=== PATIENT | female | born 1975 | race Caucasian/White ===

== ENCOUNTER → 2019-01-09 | Outpatient (CLI) | payer OTHER ==
--- NOTE | 2019-01-10 03:32 | CT ---
EXAMINATION TYPE: CT abdomen pelvis wo/w con DATE OF EXAM: 01/09/2019 COMPARISON: NONE HISTORY: 43-year-old female with abdominal pain, kidney stones TECHNIQUE: Contiguous axial scanning of the abdomen and pelvis before and after administration of 100 ml Isovue 300 IV contrast. Delayed images through the kidneys and coronal/sagittal reconstructions performed. CT DLP: 806.6 mGycm Automated exposure control for dose reduction was used. FINDINGS: Heart normal size without pericardial effusion. Lung bases clear without pleural effusion. No focal liver lesion or biliary ductal dilatation. Portal venous system is patent. Small diverticulu m of the third portion of the duodenum projecting superiorly into the pancreatic head region. Some layering gravel/tiny calculi in the nondistended gallbladder. Adrenal glands, spleen, and pancreas appear within normal limits. There is mild bilateral pelvocaliectasis. There are 5 nonobstructive calculi in the right kidney nelli uring up to 6 mm. No left-sided renal calculi are seen. There are approximately 3 calcifications within the left side of the pelvis, largest measuring 8 mm, a critical between phleboliths and distal ureteral calculi. There is overall symmetric uptake and exc retion of contrast from both kidneys. On the right, there are tiny subcentimeter hypodense lesions too small for accurate CT characterizati on, probable tiny cysts. No dilated small bowel, free fluid, or free air. No mesenteric or retroperitoneal lymphadenopathy. Moderate stool burden. Oral contrast has progressed to the lower descending colon. Normal appendix. N o pericolonic inflammatory change. Anteverted uterus and both ovaries are visualized. There is a crenulated, peripherally enhancing stru cture measuring 2.0 cm within the right ovary and mild to moderate cul-de-sac free fluid. No pelvic l ymphadenopathy. Bones: No osseous destructive process. IMPRESSION: 1. RIGHT-SIDED NEPHROLITHIASIS MEASURING UP TO 6 MM. THERE IS MILD BILATERAL PELVICALIECTASIS WHICH C OULD BE TRANSIENT OR COULD REFLECT SEQUELA OF RECENTLY PASSED STONES. 2. CALCIFICATIONS IN THE LEFT SIDE OF THE PELVIS MEASURING UP TO 8 MM ARE EQUIVOCAL BETWEEN LEFT-SIDE D PELVIC PHLEBOLITHS AND DISTAL URETERAL CALCULI. THE FORMER IS FAVORED GIVEN OVERALL SYMMETRIC UPTAK E AND EXCRETION OF CONTRAST FROM BOTH KIDNEYS ARGUING AGAINST ANY SIGNIFICANT OBSTRUCTIVE UROPATHY. 3. CHOLELITHIASIS AND EITHER A 2.0 CM RECENTLY RUPTURED FOLLICLE OR CORPUS LUTEUM IN THE RIGHT OVARY. MILD TO MODERATE CUL-DE-SAC FREE FLUID LIKELY PHYSIOLOGIC.
== END ==
LOC: RADCTMAIN 14:52
PROVIDERS: ATTEND Internal Medicine Endocrinology, Diabetes & Metabolism
DX: N20.2 Calculus of kidney with calculus of ureter (principal); I87.8 Other specified disorders of veins; K80.20 Calculus of gallbladder without cholecystitis without obstruction
CPT/HCPCS: 74178; Q9967

== ENCOUNTER → 2019-01-21 | Outpatient (CLI) | payer OTHER ==
[2019-01-21 21:13] LABS: Albumin 4.8 g/dL (3.80-4.90); Albumin/Globulin Ratio 2.09 (1.60-3.17); Anion Gap 7.9 mmol/L (4.00-12.00); Calcium 9.8 mg/dL (8.7-10.3); Carbon Dioxide 25.1 mmol/L (21.6-31.8); Globulin 2.3 g/dL (1.6-3.3); Potassium 4.7 mmol/L (3.5-5.5); Total Bilirubin 0.4 mg/dL (0.3-1.2); Total Protein 7.1 g/dL (6.2-8.2)
== END ==
LOC: LABWHC1 13:21
PROVIDERS: ATTEND Internal Medicine Endocrinology, Diabetes & Metabolism
DX: N20.0 Calculus of kidney (principal); E10.65 Type 1 diabetes mellitus with hyperglycemia
CPT/HCPCS: 36415; 80053; 83970; 84443

== ENCOUNTER → 2019-02-18 | Outpatient (CLI) | payer OTHER ==
[2019-02-18 23:21] LABS: Hemoglobin A1C 8.2 % (4.0-6.0)
[2019-02-18 23:49] LABS: Albumin 4.6 g/dL (3.80-4.90); Albumin/Globulin Ratio 2.42 (1.60-3.17); Anion Gap 10.8 mmol/L (4.00-12.00); Calcium 9.2 mg/dL (8.7-10.3); Carbon Dioxide 23.2 mmol/L (21.6-31.8); Globulin 1.9 g/dL (1.6-3.3); Total Bilirubin 0.5 mg/dL (0.2-1.2); Total Protein 6.5 g/dL (6.2-8.2)
[2019-02-19 00:17] LABS: Vitamin D 25 Hydroxy 17.6 ng/mL (30.0-100.0)
[2019-02-19 03:32] LABS: Calcium 24 Hour,Urine 111.6 mg/24Hr (100.0-250.0)
== END | disposition home or self-care (01) ==
LOC: LABWHC1 16:41
PROVIDERS: ATTEND Internal Medicine Endocrinology, Diabetes & Metabolism
DX: E10.65 Type 1 diabetes mellitus with hyperglycemia (principal); N20.0 Calculus of kidney; E55.9 Vitamin D deficiency, unspecified; K90.0 Celiac disease
CPT/HCPCS: 36415; 80053; 81050; 82306; 82340; 83036; 83970; 84443

== ENCOUNTER → 2019-02-23 | Outpatient (CLI) | payer OTHER ==
[2019-02-23 11:44] LABS: HCT 34.4 % (34.0-46.0); HGB 11.1 gm/dL (11.4-16.0); Hypochromasia Slight; MCH 27.4 pg (25.0-35.0); MCHC 32.4 g/dL (31.0-37.0); MCV 84.7 fL (80.0-100.0); Mean Platelet Volume 9.6; Platelet Count 164 k/uL (150-450); RBC 4.07 m/uL (3.80-5.40); RDW 14.2 % (11.5-15.5); WBC 8.3 k/uL (3.8-10.6)
[2019-02-23 18:37] LABS: Thyroid Peroxidase Antibodies <28.0 U/mL (0.0-60.0)
== END | disposition home or self-care (01) ==
LOC: LABWHC1 11:05
PROVIDERS: ATTEND Internal Medicine Endocrinology, Diabetes & Metabolism
DX: K90.0 Celiac disease (principal); E10.65 Type 1 diabetes mellitus with hyperglycemia
CPT/HCPCS: 36415; 82024; 82533; 82607; 84439; 84443; 85027; 86376

== ENCOUNTER → 2019-06-12 | Outpatient (CLI) | payer OTHER ==
--- NOTE | 2019-06-12 16:47 | US ---
EXAMINATION TYPE: US venous doppler duplex UE LT DATE OF EXAM: 06/12/2019 COMPARISON: NONE CLINICAL HISTORY: 43-year-old female Left upper limb swelling and pain M79.622,R22.32 PAIN AND SWELL ING LT UPPER LIMB. Left upper arm pain following recent iron infusion TECHNIQUE: Grayscale, color doppler, spectral doppler imaging performed of the deep veins of the left upper extremity. SIDE PERFORMED: Left Findings: There is normal flow, compressibility and vascular waveforms. Left Arm: Appears negative for DVT IMPRESSION: No sonographic evidence for DVT within the left upper extremity.
== END | disposition home or self-care (01) ==
LOC: RADUSWWP 15:31
PROVIDERS: ATTEND Internal Medicine Hematology & Oncology
DX: M79.622 Pain in left upper arm (principal); R22.32 Localized swelling, mass and lump, left upper limb

== ENCOUNTER → 2019-08-21 | Outpatient (CLI) | payer OTHER ==
[2019-08-21 17:47] LABS: T4, Free (Free Thyroxine) 1.2 ng/dL (0.80-1.80)
[2019-08-21 17:48] LABS: African American GFR (CKD) 80.5 (60.0-200.0); Albumin 5.1 g/dL (3.80-4.90); Albumin/Globulin Ratio 2.43 (1.60-3.17); Anion Gap 13.7 mmol/L (4.00-12.00); Calcium 9.6 mg/dL (8.7-10.3); Carbon Dioxide 22.3 mmol/L (21.6-31.8); Chol/HDL Ratio 4.5; Globulin 2.1 g/dL (1.6-3.3); LDL Cholesterol,Calculated 119.6 mg/dL (0.0-131.0); Total Bilirubin 1.1 mg/dL (0.2-1.2); Total Protein 7.2 g/dL (6.2-8.2); VLDL Calculation 41.4 mg/dL (5.00-40.00)
[2019-08-21 18:53] LABS: ACTH 12.8 pg/mL (0.00-45.99)
== END | disposition home or self-care (01) ==
LOC: LABWHC1 09:20
PROVIDERS: ATTEND Internal Medicine Endocrinology, Diabetes & Metabolism
DX: E10.65 Type 1 diabetes mellitus with hyperglycemia (principal)
CPT/HCPCS: 36415; 80053; 80061; 82024; 82533; 84439; 84443; 84480; 84681; 86337

== ENCOUNTER 2019-08-22 06:56 | Inpatient (IN) | payer OTHER ==
[2019-08-22] MEDS ORDERED: ONDANSETRON 4 MG/2 ML VIAL IVP STA (07:23)
[2019-08-22] MEDS ORDERED: SODIUM CHLORIDE 0.9% 1,000 ML IV STA ×2 (07:23)
[2019-08-22] MEDS ORDERED: MORPHINE SULFATE 4 MG/ML SYRINGE IVP STA (07:25)
--- NOTE | 2019-08-22 07:26 | ED ---
Abdominal Pain HPI - General Chief Complaint: Abdominal Pain Stated Complaint: Abd pain Time Seen by Provider: 08/22/19 07:09 Source: patient, family, RN notes reviewed, old records reviewed Mode of arrival: ambulatory Limitations: no limitations - History of Present Illness Initial Comments: 43-year-old female presents today for concern for diffuse abdominal pain. It's been worse over the past 24 hours. Patient at this time states that she has had high blood sugars for the past week. She complains of nausea and vomiting as well. Patient reports that she has had no specific fevers or chills. She states that she's had no bloody emesis. - Related Data Home Medications Medication Instructions Recorded Confirmed INSULIN ASPART (NovoLOG) [NovoLOG 14 unit SQ AC-TID 08/22/19 08/22/19 (formulary)] Insulin Glargine [Lantus] 42 unit SQ HS 08/22/19 08/22/19 Allergies Allergy/AdvReac Type Severity Reaction Status Date / Time Sulfa (Sulfonamide Allergy Anaphylaxis Verified 08/22/19 09:28 Antibiotics) Review of Systems ROS Statement: Those systems with pertinent positive or pertinent negative responses have been documented in the HPI. ROS Other: All systems not noted in ROS Statement are negative. Past Medical History Past Medical History: Diabetes Mellitus, Hypertension History of Any Multi-Drug Resistant Organisms: None Reported Past Surgical History: Tonsillectomy Past Anesthesia/Blood Transfusion Reactions: Postoperative Nausea & Vomiting (PONV) Past Psychological History: No Psychological Hx Reported Smoking Status: Never smoker Past Alcohol Use History: None Reported Past Drug Use History: None Reported - Past Family History Mother Family Medical History: Cancer General Exam - General Exam Comments Initial Comments: 43-year-old female. Alert and oriented 3. Patient appears in moderate discomfort. Limitations: no limitations General appearance: alert, in no apparent distress Head exam: Present: atraumatic, normocephalic, normal inspection Eye exam: Present: normal appearance, PERRL, EOMI. Absent: scleral icterus, conjunctival injection, periorbital swelling ENT exam: Present: normal exam, mucous membranes moist Neck exam: Present: normal inspection. Absent: tenderness, meningismus, lymphadenopathy Respiratory exam: Present: normal lung sounds bilaterally. Absent: respiratory distress, wheezes, rales, rhonchi, stridor Cardiovascular Exam: Present: regular rate, normal rhythm, normal heart sounds. Absent: systolic murmur, diastolic murmur, rubs, gallop, clicks GI/Abdominal exam: Present: soft, tenderness (left llq ), normal bowel sounds. Absent: distended, guarding, rebound, rigid Extremities exam: Present: normal inspection, full ROM Back exam: Present: normal inspection Neurological exam: Present: alert, oriented X3, CN II-XII intact Psychiatric exam: Present: normal affect, normal mood Skin exam: Present: warm, dry, intact, normal color. Absent: rash Course Vital Signs 08/22/19 08/22/19 06:57 08:32 Temperature 97.9 F Pulse Rate 99 Respiratory 20 20 Rate Blood Pressure 170/110 O2 Sat by Pulse 100 Oximetry Medical Decision Making - Medical Decision Making 43-year-old female presents today with 1 week of abdominal pain, elevated blood sugars. She was found to be in DKA. She started on insulin bolus and drip. Patient continued acid year abdominal pain. CT abdomen and pelvis was ordered. There is evidence of a 8 mm ureteral stone with a left UVJ causing moderate hydronephrosis. Patient was started on IV Rocephin as well due to some bacteria in the urine. Urine culture will be completed. Blood cultures obtained as well. Patient case discussed with Dr. Neves and Patient will be admitted at this time for likely infected left ureteral stone and DKA. - Lab Data Result diagrams: 08/22/19 07:36 08/22/19 07:36 Lab Results 08/22/19 08/22/19 08/22/19 Range/Units 07:36 07:36 07:36 WBC 8.0 (3.8-10.6) k/uL RBC 4.24 (3.80-5.40) m/uL Hgb 13.6 (11.4-16.0) gm/dL Hct 39.6 (34.0-46.0) % MCV 93.4 (80.0-100.0) fL MCH 32.0 (25.0-35.0) pg MCHC 34.3 (31.0-37.0) g/dL RDW 13.8 (11.5-15.5) % Plt Count 199 (150-450) k/uL Neutrophils % 76 % Lymphocytes % 17 % Monocytes % 4 % Eosinophils % 1 % Basophils % 1 % Neutrophils # 6.0 (1.3-7.7) k/uL Lymphocytes # 1.3 (1.0-4.8) k/uL Monocytes # 0.3 (0-1.0) k/uL Eosinophils # 0.1 (0-0.7) k/uL Basophils # 0.1 (0-0.2) k/uL PT (9.0-12.0) sec INR (<1.2) APTT (22.0-30.0) sec Sodium 136 L (137-145) mmol/L Potassium 4.8 (3.5-5.1) mmol/L Chloride 102 (98-107) mmol/L Carbon Dioxide 14 L (22-30) mmol/L Anion Gap 20 mmol/L BUN 15 (7-17) mg/dL Creatinine 0.81 (0.52-1.04) mg/dL Est GFR (CKD-EPI)AfAm >90 (>60 ml/min/1.73 sqM) Est GFR (CKD-EPI)NonAf >90 (>60 ml/min/1.73 sqM) Glucose 518 H* (74-99) mg/dL POC Glucose (mg/dL) (75-99) mg/dL POC Glu Application Specialist ID Plasma Lactic Acid Adan 2.0 (0.7-2.0) mmol/L Calcium 9.8 (8.4-10.2) mg/dL Total Bilirubin 1.0 (0.2-1.3) mg/dL AST 13 L (14-36) U/L ALT 18 (9-52) U/L Alkaline Phosphatase 78 (38-126) U/L Total Protein 7.7 (6.3-8.2) g/dL Albumin 4.8 (3.5-5.0) g/dL Amylase 33 (30-110) U/L Lipase 151 (23-300) U/L Urine Color Urine Appearance (Clear) Urine pH (5.0-8.0) Ur Specific [place] (1.001-1.035) Urine Protein (Negative) Urine Glucose (UA) (Negative) Urine Ketones (Negative) Urine Blood (Negative) Urine Nitrite (Negative) Urine Bilirubin (Negative) Urine Urobilinogen (<2.0) mg/dL Ur Leukocyte Esterase (Negative) Urine RBC (0-5) /hpf Urine WBC (0-5) /hpf Ur Squamous Epith Cells (0-4) /hpf Urine Bacteria (None) /hpf Urine Mucus (None) /hpf Urine Yeast (Budding) (None) /hpf Acetone, Qual Positive (Negative) 08/22/19 08/22/19 08/22/19 Range/Units 07:36 07:36 07:38 WBC (3.8-10.6) k/uL RBC (3.80-5.40) m/uL Hgb (11.4-16.0) gm/dL Hct (34.0-46.0) % MCV (80.0-100.0) fL MCH (25.0-35.0) pg MCHC (31.0-37.0) g/dL RDW (11.5-15.5) % Plt Count (150-450) k/uL Neutrophils % % Lymphocytes % % Monocytes % % Eosinophils % % Basophils % % Neutrophils # (1.3-7.7) k/uL Lymphocytes # (1.0-4.8) k/uL Monocytes # (0-1.0) k/uL Eosinophils # (0-0.7) k/uL Basophils # (0-0.2) k/uL PT 9.4 (9.0-12.0) sec INR 0.9 (<1.2) APTT 21.2 L (22.0-30.0) sec Sodium (137-145) mmol/L Potassium (3.5-5.1) mmol/L Chloride (98-107) mmol/L Carbon Dioxide (22-30) mmol/L Anion Gap mmol/L BUN (7-17) mg/dL Creatinine (0.52-1.04) mg/dL Est GFR (CKD-EPI)AfAm (>60 ml/min/1.73 sqM) Est GFR (CKD-EPI)NonAf (>60 ml/min/1.73 sqM) Glucose (74-99) mg/dL POC Glucose (mg/dL) 494 H (75-99) mg/dL POC Glu Application Specialist ID Anita Mathew Plasma Lactic Acid Adan (0.7-2.0) mmol/L Calcium (8.4-10.2) mg/dL Total Bilirubin (0.2-1.3) mg/dL AST (14-36) U/L ALT (9-52) U/L Alkaline Phosphatase (38-126) U/L Total Protein (6.3-8.2) g/dL Albumin (3.5-5.0) g/dL Amylase (30-110) U/L Lipase (23-300) U/L Urine Color Light Yellow Urine Appearance Cloudy H (Clear) Urine pH 5.0 (5.0-8.0) Ur Specific [place] 1.032 (1.001-1.035) Urine Protein Negative (Negative) Urine Glucose (UA) 4+ H (Negative) Urine Ketones 3+ H (Negative) Urine Blood Small H (Negative) Urine Nitrite Negative (Negative) Urine Bilirubin Negative (Negative) Urine Urobilinogen <2.0 (<2.0) mg/dL Ur Leukocyte Esterase Large H (Negative) Urine RBC 14 H (0-5) /hpf Urine WBC 13 H (0-5) /hpf Ur Squamous Epith Cells 4 (0-4) /hpf Urine Bacteria Rare H (None) /hpf Urine Mucus Rare H (None) /hpf Urine Yeast (Budding) Rare H (None) /hpf Acetone, Qual (Negative) 08/22/19 07:58 EKG performed at 7:32 AM shows normal sinus rhythm normal EKG. Ventricular rate of 82 bpm period. It was 196 most seconds. Laceration is 80 ms. QTC 372/434 ms. - Radiology Data Radiology results: report reviewed There is an 8 mm distal left ureter this at the left UVJ causing moderate to severe left-sided hydronephrosis with diminished cortical medullary uptake and at least delayed excretion. Disposition Clinical Impression: Left ureteral stone, DKA (diabetic ketoacidoses) Disposition: HOME SELF-CARE Condition: Good Is patient prescribed a controlled substance at d/c from ED?: No Referrals: Babar North MD [Primary Care Provider] - 1-2 days Time of Disposition: 11:14
[2019-08-22 07:52] LABS: Basophils # (A) 0.1 k/uL (0-0.2); Basophils % (A) 1 %; Eosinophils # (A) 0.1 k/uL (0-0.7); Eosinophils % (A) 1 %; HCT 39.6 % (34.0-46.0); HGB 13.6 gm/dL (11.4-16.0); Lymphocytes # (A) 1.3 k/uL (1.0-4.8); Lymphocytes % (A) 17 %; MCHC 34.3 g/dL (31.0-37.0); MCV 93.4 fL (80.0-100.0); Monocytes # (A) 0.3 k/uL (0-1.0); Monocytes % (A) 4 %; Neutrophils % (A) 76 %; Platelet Count 199 k/uL (150-450); RBC 4.24 m/uL (3.80-5.40); RDW 13.8 % (11.5-15.5)
[2019-08-22 07:58] LABS: Glucose,Whole Blood 494 mg/dL (75-99)
[2019-08-22 08:01] LABS: INR 0.9 (<1.2); Partial Thromboplastin Time 21.2 sec (22.0-30.0); Prothrombin Time 9.4 sec (9.0-12.0)
[2019-08-22 08:02] LABS: ALT 18 U/L (9-52); AST 13 U/L (14-36); African American GFR (CKD) >90 (>60 ml/min/1.73 sqM); Albumin 4.8 g/dL (3.5-5.0); Alkaline Phosphatase 78 U/L (38-126); Amylase 33 U/L (30-110); Anion Gap 20 mmol/L; Blood Urea Nitrogen 15 mg/dL (7-17); Calcium 9.8 mg/dL (8.4-10.2); Carbon Dioxide 14 mmol/L (22-30); Chloride 102 mmol/L (98-107); Potassium 4.8 mmol/L (3.5-5.1); Sodium 136 mmol/L (137-145); Total Protein 7.7 g/dL (6.3-8.2)
[2019-08-22 08:14] LABS: Glucose 518 mg/dL (74-99)
[2019-08-22] MEDS ORDERED: INSULIN REGULAR BOLUS (FROM DRIP BAG) IV ONE (08:20)
[2019-08-22] MEDS ORDERED: SODIUM CHLORIDE 0.9% 1,000 ML IV ONE (08:20)
[2019-08-22 08:22] LABS: Appearance,Urine Cloudy (Clear); Bacteria,Urine Rare /hpf; Bilirubin,Urine Negative (Negative); Blood,Urine Small (Negative); Budding Yeast,Urine Rare /hpf; Color,Urine Light Yellow; Glucose,Urine (UA) 4+ (Negative); Leukocyte Esterase,Urine Large (Negative); Mucus,Urine Rare /hpf; Nitrite,Urine Negative (Negative); Protein,Urine Negative (Negative); RBC,Urine 14 /hpf (0-5); Specific Gravity,Urine 1.032 (1.001-1.035); Squamous Epithelial Cell,Urine 4 /hpf (0-4); Urobilinogen,Urine <2.0 mg/dL (<2.0); WBC,Urine 13 /hpf (0-5)
[2019-08-22 08:25] LABS: Ketones,Urine 3+ (Negative)
[2019-08-22] MEDS ORDERED: HYDROmorphone 1 MG/ML 1 ML SYRINGE IVP STA ×2 (08:41→09:51)
[2019-08-22] MEDS: INSULIN REGULAR 100 UNIT in SODIUM CHLORIDE 0.9% 100 ML IV SCH ×2 (09:07→20:11)
[2019-08-22] MEDS: SODIUM CHLORIDE 0.9% 1,000 ML IV SCH ×4 (09:08→20:00)
--- NOTE | 2019-08-22 09:39 | XR ---
EXAMINATION TYPE: XR KUB DATE OF EXAM: 08/22/2019 9:21 AM CLINICAL HISTORY: Pain. TECHNIQUE: Two Upright KUB images of the abdomen are obtained. COMPARISON: Same day CAT scan performed same time. FINDINGS: Scattered gas is seen in non-distended stomach and small bowel loops. Gas and fecal materia l is seen in non-distended colon. There are 2 calculi scattered throughout the right kidney measuring up to 4 mm in size. There are additional smaller right-sided renal calculi are same-day CT less well seen on plain films. There are pelvic phleboliths. There is 8mm pelvic density corresponds to distal ureter calculus on CT causing moderate to severe left-sided hydronephrosis. Visualized osseous struc tures are intact. IMPRESSION: There is 8 mm distal left ureter calculus at UVJ causing moderate to severe left-sided hy dronephrosis when correlating with CT.
--- NOTE | 2019-08-22 09:46 | CT ---
EXAMINATION TYPE: CT abdomen pelvis w con DATE OF EXAM: 08/22/2019 HISTORY: Left lower quadrant pain and suprapubic pain, history of kidney stones. CT DLP: 655mGycm Automated Exposure Control for Dose Reduction was Utilized. CONTRAST: CT scan of the abdomen and pelvis is performed with IV Contrast, patient injected with 100 mL of Isov ue 300. COMPARISON: Same day x-ray. CT abdomen and pelvis January 09, 2019 FINDINGS: LUNG BASES: No significant abnormality is appreciated. LIVER/GB: Dependent gallstones in the gallbladder redemonstrated. PANCREAS: No significant abnormality is seen. SPLEEN: No significant abnormality is seen. ADRENALS: No significant abnormality is seen. KIDNEYS: There are 3 right-sided renal calculi measuring up to 5 mm in size coronal image 54. There i s diminished left-sided corticomedullary uptake and absent or delayed excretion due to obstructing 8 mm calculus at left UVJ axial image 71 causing moderate to severe left-sided hydronephrosis. And rafael e adjacent left pelvic phleboliths. No right-sided obstructing calculi or hydronephrosis. Extrarenal pelvis on the right is present. Fairly moderate left-sided perinephric fluid is nonspecific finding. In retrospect this corresponded to the pelvic density noted equivocal on prior CT which has slightly progressed distally to the UVJ now causing obstructive uropathy. BOWEL: Unusual focal fluid-filled prominence of the terminal ileum coronal image 32 for reference. No suspicious proximal small bowel dilatation. Occasional distal colonic diverticula. No CT evidence fo r acute diverticulitis UTERUS/ADNEXA: Anteverted uterus. Small amount of free fluid in pelvis. LYMPH NODES: No greater than 1cm abdominal or pelvic lymph nodes are appreciated. OSSEOUS STRUCTURES: Facet arthropathy lower lumbar levels. OTHER: No significant additional abnormality is seen. IMPRESSION: There is 8 mm distal left ureter calculus at left UVJ causing moderate to severe left-moni ed hydronephrosis along with diminished cortical medullary uptake and at least delayed excretion.
[2019-08-22] MEDS ORDERED: KETOROLAC 30 MG/ML 1 ML VIAL IVP STA (09:51)
[2019-08-22 10:26] LABS: Glucose,Whole Blood 353 mg/dL (75-99)
[2019-08-22] MEDS ORDERED: NALOXONE 0.4 MG/ML 1 ML VIAL IV PRN (11:17)
[2019-08-22] MEDS ORDERED: IBUPROFEN 400 MG TAB PO PRN (11:17)
[2019-08-22 11:24] LABS: Glucose,Whole Blood 328 mg/dL (75-99)
[2019-08-22 12:00] VITALS: BMI 24.8
[2019-08-22 12:15] LABS: Glucose,Whole Blood 194 mg/dL (75-99)
[2019-08-22 12:54] LABS: African American GFR (CKD) >90 (>60 ml/min/1.73 sqM); Anion Gap 15 mmol/L; Blood Urea Nitrogen 13 mg/dL (7-17); Carbon Dioxide 16 mmol/L (22-30); Chloride 111 mmol/L (98-107); Glucose 217 mg/dL (74-99); Phosphorus 2.6 mg/dL (2.5-4.5); Potassium 3.9 mmol/L (3.5-5.1); Sodium 142 mmol/L (137-145)
[2019-08-22 13:17] LABS: Glucose,Whole Blood 169 mg/dL (75-99)
[2019-08-22 14:25] LABS: Glucose,Whole Blood 162 mg/dL (75-99)
--- NOTE | 2019-08-22 14:42 | P.HPIM ---
History of Present Illness H&P Date: 08/22/19 Chief Complaint: Abdominal pain This is a 43-year-old female patient of Dr. Berger with past medical history of diabetes mellitus type 1 on the care of Dr. Uribe, history of kidney stones, UTI. Patient states that she has had kidney stones in the past but she was always able to pass some and follows with Dr. Veras. She complains of left-sided abdominal pain that started about 1 week ago or more but yesterday it started becoming much worse. Blood sugars have been running high at home and she is in the process of waiting for stabilization of her blood sugars so that she can obtain a pump. She states she was told that her cholesterol was high when she does follow Dr. Uribe yesterday. She denies any upper respiratory infection symptoms. Patient does complain of burning and pain with urination. Patient came into [facility] emergency center for evaluation and found to have a blood pressure of 170/110, afebrile, heart rate 99, pulse ox 100%. EKG is in normal sinus rhythm. CBC was unremarkable. Blood sugar was 518 and acetone was positive. BUN 15 and creatinine 0.81, CO2 14. CAT scan of the abdomen and pelvis with contrast revealed moderate to severe hydronephrosis on the left side with an 8 mm ureteral stone in the left UVJ. UA was cloudy, leukoesterase large, RBCs 14 and of ABCs 13. Urine culture and blood culture in progress. Patient was started on the DKA protocol and admitted to the cardiac stepdown unit. Consult with urology. Review of Systems Constitutional: Reports fatigue, Reports poor appetite, Denies chills, Denies fever Eyes: denies blurred vision, denies pain Ears, nose, mouth and throat: Denies dysphagia, Denies headache, Denies nasal congestion, Denies nasal discharge, Denies sore throat, Denies vertigo Cardiovascular: Denies chest pain, Denies shortness of breath Respiratory: Denies cough, Denies cough with sputum, Denies dyspnea, Denies excessive sputum, Denies hemoptysis, Denies home oxygen, Denies respiratory infections, Denies wheezing Gastrointestinal: Reports abdominal pain, Reports loss of appetite, Denies diarrhea, Denies nausea, Denies vomiting Genitourinary: Reports dysuria, Reports flank pain, Denies hematuria Musculoskeletal: Denies frequent falls, Denies gait dysfunction, Denies muscle weakness, Denies myalgias Integumentary: Denies pruritus, Denies rash, Denies wounds Neurological: Denies change in mentation, Denies change in speech, Denies numbness, Denies seizures, Denies weakness Psychiatric: Denies anxiety, Denies depression Endocrine: Denies fatigue, Denies weight change Past Medical History Past Medical History: Diabetes Mellitus, Hypertension, Renal Disease Additional Past Medical History / Comment(s): IDDM type II, kidney stones which pt passed on her own, UTI. History of Any Multi-Drug Resistant Organisms: None Reported Past Surgical History: Tonsillectomy, Uterine Ablation Additional Past Surgical History / Comment(s): Laparoscopic surgerie for ovarian cysts, colonoscopy with benign polyp Past Anesthesia/Blood Transfusion Reactions: Postoperative Nausea & Vomiting (PONV) Past Psychological History: No Psychological Hx Reported Additional Psychological History / Comment(s): Pt resides with her spouse and children. She is independent. Smoking Status: Never smoker Past Alcohol Use History: None Reported Additional Past Alcohol Use History / Comment(s): Patient is a lifelong nonsmoker, no marijuana or illicit drug use. Past Drug Use History: None Reported - Past Family History Mother Family Medical History: Cancer Additional Family Medical History / Comment(s): Mother is alive at age 71 with history of chronic back pain and Renal carcinoma Father Family Medical History: No Reported History Additional Family Medical History / Comment(s): Father is alive at age 77 with history of chronic kidney disease and hypertension. Sister(s) Additional Family Medical History / Comment(s): Patient has 1 sister with no major medical problems. Patient's 3 children with no major medical problems. Medications and Allergies Home Medications Medication Instructions Recorded Confirmed Type INSULIN ASPART (NovoLOG) [NovoLOG 14 unit SQ AC-TID 08/22/19 08/22/19 History (formulary)] Insulin Glargine [Lantus] 42 unit SQ HS 08/22/19 08/22/19 History Allergies Allergy/AdvReac Type Severity Reaction Status Date / Time Sulfa (Sulfonamide Allergy Anaphylaxis Verified 08/22/19 09:28 Antibiotics) Physical Exam Vitals: Vital Signs Temp Pulse Pulse Resp BP BP Pulse Ox 08/22/19 12:23 98.5 F 73 16 113/74 98 08/22/19 11:40 20 122/85 08/22/19 11:07 79 16 122/85 08/22/19 10:10 89 20 146/95 96 08/22/19 08:32 20 08/22/19 06:57 97.9 F 99 20 170/110 100 Intake and Output 08/21/19 08/22/19 08/22/19 22:59 06:59 14:59 Intake Total 90 Balance 90 Intake: Oral 90 Other: # Voids 0 Weight 61.689 kg 61.689 kg Gen: This is a 43-year-old female. She is resting in bed and appears somewhat uncomfortable secondary to pain. HEENT: Head is atraumatic, normocephalic. Pupils equal, round. Sclerae is anicteric. NECK: Supple. No JVD. No lymphadenopathy. No thyromegaly. LUNGS: Clear to auscultation. No wheezes or rhonchi. No intercostal retractions. HEART: Regular rate and rhythm. No murmur. ABDOMEN: Soft. Bowel sounds are present. No masses. Left-sided tenderness. Left flank tenderness EXTREMITIES: No pedal edema. No calf tenderness. Dorsalis pedis +2 bilaterally. NEUROLOGICAL: Patient is awake, alert and oriented x3. Cranial nerves 2 through 12 are grossly intact. Results CBC & Chem 7: 08/22/19 07:36 08/22/19 11:52 Labs: Abnormal Lab Results - Last 24 Hours (Table) 08/22/19 08/22/19 08/22/19 Range/Units 07:36 07:36 07:36 APTT 21.2 L (22.0-30.0) sec Sodium 136 L (137-145) mmol/L Chloride (98-107) mmol/L Carbon Dioxide 14 L (22-30) mmol/L Glucose 518 H* (74-99) mg/dL POC Glucose (mg/dL) (75-99) mg/dL AST 13 L (14-36) U/L Urine Appearance Cloudy H (Clear) Urine Glucose (UA) 4+ H (Negative) Urine Ketones 3+ H (Negative) Urine Blood Small H (Negative) Ur Leukocyte Esterase Large H (Negative) Urine RBC 14 H (0-5) /hpf Urine WBC 13 H (0-5) /hpf Urine Bacteria Rare H (None) /hpf Urine Mucus Rare H (None) /hpf Urine Yeast (Budding) Rare H (None) /hpf 08/22/19 08/22/19 08/22/19 Range/Units 07:38 10:07 11:06 APTT (22.0-30.0) sec Sodium (137-145) mmol/L Chloride (98-107) mmol/L Carbon Dioxide (22-30) mmol/L Glucose (74-99) mg/dL POC Glucose (mg/dL) 494 H 353 H 328 H (75-99) mg/dL AST (14-36) U/L Urine Appearance (Clear) Urine Glucose (UA) (Negative) Urine Ketones (Negative) Urine Blood (Negative) Ur Leukocyte Esterase (Negative) Urine RBC (0-5) /hpf Urine WBC (0-5) /hpf Urine Bacteria (None) /hpf Urine Mucus (None) /hpf Urine Yeast (Budding) (None) /hpf 08/22/19 08/22/19 08/22/19 Range/Units 11:52 12:13 13:10 APTT (22.0-30.0) sec Sodium (137-145) mmol/L Chloride 111 H (98-107) mmol/L Carbon Dioxide 16 L (22-30) mmol/L Glucose 217 H (74-99) mg/dL POC Glucose (mg/dL) 194 H 169 H (75-99) mg/dL AST (14-36) U/L Urine Appearance (Clear) Urine Glucose (UA) (Negative) Urine Ketones (Negative) Urine Blood (Negative) Ur Leukocyte Esterase (Negative) Urine RBC (0-5) /hpf Urine WBC (0-5) /hpf Urine Bacteria (None) /hpf Urine Mucus (None) /hpf Urine Yeast (Budding) (None) /hpf 08/22/19 Range/Units 14:21 APTT (22.0-30.0) sec Sodium (137-145) mmol/L Chloride (98-107) mmol/L Carbon Dioxide (22-30) mmol/L Glucose (74-99) mg/dL POC Glucose (mg/dL) 162 H (75-99) mg/dL AST (14-36) U/L Urine Appearance (Clear) Urine Glucose (UA) (Negative) Urine Ketones (Negative) Urine Blood (Negative) Ur Leukocyte Esterase (Negative) Urine RBC (0-5) /hpf Urine WBC (0-5) /hpf Urine Bacteria (None) /hpf Urine Mucus (None) /hpf Urine Yeast (Budding) (None) /hpf Thrombosis Risk Factor Assmnt - DVT/VTE Prophylaxis DVT/VTE Prophylaxis: Pharmacologic Prophylaxis ordered - Choose All That Apply Any of the Below Risk Factors Present?: Yes Each Factor Represents 1 point: Age 41-60 years Other Risk Factors: No Other congenital or acquired thrombophilia - If yes, enter type in comment: No Thrombosis Risk Factor Assessment Total Risk Factor Score: 1 Thrombosis Risk Factor Assessment Level: Low Risk Assessment and Plan Plan: 1. Diabetic ketoacidosis. The patient has been started on the DKA protocol. Continue insulin drip, IV fluids and Accu-Cheks per protocol. 2. Urinary tract infection secondary to possibly infected stone. Continue ceftriaxone 2 g daily, urine culture and blood culture in progress. 3. Left-sided hydronephrosis secondary to renal stone. Consult with urology. Patient has followed with in the past. 4. Diabetes mellitus type 1. Patient is normally on Lantus along with scheduled NovoLog and scale and follows with Dr. Uribe. Continue DKA protocol. 5. High blood pressure reading on presentation without history of hypertension. Continue to monitor 6. GI prophylaxis. Protonix. 7. DVT prophylaxis. Lovenox. Patient will be admitted to the hospital for a minimum of 2 night stay. Discharge plan: home Impression and plan of care have been directed as dictated by the signing physician. Aviva Cobb nurse practitioner acting as scribe for signing physician.
[2019-08-22 15:44] LABS: Glucose,Whole Blood 151 mg/dL (75-99)
[2019-08-22] MEDS ORDERED: TAMSULOSIN 0.4 MG CAP.ER.24H PO STA (16:01)
[2019-08-22 16:58] LABS: Glucose,Whole Blood 82 mg/dL (75-99)
[2019-08-22 17:05] LABS: African American GFR (CKD) >90 (>60 ml/min/1.73 sqM); Anion Gap 12 mmol/L; Blood Urea Nitrogen 11 mg/dL (7-17); Carbon Dioxide 13 mmol/L (22-30); Chloride 116 mmol/L (98-107); Glucose 116 mg/dL (74-99); Potassium 3.8 mmol/L (3.5-5.1); Sodium 141 mmol/L (137-145)
[2019-08-22 17:13] LABS: Glucose,Whole Blood 78 mg/dL (75-99)
[2019-08-22 17:38] LABS: Glucose,Whole Blood 82 mg/dL (75-99)
[2019-08-22 18:05] LABS: Glucose,Whole Blood 112 mg/dL (75-99)
[2019-08-22 19:07] LABS: Glucose,Whole Blood 129 mg/dL (75-99)
[2019-08-22] MEDS: ACETAMINOPHEN TAB 325 MG TAB PO PRN (19:36)
[2019-08-22 20:11] LABS: Glucose,Whole Blood 117 mg/dL (75-99)
[2019-08-22 20:57] LABS: African American GFR (CKD) >90 (>60 ml/min/1.73 sqM); Anion Gap 12 mmol/L; Blood Urea Nitrogen 8 mg/dL (7-17); Calcium 8.1 mg/dL (8.4-10.2); Carbon Dioxide 14 mmol/L (22-30); Chloride 112 mmol/L (98-107); Glucose 125 mg/dL (74-99); Potassium 3.8 mmol/L (3.5-5.1); Sodium 138 mmol/L (137-145)
[2019-08-22 21:00] LABS: Glucose,Whole Blood 142 mg/dL (75-99)
--- NOTE | 2019-08-22 21:45 | P.GSCN ---
History of Present Illness Consult date: 08/22/19 Reason for Consult: Left Ureteral Calculi Requesting physician: Babar North History of present illness: Ms. West is a 43-year-old with PMH significant for diabetes mellitus type 1 and hx of recurrent renal calculi. Patient is admitted to the hospital for DKA. On presentation she was complaining of left flank pain. Denies any dysuria, fever/chills or hematuria. in the ED she underwent CT which showed a left side hydronephrosis with an 8 mm ureteral stone in the left UVJ. She has hx of recurrent renal calculi. She indicated she always passes her stones spontaneously and she has not underwent any surgeries for her stone Review of Systems - Constitutional Denies chills, Denies fever - EENT Ears, nose, mouth and throat: Denies dysphagia, Denies headache - Respiratory Denies cough, Denies dyspnea - Gastrointestinal Reports abdominal pain, Denies nausea, Denies vomiting - Genitourinary Genitourinary: Reports flank pain, Reports kidney stones, Denies dysuria, Denies hematuria - Neurological Denies confusion, Denies weakness - Endocrine Reports polydipsia, Reports polyuria Past Medical History Past Medical History: Diabetes Mellitus, Hypertension, Renal Disease Additional Past Medical History / Comment(s): IDDM type II, kidney stones which pt passed on her own, UTI. History of Any Multi-Drug Resistant Organisms: None Reported Past Surgical History: Tonsillectomy, Uterine Ablation Additional Past Surgical History / Comment(s): Laparoscopic surgerie for ovarian cysts, colonoscopy with benign polyp Past Anesthesia/Blood Transfusion Reactions: Postoperative Nausea & Vomiting (PONV) Past Psychological History: No Psychological Hx Reported Additional Psychological History / Comment(s): Pt resides with her spouse and children. She is independent. Smoking Status: Never smoker Past Alcohol Use History: None Reported Additional Past Alcohol Use History / Comment(s): Patient is a lifelong nonsmoker, no marijuana or illicit drug use. Past Drug Use History: None Reported - Past Family History Mother Family Medical History: Cancer Additional Family Medical History / Comment(s): Mother is alive at age 71 with history of chronic back pain and Renal carcinoma Father Family Medical History: No Reported History Additional Family Medical History / Comment(s): Father is alive at age 77 with history of chronic kidney disease and hypertension. Sister(s) Additional Family Medical History / Comment(s): Patient has 1 sister with no major medical problems. Patient's 3 children with no major medical problems. Medications and Allergies Home Medications Medication Instructions Recorded Confirmed Type INSULIN ASPART (NovoLOG) [NovoLOG 14 unit SQ AC-TID 08/22/19 08/22/19 History (formulary)] Insulin Glargine [Lantus] 42 unit SQ HS 08/22/19 08/22/19 History Allergies Allergy/AdvReac Type Severity Reaction Status Date / Time Sulfa (Sulfonamide Allergy Anaphylaxis Verified 08/22/19 09:28 Antibiotics) Surgical - Exam Vital Signs Temp Pulse Resp BP Pulse Ox 97.9 F 99 20 170/110 100 08/22/19 06:57 08/22/19 06:57 08/22/19 06:57 08/22/19 06:57 08/22/19 06:57 - General well developed, well nourished, no distress, no pain - ENT normal nares, no hearing loss - Respiratory normal expansion, normal respiratory effort - Abdomen Abdomen: soft, non tender, no distended - Neurologic normal coordination, normal sensation - Musculoskeletal normal gait, normal posture - Psychiatric oriented to time, oriented to person, oriented to place, speech is normal Results - Labs 08/22/19 07:36 08/22/19 20:34 Abnormal Lab Results - Last 24 Hours (Table) 08/22/19 08/22/19 08/22/19 Range/Units 07:36 07:36 07:36 APTT 21.2 L (22.0-30.0) sec Sodium 136 L (137-145) mmol/L Chloride (98-107) mmol/L Carbon Dioxide 14 L (22-30) mmol/L Glucose 518 H* (74-99) mg/dL POC Glucose (mg/dL) (75-99) mg/dL Calcium (8.4-10.2) mg/dL AST 13 L (14-36) U/L Urine Appearance Cloudy H (Clear) Urine Glucose (UA) 4+ H (Negative) Urine Ketones 3+ H (Negative) Urine Blood Small H (Negative) Ur Leukocyte Esterase Large H (Negative) Urine RBC 14 H (0-5) /hpf Urine WBC 13 H (0-5) /hpf Urine Bacteria Rare H (None) /hpf Urine Mucus Rare H (None) /hpf Urine Yeast (Budding) Rare H (None) /hpf 08/22/19 08/22/19 08/22/19 Range/Units 07:38 10:07 11:06 APTT (22.0-30.0) sec Sodium (137-145) mmol/L Chloride (98-107) mmol/L Carbon Dioxide (22-30) mmol/L Glucose (74-99) mg/dL POC Glucose (mg/dL) 494 H 353 H 328 H (75-99) mg/dL Calcium (8.4-10.2) mg/dL AST (14-36) U/L Urine Appearance (Clear) Urine Glucose (UA) (Negative) Urine Ketones (Negative) Urine Blood (Negative) Ur Leukocyte Esterase (Negative) Urine RBC (0-5) /hpf Urine WBC (0-5) /hpf Urine Bacteria (None) /hpf Urine Mucus (None) /hpf Urine Yeast (Budding) (None) /hpf 08/22/19 08/22/19 08/22/19 Range/Units 11:52 12:13 13:10 APTT (22.0-30.0) sec Sodium (137-145) mmol/L Chloride 111 H (98-107) mmol/L Carbon Dioxide 16 L (22-30) mmol/L Glucose 217 H (74-99) mg/dL POC Glucose (mg/dL) 194 H 169 H (75-99) mg/dL Calcium (8.4-10.2) mg/dL AST (14-36) U/L Urine Appearance (Clear) Urine Glucose (UA) (Negative) Urine Ketones (Negative) Urine Blood (Negative) Ur Leukocyte Esterase (Negative) Urine RBC (0-5) /hpf Urine WBC (0-5) /hpf Urine Bacteria (None) /hpf Urine Mucus (None) /hpf Urine Yeast (Budding) (None) /hpf 08/22/19 08/22/19 08/22/19 Range/Units 14:21 15:27 16:11 APTT (22.0-30.0) sec Sodium (137-145) mmol/L Chloride 116 H (98-107) mmol/L Carbon Dioxide 13 L (22-30) mmol/L Glucose 116 H (74-99) mg/dL POC Glucose (mg/dL) 162 H 151 H (75-99) mg/dL Calcium (8.4-10.2) mg/dL AST (14-36) U/L Urine Appearance (Clear) Urine Glucose (UA) (Negative) Urine Ketones (Negative) Urine Blood (Negative) Ur Leukocyte Esterase (Negative) Urine RBC (0-5) /hpf Urine WBC (0-5) /hpf Urine Bacteria (None) /hpf Urine Mucus (None) /hpf Urine Yeast (Budding) (None) /hpf 08/22/19 08/22/19 08/22/19 Range/Units 18:01 19:06 20:08 APTT (22.0-30.0) sec Sodium (137-145) mmol/L Chloride (98-107) mmol/L Carbon Dioxide (22-30) mmol/L Glucose (74-99) mg/dL POC Glucose (mg/dL) 112 H 129 H 117 H (75-99) mg/dL Calcium (8.4-10.2) mg/dL AST (14-36) U/L Urine Appearance (Clear) Urine Glucose (UA) (Negative) Urine Ketones (Negative) Urine Blood (Negative) Ur Leukocyte Esterase (Negative) Urine RBC (0-5) /hpf Urine WBC (0-5) /hpf Urine Bacteria (None) /hpf Urine Mucus (None) /hpf Urine Yeast (Budding) (None) /hpf 08/22/19 08/22/19 Range/Units 20:34 20:59 APTT (22.0-30.0) sec Sodium (137-145) mmol/L Chloride 112 H (98-107) mmol/L Carbon Dioxide 14 L (22-30) mmol/L Glucose 125 H (74-99) mg/dL POC Glucose (mg/dL) 142 H (75-99) mg/dL Calcium 8.1 L (8.4-10.2) mg/dL AST (14-36) U/L Urine Appearance (Clear) Urine Glucose (UA) (Negative) Urine Ketones (Negative) Urine Blood (Negative) Ur Leukocyte Esterase (Negative) Urine RBC (0-5) /hpf Urine WBC (0-5) /hpf Urine Bacteria (None) /hpf Urine Mucus (None) /hpf Urine Yeast (Budding) (None) /hpf Microbiology - Last 24 Hours (Table) 08/22/19 07:36 Urine Culture - Preliminary Urine,Voided Diabetes panel 08/22/19 08/22/19 08/22/19 Range/Units 07:36 11:52 16:11 Sodium 136 L 142 141 (137-145) mmol/L Potassium 4.8 3.9 3.8 (3.5-5.1) mmol/L Chloride 102 111 H 116 H (98-107) mmol/L Carbon Dioxide 14 L 16 L 13 L (22-30) mmol/L BUN 15 13 11 (7-17) mg/dL Creatinine 0.81 0.79 0.60 (0.52-1.04) mg/dL Glucose 518 H* 217 H 116 H (74-99) mg/dL Calcium 9.8 (8.4-10.2) mg/dL AST 13 L (14-36) U/L ALT 18 (9-52) U/L Alkaline Phosphatase 78 (38-126) U/L Total Protein 7.7 (6.3-8.2) g/dL Albumin 4.8 (3.5-5.0) g/dL 08/22/19 Range/Units 20:34 Sodium 138 (137-145) mmol/L Potassium 3.8 (3.5-5.1) mmol/L Chloride 112 H (98-107) mmol/L Carbon Dioxide 14 L (22-30) mmol/L BUN 8 (7-17) mg/dL Creatinine 0.57 (0.52-1.04) mg/dL Glucose 125 H (74-99) mg/dL Calcium 8.1 L (8.4-10.2) mg/dL AST (14-36) U/L ALT (9-52) U/L Alkaline Phosphatase (38-126) U/L Total Protein (6.3-8.2) g/dL Albumin (3.5-5.0) g/dL Calcium panel 08/22/19 08/22/19 08/22/19 Range/Units 07:36 11:52 16:11 Calcium 9.8 (8.4-10.2) mg/dL Phosphorus 2.6 2.6 (2.5-4.5) mg/dL Albumin 4.8 (3.5-5.0) g/dL 08/22/19 Range/Units 20:34 Calcium 8.1 L (8.4-10.2) mg/dL Phosphorus (2.5-4.5) mg/dL Albumin (3.5-5.0) g/dL Pituitary panel 08/22/19 08/22/19 08/22/19 Range/Units 07:36 11:52 16:11 Sodium 136 L 142 141 (137-145) mmol/L Potassium 4.8 3.9 3.8 (3.5-5.1) mmol/L Chloride 102 111 H 116 H (98-107) mmol/L Carbon Dioxide 14 L 16 L 13 L (22-30) mmol/L BUN 15 13 11 (7-17) mg/dL Creatinine 0.81 0.79 0.60 (0.52-1.04) mg/dL Glucose 518 H* 217 H 116 H (74-99) mg/dL Calcium 9.8 (8.4-10.2) mg/dL 08/22/19 Range/Units 20:34 Sodium 138 (137-145) mmol/L Potassium 3.8 (3.5-5.1) mmol/L Chloride 112 H (98-107) mmol/L Carbon Dioxide 14 L (22-30) mmol/L BUN 8 (7-17) mg/dL Creatinine 0.57 (0.52-1.04) mg/dL Glucose 125 H (74-99) mg/dL Calcium 8.1 L (8.4-10.2) mg/dL Adrenal panel 08/22/19 08/22/19 08/22/19 Range/Units 07:36 11:52 16:11 Sodium 136 L 142 141 (137-145) mmol/L Potassium 4.8 3.9 3.8 (3.5-5.1) mmol/L Chloride 102 111 H 116 H (98-107) mmol/L Carbon Dioxide 14 L 16 L 13 L (22-30) mmol/L BUN 15 13 11 (7-17) mg/dL Creatinine 0.81 0.79 0.60 (0.52-1.04) mg/dL Glucose 518 H* 217 H 116 H (74-99) mg/dL Calcium 9.8 (8.4-10.2) mg/dL Total Bilirubin 1.0 (0.2-1.3) mg/dL AST 13 L (14-36) U/L ALT 18 (9-52) U/L Alkaline Phosphatase 78 (38-126) U/L Total Protein 7.7 (6.3-8.2) g/dL Albumin 4.8 (3.5-5.0) g/dL 08/22/19 Range/Units 20:34 Sodium 138 (137-145) mmol/L Potassium 3.8 (3.5-5.1) mmol/L Chloride 112 H (98-107) mmol/L Carbon Dioxide 14 L (22-30) mmol/L BUN 8 (7-17) mg/dL Creatinine 0.57 (0.52-1.04) mg/dL Glucose 125 H (74-99) mg/dL Calcium 8.1 L (8.4-10.2) mg/dL Total Bilirubin (0.2-1.3) mg/dL AST (14-36) U/L ALT (9-52) U/L Alkaline Phosphatase (38-126) U/L Total Protein (6.3-8.2) g/dL Albumin (3.5-5.0) g/dL - Imaging CT scan - abdomen: image reviewed (8 left sided ureteral stone at the UVJ with m oderate hydro) Assessment and Plan Assessment: 43 yo female with hx of DM and recurrent stones. she is admitted to the hospital with DKA. underwent CT abd/pelvis which showed 8 mm left sided UVJ stone with severe hydro. Plan: -Continue Ceftrixone -NPO past MN -OR tomorrow for cysto left Ureteroscopy, laser lithotirpy and stent placement
[2019-08-22 22:05] LABS: Glucose,Whole Blood 166 mg/dL (75-99)
[2019-08-22] MEDS: INSULIN ASPART (NovoLOG) 100 UNIT/ML VIAL SQ PRN (22:12)
[2019-08-22] MEDS: INSULIN DETEMIR (LEVEMIR) 100 UNIT/ML SYR SQ SCH (22:19)
[2019-08-23] LABS: Glucose,Whole Blood 151 mg/dL (75-99)
[2019-08-23] MEDS: INSULIN ASPART (NovoLOG) 100 UNIT/ML VIAL SQ PRN ×2 (00:04→04:00)
[2019-08-23 02:00] LABS: Glucose,Whole Blood 140 mg/dL (75-99)
[2019-08-23 03:55] LABS: Glucose,Whole Blood 182 mg/dL (75-99)
[2019-08-23 06:19] LABS: Glucose,Whole Blood 177 mg/dL (75-99)
[2019-08-23] MEDS: INSULIN ASPART (NovoLOG) 100 UNIT/ML VIAL SQ SCH ×7 (06:34→22:22)
[2019-08-23] MEDS: PANTOPRAZOLE 40 MG/10 ML VIAL IV SCH (07:57)
--- NOTE | 2019-08-23 11:50 | P.PN ---
Subjective Progress Note Date: 08/23/19 Principal diagnosis: Ureteral stone 43 yo female with hx of left UVJ stone, denies any symptoms today, she indicated she has not passed her stone yet. No fever/chills Objective - Vital Signs Vital signs: Vital Signs Temp 98.0 F 08/23/19 08:02 Pulse 85 08/23/19 08:02 Resp 16 08/23/19 08:02 BP 112/75 08/23/19 08:02 Pulse Ox 100 08/23/19 08:02 Intake & Output 08/22/19 08/23/19 08/23/19 18:59 06:59 18:59 Intake Total 259.744 93.312 Balance 259.744 93.312 Weight 61.689 kg 63.2 kg Intake: Intake, IV Titration 49.744 93.312 Amount Insulin Regular 100 unit 49.744 93.312 In Sodium Chloride 0.9% 100 ml @ 0.1 UNITS/KG/HR 6.231 mls/hr IV .[id number] [facility] Rx#:[id number] Oral 210 Other: Voiding Method Toilet Toilet # Voids 0 2 - Constitutional General appearance: Present: no acute distress - Gastrointestinal General gastrointestinal: Present: soft. Absent: distended - Psychiatric Psychiatric: Present: A&O x's 3 - Labs CBC & Chem 7: 08/22/19 07:36 08/22/19 20:34 Labs: Abnormal Lab Results - Last 24 Hours (Table) 08/22/19 08/22/19 08/22/19 Range/Units 11:52 12:13 13:10 Chloride 111 H (98-107) mmol/L Carbon Dioxide 16 L (22-30) mmol/L Glucose 217 H (74-99) mg/dL POC Glucose (mg/dL) 194 H 169 H (75-99) mg/dL Calcium (8.4-10.2) mg/dL 08/22/19 08/22/19 08/22/19 Range/Units 14:21 15:27 16:11 Chloride 116 H (98-107) mmol/L Carbon Dioxide 13 L (22-30) mmol/L Glucose 116 H (74-99) mg/dL POC Glucose (mg/dL) 162 H 151 H (75-99) mg/dL Calcium (8.4-10.2) mg/dL 08/22/19 08/22/19 08/22/19 Range/Units 18:01 19:06 20:08 Chloride (98-107) mmol/L Carbon Dioxide (22-30) mmol/L Glucose (74-99) mg/dL POC Glucose (mg/dL) 112 H 129 H 117 H (75-99) mg/dL Calcium (8.4-10.2) mg/dL 08/22/19 08/22/19 08/22/19 Range/Units 20:34 20:59 22:03 Chloride 112 H (98-107) mmol/L Carbon Dioxide 14 L (22-30) mmol/L Glucose 125 H (74-99) mg/dL POC Glucose (mg/dL) 142 H 166 H (75-99) mg/dL Calcium 8.1 L (8.4-10.2) mg/dL 08/22/19 08/23/19 08/23/19 Range/Units 23:56 01:59 03:54 Chloride (98-107) mmol/L Carbon Dioxide (22-30) mmol/L Glucose (74-99) mg/dL POC Glucose (mg/dL) 151 H 140 H 182 H (75-99) mg/dL Calcium (8.4-10.2) mg/dL 08/23/19 Range/Units 06:15 Chloride (98-107) mmol/L Carbon Dioxide (22-30) mmol/L Glucose (74-99) mg/dL POC Glucose (mg/dL) 177 H (75-99) mg/dL Calcium (8.4-10.2) mg/dL Microbiology - Last 24 Hours (Table) 08/22/19 07:36 Urine Culture - Preliminary Urine,Voided Assessment and Plan Assessment: 43 yo female with hx of DM and recurrent stones. she is admitted to the hospital with DKA. underwent CT abd/pelvis which showed 8 mm left sided UVJ stone with severe hydro. Has not passed stone yet Plan: -Continue Ceftrixone -Keep NPO -OR today for cysto left Ureteroscopy, laser lithotirpy and stent placement
[2019-08-23 12:04] LABS: Glucose,Whole Blood 170 mg/dL (75-99)
--- NOTE | 2019-08-23 14:27 | P.PN ---
Subjective Progress Note Date: 08/23/19 This is a 43-year-old female patient of Dr. Berger with past medical history of diabetes mellitus type 1 on the care of Dr. Uribe, history of kidney stones, UTI. Patient states that she has had kidney stones in the past but she was always able to pass some and follows with Dr. Veras. She complains of left-sided abdominal pain that started about 1 week ago or more but yesterday it started becoming much worse. Blood sugars have been running high at home and she is in the process of waiting for stabilization of her blood sugars so that she can obtain a pump. She states she was told that her cholesterol was high when she does follow Dr. Uribe yesterday. She denies any upper respiratory inf ection symptoms. Patient does complain of burning and pain with urination. Patient came into [facility] emergency center for evaluation and found to have a blood pressure of 170/110, afebrile, heart rate 99, pulse ox 100%. EKG is in normal sinus rhythm. CBC was unremarkable. Blood sugar was 518 and acetone was positive. BUN 15 and creatinine 0.81, CO2 14. CAT scan of the abdomen and pelvis with contrast revealed moderate to severe hydronephrosis on the left side with an 8 mm ureteral stone in the left UVJ. UA was cloudy, leukoesterase large, RBCs 14 and of ABCs 13. Urine culture and blood culture in progress. Patient was started on the DKA protocol and admitted to the cardiac stepdown unit. Consult with urology. 08/23: Patient has been seen by nephrology with plan for cystoscopy, left ureteroscopy, laser lithotripsy and stent placement for this afternoon. Patient has not passed a stone at this time. She continues to have pain but it is better controlled today. She states she feels uncomfortable. Blood sugars are improved and she is off insulin drip. She has been resumed on her home dose of Levemir and scheduled NovoLog along with NovoLog scale. HCG was not detected. Blood culture is showing no growth at 24 hours and urine culture finalized with Kirstie albicans. Review of Systems Constitutional: Reports fatigue, Reports poor appetite, Denies chills, Denies fever Ears, nose, mouth and throat: Denies dysphagia, Denies headache, Denies nasal congestion, Denies nasal discharge, Denies sore throat, Denies vertigo Cardiovascular: Denies chest pain, Denies shortness of breath Respiratory: Denies cough, Denies cough with sputum, Denies dyspnea, Denies excessive sputum, Denies hemoptysis, Denies home oxygen, Denies respiratory i nfections, Denies wheezing Gastrointestinal: Reports abdominal pain, Reports loss of appetite, Denies diarrhea, Denies nausea, Denies vomiting Genitourinary: Reports dysuria, Reports flank pain, Denies hematuria Musculoskeletal: Denies frequent falls, Denies gait dysfunction, Denies muscle weakness, Denies myalgias Integumentary: Denies pruritus, Denies rash, Denies wounds Neurological: Denies change in mentation, Denies change in speech, Denies numbness, Denies seizures, Denies weakness Psychiatric: Denies anxiety, Denies depression Endocrine: Denies fatigue, Denies weight change Objective - Vital Signs Vital signs: Vital Signs Temp 98.0 F 08/23/19 08:02 Pulse 85 08/23/19 08:02 Resp 16 08/23/19 08:02 BP 112/75 08/23/19 08:02 Pulse Ox 100 08/23/19 08:02 Intake & Output 08/22/19 08/23/19 08/23/19 18:59 06:59 18:59 Intake Total 259.744 93.312 Balance 259.744 93.312 Weight 61.689 kg 63.2 kg Intake: Intake, IV Titration 49.744 93.312 Amount Insulin Regular 100 unit 49.744 93.312 In Sodium Chloride 0.9% 100 ml @ 0.1 UNITS/KG/HR 6.231 mls/hr IV .[id number] [facility] Rx#:[id number] Oral 210 Other: Voiding Method Toilet Toilet # Voids 0 2 - Exam Gen: This is a 43-year-old female. She is resting in bed and appears to be comfortable. is at bedside. HEENT: Head is atraumatic, normocephalic. Pupils equal, round. Sclerae is anicteric. NECK: Supple. No JVD. No lymphadenopathy. No thyromegaly. LUNGS: Clear to auscultation. No wheezes or rhonchi. No intercostal retractions. HEART: Regular rate and rhythm. No murmur. ABDOMEN: Soft. Bowel sounds are present. No masses. Left-sided tenderness. Left flank tenderness EXTREMITIES: No pedal edema. No calf tenderness. Dorsalis pedis +2 bilaterally. NEUROLOGICAL: Patient is awake, alert and oriented x3. Cranial nerves 2 through 12 are grossly intact. - Labs CBC & Chem 7: 08/22/19 07:36 08/22/19 20:34 Labs: Abnormal Lab Results - Last 24 Hours (Table) 08/22/19 08/22/19 08/22/19 Range/Units 11:52 12:13 13:10 Chloride 111 H (98-107) mmol/L Carbon Dioxide 16 L (22-30) mmol/L Glucose 217 H (74-99) mg/dL POC Glucose (mg/dL) 194 H 169 H (75-99) mg/dL Calcium (8.4-10.2) mg/dL 08/22/19 08/22/19 08/22/19 Range/Units 14:21 15:27 16:11 Chloride 116 H (98-107) mmol/L Carbon Dioxide 13 L (22-30) mmol/L Glucose 116 H (74-99) mg/dL POC Glucose (mg/dL) 162 H 151 H (75-99) mg/dL Calcium (8.4-10.2) mg/dL 08/22/19 08/22/19 08/22/19 Range/Units 18:01 19:06 20:08 Chloride (98-107) mmol/L Carbon Dioxide (22-30) mmol/L Glucose (74-99) mg/dL POC Glucose (mg/dL) 112 H 129 H 117 H (75-99) mg/dL Calcium (8.4-10.2) mg/dL 08/22/19 08/22/19 08/22/19 Range/Units 20:34 20:59 22:03 Chloride 112 H (98-107) mmol/L Carbon Dioxide 14 L (22-30) mmol/L Glucose 125 H (74-99) mg/dL POC Glucose (mg/dL) 142 H 166 H (75-99) mg/dL Calcium 8.1 L (8.4-10.2) mg/dL 08/22/19 08/23/19 08/23/19 Range/Units 23:56 01:59 03:54 Chloride (98-107) mmol/L Carbon Dioxide (22-30) mmol/L Glucose (74-99) mg/dL POC Glucose (mg/dL) 151 H 140 H 182 H (75-99) mg/dL Calcium (8.4-10.2) mg/dL 08/23/19 Range/Units 06:15 Chloride (98-107) mmol/L Carbon Dioxide (22-30) mmol/L Glucose (74-99) mg/dL POC Glucose (mg/dL) 177 H (75-99) mg/dL Calcium (8.4-10.2) mg/dL Microbiology - Last 24 Hours (Table) 08/22/19 07:36 Urine Culture - Preliminary Urine,Voided Assessment and Plan Plan: 1. Diabetic ketoacidosis. The patient has been started on the DKA protocol. Discontinue insulin drip. Patient has been resumed on Levemir 42 units at bedtime, NovoLog 14 units scheduled with meals along with NovoLog scale 2. Urinary tract infection secondary to possibly infected stone. Continue ceftriaxone 2 g daily, urine culture finalized with Kirstie albicans. 3. Left-sided hydronephrosis secondary to renal stone. Consult with urology appreciated. Patient has followed with in the past. Patient is scheduled for cystoscopy, left ureteroscopy, laser lithotripsy and stent placement for this afternoon. 4. Diabetes mellitus type 1. Patient follows with Dr. Uribe. Continue as in #1. 5. High blood pressure reading on presentation without history of hypertension. Continue to monitor 6. GI prophylaxis. Protonix. 7. DVT prophylaxis. Lovenox. Discharge plan: home Impression and plan of care have been directed as dictated by the signing physician. Aviva Cobb nurse practitioner acting as scribe for signing physician.
[2019-08-23] MEDS: ONDANSETRON 4 MG/2 ML VIAL IVP PRN ×2 (15:23→22:21)
[2019-08-23] MEDS ORDERED: IV FLUID CONTINUATION 1,000 ML IV ONE ×2 (15:23)
[2019-08-23] MEDS ORDERED: SCOPOLAMINE 1.5MG/72HR PATCH TRANSDERM ONE (15:24)
[2019-08-23] MEDS ORDERED: DEXAMETHASONE SOD PHOSPHATE 10 MG/ML 1 ML VIAL IV ONE (15:24)
[2019-08-23 15:36] LABS: Glucose,Whole Blood 134 mg/dL (75-99)
[2019-08-23] MEDS ORDERED: MIDAZOLAM 2 MG/2 ML VIAL ONE (19:42)
[2019-08-23] MEDS ORDERED: fentaNYL (PF) 50 MCG/ML 2 ML AMP ONE (19:42)
[2019-08-23] MEDS ORDERED: PROPOFOL 10 MG/ML 20 ML VIAL IV ONE (19:42)
[2019-08-23] MEDS ORDERED: FLUCONAZOLE IN NACL,ISO-OSM 200 MG/100 ML BAG IVPB ONE (19:42)
[2019-08-23] MEDS ORDERED: LIDOCAINE 1% INJ 10MG/ML (20 ML MDV) ONE (19:42)
[2019-08-23] MEDS ORDERED: SODIUM CHLORIDE 0.9% 100 ML with ceFAZolin 2,000 MG IV ONE ×2 (19:56)
[2019-08-23 20:09] LABS: Glucose,Whole Blood 210 mg/dL (75-99)
[2019-08-23] MEDS ORDERED: IOPAMIDOL-370 50ML BTL IRRIGATION ONE (20:10)
[2019-08-23] MEDS ORDERED: LACTATED RINGERS 1,000 ML IV ONE ×2 (20:11)
[2019-08-23 20:53] LABS: Glucose,Whole Blood 226 mg/dL (75-99)
[2019-08-23] MEDS ORDERED: FLUCONAZOLE IN NACL,ISO-OSM 200 MG in SALINE 1 100ML.BAG IVPB SCH (21:00)
[2019-08-23] MEDS: HYDROmorphone 1 MG/ML 1 ML SYRINGE IVP ONE ×2 (21:25→21:33)
[2019-08-23] MEDS: KETOROLAC 30 MG/ML 1 ML VIAL IVP PRN (21:34)
--- NOTE | 2019-08-23 22:01 | FL ---
EXAMINATION TYPE: FL guidance operating room DATE OF EXAM: 08/23/2019 CLINICAL HISTORY: Left renal calculus with lithotripsy and stent insertion TECHNIQUE: Fluoroscopy. COMPARISON: None. FINDINGS: Fluoroscopic guidance was provided during pain relief procedure performed by Dr. Kamara. A total of 15 seconds of fluoroscopic time was utilized during the procedure and 1 spot images are ac quired. Image acquired shows a ureteral stent. IMPRESSION: As Above.
[2019-08-23 22:16] LABS: Glucose,Whole Blood 267 mg/dL (75-99)
[2019-08-23] MEDS: INSULIN DETEMIR (LEVEMIR) 100 UNIT/ML SYR SQ SCH (22:36)
[2019-08-24 00:33] VITALS: RESP 18
[2019-08-24] MEDS: ACETAMINOPHEN TAB 325 MG TAB PO PRN (01:45)
[2019-08-24] MEDS: KETOROLAC 30 MG/ML 1 ML VIAL IVP PRN (04:54)
[2019-08-24 06:51] LABS: Glucose,Whole Blood 104 mg/dL (75-99)
[2019-08-24] MEDS: INSULIN ASPART (NovoLOG) 100 UNIT/ML VIAL SQ SCH ×2 (06:55→06:56)
[2019-08-24 06:58] LABS: ALT 14 U/L (9-52); AST 11 U/L (14-36); African American GFR (CKD) >90 (>60 ml/min/1.73 sqM); Albumin 3.3 g/dL (3.5-5.0); Alkaline Phosphatase 46 U/L (38-126); Anion Gap 11 mmol/L; Blood Urea Nitrogen 6 mg/dL (7-17); Calcium 8.6 mg/dL (8.4-10.2); Carbon Dioxide 14 mmol/L (22-30); Chloride 112 mmol/L (98-107); Glucose 107 mg/dL (74-99); Potassium 4.2 mmol/L (3.5-5.1); Sodium 137 mmol/L (137-145); Total Bilirubin 0.7 mg/dL (0.2-1.3); Total Protein 5.7 g/dL (6.3-8.2)
[2019-08-24 07:02] LABS: Basophils % (A) 0 %; Eosinophils # (A) 0.1 k/uL (0-0.7); Eosinophils % (A) 1 %; HCT 33.3 % (34.0-46.0); HGB 11.7 gm/dL (11.4-16.0); Lymphocytes # (A) 1.5 k/uL (1.0-4.8); Lymphocytes % (A) 16 %; MCH 32.8 pg (25.0-35.0); MCV 93.6 fL (80.0-100.0); Mean Platelet Volume 8.3; Monocytes # (A) 0.4 k/uL (0-1.0); Monocytes % (A) 4 %; Neutrophils # (A) 7.5 k/uL (1.3-7.7); Neutrophils % (A) 79 %; Platelet Count 215 k/uL (150-450); RBC 3.56 m/uL (3.80-5.40); RDW 14.2 % (11.5-15.5); WBC 9.5 k/uL (3.8-10.6)
[2019-08-24 08:13] VITALS: BP 108/71; PULSE 85; TEMP 98.1
[2019-08-24] MEDS: PANTOPRAZOLE 40 MG/10 ML VIAL IV SCH (08:18)
--- NOTE | 2019-08-24 09:53 | P.PN ---
Subjective Progress Note Date: 08/24/19 This is a 43-year-old female patient of Dr. Berger with past medical history of diabetes mellitus type 1 on the care of Dr. Uribe, history of kidney stones, UTI. Patient states that she has had kidney stones in the past but she was always able to pass some and follows with Dr. Veras. She complains of left-sided abdominal pain that started about 1 week ago or more but yesterday it started becoming much worse. Blood sugars have been running high at home and she is in the process of waiting for stabilization of her blood sugars so that she can obtain a pump. She states she was told that her cholesterol was high when she does follow Dr. Uribe yesterday. She denies any upper respiratory inf ection symptoms. Patient does complain of burning and pain with urination. Patient came into [facility] emergency center for evaluation and found to have a blood pressure of 170/110, afebrile, heart rate 99, pulse ox 100%. EKG is in normal sinus rhythm. CBC was unremarkable. Blood sugar was 518 and acetone was positive. BUN 15 and creatinine 0.81, CO2 14. CAT scan of the abdomen and pelvis with contrast revealed moderate to severe hydronephrosis on the left side with an 8 mm ureteral stone in the left UVJ. UA was cloudy, leukoesterase large, RBCs 14 and of ABCs 13. Urine culture and blood culture in progress. Patient was started on the DKA protocol and admitted to the cardiac stepdown unit. Consult with urology. 08/23: Patient has been seen by Urology with plan for cystoscopy, left ureteroscopy, laser lithotripsy and stent placement for this afternoon. Patient has not passed a stone at this time. She continues to have pain but it is better controlled today. She states she feels uncomfortable. Blood sugars are improved and she is off insulin drip. She has been resumed on her home dose of Levemir and scheduled NovoLog along with NovoLog scale. HCG was not detected. Blood culture is showing no growth at 24 hours and urine culture finalized with Kirstie albicans. 08/24: Patient is feeling much better today she denies any chest pain or shortness breath, she is in a bit discomfort in the left side she did have a total injection earlier today, she is asking to go home today. Review of Systems Constitutional: Reports fatigue, Reports poor appetite, Denies chills, Denies fever Ears, nose, mouth and throat: Denies dysphagia, Denies headache, Denies nasal congestion, Denies nasal discharge, Denies sore throat, Denies vertigo Cardiovascular: Denies chest pain, Denies shortness of breath Respiratory: Denies cough, Denies cough with sputum, Denies dyspnea, Denies excessive sputum, Denies hemoptysis, Denies home oxygen, Denies respiratory infections, Denies wheezing Gastrointestinal: Reports abdominal pain, Reports loss of appetite, Denies diarrhea, Denies nausea, Denies vomiting Genitourinary: Reports dysuria, Reports flank pain, Denies hematuria Musculoskeletal: Denies frequent falls, Denies gait dysfunction, Denies muscle weakness, Denies myalgias Integumentary: Denies pruritus, Denies rash, Denies wounds Neurological: Denies change in mentation, Denies change in speech, Denies numbness, Denies seizures, Denies weakness Psychiatric: Denies anxiety, Denies depression Endocrine: Denies fatigue, Denies weight change Objective - Vital Signs Vital signs: Vital Signs Temp 97.9 F 08/24/19 00:00 Pulse 80 08/24/19 00:00 Resp 18 08/24/19 00:00 BP 125/76 08/24/19 00:00 Pulse Ox 99 08/24/19 00:00 Intake & Output 08/23/19 08/23/19 08/24/19 06:59 18:59 06:59 Intake Total 93.312 1600 Output Total 805 Balance 93.312 795 Weight 63.2 kg Intake: IV 1500 Intake, IV Titration 93.312 Amount Insulin Regular 100 unit 93.312 In Sodium Chloride 0.9% 100 ml @ 0.1 UNITS/KG/HR 6.231 mls/hr IV .[id number] [facility] Rx#:[id number] Oral 100 Output: Urine 800 Estimated Blood Loss 5 Other: Voiding Method Toilet Toilet Toilet # Voids 2 2 2 - Exam - Exam Gen: This is a 43-year-old female. She is resting in bed and appears to be comfortable. is at bedside. HEENT: Head is atraumatic, normocephalic. Pupils equal, round. Sclerae is anicteric. NECK: Supple. No JVD. No lymphadenopathy. No thyromegaly. LUNGS: Clear to auscultation. No wheezes or rhonchi. No intercostal retrac tions. HEART: Regular rate and rhythm. No murmur. ABDOMEN: Soft. Bowel sounds are present. No masses. Left-sided tenderness. Left flank tenderness EXTREMITIES: No pedal edema. No calf tenderness. Dorsalis pedis +2 bilaterally. NEUROLOGICAL: Patient is awake, alert and oriented x3. Cranial nerves 2 through 12 are grossly intact. - Labs CBC & Chem 7: 08/24/19 06:30 08/24/19 06:30 Labs: Abnormal Lab Results - Last 24 Hours (Table) 08/23/19 08/23/19 08/23/19 Range/Units 06:15 12:01 15:32 POC Glucose (mg/dL) 177 H 170 H 134 H (75-99) mg/dL 08/23/19 08/23/19 08/23/19 Range/Units 20:07 20:52 22:14 POC Glucose (mg/dL) 210 H 226 H 267 H (75-99) mg/dL Microbiology - Last 24 Hours (Table) 08/22/19 11:52 Blood Culture - Preliminary Blood No Growth after 24 hours 08/22/19 07:36 Urine Culture - Final Urine,Voided Kirstie albicans Assessment and Plan Assessment: Assessment and Plan Plan: 1. Diabetic ketoacidosis. The patient has been started on the DKA protocol. Discontinue insulin drip. Patient has been resumed on Levemir 42 units at bedtime, NovoLog 14 units scheduled with meals along with NovoLog scale 2. Urinary tract infection secondary to possibly infected stone. Continue ceftriaxone 2 g daily, urine culture finalized with Kirstie albicans. 3. Left-sided hydronephrosis secondary to renal stone. Consult with urology appreciated. Patient has followed with in the past. Patient had cystoscopy, left ureteroscopy, laser lithotripsy and stent placement yesterday. 4. Diabetes mellitus type 1. Patient follows with Dr. Uribe. Continue as in #1. 5. High blood pressure reading on presentation without history of hypertension. Continue to monitor 6. GI prophylaxis. Protonix. 7. DVT prophylaxis. Lovenox. 8. Home today if okay with urology.
--- NOTE | 2019-08-24 09:56 | P.DS ---
Providers Date of admission: 08/22/19 10:55 Expected date of discharge: 08/24/19 Attending physician: Babar North Consults: 08/22/19 11:17 Consult Physician Stat Consulting Provider: Ovi Kamara Consult Reason/Comments: Left ureteral stone, infected Do you want consulting provider notified?: Yes Primary care physician: [facility] Course: This is a 43-year-old female patient of Dr. Berger with past medical history of diabetes mellitus type 1 on the care of Dr. Uribe, history of kidney stones, UTI. Patient states that she has had kidney stones in the past but she was always able to pass some and follows with Dr. Veras. She complains of left-sided abdominal pain that started about 1 week ago or more but yesterday it started becoming much worse. Blood sugars have been running high at home and she is in the process of waiting for stabilization of her blood sugars so that she can obtain a pump. She states she was told that her cholesterol was high when she does follow Dr. Uribe yesterday. She denies any upper respiratory infection symptoms. Patient does complain of burning and pain with urination. Patient came into [facility] emergency center for evaluation and found to have a blood pressure of 170/110, afebrile, heart rate 99, pulse ox 100%. EKG is in normal sinus rhythm. CBC was unremarkable. Blood sugar was 518 and acetone was positive. BUN 15 and creatinine 0.81, CO2 14. CAT scan of the abdomen and pelvis with contrast revealed moderate to severe hydronephrosis on the left side with an 8 mm ureteral stone in the left UVJ. UA was cloudy, leukoesterase large, RBCs 14 and of ABCs 13. Urine culture and blood culture in progress. Patient was started on the DKA protocol and admitted to the cardiac stepdown unit. Consult with urology. 08/23: Patient has been seen by Urology with plan for cystoscopy, left ureteroscopy, laser lithotripsy and stent placement for this afternoon. Patient has not passed a stone at this time. She continues to have pain but it is better controlled today. She states she feels uncomfortable. Blood sugars are improved and she is off insulin drip. She has been resumed on her home dose of Levemir and scheduled NovoLog along with NovoLog scale. HCG was not detected. Blood culture is showing no growth at 24 hours and urine culture finalized with Kirstie albicans. 08/24: Patient is feeling much better today she denies any chest pain or shortness breath, she is in a bit discomfort in the left side she did have a total injection earlier today, she is asking to go home today. discharge diagnoses: 1. Diabetic ketoacidosis resolved. 2. Renal tubular acidosis. 3. Left UVJ stone with hydronephrosis, status post cystoscopy with stent placement. 4. Candiduria. 5. Diabetes mellitus type 1. 6. Elevated blood pressure without diagnosis of hypertension likely pain related we will monitor as an outpatient. Patient Condition at Discharge: Good Plan - Discharge Summary Discharge Rx Participant: No New Discharge Prescriptions: No Action Insulin Glargine [Lantus] 42 unit SQ HS INSULIN ASPART (NovoLOG) [NovoLOG (formulary)] 14 unit SQ AC-TID Discharge Medication List INSULIN ASPART (NovoLOG) [NovoLOG (formulary)] 14 unit SQ AC-TID 08/22/19 [History] Insulin Glargine [Lantus] 42 unit SQ HS 08/22/19 [History] Follow up Appointment(s)/Referral(s): Ovi Kamara MD [STAFF PHYSICIAN] - 10 Days Babar North MD [Primary Care Provider] - 1 Week Patient Instructions/Handouts: Diabetic Ketoacidosis (DC), Ureteral Stones (DC), Cystoscopy (DC) Discharge Disposition: HOME SELF-CARE
--- NOTE | 2019-08-24 10:18 | P.PN ---
Progress Note - Text Progress Note Date: 08/24/19 The patient is afebrile. She said that she had moderately severe left flank pain immediately following the surgery but this has improved and she says that she is comfortable enough that she thinks she can go home. Her urine culture on admission grew 10-20,000 colonies of Kirstie and she has been placed on Diflucan due to the presence of the left double-J catheter. The patient will set up an appointment to see Dr. Kamara in 1 week for removal of the double-J catheter. She will also discuss a metabolic evaluation with him as she has had multiple stones prior to this admission.
--- NOTE | 2019-08-24 23:08 | P.OP ---
Date of Procedure: 08/23/19 Preoperative Diagnosis: Left ureteral calculi Postoperative Diagnosis: Same Procedure(s) Performed: Cystoscopy, left ureteroscopy, holmium laser lithotripsy stone basketing, ureteral balloon dilation and stent placement Implants: 6-Divehi by 24 cm stent Anesthesia: YANICK Surgeon: Ovi Kamara Estimated Blood Loss (ml): 5 Pathology: other (stone for analysis) Condition: stable Disposition: floor Indications for Procedure: Ms. West is a 43-year-old female that git admitted to the hospital with diabetic ketoacidosis, she underwent a CT which showed a left UVJ stone. Given her DKA and her ureteral stone decision was made to take patient to the OR for a ureteral stent placement possible ureteroscopy. I discussed with her the risk of bleeding infection, and injury to the ureter. Also discussed risk of anesthesia. She understood all the risk and agreed to proceed with left-sided stent placement possible ureteroscopy Operative Findings: Stone along the left distal ureter Description of Procedure: The patient was brought to the operating room general anesthesia was induced. She was prepped and draped in sterile fashion and placed in dorsal lithotomy position. Cystoscope fitted with a 22 sheath was inserted per urethra, a cystoscopy was performed which showed no abnormality within the bladder. Attention was carried to the left ureteral orifice. The left ureteral orfice was intubated with a 0.035 sensor. The sensor wire was advanced to the renal pelvis. Next a semirigid ureteroscope was inserted per urethra, but could not be advanced through the ureteral orfice due to narrowing at the UVJ. the ureteroscope was removed and cystoscope was reinserted. A ureteral balloon dilator was advanced over the wire and the UVJ was dilated using the balloon dilator. The ureteroscope was inserted the a large stone was encountered in the distal ureter, Clear yellow urine was draining around the stone, and there was no evidence of cloudy urine draining from the bladder or ureter. The stone was fragmented using the holmium laser. The stone fragment were removed using a zero tip stone basket. Repeat Ureteroscopy was performed which showed no large residual fragments or injury to the ureter. The ureteroscope was removed with wire in place. a 6 Fr X 24 cm stent was passed over the wire. The Proximal curl was visualized under fluoroscopy and distal curl was visualized using the c ystoscope. The bladder was emptied in the end of case and patient was taken to PACU in stable condition.
[2019-08-25] MEDS ORDERED: FLUCONAZOLE 100 MG TAB PO SCH (09:00)
== END 2019-08-24 11:30 | disposition home or self-care (01) | DRG 659 ==
LOC: EC 06:56 → 3SCARD 10:55
PROVIDERS: ADMIT Internal Medicine Geriatric Medicine; ATTEND Internal Medicine Geriatric Medicine
PROC: 0TC78ZZ Extirpation of Matter from Left Ureter, Via Natural or Artificial Opening Endoscopic (ICD-10-PCS; principal; 2019-08-23 16:15)
PROC: 0T778DZ Dilation of Left Ureter with Intraluminal Device, Via Natural or Artificial Opening Endoscopic (ICD-10-PCS; principal; 2019-08-23 16:15)
DX: N13.2 Hydronephrosis with renal and ureteral calculous obstruction (principal); E10.10 Type 1 diabetes mellitus with ketoacidosis without coma; B37.49 Other urogenital candidiasis; N25.89 Other disorders resulting from impaired renal tubular function; Z79.4 Long term (current) use of insulin; Z80.51 Family history of malignant neoplasm of kidney; Z87.442 Personal history of urinary calculi; Z88.2 Allergy status to sulfonamides
CPT/HCPCS: 36415; 74018; 74177; 80048; 80051; 80053; 81001; 81025; 82009; 82150; 82365; 82565; 82947; 83605; 83690; 84100; 84520; 85025; 85610; 85730; 87040; 87086; 93005; 96361; 96365; 96375; 96376; 99285

== ENCOUNTER 2019-11-17 12:17 | Inpatient (IN) | payer OTHER ==
[2019-11-17 13:00] LABS: Glucose,Whole Blood 465 mg/dL (75-99)
[2019-11-17] MEDS ORDERED: ONDANSETRON 4 MG/2 ML VIAL IVP STA (13:02)
[2019-11-17] MEDS ORDERED: SODIUM CHLORIDE 0.9% 1,000 ML IV STA (13:02)
[2019-11-17 13:26] LABS: HCT 49.6 % (34.0-46.0); HGB 15.9 gm/dL (11.4-16.0); MCH 31.5 pg (25.0-35.0); MCV 98.3 fL (80.0-100.0); Mean Platelet Volume 10.2; Platelet Count 357 k/uL (150-450); RBC 5.04 m/uL (3.80-5.40); RDW 12.5 % (11.5-15.5); WBC 30.4 k/uL (3.8-10.6)
[2019-11-17 13:31] LABS: VBG PH 7.01 (7.31-7.41)
[2019-11-17] MEDS ORDERED: SODIUM BICARB 8.4% 50 ML SYR (1 MEQ/ML) IV STA (13:35)
[2019-11-17 13:38] LABS: ALT 13 U/L (4-34); AST 21 U/L (14-36); African American GFR (CKD) 77 (>60 ml/min/1.73 sqM); Albumin 5.6 g/dL (3.5-5.0); Alkaline Phosphatase 133 U/L (38-126); Anion Gap 28 mmol/L; Blood Urea Nitrogen 16 mg/dL (7-17); Chloride 105 mmol/L (98-107); Glucose 482 mg/dL (74-99); Magnesium 2.1 mg/dL (1.6-2.3); Non-African American GFR(CKD) 67 (>60 ml/min/1.73 sqM); Phosphorus 8.2 mg/dL (2.5-4.5); Potassium 5.6 mmol/L (3.5-5.1); Sodium 140 mmol/L (137-145); Total Bilirubin 0.7 mg/dL (0.2-1.3); Total Protein 9.1 g/dL (6.3-8.2)
[2019-11-17 13:41] LABS: Band Neutrophils % 8 %; Lymphocytes # (M) 2.74 k/uL (1.0-4.8); Metamyelocytes % 1 %; Monocytes # (M) 1.52 k/uL (0-1.0); Neutrophils % (M) 78 %; Nucleated Red Blood Cells 0 /100 WBC (0-0); Total Cells Counted 200
[2019-11-17 13:49] LABS: Carbon Dioxide 7 mmol/L (22-30)
[2019-11-17] MEDS ORDERED: SODIUM CHLORIDE 0.9% 1,000 ML IV ONE ×2 (14:03→14:25)
--- NOTE | 2019-11-17 14:07 | ED ---
General Adult HPI - General Chief complaint: Recheck/Abnormal Lab/Rx Stated complaint: poss keto acidosis/vomiting Time Seen by Provider: 11/17/19 12:35 Source: patient, family Mode of arrival: ambulatory Limitations: no limitations - History of Present Illness Initial comments: The patient is a 44-year-old female with past medical history of diabetes who presents emergency Department saying that she hasn't been able to eat or drink for the past several days. She states that she has had nausea with some vomiting since yesterday. Denies bilious or bloody vomiting. Denies any sick contacts or recent travel. She did have a change to her insulin regimen which was done 2 weeks ago. She follows up with an autocad out of [facility]. She did take some of her insulin today at 11:00. She checked her sugars and they're over 500 so she came into the emergency room for evaluation. She admits to diffuse abdominal pain. Denies any chest pain. Admits to increased respirations with shortness of breath. Denies any changes in her lula l or bladder habits. She has been in DKA once before. No additional symptoms include headache, visual change, neck pain or stiffness. No back or flank pain. There are no other alleviating, precipitating or modifying factors - Related Data Home Medications Medication Instructions Recorded Confirmed INSULIN ASPART (NovoLOG) [NovoLOG See Protocol SQ AC-TID 08/22/19 11/17/19 (formulary)] Insulin Glargine [Lantus] 22 unit SQ HS 08/22/19 11/17/19 Pramlintide Acetate [Symlin Pen 60] 15 mcg SQ AC-TID PRN 11/17/19 11/17/19 Allergies Allergy/AdvReac Type Severity Reaction Status Date / Time Sulfa (Sulfonamide Allergy Anaphylaxis Verified 08/22/19 09:28 Antibiotics) Review of Systems ROS Statement: Those systems with pertinent positive or pertinent negative responses have been documented in the HPI. ROS Other: All systems not noted in ROS Statement are negative. Past Medical History Past Medical History: Diabetes Mellitus, Hypertension, Renal Disease Additional Past Medical History / Comment(s): IDDM type II, kidney stones which pt passed on her own, UTI. History of Any Multi-Drug Resistant Organisms: None Reported Past Surgical History: Tonsillectomy, Uterine Ablation Additional Past Surgical History / Comment(s): Laparoscopic surgerie for ovarian cysts, colonoscopy with benign polyp Past Anesthesia/Blood Transfusion Reactions: Postoperative Nausea & Vomiting (PONV) Past Psychological History: No Psychological Hx Reported Smoking Status: Never smoker Past Alcohol Use History: None Reported Past Drug Use History: None Reported - Past Family History Mother Family Medical History: Cancer Additional Family Medical History / Comment(s): Mother is alive at age 71 with history of chronic back pain and Renal carcinoma Father Family Medical History: No Reported History Additional Family Medical History / Comment(s): Father is alive at age 77 with history of chronic kidney disease and hypertension. Sister(s) Additional Family Medical History / Comment(s): Patient has 1 sister with no major medical problems. Patient's 3 children with no major medical problems. General Exam Limitations: no limitations General appearance: alert, in distress Head exam: Present: atraumatic, normocephalic Eye exam: Present: normal appearance, PERRL, EOMI. Absent: scleral icterus, conjunctival injection, periorbital swelling ENT exam: Present: mucous membranes dry, other (ketotic breath) Neck exam: Present: normal inspection. Absent: tenderness, meningismus, lymphadenopathy Respiratory exam: Present: normal lung sounds bilaterally, other (kussmal breathing). Absent: wheezes, rales, rhonchi Cardiovascular Exam: Present: normal rhythm, tachycardia GI/Abdominal exam: Present: soft, tenderness (diffuse). Absent: guarding, rebound, rigid Extremities exam: Present: normal inspection Back exam: Present: normal inspection Neurological exam: Present: alert, oriented X3, CN II-XII intact Psychiatric exam: Present: normal affect, normal mood Skin exam: Present: warm, dry, intact, normal color. Absent: rash Course Vital Signs 11/17/19 11/17/19 11/17/19 12:37 13:16 13:47 Temperature 97.9 F Pulse Rate 134 H Pulse Rate [ Wellness Trainer ] Respiratory 20 32 H 19 Rate Blood Pressure 132/109 133/97 Blood Pressure [Right Arm] O2 Sat by Pulse 100 Oximetry 11/17/19 11/17/19 11/17/19 14:05 17:00 17:55 Temperature 98.3 F 98.2 F Pulse Rate 123 H 110 H Pulse Rate [ 118 H Wellness Trainer ] Respiratory 20 19 13 Rate Blood Pressure 125/90 115/82 Blood Pressure 99/58 [Right Arm] O2 Sat by Pulse 100 100 Oximetry EKG Findings - EKG Comments: EKG Findings:: Twelve-lead EKG demonstrates a sinus tachycardia with a ventricular rate of 131. QRS 70. QTC of 561. There is significant baseline artifact. No acute ST segment elevations or depressions Procedures - [facility] Protocol (Time Out) Nurse: Debbie Tong Medical Decision Making - Medical Decision Making Upon arrival the patient was placed into room 7. A thorough history and physical exam is performed. Patient does arrive and is tachycardic. We did insert 2 IVs and the patient was given a 3 L bolus of normal saline. I did recommend laboratory studies. Accu-Chek was performed and the patient's blood sugars 465. Laboratory studies demonstrate a white blood count of 30,000. VBG shows a pH of 7, CO2 of 27 and bicarbonate 7. CMP shows a potassium of 5.6. CO2 of 7. Lactic acid 3.6. Acetone is positive. Urinalysis shows 4+ glucose, 4+ ketones, small blood, large leukocyte esterase, 29 rectal pulse, 131 white blood cells, occasional bacteria. The patient was sent for CT for abdomen and pelvis because of her diffuse reported abdominal pain, which demonstrated signs of ileus. Bulky heterogeneous cervix. The patient was started on 150 mL of saline per hour. I also started her on an insulin drip. I discussed the case with Dr. Moore who accepted admission for the patient. I called and discussed the case with Dr. Martines who accepted admission for the patient to the ICU. She does have an Accu-Chek performed which demonstrates that her blood sugars have fallen below 250 therefore she is transitioned to D5 half-normal saline with potassium. Blood culture was obtained the patient was initiated on Rocephin for her abnormal urinalysis. She should remain in stable condition and was transported to the floor - Lab Data Result diagrams: 11/19/19 04:39 11/19/19 11:20 Lab Results 11/17/19 11/17/19 11/17/19 Range/Units 12:58 13:00 13:00 WBC 30.4 H (3.8-10.6) k/uL RBC 5.04 (3.80-5.40) m/uL Hgb 15.9 (11.4-16.0) gm/dL Hct 49.6 H (34.0-46.0) % MCV 98.3 (80.0-100.0) fL MCH 31.5 (25.0-35.0) pg MCHC 32.0 (31.0-37.0) g/dL RDW 12.5 (11.5-15.5) % Plt Count 357 (150-450) k/uL Neutrophils % (Manual) 78 % Band Neutrophils % 8 % Lymphocytes % (Manual) 9 % Monocytes % (Manual) 5 % Metamyelocytes % 1 % Neutrophils # (Manual) 26.10 H (1.3-7.7) k/uL Lymphocytes # (Manual) 2.74 (1.0-4.8) k/uL Monocytes # (Manual) 1.52 H (0-1.0) k/uL Metamyelocytes # (Man) 0.30 H (0) k/uL Nucleated RBCs 0 (0-0) /100 WBC Manual Slide Review Performed RBC Morphology Normal VBG pH (7.31-7.41) VBG pCO2 (37-51) mmHg VBG HCO3 (24-28) mmol/L Sodium 140 (137-145) mmol/L Potassium 5.6 H (3.5-5.1) mmol/L Chloride 105 (98-107) mmol/L Carbon Dioxide 7 L* (22-30) mmol/L Anion Gap 28 mmol/L BUN 16 (7-17) mg/dL Creatinine 1.03 (0.52-1.04) mg/dL Est GFR (CKD-EPI)AfAm 77 (>60 ml/min/1.73 sqM) Est GFR (CKD-EPI)NonAf 67 (>60 ml/min/1.73 sqM) Glucose 482 H (74-99) mg/dL POC Glucose (mg/dL) 465 H (75-99) mg/dL POC Glu Watch Commander ID Erna Larkin Lactic Ac Sepsis Rflx Plasma Lactic Acid Adan (0.7-2.0) mmol/L Calcium 10.0 (8.4-10.2) mg/dL Phosphorus 8.2 H (2.5-4.5) mg/dL Magnesium 2.1 (1.6-2.3) mg/dL Total Bilirubin 0.7 (0.2-1.3) mg/dL AST 21 (14-36) U/L ALT 13 (4-34) U/L Alkaline Phosphatase 133 H (38-126) U/L Total Protein 9.1 H (6.3-8.2) g/dL Albumin 5.6 H (3.5-5.0) g/dL Lipase 56 (23-300) U/L TSH 1.180 (0.465-4.680) mIU/L Urine Color Urine Appearance (Clear) Urine pH (5.0-8.0) Ur Specific Aldrich (1.001-1.035) Urine Protein (Negative) Urine Glucose (UA) (Negative) Urine Ketones (Negative) Urine Blood (Negative) Urine Nitrite (Negative) Urine Bilirubin (Negative) Urine Urobilinogen (<2.0) mg/dL Ur Leukocyte Esterase (Negative) Urine RBC (0-5) /hpf Urine WBC (0-5) /hpf Ur Squamous Epith Cells (0-4) /hpf Urine Bacteria (None) /hpf Hyaline Casts (0-2) /lpf Urine Mucus (None) /hpf Urine HCG, Qual (Not Detectd) Acetone, Qual Positive (Negative) 11/17/19 11/17/19 11/17/19 Range/Units 13:00 13:00 13:49 WBC (3.8-10.6) k/uL RBC (3.80-5.40) m/uL Hgb (11.4-16.0) gm/dL Hct (34.0-46.0) % MCV (80.0-100.0) fL MCH (25.0-35.0) pg MCHC (31.0-37.0) g/dL RDW (11.5-15.5) % Plt Count (150-450) k/uL Neutrophils % (Manual) % Band Neutrophils % % Lymphocytes % (Manual) % Monocytes % (Manual) % Metamyelocytes % % Neutrophils # (Manual) (1.3-7.7) k/uL Lymphocytes # (Manual) (1.0-4.8) k/uL Monocytes # (Manual) (0-1.0) k/uL Metamyelocytes # (Man) (0) k/uL Nucleated RBCs (0-0) /100 WBC Manual Slide Review RBC Morphology VBG pH 7.01 L* (7.31-7.41) VBG pCO2 27 L (37-51) mmHg VBG HCO3 7 L* (24-28) mmol/L Sodium (137-145) mmol/L Potassium (3.5-5.1) mmol/L Chloride (98-107) mmol/L Carbon Dioxide (22-30) mmol/L Anion Gap mmol/L BUN (7-17) mg/dL Creatinine (0.52-1.04) mg/dL Est GFR (CKD-EPI)AfAm (>60 ml/min/1.73 sqM) Est GFR (CKD-EPI)NonAf (>60 ml/min/1.73 sqM) Glucose (74-99) mg/dL POC Glucose (mg/dL) (75-99) mg/dL POC Glu Watch Commander ID Lactic Ac Sepsis Rflx Y Plasma Lactic Acid Adan 3.6 H* (0.7-2.0) mmol/L Calcium (8.4-10.2) mg/dL Phosphorus (2.5-4.5) mg/dL Magnesium (1.6-2.3) mg/dL Total Bilirubin (0.2-1.3) mg/dL AST (14-36) U/L ALT (4-34) U/L Alkaline Phosphatase (38-126) U/L Total Protein (6.3-8.2) g/dL Albumin (3.5-5.0) g/dL Lipase (23-300) U/L TSH (0.465-4.680) mIU/L Urine Color Urine Appearance (Clear) Urine pH (5.0-8.0) Ur Specific Aldrich (1.001-1.035) Urine Protein (Negative) Urine Glucose (UA) (Negative) Urine Ketones (Negative) Urine Blood (Negative) Urine Nitrite (Negative) Urine Bilirubin (Negative) Urine Urobilinogen (<2.0) mg/dL Ur Leukocyte Esterase (Negative) Urine RBC (0-5) /hpf Urine WBC (0-5) /hpf Ur Squamous Epith Cells (0-4) /hpf Urine Bacteria (None) /hpf Hyaline Casts (0-2) /lpf Urine Mucus (None) /hpf Urine HCG, Qual (Not Detectd) Acetone, Qual (Negative) 11/17/19 11/17/19 11/17/19 Range/Units 14:30 14:30 15:10 WBC (3.8-10.6) k/uL RBC (3.80-5.40) m/uL Hgb (11.4-16.0) gm/dL Hct (34.0-46.0) % MCV (80.0-100.0) fL MCH (25.0-35.0) pg MCHC (31.0-37.0) g/dL RDW (11.5-15.5) % Plt Count (150-450) k/uL Neutrophils % (Manual) % Band Neutrophils % % Lymphocytes % (Manual) % Monocytes % (Manual) % Metamyelocytes % % Neutrophils # (Manual) (1.3-7.7) k/uL Lymphocytes # (Manual) (1.0-4.8) k/uL Monocytes # (Manual) (0-1.0) k/uL Metamyelocytes # (Man) (0) k/uL Nucleated RBCs (0-0) /100 WBC Manual Slide Review RBC Morphology VBG pH (7.31-7.41) VBG pCO2 (37-51) mmHg VBG HCO3 (24-28) mmol/L Sodium (137-145) mmol/L Potassium (3.5-5.1) mmol/L Chloride (98-107) mmol/L Carbon Dioxide (22-30) mmol/L Anion Gap mmol/L BUN (7-17) mg/dL Creatinine (0.52-1.04) mg/dL Est GFR (CKD-EPI)AfAm (>60 ml/min/1.73 sqM) Est GFR (CKD-EPI)NonAf (>60 ml/min/1.73 sqM) Glucose (74-99) mg/dL POC Glucose (mg/dL) 320 H (75-99) mg/dL POC Glu Watch Commander ID Ran, Debbie Lactic Ac Sepsis Rflx Plasma Lactic Acid Adan (0.7-2.0) mmol/L Calcium (8.4-10.2) mg/dL Phosphorus (2.5-4.5) mg/dL Magnesium (1.6-2.3) mg/dL Total Bilirubin (0.2-1.3) mg/dL AST (14-36) U/L ALT (4-34) U/L Alkaline Phosphatase (38-126) U/L Total Protein (6.3-8.2) g/dL Albumin (3.5-5.0) g/dL Lipase (23-300) U/L TSH (0.465-4.680) mIU/L Urine Color Light Yellow Urine Appearance Cloudy H (Clear) Urine pH 5.0 (5.0-8.0) Ur Specific Aldrich 1.022 (1.001-1.035) Urine Protein 1+ H (Negative) Urine Glucose (UA) 4+ H (Negative) Urine Ketones 4+ H (Negative) Urine Blood Small H (Negative) Urine Nitrite Negative (Negative) Urine Bilirubin Negative (Negative) Urine Urobilinogen <2.0 (<2.0) mg/dL Ur Leukocyte Esterase Large H (Negative) Urine RBC 29 H (0-5) /hpf Urine WBC 131 H (0-5) /hpf Ur Squamous Epith Cells 2 (0-4) /hpf Urine Bacteria Occasional H (None) /hpf Hyaline Casts 3 H (0-2) /lpf Urine Mucus Rare H (None) /hpf Urine HCG, Qual Not Detected (Not Detectd) Acetone, Qual (Negative) 11/17/19 Range/Units 16:19 WBC (3.8-10.6) k/uL RBC (3.80-5.40) m/uL Hgb (11.4-16.0) gm/dL Hct (34.0-46.0) % MCV (80.0-100.0) fL MCH (25.0-35.0) pg MCHC (31.0-37.0) g/dL RDW (11.5-15.5) % Plt Count (150-450) k/uL Neutrophils % (Manual) % Band Neutrophils % % Lymphocytes % (Manual) % Monocytes % (Manual) % Metamyelocytes % % Neutrophils # (Manual) (1.3-7.7) k/uL Lymphocytes # (Manual) (1.0-4.8) k/uL Monocytes # (Manual) (0-1.0) k/uL Metamyelocytes # (Man) (0) k/uL Nucleated RBCs (0-0) /100 WBC Manual Slide Review RBC Morphology VBG pH (7.31-7.41) VBG pCO2 (37-51) mmHg VBG HCO3 (24-28) mmol/L Sodium (137-145) mmol/L Potassium (3.5-5.1) mmol/L Chloride (98-107) mmol/L Carbon Dioxide (22-30) mmol/L Anion Gap mmol/L BUN (7-17) mg/dL Creatinine (0.52-1.04) mg/dL Est GFR (CKD-EPI)AfAm (>60 ml/min/1.73 sqM) Est GFR (CKD-EPI)NonAf (>60 ml/min/1.73 sqM) Glucose (74-99) mg/dL POC Glucose (mg/dL) 227 H (75-99) mg/dL POC Glu Watch Commander ID Debbie Tong Lactic Ac Sepsis Rflx Plasma Lactic Acid Adan (0.7-2.0) mmol/L Calcium (8.4-10.2) mg/dL Phosphorus (2.5-4.5) mg/dL Magnesium (1.6-2.3) mg/dL Total Bilirubin (0.2-1.3) mg/dL AST (14-36) U/L ALT (4-34) U/L Alkaline Phosphatase (38-126) U/L Total Protein (6.3-8.2) g/dL Albumin (3.5-5.0) g/dL Lipase (23-300) U/L TSH (0.465-4.680) mIU/L Urine Color Urine Appearance (Clear) Urine pH (5.0-8.0) Ur Specific Aldrich (1.001-1.035) Urine Protein (Negative) Urine Glucose (UA) (Negative) Urine Ketones (Negative) Urine Blood (Negative) Urine Nitrite (Negative) Urine Bilirubin (Negative) Urine Urobilinogen (<2.0) mg/dL Ur Leukocyte Esterase (Negative) Urine RBC (0-5) /hpf Urine WBC (0-5) /hpf Ur Squamous Epith Cells (0-4) /hpf Urine Bacteria (None) /hpf Hyaline Casts (0-2) /lpf Urine Mucus (None) /hpf Urine HCG, Qual (Not Detectd) Acetone, Qual (Negative) Critical Care Time Critical Care Time: Yes Critical Care Time: 35 minutes. Patient required q1 hr accuchecks, IV insulin and ICU admission. Disposition Clinical Impression: DKA (diabetic ketoacidoses), Acute UTI Disposition: ADMITTED IP TO THIS HOSP Condition: Good Is patient prescribed a controlled substance at d/c from ED?: No Decision to Admit Reason: Admit from EC Decision Date: 11/17/19 Decision Time: 17:38
[2019-11-17] MEDS ORDERED: SODIUM CHLORIDE 0.9% 1,000 ML IV SCH (14:30)
[2019-11-17] MEDS ORDERED: INSULIN REGULAR 100 UNIT in SODIUM CHLORIDE 0.9% 100 ML IV SCH (14:30)
[2019-11-17 14:58] LABS: Appearance,Urine Cloudy (Clear); Bacteria,Urine Occasional /hpf; Bilirubin,Urine Negative (Negative); Blood,Urine Small (Negative); Color,Urine Light Yellow; Glucose,Urine (UA) 4+ (Negative); Hyaline Casts,Urine 3 /lpf (0-2); Leukocyte Esterase,Urine Large (Negative); Mucus,Urine Rare /hpf; Nitrite,Urine Negative (Negative); Protein,Urine 1+ (Negative); RBC,Urine 29 /hpf (0-5); Specific Gravity,Urine 1.022 (1.001-1.035); Squamous Epithelial Cell,Urine 2 /hpf (0-4); Urobilinogen,Urine <2.0 mg/dL (<2.0); WBC,Urine 131 /hpf (0-5)
[2019-11-17 15:03] LABS: Ketones,Urine 4+ (Negative)
[2019-11-17 15:11] LABS: Glucose,Whole Blood 320 mg/dL (75-99)
--- NOTE | 2019-11-17 15:26 | CT ---
EXAMINATION TYPE: CT abdomen pelvis w con DATE OF EXAM: 11/17/2019 HISTORY: Abdominal pain, leukocytosis, hx ketoacidosis/vomiting. CT DLP: 639.2mGycm Automated Exposure Control for Dose Reduction was Utilized. CONTRAST: CT scan of the abdomen and pelvis is performed with IV Contrast, patient injected with 100 mL of Isov ue 300. COMPARISON: CT abdomen pelvis dated 08/22/2019 FINDINGS: LUNG BASES: No significant abnormality is appreciated. LIVER/GB: Hepatic parenchyma is diffusely hypoattenuated in comparison to that of the spleen, most co mmonly seen in hepatic steatosis. This finding limits evaluation for hepatic masses. More focal fatty infiltration is presumed to be located near the fissure for the falciform ligament as seen on the pr ior of 2019 in a typical location for focal fatty infiltration. No intrahepatic biliary ductal dilata tion. Cholelithiasis is present. PANCREAS: No significant abnormality is seen. SPLEEN: No significant abnormality is seen. ADRENALS: No significant abnormality is seen. KIDNEYS: 4 mm calculi are seen in the right midpole and right lower pole as well as an additional 2 m m right lower pole renal calculus. No renal calculi seen on the left. Scattered cortical hypoattenuat ed lesions are subcentimeter and too small to accurately characterize. BOWEL: Appendix is within normal limits of size. Few small bowel loops in the left mid abdomen displa ys small bowel thickening that could be on the basis of incomplete distention. Incidentally noted jonna cending duodenal diverticulum. Stomach is fluid-filled and could relate to gastroparesis in this rentao ent with diabetes. UTERUS/ADNEXA: The cervix is bulky and heterogenous. Multiple vessels are seen adjacent to the lower uterine segment. Questionable thickened junctional zone on image 57 of the sagittal reformats. Follic ular and/or cystic changes seen of the bilateral ovaries with scant free fluid in the right adnexa. LYMPH NODES: No greater than 1cm abdominal or pelvic lymph nodes are appreciated. OSSEOUS STRUCTURES: Mild multilevel degenerative change of the lower lumbar spine. OTHER: Very small central fat filled periumbilical hernia. IMPRESSION: 1. Mildly thickened loops of small bowel clustered in the left mid abdomen could be on the basis of e nteritis or incomplete distention. 2. Bulky and heterogenous cervix. Direct visualization is recommended. Prominent vasculature of the p justo near the lower uterine segment and cervix could relate to pelvic congestion syndrome. There is also a question thickened junctional zone on sagittal views that can be seen in adenomyosis. Follicul ar and/or cystic changes of the ovaries. Scant free fluid in the right adnexa is likely physiologic i n nature. 3. Ectatic steatosis and cholelithiasis are incidentally seen. 4. Fluid-filled stomach could relate to gastroparesis in this patient with a history of diabetes.
[2019-11-17 16:20] LABS: Glucose,Whole Blood 227 mg/dL (75-99)
[2019-11-17] MEDS ORDERED: DEXTROSE 5%-0.45% NACL 1,000 ML IV ONE (16:23)
[2019-11-17 17:13] LABS: Glucose,Whole Blood 177 mg/dL (75-99)
[2019-11-17] MEDS: D5-0.45% NACL WITH KCL 20MEQ/L 1,000 ML IV SCH ×2 (17:23→23:39)
[2019-11-17 18:15] LABS: Glucose,Whole Blood 187 mg/dL (75-99)
[2019-11-17 19:05] LABS: Glucose,Whole Blood 243 mg/dL (75-99)
[2019-11-17] MEDS ORDERED: TRIMETHOBENZAMIDE 300 MG CAP PO PRN (19:05)
[2019-11-17] MEDS ORDERED: PANTOPRAZOLE 40 MG/10 ML VIAL IVP STA (19:07)
[2019-11-17 19:59] LABS: Glucose,Whole Blood 246 mg/dL (75-99)
[2019-11-17] MEDS ORDERED: IBUPROFEN 400 MG TAB PO PRN (20:06)
[2019-11-17] MEDS: ACETAMINOPHEN TAB 325 MG TAB PO PRN (20:31)
[2019-11-17 20:42] LABS: African American GFR (CKD) >90 (>60 ml/min/1.73 sqM); Blood Urea Nitrogen 10 mg/dL (7-17); Chloride 113 mmol/L (98-107); Glucose 251 mg/dL (74-99); Non-African American GFR(CKD) >90 (>60 ml/min/1.73 sqM); Phosphorus 2.8 mg/dL (2.5-4.5); Potassium 4.9 mmol/L (3.5-5.1); Sodium 137 mmol/L (137-145)
[2019-11-17 20:47] LABS: Anion Gap 17 mmol/L
[2019-11-17 20:52] LABS: Carbon Dioxide 7 mmol/L (22-30)
[2019-11-17 21:04] LABS: Glucose,Whole Blood 247 mg/dL (75-99)
[2019-11-17 21:59] LABS: Glucose,Whole Blood 273 mg/dL (75-99)
[2019-11-17 23:01] LABS: Glucose,Whole Blood 283 mg/dL (75-99)
[2019-11-17 23:58] LABS: Glucose,Whole Blood 268 mg/dL (75-99)
[2019-11-18 00:13] LABS: African American GFR (CKD) >90 (>60 ml/min/1.73 sqM); Anion Gap 11 mmol/L; Blood Urea Nitrogen 8 mg/dL (7-17); Calcium 7.9 mg/dL (8.4-10.2); Chloride 115 mmol/L (98-107); Glucose 253 mg/dL (74-99); Magnesium 1.7 mg/dL (1.6-2.3); Non-African American GFR(CKD) >90 (>60 ml/min/1.73 sqM); Potassium 4.1 mmol/L (3.5-5.1); Sodium 134 mmol/L (137-145)
[2019-11-18 00:17] LABS: Carbon Dioxide 8 mmol/L (22-30)
[2019-11-18 01:02] LABS: Glucose,Whole Blood 249 mg/dL (75-99)
[2019-11-18 01:52] LABS: Glucose,Whole Blood 230 mg/dL (75-99)
[2019-11-18 03:12] LABS: Glucose,Whole Blood 180 mg/dL (75-99)
[2019-11-18 03:56] LABS: Glucose,Whole Blood 180 mg/dL (75-99)
[2019-11-18 05:26] LABS: Glucose,Whole Blood 148 mg/dL (75-99)
[2019-11-18] MEDS: D5-0.45% NACL WITH KCL 20MEQ/L 1,000 ML IV SCH ×3 (05:27→22:03)
[2019-11-18 05:49] LABS: HCT 38.4 % (34.0-46.0); MCH 31.6 pg (25.0-35.0); MCHC 32.4 g/dL (31.0-37.0); MCV 97.5 fL (80.0-100.0); Platelet Count 205 k/uL (150-450); RBC 3.93 m/uL (3.80-5.40); RDW 12.7 % (11.5-15.5); WBC 11.1 k/uL (3.8-10.6)
[2019-11-18 05:58] LABS: HGB 12.4 gm/dL (11.4-16.0)
[2019-11-18 06:00] LABS: African American GFR (CKD) >90 (>60 ml/min/1.73 sqM); Anion Gap 7 mmol/L; Blood Urea Nitrogen 8 mg/dL (7-17); Calcium 8.2 mg/dL (8.4-10.2); Carbon Dioxide 12 mmol/L (22-30); Chloride 115 mmol/L (98-107); Glucose 145 mg/dL (74-99); Magnesium 1.7 mg/dL (1.6-2.3); Non-African American GFR(CKD) >90 (>60 ml/min/1.73 sqM); Phosphorus 1.9 mg/dL (2.5-4.5); Potassium 4.2 mmol/L (3.5-5.1); Sodium 134 mmol/L (137-145)
[2019-11-18 06:03] LABS: Glucose,Whole Blood 122 mg/dL (75-99)
[2019-11-18 07:01] LABS: Glucose,Whole Blood 136 mg/dL (75-99)
[2019-11-18] MEDS ORDERED: Magnesium Replacement Protocol 1 EACH MISC MISCELLANE PRN (07:28)
[2019-11-18 08:04] LABS: Glucose,Whole Blood 163 mg/dL (75-99)
[2019-11-18 09:06] LABS: Glucose,Whole Blood 179 mg/dL (75-99)
[2019-11-18] MEDS: ACETAMINOPHEN TAB 325 MG TAB PO PRN ×2 (09:08→16:20)
[2019-11-18] MEDS: MAGNESIUM SULFATE-D5W PMX 1 GM in DEXTROSE/WATER 1 100ML.BAG IVPB SCH ×2 (09:11→10:34)
[2019-11-18 10:14] LABS: Glucose,Whole Blood 194 mg/dL (75-99)
[2019-11-18 11:06] LABS: Glucose,Whole Blood 239 mg/dL (75-99)
[2019-11-18] MEDS ORDERED: ONDANSETRON 4 MG/2 ML VIAL IVP PRN (11:25)
[2019-11-18 12:15] LABS: Glucose,Whole Blood 239 mg/dL (75-99)
[2019-11-18 13:04] LABS: Glucose,Whole Blood 253 mg/dL (75-99)
[2019-11-18 13:42] LABS: African American GFR (CKD) >90 (>60 ml/min/1.73 sqM); Anion Gap 8 mmol/L; Blood Urea Nitrogen 5 mg/dL (7-17); Carbon Dioxide 12 mmol/L (22-30); Chloride 114 mmol/L (98-107); Glucose 249 mg/dL (74-99); Non-African American GFR(CKD) >90 (>60 ml/min/1.73 sqM); Sodium 134 mmol/L (137-145)
[2019-11-18 13:43] LABS: Potassium 4.2 mmol/L (3.5-5.1)
--- NOTE | 2019-11-18 13:51 | P.CNPUL ---
History of Present Illness Consult date: 11/18/19 Reason for consult: other Chief complaint: Diabetic ketoacidosis History of present illness: 44-year-old white female patient of Dr. North, known history of diabetes mellitus type I, hypertension, chronic kidney disease, unspecified, previous history of nephrolithiasis, presented to the hospital on 11/17/2019 for evalu ation of nausea, vomiting, abdominal pain. She has had decreased intake related to nausea, started several days ago, yesterday she started vomiting. Denied any sick contacts or recent travel, she denied any fever or chills. No difficulty breathing, no cough or congestion, no urinary symptoms. He had a previous episode of DKA in August related to nephrolithiasis. 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 CT of abdomen and pelvis was obtained showing mildly thickened loops of small bowel in the left mid abdomen that could be related to enteritis, bulky and heterogeneous cervix, prominent vasculature of the pelvis near the lower uterine segment and cervix, follicular and/or cystic changes of the ovaries, ectatic steatosis and cholelithiasis, and fluid-filled stomach that could related to gastroparesis. Initial labs showed a white blood cell, 30.4, hemoglobin of 15.9, sodium of 134, potassium is 4.1, chloride is 1:15, CO2 is 8, BUN is 8, creatinine 0.59, glucose was 253, lactic acid was 1.1, AST and ALT were within normal limits, alkaline phosphatase was 133, lipase was 56, urinalysis showed 1+ protein, 4+ glucose, 4+ ketones, increased WBC of 131, urine hCG was nondetected, and serum acetone was positive. Room air pulse ox was 100%, patient is afebrile, hemodynamically patient is stable, she is been given IV hydration, and started on insulin infusion per DKA protocol, receiving Tigan for nausea, and she has been started on IV Rocephin for possibility of urinary tract infection. Doing better currently, she is resting comfortably in the intensive care unit, alert and oriented 3, no nausea or vomiting, she is tolerating sips of clear liquids Review of Systems All systems: negative Constitutional: Denies chills, Denies fever Eyes: denies blurred vision, denies pain Ears, nose, mouth and throat: Denies headache, Denies sore throat Cardiovascular: Denies chest pain, Denies shortness of breath Respiratory: Denies cough Gastrointestinal: Reports nausea, Reports vomiting, Denies abdominal pain, Denies diarrhea Genitourinary: Denies dysuria, Denies hematuria Musculoskeletal: Denies myalgias Integumentary: Denies pruritus, Denies rash Neurological: Denies numbness, Denies weakness Psychiatric: Denies anxiety, Denies depression Endocrine: Denies fatigue, Denies weight change Past Medical History Past Medical History: Diabetes Mellitus, Hypertension, Renal Disease Additional Past Medical History / Comment(s): DM type I, kidney stones, UTI. History of Any Multi-Drug Resistant Organisms: None Reported Past Surgical History: Tonsillectomy, Uterine Ablation Additional Past Surgical History / Comment(s): Laparoscopic surgerie for ovarian cysts, colonoscopy with benign polyp Past Anesthesia/Blood Transfusion Reactions: Postoperative Nausea & Vomiting (PONV) Past Psychological History: No Psychological Hx Reported Smoking Status: Never smoker Past Alcohol Use History: None Reported Past Drug Use History: None Reported - Past Family History Mother Family Medical History: Cancer Additional Family Medical History / Comment(s): Mother is alive at age 71 with history of chronic back pain and Renal carcinoma Father Family Medical History: No Reported History Additional Family Medical History / Comment(s): Father is alive at age 77 with history of chronic kidney disease and hypertension. Sister(s) Additional Family Medical History / Comment(s): Patient has 1 sister with no major medical problems. Patient's 3 children with no major medical problems. Medications and Allergies Home Medications Medication Instructions Recorded Confirmed Type INSULIN ASPART (NovoLOG) [NovoLOG See Protocol SQ AC-TID 08/22/19 11/17/19 History (formulary)] Insulin Glargine [Lantus] 22 unit SQ HS 08/22/19 11/17/19 History Pramlintide Acetate [Symlin Pen 60] 15 mcg SQ AC-TID PRN 11/17/19 11/17/19 History Allergies Allergy/AdvReac Type Severity Reaction Status Date / Time Sulfa (Sulfonamide Allergy Anaphylaxis Verified 08/22/19 09:28 Antibiotics) Physical Exam Vitals: Vital Signs Temp Pulse Pulse Resp BP BP Pulse Ox 11/18/19 11:00 85 18 110/81 100 11/18/19 10:00 82 21 112/83 99 11/18/19 09:00 86 19 102/72 98 11/18/19 08:00 97.8 F 87 17 105/75 98 11/18/19 07:00 93 12 109/77 99 11/18/19 06:00 86 21 95/73 98 11/18/19 05:00 83 18 94/68 98 11/18/19 04:00 98 F 82 15 96/70 99 11/18/19 03:00 87 18 89/76 98 11/18/19 02:00 93 18 97/66 97 11/18/19 01:00 104 H 20 95/66 97 11/18/19 00:00 98 F 101 H 21 101/61 98 11/17/19 23:11 99 19 108/68 98 11/17/19 23:00 108 H 21 106/66 98 11/17/19 22:01 107 H 20 105/68 98 11/17/19 21:00 113 H 23 109/72 98 11/17/19 20:00 98.2 F 113 H 118 H 24 115/77 98 11/17/19 19:01 98.2 F 114 H 22 110/81 99 11/17/19 17:55 98.2 F 118 H 13 99/58 11/17/19 17:00 98.3 F 110 H 19 115/82 100 11/17/19 14:05 123 H 20 125/90 100 11/17/19 13:47 19 Intake and Output 11/17/19 11/18/19 11/18/19 22:59 06:59 14:59 Intake Total 311.511 2908.616 957.087 Output Total 600 350 0 Balance 10.824 878.616 957.087 Intake: IV 600 1200 750 Sodium Chloride 0.9% 1, 600 1200 750 000 ml @ 150 mls/hr IV . Q6H40M FELIC[facility] Rx#:[id number] Intake, IV Titration 10.824 28.616 207.087 Amount Insulin Regular 100 unit 10.824 28.616 7.087 In Sodium Chloride 0.9% 100 ml @ Per Protocol IV .Q0M FELIC[facility] Rx#:[id number] Magnesium Sulfate-D5w Pmx 200 1 gm In Dextrose/Water 1 100ml.bag @ 100 mls/hr IVPB Q1H [facility] Rx#: [id number] Output: Urine 600 350 0 Other: Voiding Method Toilet Toilet Toilet # Voids 1 Weight 62.8 kg 65.4 kg GENERAL EXAM: Alert, pleasant, 44-year-old white female, on room air, with a pulse ox of 99-100%, comfortable in no apparent distress. HEAD: Normocephalic/atraumatic. EYES: Normal reaction of pupils, equal size. Conjunctiva pink, sclera white. NOSE: Clear with pink turbinates. THROAT: No erythema or exudates. NECK: No masses, no JVD, no thyroid enlargement, no adenopathy. CHEST: No chest wall deformity. Symmetrical expansion. LUNGS: Equal air entry with no crackles, wheeze, rhonchi or dullness. CVS: Regular rate and rhythm, normal S1 and S2, no gallops, no murmurs, no rubs ABDOMEN: Soft, nontender. No hepatosplenomegaly, normal bowel sounds, no guarding or rigidity. EXTREMITIES: No clubbing, no edema, no cyanosis, 2+ pulses and upper and lower extremities. MUSCULOSKELETAL: Muscle strength and tone normal. SPINE: No scoliosis or deformity SKIN: No rashes CENTRAL NERVOUS SYSTEM: Alert and oriented -3. No focal deficits, tone is normal in all 4 extremities. PSYCHIATRIC: Alert and oriented -3. Appropriate affect. Intact judgment and insight. Results - Laboratory Findings CBC and BMP: 11/18/19 05:22 11/18/19 05:22 Abnormal lab findings: Abnormal Labs 11/17/19 11/17/19 11/17/19 12:58 13:00 13:00 WBC 30.4 H Hct 49.6 H Neutrophils # (Manual) 26.10 H Monocytes # (Manual) 1.52 H Metamyelocytes # (Man) 0.30 H VBG pH VBG pCO2 VBG HCO3 Sodium Potassium 5.6 H Chloride Carbon Dioxide 7 L* Glucose 482 H POC Glucose (mg/dL) 465 H Plasma Lactic Acid Adan Calcium Phosphorus 8.2 H Alkaline Phosphatase 133 H Total Protein 9.1 H Albumin 5.6 H Urine Appearance Urine Protein Urine Glucose (UA) Urine Ketones Urine Blood Ur Leukocyte Esterase Urine RBC Urine WBC Urine Bacteria Hyaline Casts Urine Mucus 11/17/19 11/17/19 11/17/19 13:00 13:00 14:30 WBC Hct Neutrophils # (Manual) Monocytes # (Manual) Metamyelocytes # (Man) VBG pH 7.01 L* VBG pCO2 27 L VBG HCO3 7 L* Sodium Potassium Chloride Carbon Dioxide Glucose POC Glucose (mg/dL) Plasma Lactic Acid Adan 3.6 H* Calcium Phosphorus Alkaline Phosphatase Total Protein Albumin Urine Appearance Cloudy H Urine Protein 1+ H Urine Glucose (UA) 4+ H Urine Ketones 4+ H Urine Blood Small H Ur Leukocyte Esterase Large H Urine RBC 29 H Urine WBC 131 H Urine Bacteria Occasional H Hyaline Casts 3 H Urine Mucus Rare H 11/17/19 11/17/19 11/17/19 15:10 16:19 17:12 WBC Hct Neutrophils # (Manual) Monocytes # (Manual) Metamyelocytes # (Man) VBG pH VBG pCO2 VBG HCO3 Sodium Potassium Chloride Carbon Dioxide Glucose POC Glucose (mg/dL) 320 H 227 H 177 H Plasma Lactic Acid Adan Calcium Phosphorus Alkaline Phosphatase Total Protein Albumin Urine Appearance Urine Protein Urine Glucose (UA) Urine Ketones Urine Blood Ur Leukocyte Esterase Urine RBC Urine WBC Urine Bacteria Hyaline Casts Urine Mucus 11/17/19 11/17/19 11/17/19 18:13 19:04 19:58 WBC Hct Neutrophils # (Manual) Monocytes # (Manual) Metamyelocytes # (Man) VBG pH VBG pCO2 VBG HCO3 Sodium Potassium Chloride Carbon Dioxide Glucose POC Glucose (mg/dL) 187 H 243 H 246 H Plasma Lactic Acid Adan Calcium Phosphorus Alkaline Phosphatase Total Protein Albumin Urine Appearance Urine Protein Urine Glucose (UA) Urine Ketones Urine Blood Ur Leukocyte Esterase Urine RBC Urine WBC Urine Bacteria Hyaline Casts Urine Mucus 11/17/19 11/17/19 11/17/19 20:19 21:02 21:57 WBC Hct Neutrophils # (Manual) Monocytes # (Manual) Metamyelocytes # (Man) VBG pH VBG pCO2 VBG HCO3 Sodium Potassium Chloride 113 H Carbon Dioxide 7 L* Glucose 251 H POC Glucose (mg/dL) 247 H 273 H Plasma Lactic Acid Adan Calcium Phosphorus Alkaline Phosphatase Total Protein Albumin Urine Appearance Urine Protein Urine Glucose (UA) Urine Ketones Urine Blood Ur Leukocyte Esterase Urine RBC Urine WBC Urine Bacteria Hyaline Casts Urine Mucus 11/17/19 11/17/19 11/17/19 22:59 23:54 23:57 WBC Hct Neutrophils # (Manual) Monocytes # (Manual) Metamyelocytes # (Man) VBG pH VBG pCO2 VBG HCO3 Sodium 134 L Potassium Chloride 115 H Carbon Dioxide 8 L* Glucose 253 H POC Glucose (mg/dL) 283 H 268 H Plasma Lactic Acid Adan Calcium 7.9 L Phosphorus Alkaline Phosphatase Total Protein Albumin Urine Appearance Urine Protein Urine Glucose (UA) Urine Ketones Urine Blood Ur Leukocyte Esterase Urine RBC Urine WBC Urine Bacteria Hyaline Casts Urine Mucus 11/18/19 11/18/19 11/18/19 01:00 01:50 03:10 WBC Hct Neutrophils # (Manual) Monocytes # (Manual) Metamyelocytes # (Man) VBG pH VBG pCO2 VBG HCO3 Sodium Potassium Chloride Carbon Dioxide Glucose POC Glucose (mg/dL) 249 H 230 H 180 H Plasma Lactic Acid Adan Calcium Phosphorus Alkaline Phosphatase Total Protein Albumin Urine Appearance Urine Protein Urine Glucose (UA) Urine Ketones Urine Blood Ur Leukocyte Esterase Urine RBC Urine WBC Urine Bacteria Hyaline Casts Urine Mucus 11/18/19 11/18/19 11/18/19 03:55 05:22 05:22 WBC 11.1 H Hct Neutrophils # (Manual) Monocytes # (Manual) Metamyelocytes # (Man) VBG pH VBG pCO2 VBG HCO3 Sodium 134 L Potassium Chloride 115 H Carbon Dioxide 12 L Glucose 145 H POC Glucose (mg/dL) 180 H Plasma Lactic Acid Adan Calcium 8.2 L Phosphorus 1.9 L Alkaline Phosphatase Total Protein Albumin Urine Appearance Urine Protein Urine Glucose (UA) Urine Ketones Urine Blood Ur Leukocyte Esterase Urine RBC Urine WBC Urine Bacteria Hyaline Casts Urine Mucus 11/18/19 11/18/19 11/18/19 05:25 06:02 07:00 WBC Hct Neutrophils # (Manual) Monocytes # (Manual) Metamyelocytes # (Man) VBG pH VBG pCO2 VBG HCO3 Sodium Potassium Chloride Carbon Dioxide Glucose POC Glucose (mg/dL) 148 H 122 H 136 H Plasma Lactic Acid Adan Calcium Phosphorus Alkaline Phosphatase Total Protein Albumin Urine Appearance Urine Protein Urine Glucose (UA) Urine Ketones Urine Blood Ur Leukocyte Esterase Urine RBC Urine WBC Urine Bacteria Hyaline Casts Urine Mucus 11/18/19 11/18/19 11/18/19 08:03 09:04 10:12 WBC Hct Neutrophils # (Manual) Monocytes # (Manual) Metamyelocytes # (Man) VBG pH VBG pCO2 VBG HCO3 Sodium Potassium Chloride Carbon Dioxide Glucose POC Glucose (mg/dL) 163 H 179 H 194 H Plasma Lactic Acid Adan Calcium Phosphorus Alkaline Phosphatase Total Protein Albumin Urine Appearance Urine Protein Urine Glucose (UA) Urine Ketones Urine Blood Ur Leukocyte Esterase Urine RBC Urine WBC Urine Bacteria Hyaline Casts Urine Mucus 11/18/19 11/18/19 11/18/19 11:04 12:11 13:03 WBC Hct Neutrophils # (Manual) Monocytes # (Manual) Metamyelocytes # (Man) VBG pH VBG pCO2 VBG HCO3 Sodium Potassium Chloride Carbon Dioxide Glucose POC Glucose (mg/dL) 239 H 239 H 253 H Plasma Lactic Acid Adan Calcium Phosphorus Alkaline Phosphatase Total Protein Albumin Urine Appearance Urine Protein Urine Glucose (UA) Urine Ketones Urine Blood Ur Leukocyte Esterase Urine RBC Urine WBC Urine Bacteria Hyaline Casts Urine Mucus - Diagnostic Findings Additional studies: CT of abdomen and pelvis reviewed Assessment and Plan Plan: Assessment: #1. Acute diabetic ketoacidosis likely related to acute urinary tract infection #2. Anion gap metabolic acidosis, improving with insulin infusion and hydration, and on today's labs that anion gap has closed #3. Acute urinary tract infection, urine culture is pending #4. Rrenal calculi in the right mid pole in the right lower pole, but no hydronephrosis is seen on the CT of abdomen and pelvis with contrast #4. Previous episode of DKA in August 2019 related to nephrolithiasis, status post cystoscopy, left U uteroscopic be, and laser lithotripsy, ureteral balloon dilation and stent placement #5. Diabetes mellitus type I, on a combination of Symlin, Novolog, and Lantus #6. Never smoker Plan: Continue IV hydration, continue sling infusion per DKA protocol, anion gap past closed, patient is hemodynamically stable, she is awake and alert, denies any acute distress, her nausea and vomiting have subsided, CT of the abdomen and pelvis reviewed showing small renal calculi in the right mid and right lower pole but no evidence of hydronephrosis. Urine culture is pending, patient is empirically covered with Rocephin, may consider consulting urology for urinary tract infection. Clear liquid diet, and advance as tolerated. Will be continued to be monitored in the ICU, will follow I performed a history & physical examination of the patient and discussed their management with my nurse practitioner, Layla Baltazar. I reviewed the nurse practitioner's note and agree with the documented findings and plan of care. Lung sounds are positive for diminished breath sounds. The findings and the impression was discussed with the patient. I attest to the documentation by the nurse practitioner. Time with Patient: Greater than 30
--- NOTE | 2019-11-18 13:54 | P.HPIM ---
History of Present Illness H&P Date: 11/18/19 This is a 44-year-old female patient of Dr. North with past medical history of diabetes mellitus type 1 follows with endocrinology at [facility], history of kidney stones, UTI. Patient was last hospitalized in August 2018 which time she was treated for diabetic ketoacidosis, renal tubular acidosis, left UVJ stone with hydronephrosis status post cystoscopy and stent placement. Patient states that she has had follow-up with urology since discharge. Patient developed nausea vomiting diarrhea as well as abdominal pain, sudden onset. She dinner in the same food that her family ate and no other family members were sick. She denied having any fever, chills, no sore throat. She complains of occasional shortness of breath. Patient is urine protein at home. She checked her blood sugar was over 500. She just had insulin regime adjusted 2 weeks ago. This is her second episode of DKA and was diagnosed with diabetes mellitus type 1 October of last year. 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 Patient denies having any appetite at this time and we will plan to start a clear liquid diet and advance to consistent carb. Patient came into [facility] emergency center for evaluation and found to have a blood pressure of 132/109, afebrile, heart rate 134, pulse ox 100%. EKG is in sinus tachycardia at heart rate of [address] changes. WBC 30.4, hemoglobin 15.9. Chloride 113, CO2 7, blood sugar 251, lactic acid 3.6 venous blood gas showed a pH of 7.01 pCO2 27, bicarb 7. Glucose was 482. TSH 1.180. Alkaline phosphatase 133. Urinalysis cloudy, leukoesterase large, WBCs 131. HCC not detected. Acetone positive. Patient was started on the DKA protocol and admitted to the intensive care unit. Patient is currently on an insulin drip and most recent blood sugar was 239. Review of Systems Constitutional: Reports fatigue, Reports poor appetite, Denies chills, Denies fever Eyes: denies blurred vision, denies pain Ears, nose, mouth and throat: Denies dysphagia, Denies headache, Denies nasal congestion, Denies nasal discharge, Denies sore throat, Denies vertigo Cardiovascular: Denies chest pain, Denies shortness of breath Respiratory: Denies cough, Denies cough with sputum, Denies dyspnea, Denies excessive sputum, Denies hemoptysis, Denies home oxygen, Denies respiratory infections, Denies wheezing Gastrointestinal: Reports abdominal pain, Reports loss of appetite, reports diarrhea, reports nausea, reports vomiting Genitourinary: Reports dysuria, Reports flank pain, Denies hematuria Musculoskeletal: Denies frequent falls, Denies gait dysfunction, Denies muscle weakness, Denies myalgias Integumentary: Denies pruritus, Denies rash, Denies wounds Neurological: Denies change in mentation, Denies change in speech, Denies numb ness, Denies seizures, Denies weakness Psychiatric: Denies anxiety, Denies depression Endocrine: Denies fatigue, Denies weight change Past Medical History Past Medical History: Diabetes Mellitus, Hypertension, Renal Disease Additional Past Medical History / Comment(s): DM type I, kidney stones, UTI. History of Any Multi-Drug Resistant Organisms: None Reported Past Surgical History: Tonsillectomy, Uterine Ablation Additional Past Surgical History / Comment(s): Laparoscopic surgerie for ovarian cysts, colonoscopy with benign polyp Past Anesthesia/Blood Transfusion Reactions: Postoperative Nausea & Vomiting (PONV) Past Psychological History: No Psychological Hx Reported Smoking Status: Never smoker Past Alcohol Use History: None Reported Past Drug Use History: None Reported - Past Family History Mother Family Medical History: Cancer Additional Family Medical History / Comment(s): Mother is alive at age 71 with history of chronic back pain and Renal carcinoma Father Family Medical History: No Reported History Additional Family Medical History / Comment(s): Father is alive at age 77 with history of chronic kidney disease and hypertension. Sister(s) Additional Family Medical History / Comment(s): Patient has 1 sister with no major medical problems. Patient's 3 children with no major medical problems. Medications and Allergies Home Medications Medication Instructions Recorded Confirmed Type INSULIN ASPART (NovoLOG) [NovoLOG See Protocol SQ AC-TID 08/22/19 11/17/19 History (formulary)] Insulin Glargine [Lantus] 22 unit SQ HS 08/22/19 11/17/19 History Pramlintide Acetate [Symlin Pen 60] 15 mcg SQ AC-TID PRN 11/17/19 11/17/19 History Allergies Allergy/AdvReac Type Severity Reaction Status Date / Time Sulfa (Sulfonamide Allergy Anaphylaxis Verified 08/22/19 09:28 Antibiotics) Physical Exam Vitals: Vital Signs Temp Pulse Pulse Resp BP BP Pulse Ox 11/18/19 11:00 85 18 110/81 100 11/18/19 10:00 82 21 112/83 99 11/18/19 09:00 86 19 102/72 98 11/18/19 08:00 97.8 F 87 17 105/75 98 11/18/19 07:00 93 12 109/77 99 11/18/19 06:00 86 21 95/73 98 11/18/19 05:00 83 18 94/68 98 11/18/19 04:00 98 F 82 15 96/70 99 11/18/19 03:00 87 18 89/76 98 11/18/19 02:00 93 18 97/66 97 11/18/19 01:00 104 H 20 95/66 97 11/18/19 00:00 98 F 101 H 21 101/61 98 11/17/19 23:11 99 19 108/68 98 11/17/19 23:00 108 H 21 106/66 98 11/17/19 22:01 107 H 20 105/68 98 11/17/19 21:00 113 H 23 109/72 98 11/17/19 20:00 98.2 F 113 H 118 H 24 115/77 98 11/17/19 19:01 98.2 F 114 H 22 110/81 99 11/17/19 17:55 98.2 F 118 H 13 99/58 11/17/19 17:00 98.3 F 110 H 19 115/82 100 11/17/19 14:05 123 H 20 125/90 100 11/17/19 13:47 19 11/17/19 13:16 32 H 133/97 11/17/19 12:37 97.9 F 134 H 20 132/109 100 Intake and Output 11/17/19 11/18/19 11/18/19 22:59 06:59 14:59 Intake Total 606.301 6299.616 951.986 Output Total 600 350 0 Balance 10.824 878.616 951.986 Intake: IV 600 1200 750 Sodium Chloride 0.9% 1, 600 1200 750 000 ml @ 150 mls/hr IV . Q6H40M FELICIANO Rx#:[id number] Intake, IV Titration 10.824 28.616 201.986 Amount Insulin Regular 100 unit 10.824 28.616 1.986 In Sodium Chloride 0.9% 100 ml @ Per Protocol IV .Q0M FELICIANO Rx#:[id number] Magnesium Sulfate-D5w Pmx 200 1 gm In Dextrose/Water 1 100ml.bag @ 100 mls/hr IVPB Q1H FELICIANO Rx#: [id number] Output: Urine 600 350 0 Other: Voiding Method Toilet Toilet Toilet # Voids 1 Weight 62.8 kg 65.4 kg Gen: This is a 43-year-old female. She is resting in ICU bed and appears comfortable. HEENT: Head is atraumatic, normocephalic. Pupils equal, round. Sclerae is anicteric. NECK: Supple. No JVD. No lymphadenopathy. No thyromegaly. LUNGS: Clear to auscultation. No wheezes or rhonchi. No intercostal retractions . HEART: Regular rate and rhythm. No murmur. ABDOMEN: Soft. Bowel sounds are present. No masses. No tenderness EXTREMITIES: No pedal edema. No calf tenderness. Dorsalis pedis +2 bilaterally. NEUROLOGICAL: Patient is awake, alert and oriented x3. Cranial nerves 2 through 12 are grossly intact. Results CBC & Chem 7: 11/18/19 05:22 11/18/19 12:51 Labs: Abnormal Lab Results - Last 24 Hours (Table) 11/17/19 11/17/19 11/17/19 Range/Units 12:58 13:00 13:00 WBC 30.4 H (3.8-10.6) k/uL Hct 49.6 H (34.0-46.0) % Neutrophils # (Manual) 26.10 H (1.3-7.7) k/uL Monocytes # (Manual) 1.52 H (0-1.0) k/uL Metamyelocytes # (Man) 0.30 H (0) k/uL VBG pH (7.31-7.41) VBG pCO2 (37-51) mmHg VBG HCO3 (24-28) mmol/L Sodium (137-145) mmol/L Potassium 5.6 H (3.5-5.1) mmol/L Chloride (98-107) mmol/L Carbon Dioxide 7 L* (22-30) mmol/L Glucose 482 H (74-99) mg/dL POC Glucose (mg/dL) 465 H (75-99) mg/dL Plasma Lactic Acid Adan (0.7-2.0) mmol/L Calcium (8.4-10.2) mg/dL Phosphorus 8.2 H (2.5-4.5) mg/dL Alkaline Phosphatase 133 H (38-126) U/L Total Protein 9.1 H (6.3-8.2) g/dL Albumin 5.6 H (3.5-5.0) g/dL Urine Appearance (Clear) Urine Protein (Negative) Urine Glucose (UA) (Negative) Urine Ketones (Negative) Urine Blood (Negative) Ur Leukocyte Esterase (Negative) Urine RBC (0-5) /hpf Urine WBC (0-5) /hpf Urine Bacteria (None) /hpf Hyaline Casts (0-2) /lpf Urine Mucus (None) /hpf 11/17/19 11/17/19 11/17/19 Range/Units 13:00 13:00 14:30 WBC (3.8-10.6) k/uL Hct (34.0-46.0) % Neutrophils # (Manual) (1.3-7.7) k/uL Monocytes # (Manual) (0-1.0) k/uL Metamyelocytes # (Man) (0) k/uL VBG pH 7.01 L* (7.31-7.41) VBG pCO2 27 L (37-51) mmHg VBG HCO3 7 L* (24-28) mmol/L Sodium (137-145) mmol/L Potassium (3.5-5.1) mmol/L Chloride (98-107) mmol/L Carbon Dioxide (22-30) mmol/L Glucose (74-99) mg/dL POC Glucose (mg/dL) (75-99) mg/dL Plasma Lactic Acid Adan 3.6 H* (0.7-2.0) mmol/L Calcium (8.4-10.2) mg/dL Phosphorus (2.5-4.5) mg/dL Alkaline Phosphatase (38-126) U/L Total Protein (6.3-8.2) g/dL Albumin (3.5-5.0) g/dL Urine Appearance Cloudy H (Clear) Urine Protein 1+ H (Negative) Urine Glucose (UA) 4+ H (Negative) Urine Ketones 4+ H (Negative) Urine Blood Small H (Negative) Ur Leukocyte Esterase Large H (Negative) Urine RBC 29 H (0-5) /hpf Urine WBC 131 H (0-5) /hpf Urine Bacteria Occasional H (None) /hpf Hyaline Casts 3 H (0-2) /lpf Urine Mucus Rare H (None) /hpf 11/17/19 11/17/19 11/17/19 Range/Units 15:10 16:19 17:12 WBC (3.8-10.6) k/uL Hct (34.0-46.0) % Neutrophils # (Manual) (1.3-7.7) k/uL Monocytes # (Manual) (0-1.0) k/uL Metamyelocytes # (Man) (0) k/uL VBG pH (7.31-7.41) VBG pCO2 (37-51) mmHg VBG HCO3 (24-28) mmol/L Sodium (137-145) mmol/L Potassium (3.5-5.1) mmol/L Chloride (98-107) mmol/L Carbon Dioxide (22-30) mmol/L Glucose (74-99) mg/dL POC Glucose (mg/dL) 320 H 227 H 177 H (75-99) mg/dL Plasma Lactic Acid Adan (0.7-2.0) mmol/L Calcium (8.4-10.2) mg/dL Phosphorus (2.5-4.5) mg/dL Alkaline Phosphatase (38-126) U/L Total Protein (6.3-8.2) g/dL Albumin (3.5-5.0) g/dL Urine Appearance (Clear) Urine Protein (Negative) Urine Glucose (UA) (Negative) Urine Ketones (Negative) Urine Blood (Negative) Ur Leukocyte Esterase (Negative) Urine RBC (0-5) /hpf Urine WBC (0-5) /hpf Urine Bacteria (None) /hpf Hyaline Casts (0-2) /lpf Urine Mucus (None) /hpf 11/17/19 11/17/19 11/17/19 Range/Units 18:13 19:04 19:58 WBC (3.8-10.6) k/uL Hct (34.0-46.0) % Neutrophils # (Manual) (1.3-7.7) k/uL Monocytes # (Manual) (0-1.0) k/uL Metamyelocytes # (Man) (0) k/uL VBG pH (7.31-7.41) VBG pCO2 (37-51) mmHg VBG HCO3 (24-28) mmol/L Sodium (137-145) mmol/L Potassium (3.5-5.1) mmol/L Chloride (98-107) mmol/L Carbon Dioxide (22-30) mmol/L Glucose (74-99) mg/dL POC Glucose (mg/dL) 187 H 243 H 246 H (75-99) mg/dL Plasma Lactic Acid Adan (0.7-2.0) mmol/L Calcium (8.4-10.2) mg/dL Phosphorus (2.5-4.5) mg/dL Alkaline Phosphatase (38-126) U/L Total Protein (6.3-8.2) g/dL Albumin (3.5-5.0) g/dL Urine Appearance (Clear) Urine Protein (Negative) Urine Glucose (UA) (Negative) Urine Ketones (Negative) Urine Blood (Negative) Ur Leukocyte Esterase (Negative) Urine RBC (0-5) /hpf Urine WBC (0-5) /hpf Urine Bacteria (None) /hpf Hyaline Casts (0-2) /lpf Urine Mucus (None) /hpf 11/17/19 11/17/19 11/17/19 Range/Units 20:19 21:02 21:57 WBC (3.8-10.6) k/uL Hct (34.0-46.0) % Neutrophils # (Manual) (1.3-7.7) k/uL Monocytes # (Manual) (0-1.0) k/uL Metamyelocytes # (Man) (0) k/uL VBG pH (7.31-7.41) VBG pCO2 (37-51) mmHg VBG HCO3 (24-28) mmol/L Sodium (137-145) mmol/L Potassium (3.5-5.1) mmol/L Chloride 113 H (98-107) mmol/L Carbon Dioxide 7 L* (22-30) mmol/L Glucose 251 H (74-99) mg/dL POC Glucose (mg/dL) 247 H 273 H (75-99) mg/dL Plasma Lactic Acid Adan (0.7-2.0) mmol/L Calcium (8.4-10.2) mg/dL Phosphorus (2.5-4.5) mg/dL Alkaline Phosphatase (38-126) U/L Total Protein (6.3-8.2) g/dL Albumin (3.5-5.0) g/dL Urine Appearance (Clear) Urine Protein (Negative) Urine Glucose (UA) (Negative) Urine Ketones (Negative) Urine Blood (Negative) Ur Leukocyte Esterase (Negative) Urine RBC (0-5) /hpf Urine WBC (0-5) /hpf Urine Bacteria (None) /hpf Hyaline Casts (0-2) /lpf Urine Mucus (None) /hpf 11/17/19 11/17/19 11/17/19 Range/Units 22:59 23:54 23:57 WBC (3.8-10.6) k/uL Hct (34.0-46.0) % Neutrophils # (Manual) (1.3-7.7) k/uL Monocytes # (Manual) (0-1.0) k/uL Metamyelocytes # (Man) (0) k/uL VBG pH (7.31-7.41) VBG pCO2 (37-51) mmHg VBG HCO3 (24-28) mmol/L Sodium 134 L (137-145) mmol/L Potassium (3.5-5.1) mmol/L Chloride 115 H (98-107) mmol/L Carbon Dioxide 8 L* (22-30) mmol/L Glucose 253 H (74-99) mg/dL POC Glucose (mg/dL) 283 H 268 H (75-99) mg/dL Plasma Lactic Acid Adan (0.7-2.0) mmol/L Calcium 7.9 L (8.4-10.2) mg/dL Phosphorus (2.5-4.5) mg/dL Alkaline Phosphatase (38-126) U/L Total Protein (6.3-8.2) g/dL Albumin (3.5-5.0) g/dL Urine Appearance (Clear) Urine Protein (Negative) Urine Glucose (UA) (Negative) Urine Ketones (Negative) Urine Blood (Negative) Ur Leukocyte Esterase (Negative) Urine RBC (0-5) /hpf Urine WBC (0-5) /hpf Urine Bacteria (None) /hpf Hyaline Casts (0-2) /lpf Urine Mucus (None) /hpf 11/18/19 11/18/19 11/18/19 Range/Units 01:00 01:50 03:10 WBC (3.8-10.6) k/uL Hct (34.0-46.0) % Neutrophils # (Manual) (1.3-7.7) k/uL Monocytes # (Manual) (0-1.0) k/uL Metamyelocytes # (Man) (0) k/uL VBG pH (7.31-7.41) VBG pCO2 (37-51) mmHg VBG HCO3 (24-28) mmol/L Sodium (137-145) mmol/L Potassium (3.5-5.1) mmol/L Chloride (98-107) mmol/L Carbon Dioxide (22-30) mmol/L Glucose (74-99) mg/dL POC Glucose (mg/dL) 249 H 230 H 180 H (75-99) mg/dL Plasma Lactic Acid Adan (0.7-2.0) mmol/L Calcium (8.4-10.2) mg/dL Phosphorus (2.5-4.5) mg/dL Alkaline Phosphatase (38-126) U/L Total Protein (6.3-8.2) g/dL Albumin (3.5-5.0) g/dL Urine Appearance (Clear) Urine Protein (Negative) Urine Glucose (UA) (Negative) Urine Ketones (Negative) Urine Blood (Negative) Ur Leukocyte Esterase (Negative) Urine RBC (0-5) /hpf Urine WBC (0-5) /hpf Urine Bacteria (None) /hpf Hyaline Casts (0-2) /lpf Urine Mucus (None) /hpf 11/18/19 11/18/19 11/18/19 Range/Units 03:55 05:22 05:22 WBC 11.1 H (3.8-10.6) k/uL Hct (34.0-46.0) % Neutrophils # (Manual) (1.3-7.7) k/uL Monocytes # (Manual) (0-1.0) k/uL Metamyelocytes # (Man) (0) k/uL VBG pH (7.31-7.41) VBG pCO2 (37-51) mmHg VBG HCO3 (24-28) mmol/L Sodium 134 L (137-145) mmol/L Potassium (3.5-5.1) mmol/L Chloride 115 H (98-107) mmol/L Carbon Dioxide 12 L (22-30) mmol/L Glucose 145 H (74-99) mg/dL POC Glucose (mg/dL) 180 H (75-99) mg/dL Plasma Lactic Acid Adan (0.7-2.0) mmol/L Calcium 8.2 L (8.4-10.2) mg/dL Phosphorus 1.9 L (2.5-4.5) mg/dL Alkaline Phosphatase (38-126) U/L Total Protein (6.3-8.2) g/dL Albumin (3.5-5.0) g/dL Urine Appearance (Clear) Urine Protein (Negative) Urine Glucose (UA) (Negative) Urine Ketones (Negative) Urine Blood (Negative) Ur Leukocyte Esterase (Negative) Urine RBC (0-5) /hpf Urine WBC (0-5) /hpf Urine Bacteria (None) /hpf Hyaline Casts (0-2) /lpf Urine Mucus (None) /hpf 11/18/19 11/18/19 11/18/19 Range/Units 05:25 06:02 07:00 WBC (3.8-10.6) k/uL Hct (34.0-46.0) % Neutrophils # (Manual) (1.3-7.7) k/uL Monocytes # (Manual) (0-1.0) k/uL Metamyelocytes # (Man) (0) k/uL VBG pH (7.31-7.41) VBG pCO2 (37-51) mmHg VBG HCO3 (24-28) mmol/L Sodium (137-145) mmol/L Potassium (3.5-5.1) mmol/L Chloride (98-107) mmol/L Carbon Dioxide (22-30) mmol/L Glucose (74-99) mg/dL POC Glucose (mg/dL) 148 H 122 H 136 H (75-99) mg/dL Plasma Lactic Acid Adan (0.7-2.0) mmol/L Calcium (8.4-10.2) mg/dL Phosphorus (2.5-4.5) mg/dL Alkaline Phosphatase (38-126) U/L Total Protein (6.3-8.2) g/dL Albumin (3.5-5.0) g/dL Urine Appearance (Clear) Urine Protein (Negative) Urine Glucose (UA) (Negative) Urine Ketones (Negative) Urine Blood (Negative) Ur Leukocyte Esterase (Negative) Urine RBC (0-5) /hpf Urine WBC (0-5) /hpf Urine Bacteria (None) /hpf Hyaline Casts (0-2) /lpf Urine Mucus (None) /hpf 11/18/19 11/18/19 11/18/19 Range/Units 08:03 09:04 10:12 WBC (3.8-10.6) k/uL Hct (34.0-46.0) % Neutrophils # (Manual) (1.3-7.7) k/uL Monocytes # (Manual) (0-1.0) k/uL Metamyelocytes # (Man) (0) k/uL VBG pH (7.31-7.41) VBG pCO2 (37-51) mmHg VBG HCO3 (24-28) mmol/L Sodium (137-145) mmol/L Potassium (3.5-5.1) mmol/L Chloride (98-107) mmol/L Carbon Dioxide (22-30) mmol/L Glucose (74-99) mg/dL POC Glucose (mg/dL) 163 H 179 H 194 H (75-99) mg/dL Plasma Lactic Acid Adan (0.7-2.0) mmol/L Calcium (8.4-10.2) mg/dL Phosphorus (2.5-4.5) mg/dL Alkaline Phosphatase (38-126) U/L Total Protein (6.3-8.2) g/dL Albumin (3.5-5.0) g/dL Urine Appearance (Clear) Urine Protein (Negative) Urine Glucose (UA) (Negative) Urine Ketones (Negative) Urine Blood (Negative) Ur Leukocyte Esterase (Negative) Urine RBC (0-5) /hpf Urine WBC (0-5) /hpf Urine Bacteria (None) /hpf Hyaline Casts (0-2) /lpf Urine Mucus (None) /hpf 11/18/19 Range/Units 11:04 WBC (3.8-10.6) k/uL Hct (34.0-46.0) % Neutrophils # (Manual) (1.3-7.7) k/uL Monocytes # (Manual) (0-1.0) k/uL Metamyelocytes # (Man) (0) k/uL VBG pH (7.31-7.41) VBG pCO2 (37-51) mmHg VBG HCO3 (24-28) mmol/L Sodium (137-145) mmol/L Potassium (3.5-5.1) mmol/L Chloride (98-107) mmol/L Carbon Dioxide (22-30) mmol/L Glucose (74-99) mg/dL POC Glucose (mg/dL) 239 H (75-99) mg/dL Plasma Lactic Acid Adan (0.7-2.0) mmol/L Calcium (8.4-10.2) mg/dL Phosphorus (2.5-4.5) mg/dL Alkaline Phosphatase (38-126) U/L Total Protein (6.3-8.2) g/dL Albumin (3.5-5.0) g/dL Urine Appearance (Clear) Urine Protein (Negative) Urine Glucose (UA) (Negative) Urine Ketones (Negative) Urine Blood (Negative) Ur Leukocyte Esterase (Negative) Urine RBC (0-5) /hpf Urine WBC (0-5) /hpf Urine Bacteria (None) /hpf Hyaline Casts (0-2) /lpf Urine Mucus (None) /hpf Microbiology - Last 24 Hours (Table) 11/17/19 14:30 Urine Culture - Preliminary Urine,Voided Assessment and Plan Plan: 1. Diabetic ketoacidosis. The patient has been started on the DKA protocol. Continue insulin drip, IV fluids and Accu-Cheks per protocol. Patient will be transitioned to Lantus 22 units at bedtime and off the insulin drip tonight. 2. Urinary tract infection and sepsis with leukocytosis and tachycardia. Continue ceftriaxone 1 g daily, urine culture and blood culture in progress. 3. Uncontrolled hypertension, not on medication, stable. 4. Diabetes mellitus type 1. Patient is normally on Lantus 22 units along with NovoLog scale. Patient is also on Symlin pen at home as well. Continue DKA protocol. 5. Metabolic acidosis. Continue DKA protocol 6. History of Left UVJ stone with hydronephrosis, status post cystoscopy with stent placement, stable. 7. GI prophylaxis. Protonix. 8. DVT prophylaxis. Lovenox. Patient will be admitted to the hospital for a minimum of 2 night stay. Discharge plan: home Impression and plan of care have been directed as dictated by the signing physician. Aviva Cobb nurse practitioner acting as scribe for signing physician.
[2019-11-18 14:06] LABS: Glucose,Whole Blood 241 mg/dL (75-99)
[2019-11-18 14:19] VITALS: BMI 26.4
[2019-11-18 15:08] LABS: Glucose,Whole Blood 217 mg/dL (75-99)
[2019-11-18 16:12] LABS: Glucose,Whole Blood 192 mg/dL (75-99)
[2019-11-18 16:13] LABS: Hemoglobin A1C 11.8 % (4.0-6.0)
[2019-11-18 17:09] LABS: Glucose,Whole Blood 181 mg/dL (75-99)
[2019-11-18 18:05] LABS: Glucose,Whole Blood 187 mg/dL (75-99)
[2019-11-18 19:09] LABS: Glucose,Whole Blood 193 mg/dL (75-99)
[2019-11-18] MEDS ORDERED: SODIUM CHLORIDE 0.45% 1,000 ML IV ONE (19:51)
[2019-11-18 21:52] LABS: Glucose,Whole Blood 126 mg/dL (75-99)
[2019-11-18] MEDS: INSULIN DETEMIR (LEVEMIR) 100 UNIT/ML SYR SQ SCH ×2 (21:56→22:31)
[2019-11-19 01:40] LABS: Glucose,Whole Blood 175 mg/dL (75-99)
[2019-11-19 05:03] LABS: HCT 33.4 % (34.0-46.0); HGB 11.8 gm/dL (11.4-16.0); MCH 32.7 pg (25.0-35.0); MCHC 35.1 g/dL (31.0-37.0); MCV 92.9 fL (80.0-100.0); Mean Platelet Volume 8.8; Platelet Count 141 k/uL (150-450); RDW 12.5 % (11.5-15.5); WBC 5.6 k/uL (3.8-10.6)
[2019-11-19] MEDS: ACETAMINOPHEN TAB 325 MG TAB PO PRN (05:04)
[2019-11-19 05:08] LABS: African American GFR (CKD) >90 (>60 ml/min/1.73 sqM); Anion Gap 4 mmol/L; Blood Urea Nitrogen 3 mg/dL (7-17); Calcium 7.8 mg/dL (8.4-10.2); Carbon Dioxide 19 mmol/L (22-30); Chloride 112 mmol/L (98-107); Glucose 93 mg/dL (74-99); Magnesium 1.7 mg/dL (1.6-2.3); Non-African American GFR(CKD) >90 (>60 ml/min/1.73 sqM); Sodium 135 mmol/L (137-145)
[2019-11-19] MEDS ORDERED: Potassium Replacement Protocol 1 EACH MISC MISCELLANE PRN (06:19)
[2019-11-19] MEDS: MAGNESIUM SULFATE-D5W PMX 1 GM in DEXTROSE/WATER 1 100ML.BAG IVPB SCH ×2 (06:28→08:42)
[2019-11-19] MEDS: POTASSIUM CHLORIDE ER 20 MEQ TAB.ER PO SCH ×2 (06:29→08:42)
[2019-11-19] MEDS ORDERED: PANTOPRAZOLE 40 MG TABLET PO SCH (07:30)
[2019-11-19] MEDS ORDERED: ENOXAPARIN 40 MG/0.4 ML SYRINGE SQ SCH (09:00)
[2019-11-19 09:35] VITALS: BP 125/94; RESP 20; TEMP 97.8
[2019-11-19 11:15] VITALS: PULSE 87
--- NOTE | 2019-11-19 11:49 | P.DS ---
Providers Date of admission: 11/17/19 16:28 Expected date of discharge: 11/19/19 Attending physician: Sofiya Moore Consults: 11/17/19 16:31 Consult Physician Urgent Consulting Provider: Marlene Staples Consult Reason/Comments: acute DKA Do you want consulting provider notified?: Already Contacted Primary care physician: Babar Can [facility] Hospital Course: This is a 44-year-old female patient of Dr. North with past medical history of diabetes mellitus type 1 follows with endocrinology at [facility], history of kidney stones, UTI. Patient was last hospitalized in August 2018 which time she was treated for diabetic ketoacidosis, renal tubular acidosis, left UVJ stone with hydronephrosis status post cystoscopy and stent placement. Patient states that she has had follow-up with urology since discharge. Patient developed nausea vomiting diarrhea as well as abdominal pain, sudden onset. She dinner in the same food that her family ate and no other family members were sick. She denied having any fever, chills, no sore throat. She complains of occasional shortness of breath. Patient is urine protein at home. She checked her blood sugar was over 500. She just had insulin regime adjusted 2 weeks ago. This is her second episode of DKA and was diagnosed with diabetes mellitus type 1 October of last year. 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 Patient denies having any appetite at this time and we will plan to start a clear liquid diet and advance to consistent carb. Patient came into [facility] emergency center for evaluation and found to have a blood pressure of 132/109, afebrile, heart rate 134, pulse ox 100%. EKG is in sinus tachycardia at heart rate of [address] changes. WBC 30.4, hemoglobin 15.9. Chloride 113, CO2 7, blood sugar 251, lactic acid 3.6 venous blood gas showed a pH of 7.01 pCO2 27, bicarb 7. Glucose was 482. TSH 1.180. Alkaline phosphatase 133. Urinalysis cloudy, leukoesterase large, WBCs 131. HCC not detected. Acetone positive. Patient was started on the DKA protocol and admitted to the intensive care unit. Patient is currently on an insulin drip and most recent blood sugar was 239. 2/4: Patient was transitioned to her normal dose of Lantus and NovoLog scale. Blood sugars now running 93-175. Sodium 135, potassium 3.0 and will be replaced prior to discharge. Chloride 112, CO2 19, BUN 3 and creatinine 0.46. Patient denies having any nausea or vomiting. Patient will be discharged home today in stable condition. Discharge diagnoses: 1. Diabetic ketoacidosis with SIRS. 2. Asymptomatic bacteriuria, urinary tract infection ruled out. 3. Uncontrolled hypertension, not on medication, stable. 4. Diabetes mellitus type 1. 5. Metabolic acidosis. 6. History of Left UVJ stone with hydronephrosis, status post cystoscopy with stent placement, stable. Discharge plan: home Impression and plan of care have been directed as dictated by the signing physician. Aviva Cobb nurse practitioner acting as scribe for signing physician. Patient Condition at Discharge: Good Plan - Discharge Summary Discharge Rx Participant: Yes New Discharge Prescriptions: Continue Insulin Glargine [Lantus] 22 unit SQ HS INSULIN ASPART (NovoLOG) [NovoLOG (formulary)] See Protocol SQ AC-TID Pramlintide Acetate [Symlin Pen 60] 15 mcg SQ AC-TID PRN PRN Reason: with meals only Discharge Medication List INSULIN ASPART (NovoLOG) [NovoLOG (formulary)] See Protocol SQ AC-TID 08/22/19 [History] Insulin Glargine [Lantus] 22 unit SQ HS 08/22/19 [History] Pramlintide Acetate [Symlin Pen 60] 15 mcg SQ AC-TID PRN 11/17/19 [History] Follow up Appointment(s)/Referral(s): Babar North MD [Primary Care Provider] - 1 Week Discharge Disposition: HOME SELF-CARE
[2019-11-19 11:53] LABS: Glucose,Whole Blood 155 mg/dL (75-99)
[2019-11-19] MEDS ORDERED: INSULIN ASPART (NovoLOG) 100 UNIT/ML VIAL SQ SCH (12:30)
--- NOTE | 2019-11-19 12:56 | P.PN ---
Subjective Progress Note Date: 11/19/19 Principal diagnosis: Acute DKA 44-year-old white female patient of Dr. North, known history of diabetes mellitus type I, hypertension, chronic kidney disease, unspecified, previous history of nephrolithiasis, presented to the hospital on 11/17/2019 for evaluation of nausea, vomiting, abdominal pain. She has had decreased intake related to nausea, started several days ago, yesterday she started vomiting. Denied any sick contacts or recent travel, she denied any fever or chills. No difficulty breathing, no cough or congestion, no urinary symptoms. He had a previous episode of DKA in August related to nephrolithiasis. She follows with gis coordinator from the [facility], and she is normally on Symlin, Lantus and Novolog sliding scale, she reports being compliant with her insulins. CT of abdomen and pelvis was obtained showing mildly thickened loops of small bowel in the left mid abdomen that could be related to enteritis, bulky and heterogeneous cervix, prominent vasculature of the pelvis near the lower uterine segment and cervix, follicular and/or cystic changes of the ovaries, ectatic steatosis and cholelithiasis, and fluid-filled stomach that could related to gastroparesis. Initial labs showed a white blood cell, 30.4, hemoglobin of 15.9, sodium of 134, potassium is 4.1, chloride is 1:15, CO2 is 8, BUN is 8, creatinine 0.59, glucose was 253, lactic acid was 1.1, AST and ALT were within normal limits, alkaline phosphatase was 133, lipase was 56, urinalysis showed 1+ protein, 4+ glucose, 4+ ketones, increased WBC of 131, urine hCG was nondet ected, and serum acetone was positive. Room air pulse ox was 100%, patient is afebrile, hemodynamically patient is stable, she is been given IV hydration, and started on insulin infusion per DKA protocol, receiving Tigan for nausea, and she has been started on IV Rocephin for possibility of urinary tract infection. Doing better currently, she is resting comfortably in the intensive care unit, alert and oriented 3, no nausea or vomiting, she is tolerating sips of clear liquids Reevaluated today on 11/19/2019, patient seems to be doing well, her ketoacidosis has resolved, the anion gap has closed, patient is doing great, and she is now on subcu insulin as per scale. Asymptomatic, denies any cough wheezing shortness of breath denies any nausea vomiting abdominal pain. Cultures of blood and urine have been negative Objective - Vital Signs Vital signs: Vital Signs Temp 97.8 F 11/19/19 09:00 Pulse 87 11/19/19 11:00 Resp 20 11/19/19 11:00 BP 125/94 11/19/19 09:00 Pulse Ox 94 L 11/19/19 07:00 Intake & Output 11/18/19 11/19/19 11/19/19 18:59 06:59 18:59 Intake Total 2307.087 975 885 Output Total 525 700 Balance 1782.087 275 885 Weight 65.4 kg 64 kg Intake: IV 1350 825 375 Sodium Chloride 0.45% 1, 825 375 000 ml @ 75 mls/hr IV . [id number] [facility] Rx#:[id number] Sodium Chloride 0.9% 1, 1350 000 ml @ 150 mls/hr IV . Q6H40M [facility] Rx#:[id number] Intake, IV Titration 657.087 150 150 Amount D5-0.45% NaCl with KCl 450 150 20Meq/l 1,000 ml @ 150 mls/hr IV .Q6H40M [facility] Rx# :[id number] Insulin Regular 100 unit 7.087 In Sodium Chloride 0.9% 100 ml @ Per Protocol IV .Q0M [facility] Rx#:[id number] Magnesium Sulfate-D5w Pmx 200 1 gm In Dextrose/Water 1 100ml.bag @ 100 mls/hr IVPB Q1H [facility] Rx#: [id number] Magnesium Sulfate-D5w Pmx 100 1 gm In Dextrose/Water 1 100ml.bag @ 100 mls/hr IVPB Q1H [facility] Rx#: [id number] cefTRIAXone 1 gm In 50 Sodium Chloride 0.9% 50 ml @ 100 mls/hr IVPB Q24HR [facility] Rx#:[id number] Oral 300 360 Output: Urine 525 700 Other: Voiding Method Toilet Toilet Toilet # Voids 1 1 1 - Exam Physical Exam: Revealed 44-year-old female in no distress. Head: Atraumatic, normocephalic. HEENT:[Neck is supple.] [No neck masses.] [No thyromegaly.] [No JVD.] Chest: [Clear throughout, no crackles, no rhonchi, no wheezes.] Cardiac Exam: [Normal S1 and S2, no S3 gallop, no murmur.] Abdomen: [Soft, nontender, no megaly, no rebound, no guarding, normal bowel sounds.] Extremities: [No clubbing, no edema, no cyanosis.] Neurological Exam: [No focal neurologic deficit.] Alert and oriented 3. Psychiatric: Normal mood affect and normal mental status examination. Skin: No rashes - Labs CBC & Chem 7: 11/19/19 04:39 11/19/19 11:20 Labs: Abnormal Lab Results - Last 24 Hours (Table) 11/18/19 11/18/19 11/18/19 Range/Units 05:22 12:51 13:03 RBC (3.80-5.40) m/uL Hct (34.0-46.0) % Plt Count (150-450) k/uL Sodium 134 L (137-145) mmol/L Potassium (3.5-5.1) mmol/L Chloride 114 H (98-107) mmol/L Carbon Dioxide 12 L (22-30) mmol/L BUN 5 L (7-17) mg/dL Creatinine 0.48 L (0.52-1.04) mg/dL Glucose 249 H (74-99) mg/dL POC Glucose (mg/dL) 253 H (75-99) mg/dL Hemoglobin A1c 11.8 H (4.0-6.0) % Calcium 8.0 L (8.4-10.2) mg/dL 11/18/19 11/18/19 11/18/19 Range/Units 14:05 15:06 16:11 RBC (3.80-5.40) m/uL Hct (34.0-46.0) % Plt Count (150-450) k/uL Sodium (137-145) mmol/L Potassium (3.5-5.1) mmol/L Chloride (98-107) mmol/L Carbon Dioxide (22-30) mmol/L BUN (7-17) mg/dL Creatinine (0.52-1.04) mg/dL Glucose (74-99) mg/dL POC Glucose (mg/dL) 241 H 217 H 192 H (75-99) mg/dL Hemoglobin A1c (4.0-6.0) % Calcium (8.4-10.2) mg/dL 11/18/19 11/18/19 11/18/19 Range/Units 17:08 18:05 19:07 RBC (3.80-5.40) m/uL Hct (34.0-46.0) % Plt Count (150-450) k/uL Sodium (137-145) mmol/L Potassium (3.5-5.1) mmol/L Chloride (98-107) mmol/L Carbon Dioxide (22-30) mmol/L BUN (7-17) mg/dL Creatinine (0.52-1.04) mg/dL Glucose (74-99) mg/dL POC Glucose (mg/dL) 181 H 187 H 193 H (75-99) mg/dL Hemoglobin A1c (4.0-6.0) % Calcium (8.4-10.2) mg/dL 11/18/19 11/19/19 11/19/19 Range/Units 21:50 01:38 04:39 RBC (3.80-5.40) m/uL Hct (34.0-46.0) % Plt Count (150-450) k/uL Sodium 135 L (137-145) mmol/L Potassium 3.0 L (3.5-5.1) mmol/L Chloride 112 H (98-107) mmol/L Carbon Dioxide 19 L (22-30) mmol/L BUN 3 L (7-17) mg/dL Creatinine 0.46 L (0.52-1.04) mg/dL Glucose (74-99) mg/dL POC Glucose (mg/dL) 126 H 175 H (75-99) mg/dL Hemoglobin A1c (4.0-6.0) % Calcium 7.8 L (8.4-10.2) mg/dL 11/19/19 11/19/19 Range/Units 04:39 11:51 RBC 3.60 L (3.80-5.40) m/uL Hct 33.4 L (34.0-46.0) % Plt Count 141 L (150-450) k/uL Sodium (137-145) mmol/L Potassium (3.5-5.1) mmol/L Chloride (98-107) mmol/L Carbon Dioxide (22-30) mmol/L BUN (7-17) mg/dL Creatinine (0.52-1.04) mg/dL Glucose (74-99) mg/dL POC Glucose (mg/dL) 155 H (75-99) mg/dL Hemoglobin A1c (4.0-6.0) % Calcium (8.4-10.2) mg/dL Microbiology - Last 24 Hours (Table) 11/17/19 14:30 Urine Culture - Final Urine,Voided 11/17/19 15:40 Blood Culture - Preliminary Blood No Growth after 24 hours Assessment and Plan Assessment: Impression: Acute diabetic ketoacidosis Anion gap metabolic acidosis secondary to DKA Type 1 diabetes Recommendation: Considering the significant improvement, and considering the patient is asking to be discharged home, patient could be cleared from our perspective to transfer out of the ICU and possible discharge home today. We'll follow on when necessary basis. Time with Patient: Less than 30
== END 2019-11-19 13:53 | disposition home or self-care (01) | DRG 638 ==
LOC: EC 12:17 → 2SICU 16:28
PROVIDERS: ADMIT Internal Medicine; ATTEND Internal Medicine
DX: E10.10 Type 1 diabetes mellitus with ketoacidosis without coma (principal); R65.10 Systemic inflammatory response syndrome (SIRS) of non-infectious origin without acute organ dysfunction; N18.9 Chronic kidney disease, unspecified; R82.71 Bacteriuria; I12.9 Hypertensive chronic kidney disease with stage 1 through stage 4 chronic kidney disease, or unspecified chronic kidney disease; E10.22 Type 1 diabetes mellitus with diabetic chronic kidney disease; Z96.0 Presence of urogenital implants; Z88.2 Allergy status to sulfonamides; Z79.899 Other long term (current) drug therapy; Z87.440 Personal history of urinary (tract) infections; Z87.442 Personal history of urinary calculi; Z90.89 Acquired absence of other organs; Z98.890 Other specified postprocedural states; Z84.89 Family history of other specified conditions; Z84.1 Family history of disorders of kidney and ureter; Z80.51 Family history of malignant neoplasm of kidney
CPT/HCPCS: 36415; 74177; 80048; 80051; 80053; 81001; 81025; 82009; 82565; 82803; 82947; 83036; 83605; 83690; 83735; 84100; 84132; 84443; 84520; 85025; 85027; 87040; 87086; 93005; 96361; 96365; 96375; 99291

== ENCOUNTER → 2019-12-06 | Outpatient (CLI) | payer OTHER ==
--- NOTE | 2019-12-06 14:54 | US ---
EXAMINATION TYPE: US abdomen complete DATE OF EXAM: 12/06/2019 COMPARISON: CT 11/17/2019 CLINICAL HISTORY: K80.51 GALLSTONE OF BILE DUCT W/O CHOLECYSTITIS. EXAM MEASUREMENTS: Liver Length: 14.2 cm Gallbladder Wall: 0.1 cm CBD: 0.1 cm Spleen: 11.0 cm Right Kidney: 11.3 x 3.8 x 5.0 cm Left Kidney: 11.5 x 4.4 x 4.2 cm Pancreas: wnl Liver: wnl, homogeneous Gallbladder: cholelithiasis without wall thickening Evidence for sonographic Leone's sign: no CBD: wnl Spleen: wnl Right Kidney: Echogenic foci within the right kidney consistent with nonobstructive stones as seen on CT 0.3 cm and 0.2cm Left Kidney: wnl Upper IVC: wnl Abd Aorta: wnl There is no ascites IMPRESSION: Lithiasis, right-sided nonobstructive nephrolithiasis
== END | disposition home or self-care (01) ==
LOC: RADUSWWP 06:52
PROVIDERS: ATTEND Internal Medicine Geriatric Medicine
DX: K80.20 Calculus of gallbladder without cholecystitis without obstruction (principal)
CPT/HCPCS: 76700

== ENCOUNTER → 2020-05-25 | Outpatient (CLI) | payer OTHER ==
--- NOTE | 2020-05-26 07:14 | US ---
EXAMINATION TYPE: US kidneys/renal and bladder DATE OF EXAM: 05/25/2020 COMPARISON: CT & US 12/06/2019 CLINICAL HISTORY: N20.0 kidney stones. H/O renal stones/ pt denies pain EXAM MEASUREMENTS: Right Kidney: 11.6 x 4.3 x 4.3 cm Left Kidney: 11.7 x 4.7 x 4.8 cm Right Kidney: Cyst mid/lateral= 1.0 x 1.1 x 0.9 cm/ slightly dilated renal pelvis= 1.9 cm Left Kidney: Slightly dilated renal pelvis= 0.9 cm Bladder: wnl Bilateral Jets seen: Yes Incidental finding right ovarian cyst= 2.9 x 2.5 x 3.0 cm IMRESSION: 1. Mildly dilated bilateral renal pelvis. No definite nephrolithiasis today's exam. Could represent e xtrarenal pelvis rather than hydronephrosis. 2. Incidental note made of a 3 cm right ovarian cyst correlate clinically.
== END | disposition home or self-care (01) ==
LOC: RADUSWWP 16:16
PROVIDERS: ATTEND Urology
DX: N28.89 Other specified disorders of kidney and ureter (principal)
CPT/HCPCS: 76770

== ENCOUNTER → 2020-09-23 | Outpatient (CLI) | payer OTHER ==
--- NOTE | 2020-09-24 10:04 | US ---
EXAMINATION TYPE: US kidneys/renal and bladder DATE OF EXAM: 09/23/2020 COMPARISON: 05/25/2020 ultrasound CLINICAL HISTORY: N13.30 hydronephrosis. h/o hydronephrosis, stones EXAM MEASUREMENTS: Right Kidney: 10.4 x 4.5 x 4.2 cm Left Kidney: 10.7 x 5.0 x 6.6 cm Right Kidney: Mild hydronephrosis, h/o lithotripsy this past summer, questioning small stones seen la terally, known lateral cyst appears unchanged from previous study. There may be a right extrarenal pe lvis, normal variant. Left Kidney: No hydronephrosis or masses seen Bladder: wnl Bilateral Jets seen: No IMPRESSION: 1. Small nonobstructing right renal stones. 2. Small cysts
== END | disposition home or self-care (01) ==
LOC: RADUSWWP 16:19
PROVIDERS: ATTEND Urology
DX: N20.0 Calculus of kidney (principal); N28.1 Cyst of kidney, acquired
CPT/HCPCS: 76770

== ENCOUNTER → 2020-12-10 | Outpatient (CLI) | payer OTHER ==
[2020-12-10 11:29] LABS: Basophils % (A) 1 %; Eosinophils # (A) 0.1 k/uL (0-0.7); Eosinophils % (A) 2 %; HCT 42.2 % (34.0-46.0); HGB 14.4 gm/dL (11.4-16.0); Lymphocytes # (A) 1.7 k/uL (1.0-4.8); Lymphocytes % (A) 26 %; MCH 31.8 pg (25.0-35.0); MCHC 34.1 g/dL (31.0-37.0); MCV 93.3 fL (80.0-100.0); Mean Platelet Volume 9.2; Monocytes # (A) 0.3 k/uL (0-1.0); Monocytes % (A) 5 %; Neutrophils # (A) 4.2 k/uL (1.3-7.7); Neutrophils % (A) 66 %; Platelet Count 175 k/uL (150-450); RBC 4.52 m/uL (3.80-5.40); RDW 12.7 % (11.5-15.5); WBC 6.5 k/uL (3.8-10.6)
[2020-12-10 11:39] LABS: African American GFR (CKD) >90 (>60 ml/min/1.73 sqM); Anion Gap 11 mmol/L; Blood Urea Nitrogen 9 mg/dL (7-17); Carbon Dioxide 24 mmol/L (22-30); Chloride 97 mmol/L (98-107); Glucose 385 mg/dL (74-99); Non-African American GFR(CKD) >90 (>60 ml/min/1.73 sqM); Potassium 4.5 mmol/L (3.5-5.1); Sodium 132 mmol/L (137-145)
== END | disposition home or self-care (01) ==
LOC: LABPAT 10:59
PROVIDERS: ATTEND Urology
DX: Z01.818 Encounter for other preprocedural examination (principal); N20.0 Calculus of kidney; N13.30 Unspecified hydronephrosis; E11.9 Type 2 diabetes mellitus without complications
CPT/HCPCS: 80048; 85025

== ENCOUNTER 2020-12-17 05:44 | Day surgery (SDC) | payer OTHER ==
[2020-12-11 13:42] VITALS: BMI 24.5
--- NOTE | 2020-12-17 06:45 | XR ---
EXAMINATION TYPE: XR KUB DATE OF EXAM: 12/17/2020 6:16 AM CLINICAL HISTORY: Right-sided kidney stones, presurgical study. TECHNIQUE: Single supine KUB image of the abdomen is obtained. COMPARISON: CT abdomen and pelvis November 17, 2019. FINDINGS: 2 adjacent small calculi lower pole right kidney on CT less well seen on x-ray, significant overlying fecal material at this level noted. Scattered left-sided pelvic phlebolith redemonstrated. Overall nonobstructive bowel gas pattern. Visualized osseous structures are intact IMPRESSION: As above.
[2020-12-17] MEDS ORDERED: DEXAMETHASONE SOD PHOSPHATE 4 MG/ML 1 ML VIAL IV ONE (06:50)
[2020-12-17] MEDS: ONDANSETRON 4 MG/2 ML VIAL IVP PRN ×2 (06:50→08:57)
[2020-12-17] MEDS ORDERED: MIDAZOLAM 2 MG/2 ML VIAL IV ONE (06:50)
[2020-12-17] MEDS ORDERED: SCOPOLAMINE 1.5MG/72HR PATCH TRANSDERM ONE (06:50)
[2020-12-17] MEDS ORDERED: LACTATED RINGERS 1,000 ML IV SCH (07:00)
[2020-12-17] MEDS ORDERED: LIDOCAINE 1% (10MG/ML) FOR IV START INTRADERMA PRN (07:00)
[2020-12-17] MEDS ORDERED: HYDROmorphone 0.5 MG/0.5 ML SYRINGE IVP PRN (07:00)
[2020-12-17 07:05] VITALS: RESP 16
--- NOTE | 2020-12-17 07:27 | P.GSHP ---
History of Present Illness H&P Date: 12/17/20 Chief Complaint: Right flank pain The patient is a 45-year-old white female with a history of recurrent urolithiasis. She underwent right ureteroscopy with laser lithotripsy for the treatment of to 6 mm right renal calculi in March 2020. She was found to have mild right hydronephrosis at that time. Ultrasound shows persistent mild hydronephrosis, as well as questionable small renal calculi. She continues to experience right flank and lower abdominal discomfort. - Constitutional Constitutional: Denies chills, Denies fever - Genitourinary (Female) Genitourinary: Reports flank pain, Reports kidney stones Past Medical History Past Medical History: Diabetes Mellitus, Hypertension, Renal Disease Additional Past Medical History / Comment(s): IDDM type II, kidney stones, UTI. History of Any Multi-Drug Resistant Organisms: None Reported Past Surgical History: Cholecystectomy, Hysterectomy, Tonsillectomy, Uterine Ablation Additional Past Surgical History / Comment(s): Laparoscopic surgeries for ovarian cysts, colonoscopy with benign polyp. Past Anesthesia/Blood Transfusion Reactions: Motion Sickness, Postoperative Nausea & Vomiting (PONV) Past Psychological History: No Psychological Hx Reported Smoking Status: Never smoker Past Alcohol Use History: None Reported Past Drug Use History: None Reported - Past Family History Mother Family Medical History: Cancer Additional Family Medical History / Comment(s): Renal carcinoma. Father Family Medical History: No Reported History, Hypertension, Renal Disease Additional Family Medical History / Comment(s): Chronic kidney disease. Sister(s) Additional Family Medical History / Comment(s): Patient has 1 sister with no major medical problems. Patient has 3 children with no major medical problems. Medications and Allergies Home Medications Medication Instructions Recorded Confirmed Type INSULIN ASPART (NovoLOG) [NovoLOG See Protocol SQ TID 08/22/19 12/11/20 History (formulary)] Insulin Glargine [Lantus] 22 unit SQ HS 08/22/19 12/11/20 History Pramlintide Acetate [Symlin Pen 60] 15 mcg SQ AC-TID PRN 11/17/19 12/11/20 History Allergies Allergy/AdvReac Type Severity Reaction Status Date / Time Sulfa (Sulfonamide Allergy Anaphylaxis Verified 12/17/20 06:20 Antibiotics) Surgical - Exam Vital Signs Temp Pulse Resp BP Pulse Ox 98.3 F 80 16 132/101 97 12/17/20 06:40 12/17/20 06:40 12/17/20 06:40 12/17/20 06:40 12/17/20 06:40 - General well developed, well nourished, no distress - Respiratory normal respiratory effort, clear to auscultation - Cardiovascular Rhythm: regular Abnormal Heart Sounds: no systolic murmur, no diastolic murmur, no rub, no S3 Gallop, no S4 Gallop, no click, no other - Abdomen Abdomen: soft, non tender, no guarding, no rigid, no rebound - Psychiatric oriented to time, oriented to person, oriented to place, speech is normal, memory intact Assessment and Plan (1) Hydronephrosis Current Visit: Yes Status: Acute Code(s): N13.30 - UNSPECIFIED HYDRONEPHROSIS SNOMED Code(s): 78454053 Plan: Cystoscopy, right retrograde pyelogram, possible right ureteroscopy with holmium laser lithotripsy, possible right ureteral stent insertion. The procedure has been reviewed in detail with the patient. The rationale for the procedure has been reviewed, as well as potential risks which include anesthesia, bleeding, infection, and ureteral injury.
[2020-12-17] MEDS ORDERED: LIDOCAINE 1% INJ 10MG/ML (20 ML MDV) ONE (07:38)
[2020-12-17] MEDS ORDERED: SUCCINYLCHOLINE CHLORIDE 100 MG/5 ML SYR IV ONE (07:38)
[2020-12-17] MEDS ORDERED: PROPOFOL 10 MG/ML 20 ML VIAL IV ONE (07:38)
[2020-12-17] MEDS ORDERED: MIDAZOLAM 2 MG/2 ML VIAL ONE (07:38)
[2020-12-17] MEDS ORDERED: fentaNYL (PF) 50 MCG/ML 2 ML AMP ONE (07:38)
[2020-12-17] MEDS ORDERED: IOPAMIDOL-370 50ML BTL MISCELLANE ONE (08:07)
[2020-12-17 08:42] VITALS: TEMP 97
[2020-12-17 08:51] LABS: Glucose,Whole Blood 205 mg/dL (75-99)
[2020-12-17] MEDS ORDERED: LACTATED RINGERS 1,000 ML IV ONE (09:14)
--- NOTE | 2020-12-17 09:41 | P.OP ---
Date of Procedure: 12/17/20 Preoperative Diagnosis: Right hydronephrosis, right renal calculi Postoperative Diagnosis: Same Procedure(s) Performed: Cystoscopy, right retrograde pyelogram, right ureteroscopy with Holmium laser lithotripsy and stone basketing, right ureteral stent insertion Anesthesia: CARA Surgeon: Johnnie Broussard Estimated Blood Loss (ml): 0 IV fluids (ml): 600 Pathology: none sent Condition: stable Disposition: PACU Indications for Procedure: The patient is a 45-year-old white female with a history of recurrent urolithiasis. She underwent right ureteroscopy with laser lithotripsy for the treatment of to 6 mm right renal calculi in March 2020. She was found to have mild right hydronephrosis at that time. Ultrasound shows persistent mild hydronephrosis, as well as questionable small renal calculi. She continues to experience right flank and lower abdominal discomfort. Operative Findings: 1) right hydronephrosis, mild, no evidence of obstruction. 2) 2 mm right upper pole renal calculus, removed. Several Nithin's plaques. Description of Procedure: The patient was taken to the operating room and placed in the dorsolithotomy position, with legs supported in Lavon stirrups. The external genitalia was prepped and draped sterilely. The 30 lens was used to introduce the 21-Liberian Estrada cystoscopic sheath through the urethra and into the bladder under direct vision. The bladder was examined in its entirety. Both ureteral orifices were normal anatomic location and configuration, and clear urine effluxed from both. No tumors or foreign bodies were seen. Using a 10-Liberian cone-tipped catheter, a right retrograde pyelogram was performed. The entire course of the ureter was seen on fluoroscopy. There were no areas of narrowing or filling defects. Mild dilation of the right intrarenal collecting system was noted. There were no filling defects. Peristalsis was observed as the system drained, and floor contrast was unimpeded. There was no evidence of ureteral obstruction. A 0.038 inch Glidewire was passed through the cystoscope. The ureteral orifice was cannulated, and the Glidewire was advanced up to the renal pelvis. The cystoscope was removed, and an 11/13-Liberian ureteral access catheter was passed over the wire, up to the proximal ureter. The flexible ureteroscope was then passed through the ureteral access catheter sheath, up to the right renal pelvis. Each calyx was examined. Several Nithin's plaques were seen. A 2 mm calculus was seen within an upper pole calyx, with mucosa grown over it. The 200 micron Holmium laser probe was passed through the ureteroscope, and lithotripsy was performed. The 2 mm calculus was freed. Several of the Nithin's plaques were lasered, allowing the calcification the break away from the mucosa. A 1.9-Liberian nitinol basket was used to remove the 2 mm calculus. The Glidewire was passed through the ureteral access catheter sheath, which was removed. The Glidewire was backloaded into the cystoscope, which was passed into the bladder. A 24 cm, 4.8-Liberian double-J ureteral stent was placed over the wire. Proper stent positioning was verified fluoroscopically and endoscopically. The bladder was emptied and the cystoscope removed. The patient tolerated the procedure well and was taken to the recovery room in stable condition. [facility] [place] Report: Procedure Acuity: Elective Stone Size and Location: 2 mm, right upper pole Ureteral Dilation: No Ureteral Access Sheath Used: Yes Stone Sent for Analysis: No All Stones/Fragments Were Removed with a Basket: Yes Complications: No Preoperative Antibiotics Given: Yes Stent Placed: Yes If Stent Placed, Was String Left Attached: No If Stent Placed, When is it to be Removed: 1 week Discharge Medications: None
[2020-12-17] MEDS ORDERED: HYDROcodone/APAP 7.5-325MG 1 EACH TAB ONE (09:47)
[2020-12-17] MEDS ORDERED: HYDROcodone/APAP 7.5-325MG 1 EACH TAB PO ONE (09:53)
[2020-12-17 10:32] VITALS: BP 138/89; PULSE 85
--- NOTE | 2020-12-17 11:05 | FL ---
Fluoroscopy HISTORY: Right stent placement 52 seconds fluoroscopy time supplied to the referring clinician. 3 intraoperative C-arm images docum ent the procedure. See dictated report from urology.
== END 2020-12-17 10:50 | disposition home or self-care (01) ==
LOC: OR 05:44
PROVIDERS: ATTEND Urology
DX: N13.2 Hydronephrosis with renal and ureteral calculous obstruction (principal); I10 Essential (primary) hypertension; E11.9 Type 2 diabetes mellitus without complications; Z79.4 Long term (current) use of insulin; Z80.51 Family history of malignant neoplasm of kidney; Z87.442 Personal history of urinary calculi; Z87.440 Personal history of urinary (tract) infections
CPT/HCPCS: 52356; 74420; 74018; C2625; C1758; C1769; J2250; J1100; J2405; J0690; J2001; J3010; J0330; J2704; Q9967

== ENCOUNTER 2020-12-21 11:44 | Inpatient (IN) | payer OTHER ==
[2020-12-21] MEDS ORDERED: SODIUM CHLORIDE 0.9% 1,000 ML IV STA (12:05)
[2020-12-21] MEDS ORDERED: MORPHINE SULFATE 4 MG/ML SYRINGE IVP STA (12:05)
[2020-12-21] MEDS ORDERED: ONDANSETRON 4 MG/2 ML VIAL IVP STA (12:05)
--- NOTE | 2020-12-21 12:12 | ED ---
Abdominal Pain HPI - General Chief Complaint: Abdominal Pain Stated Complaint: Kidney Stone Time Seen by Provider: 12/21/20 11:54 Source: patient Mode of arrival: wheelchair Limitations: no limitations - History of Present Illness Initial Comments: 45-year-old female with history of insulin resistant type 1 diabetes and kidney stones presented emergency Department with a chief complaint of kidney stone. Patient reports on she had lithotripsy performed and continue to have pain after procedure. Patient reports the pain is located in the right lower back region and is radiating along the flank to the right side of the groin. Patient reports this feels exactly like her typical kidney stones. She does report some hematuria but denies increased urgency frequency or dysuria. She reports the urologist called and some analgesics with no significant improvement in symptoms. Patient reports she saw the urologist this morning who removed the stent but did not improve her pain. Patient reports that due to her diabetic condition, she is well-known to go in DKA rather quickly due to dehydration. Patient is concerned because she has been vomiting. Patient is currently being treated at the [facility] for her diabetes with Symlin, lantis and novalog. She denies any diarrhea. Denies chest pain shortness of breath fever or chills. - Related Data Home Medications Medication Instructions Recorded Confirmed Pramlintide Acetate [Symlin Pen 60] 15 mcg SQ AC-TID 11/17/19 12/21/20 Insulin Aspart [NovoLOG Flexpen] See Protocol SQ AC-TID 12/21/20 12/21/20 Insulin Glargine,Hum.rec.anlog 22 unit SQ HS 12/21/20 12/21/20 [Lantus Solostar] Ketorolac [Toradol] 10 mg PO Q6H PRN 12/21/20 12/21/20 Tolterodine Tartrate [Detrol LA] 4 mg PO DAILY 12/21/20 12/21/20 Allergies Allergy/AdvReac Type Severity Reaction Status Date / Time Sulfa (Sulfonamide Allergy Anaphylaxis Verified 12/21/20 12:23 Antibiotics) Review of Systems ROS Statement: Those systems with pertinent positive or pertinent negative responses have been documented in the HPI. ROS Other: All systems not noted in ROS Statement are negative. Past Medical History Past Medical History: Diabetes Mellitus, Hypertension, Renal Disease Additional Past Medical History / Comment(s): IDDM type II, kidney stones which pt passed on her own, UTI. History of Any Multi-Drug Resistant Organisms: None Reported Past Surgical History: Tonsillectomy, Uterine Ablation Additional Past Surgical History / Comment(s): Laparoscopic surgerie for ovarian cysts, colonoscopy with benign polyp Past Anesthesia/Blood Transfusion Reactions: Postoperative Nausea & Vomiting (PONV) Past Psychological History: No Psychological Hx Reported Smoking Status: Never smoker Past Alcohol Use History: None Reported Past Drug Use History: None Reported - Past Family History Mother Family Medical History: Cancer Father Family Medical History: No Reported History, Hypertension, Renal Disease General Exam Limitations: no limitations General appearance: alert, in no apparent distress Head exam: Present: atraumatic, normocephalic, normal inspection Eye exam: Present: normal appearance, PERRL, EOMI Pupils: Present: normal accommodation ENT exam: Present: normal exam, normal oropharynx, mucous membranes dry, TM's normal bilaterally, normal external ear exam Neck exam: Present: normal inspection, full ROM. Absent: tenderness, lymphadenopathy Respiratory exam: Present: normal lung sounds bilaterally. Absent: respiratory distress Cardiovascular Exam: Present: regular rate, normal rhythm, normal heart sounds GI/Abdominal exam: Present: soft. Absent: distended, tenderness, guarding, rebound Extremities exam: Present: normal inspection, full ROM, normal capillary refill. Absent: tenderness Back exam: Present: normal inspection, full ROM, CVA tenderness (R). Absent: tenderness Neurological exam: Present: alert, oriented X3 Psychiatric exam: Present: normal affect, normal mood Skin exam: Present: warm, dry, intact, normal color Course Vital Signs 12/21/20 12/21/20 12/21/20 11:45 13:17 14:00 Temperature 97.9 F Pulse Rate 115 H 99 95 Respiratory 18 18 18 Rate Blood Pressure 160/101 123/86 125/90 O2 Sat by Pulse 98 100 100 Oximetry Medical Decision Making - Medical Decision Making 45-year-old female with history of kidney stones and type I insulin resistant di abetes presents to emergency department with a chief complaint of abdominal pain nausea vomiting. On physical examination, patient had dry mucous migraines. She is in significant right-sided abdominal tenderness per patient was given IV fluids, antiemetics and morphine. Patient was concerned for DKA. She has been vomiting due to the pain. She has lost about 10 pounds over the last few days since the lithotripsy. She is dehydrated I suspect this has caused her to go into DKA. Positive acetone. Venous blood gas reveals a pH of 7.12. PCO2 36 and bicarb of 11. CO2 is 9. Anion gap 25. Patient immediately started on 1.5 L of IV fluids. 5.6 units of regular insulin. UA positive for ketones, glucose, leukocyte esterase and blood. Urine culture pending. Patient also started on insulin infusion. DKA protocol. She will be admitted to ICU. Case discussed with Admitting physician is - Lab Data Result diagrams: 12/21/20 12:33 12/21/20 12:33 Lab Results 12/21/20 12/21/20 12/21/20 Range/Units 12:26 12:33 12:33 WBC 14.1 H (3.8-10.6) k/uL RBC 5.00 (3.80-5.40) m/uL Hgb 16.2 H (11.4-16.0) gm/dL Hct 47.7 H (34.0-46.0) % MCV 95.3 (80.0-100.0) fL MCH 32.4 (25.0-35.0) pg MCHC 34.0 (31.0-37.0) g/dL RDW 12.1 (11.5-15.5) % Plt Count 303 (150-450) k/uL MPV 8.6 Neutrophils % 87 % Lymphocytes % 8 % Monocytes % 3 % Eosinophils % 1 % Basophils % 0 % Neutrophils # 12.2 H (1.3-7.7) k/uL Lymphocytes # 1.2 (1.0-4.8) k/uL Monocytes # 0.5 (0-1.0) k/uL Eosinophils # 0.1 (0-0.7) k/uL Basophils # 0.0 (0-0.2) k/uL VBG pH (7.31-7.41) VBG pCO2 (37-51) mmHg VBG HCO3 (24-28) mmol/L Sodium 137 (137-145) mmol/L Potassium 4.7 (3.5-5.1) mmol/L Chloride 103 (98-107) mmol/L Carbon Dioxide 9 L* (22-30) mmol/L Anion Gap 25 mmol/L BUN 15 (7-17) mg/dL Creatinine 0.91 (0.52-1.04) mg/dL Est GFR (CKD-EPI)AfAm 89 (>60 ml/min/1.73 sqM) Est GFR (CKD-EPI)NonAf 77 (>60 ml/min/1.73 sqM) Glucose 413 H (74-99) mg/dL Calcium 10.1 (8.4-10.2) mg/dL Total Bilirubin 1.0 (0.2-1.3) mg/dL AST 14 (14-36) U/L ALT 10 (4-34) U/L Alkaline Phosphatase 113 (38-126) U/L Total Protein 8.2 (6.3-8.2) g/dL Albumin 5.0 (3.5-5.0) g/dL Urine Color Light Red Urine Appearance Cloudy H (Clear) Urine pH 5.5 (5.0-8.0) Ur Specific [place] 1.027 (1.001-1.035) Urine Protein 2+ H (Negative) Urine Glucose (UA) 4+ H (Negative) Urine Ketones 4+ H (Negative) Urine Blood Large H (Negative) Urine Nitrite Negative (Negative) Urine Bilirubin Negative (Negative) Urine Urobilinogen <2.0 (<2.0) mg/dL Ur Leukocyte Esterase Moderate H (Negative) Urine RBC >182 H (0-5) /hpf Urine WBC 121 H (0-5) /hpf Urine Yeast (Budding) Rare H (None) /hpf Acetone, Qual Positive (Negative) 12/21/20 Range/Units 12:33 WBC (3.8-10.6) k/uL RBC (3.80-5.40) m/uL Hgb (11.4-16.0) gm/dL Hct (34.0-46.0) % MCV (80.0-100.0) fL MCH (25.0-35.0) pg MCHC (31.0-37.0) g/dL RDW (11.5-15.5) % Plt Count (150-450) k/uL MPV Neutrophils % % Lymphocytes % % Monocytes % % Eosinophils % % Basophils % % Neutrophils # (1.3-7.7) k/uL Lymphocytes # (1.0-4.8) k/uL Monocytes # (0-1.0) k/uL Eosinophils # (0-0.7) k/uL Basophils # (0-0.2) k/uL VBG pH 7.12 L* (7.31-7.41) VBG pCO2 36 L (37-51) mmHg VBG HCO3 11 L (24-28) mmol/L Sodium (137-145) mmol/L Potassium (3.5-5.1) mmol/L Chloride (98-107) mmol/L Carbon Dioxide (22-30) mmol/L Anion Gap mmol/L BUN (7-17) mg/dL Creatinine (0.52-1.04) mg/dL Est GFR (CKD-EPI)AfAm (>60 ml/min/1.73 sqM) Est GFR (CKD-EPI)NonAf (>60 ml/min/1.73 sqM) Glucose (74-99) mg/dL Calcium (8.4-10.2) mg/dL Total Bilirubin (0.2-1.3) mg/dL AST (14-36) U/L ALT (4-34) U/L Alkaline Phosphatase (38-126) U/L Total Protein (6.3-8.2) g/dL Albumin (3.5-5.0) g/dL Urine Color Urine Appearance (Clear) Urine pH (5.0-8.0) Ur Specific [place] (1.001-1.035) Urine Protein (Negative) Urine Glucose (UA) (Negative) Urine Ketones (Negative) Urine Blood (Negative) Urine Nitrite (Negative) Urine Bilirubin (Negative) Urine Urobilinogen (<2.0) mg/dL Ur Leukocyte Esterase (Negative) Urine RBC (0-5) /hpf Urine WBC (0-5) /hpf Urine Yeast (Budding) (None) /hpf Acetone, Qual (Negative) Critical Care Time Critical Care Time: Over 33 minutes of critical care time Disposition Clinical Impression: DKA, type 1, Hematuria, Urinary tract infection Disposition: ADMITTED IP TO THIS [facility] Condition: Fair Is patient prescribed a controlled substance at d/c from ED?: No Time of Disposition: 14:06
[2020-12-21 12:52] LABS: Basophils % (A) 0 %; Eosinophils # (A) 0.1 k/uL (0-0.7); Eosinophils % (A) 1 %; HCT 47.7 % (34.0-46.0); HGB 16.2 gm/dL (11.4-16.0); Lymphocytes # (A) 1.2 k/uL (1.0-4.8); Lymphocytes % (A) 8 %; MCH 32.4 pg (25.0-35.0); MCV 95.3 fL (80.0-100.0); Mean Platelet Volume 8.6; Monocytes # (A) 0.5 k/uL (0-1.0); Monocytes % (A) 3 %; Neutrophils # (A) 12.2 k/uL (1.3-7.7); Neutrophils % (A) 87 %; Platelet Count 303 k/uL (150-450); RDW 12.1 % (11.5-15.5); WBC 14.1 k/uL (3.8-10.6)
[2020-12-21 13:02] LABS: Appearance,Urine Cloudy (Clear); Bilirubin,Urine Negative (Negative); Blood,Urine Large (Negative); Budding Yeast,Urine Rare /hpf; Color,Urine Light Red; Glucose,Urine (UA) 4+ (Negative); Leukocyte Esterase,Urine Moderate (Negative); Nitrite,Urine Negative (Negative); PH, Urine 5.5 (5.0-8.0); Protein,Urine 2+ (Negative); RBC,Urine >182 /hpf (0-5); Specific Gravity,Urine 1.027 (1.001-1.035); Urobilinogen,Urine <2.0 mg/dL (<2.0); WBC,Urine 121 /hpf (0-5)
[2020-12-21 13:03] LABS: ALT 10 U/L (4-34); AST 14 U/L (14-36); African American GFR (CKD) 89 (>60 ml/min/1.73 sqM); Alkaline Phosphatase 113 U/L (38-126); Anion Gap 25 mmol/L; Blood Urea Nitrogen 15 mg/dL (7-17); Calcium 10.1 mg/dL (8.4-10.2); Chloride 103 mmol/L (98-107); Glucose 413 mg/dL (74-99); Non-African American GFR(CKD) 77 (>60 ml/min/1.73 sqM); Potassium 4.7 mmol/L (3.5-5.1); Sodium 137 mmol/L (137-145); Total Protein 8.2 g/dL (6.3-8.2)
[2020-12-21 13:04] LABS: Ketones,Urine 4+ (Negative)
[2020-12-21 13:09] LABS: VBG PH 7.12 (7.31-7.41)
[2020-12-21 13:11] LABS: Carbon Dioxide 9 mmol/L (22-30)
[2020-12-21] MEDS ORDERED: SODIUM CHLORIDE 0.9% 500 ML 500 ML IV STA (13:16)
[2020-12-21] MEDS ORDERED: INSULIN REGULAR BOLUS (FROM DRIP BAG) IV ONE (13:37)
[2020-12-21] MEDS ORDERED: SODIUM CHLORIDE 0.9% 1,000 ML IV SCH (13:45)
[2020-12-21] MEDS ORDERED: NALOXONE 0.4 MG/ML 1 ML VIAL IV PRN (13:52)
[2020-12-21 13:53] LABS: Glucose,Whole Blood 343 mg/dL (75-99)
[2020-12-21] MEDS: INSULIN REGULAR 100 UNIT in SODIUM CHLORIDE 0.9% 100 ML IV SCH (13:56)
[2020-12-21] MEDS ORDERED: cefTRIAXone IN SWFI 1,000 MG/10 ML SYRINGE IVP STA (13:56)
[2020-12-21] MEDS ORDERED: MORPHINE SULFATE 2 MG/ML SYRINGE IVP PRN (14:57)
[2020-12-21 15:04] LABS: Glucose,Whole Blood 209 mg/dL (75-99)
[2020-12-21] MEDS ORDERED: NON FORMULARY DRUG (Ketorolac 10 MG Tab) PO PRN (15:14)
[2020-12-21] MEDS: D5-0.45% NACL WITH KCL 20MEQ/L 1,000 ML IV SCH ×2 (15:49→21:20)
[2020-12-21 16:10] LABS: Glucose,Whole Blood 164 mg/dL (75-99)
[2020-12-21] MEDS: PANTOPRAZOLE 40 MG/10 ML VIAL IVP SCH (16:10)
--- NOTE | 2020-12-21 16:20 | P.HPIM ---
History of Present Illness H&P Date: 12/21/20 Chief Complaint: Right flank pain, UTI, nausea and vomiting, DKA 45 years old female with past medical history of type 1 diabetes since 2018, hypertension, history of multiple renal stones for which patient had laser lithotripsy for 6 mm right renal calculi in March 2020. Since patient had a persistent mild, right hydronephrosis with 2 mm right upper pole renal calculus patient had another lithotripsy on 12/17 followed by ureteral stent placement by Dr. Veras. Patient continues to have hematuria, increased frequency of urination associated with the right flank pain radiating to the right groin. Patient was given pain medication with no improvement. Patient has been taking Toradol for the past 3 days with worsening of pain. She had her stent removed this morning but since the pain persisted patient decided to come to the ER. Patient has been nauseous since yesterday and has not had anything to eat this morning. Patient has type 1 diabetes since 2019 managed at [facility] with Symlin Lantus and NovoLog. On assessment in the ER, patient's vitals suggestive of 97.6 pulse 86 respiratory rate 18 and saturating at 99% on room air blood pressure 122/97. Venous blood gas suggests a pH of 7.12 bicarb 11 CO2 36. BNP suggestive CO2 of 9 potassium 4.7 sodium 137 BUN 15 creatinine 0.9 and 9 25 glucose on admission 413 positive for acetones urinalysis is positive for UTI. Patient got a dose of Rocephin in the ER DKA protocol is initiated. Blood glucose is improved to 164 patient started on D5NS at 1 50 mL/h. Patient has received 2 L of IV bolus with repeat labs ordered in the next 4 hours. Hold patient's Lantus, Symlin and NovoLog. Continue insulin drip. Patient is nothing by mouth. Repeat an ultrasound obtained to rule out pyelonephritis blood cultures are obtained. Lactic acid is normal. Continue to monitor patient in the ICU until patient's anion gap is closed and patient has resumed eating. Continue morphine 2 mg IV every 6 for pain relief. Pantoprazole initiated at 40 mg as patient has significant epigastric tenderness. Avoid NSAIDs Review of Systems Constitutional: Denies chills, Denies fever, Denies lethargy, Denies malaise, endorses poor appetite, Denies weakness, Denies weight loss Eyes: denies decreased vision, denies diplopia, denies discharge, denies pain Ears: deny: decreased hearing Ears, nose, mouth and throat: Denies dental pain, Denies headache, Denies nasal discharge, Denies nose pain Cardiovascular: Denies chest pain, Denies decreased exercise tolerance, Denies edema, Denies high blood pressure, Denies irregular heart beat, Denies p alpitations, Denies paroxysmal nocturnal dyspnea, Denies rapid heart beat, Denies shortness of breath Respiratory: Denies congestion, Denies cough, Denies cough with sputum, Denies dyspnea, Denies home oxygen, Denies wheezing Gastrointestinal: Endorses abdominal pain and right flank pain, Denies change in bowel habits, Denies coffee ground emesis, endorses early satiety, Denies excessive gas, endorses heartburn, Denies hematemesis, Denies hematochezia, Denies loss of appetite, endorses nausea, endorses vomiting Genitourinary: Denies dysuria, Denies flank pain, Denies kidney stones, Denies menorrhagia, Denies urgency, Denies urinary frequency Musculoskeletal: Denies gait dysfunction, Denies limitation of motion, Denies morning stiffness, Denies muscle cramps Integumentary: Denies rash, Denies wounds, Denies brittle nails, Denies change in hair/nails, Denies darkening of skin Neurological: Denies balance difficulties, Denies change in speech, Denies double vision, Denies gait dysfunction, Denies loss of vision, Denies motor disturbance, Denies numbness, Denies paralysis, Denies paresthesias, Denies seizures Psychiatric: Denies anxiety, Denies depression Endocrine: Denies excessive sweating, Denies excessive thirst, endorses high blood sugars, Denies palpitations Hematologic/Lymphatic: Denies easy bruising, Denies lymphadenopathy Past Medical History Past Medical History: Diabetes Mellitus, Hypertension, Renal Disease Additional Past Medical History / Comment(s): IDDM type II, kidney stones which pt passed on her own, UTI. History of Any Multi-Drug Resistant Organisms: None Reported Past Surgical History: Cholecystectomy, Hysterectomy, Tonsillectomy, Uterine Ablation Additional Past Surgical History / Comment(s): Laparoscopic surgery for ovarian cysts, colonoscopy with benign polyp. Lithotripsy 05/04,01/03 with stent placement, stent removed Past Anesthesia/Blood Transfusion Reactions: Postoperative Nausea & Vomiting (PONV) Past Psychological History: No Psychological Hx Reported Additional Psychological History / Comment(s): Pt resides with her spouse and children. She is independent. Smoking Status: Never smoker Past Alcohol Use History: None Reported Additional Past Alcohol Use History / Comment(s): Patient is a lifelong nonsmoker, no marijuana or illicit drug use. Past Drug Use History: None Reported - Past Family History Mother Family Medical History: Cancer Father Family Medical History: No Reported History, Hypertension, Renal Disease Medications and Allergies Home Medications Medication Instructions Recorded Confirmed Type Pramlintide Acetate [Symlin Pen 60] 15 mcg SQ AC-TID 11/17/19 12/21/20 History Insulin Aspart [NovoLOG Flexpen] See Protocol SQ AC-TID 12/21/20 12/21/20 History Insulin Glargine,Hum.rec.anlog 22 unit SQ HS 12/21/20 12/21/20 History [Lantus Solostar] Ketorolac [Toradol] 10 mg PO Q6H PRN 12/21/20 12/21/20 History Tolterodine Tartrate [Detrol LA] 4 mg PO DAILY 12/21/20 12/21/20 History Allergies Allergy/AdvReac Type Severity Reaction Status Date / Time Sulfa (Sulfonamide Allergy Anaphylaxis Verified 12/21/20 12:23 Antibiotics) Physical Exam Vitals: Vital Signs Temp Pulse Resp BP Pulse Ox 12/21/20 15:06 87 26 H 122/97 99 12/21/20 14:40 98.1 F 99 18 146/92 100 12/21/20 14:00 95 18 125/90 100 12/21/20 13:17 99 18 123/86 100 12/21/20 11:45 97.9 F 115 H 18 160/101 98 Intake and Output 12/21/20 12/21/20 12/21/20 06:59 14:59 22:59 Intake Total 200 Balance 200 Intake: IV 200 0.9 NACL 200 Other: Weight 56.245 kg - Constitutional General appearance: cooperative, mild acute distress, thin - EENT Eyes: anicteric sclerae, PERRLA, normal appearance ENT: hearing grossly normal - Neck Neck: no lymphadenopathy, normal ROM, no other, no rigidity, no stridor, no thyromegaly - Respiratory Respiratory: bilateral: CTA, negative: diminished, dullness, rales, rhonchi - Cardiovascular Rhythm: regular Heart sounds: normal: S1, S2 Abnormal Heart Sounds: no systolic murmur, no diastolic murmur, no rub, no S3 Gallop, no S4 Gallop, no click, no other - Gastrointestinal General gastrointestinal: normal bowel sounds, soft tender in the epigastric, right flank area no rebound tenderness - Integumentary Integumentary: no rash - Neurologic Neurologic: No gross motor or sensory deficit - Musculoskeletal Musculoskeletal: gait normal, strength equal bilaterally - Psychiatric Psychiatric: A&O x's 3, appropriate affect Results CBC & Chem 7: 12/21/20 12:33 12/21/20 12:33 Labs: Abnormal Lab Results - Last 24 Hours (Table) 12/21/20 12/21/20 12/21/20 Range/Units 12:26 12:33 12:33 WBC 14.1 H (3.8-10.6) k/uL Hgb 16.2 H (11.4-16.0) gm/dL Hct 47.7 H (34.0-46.0) % Neutrophils # 12.2 H (1.3-7.7) k/uL VBG pH (7.31-7.41) VBG pCO2 (37-51) mmHg VBG HCO3 (24-28) mmol/L Carbon Dioxide 9 L* (22-30) mmol/L Glucose 413 H (74-99) mg/dL POC Glucose (mg/dL) (75-99) mg/dL Urine Appearance Cloudy H (Clear) Urine Protein 2+ H (Negative) Urine Glucose (UA) 4+ H (Negative) Urine Ketones 4+ H (Negative) Urine Blood Large H (Negative) Ur Leukocyte Esterase Moderate H (Negative) Urine RBC >182 H (0-5) /hpf Urine WBC 121 H (0-5) /hpf Urine Yeast (Budding) Rare H (None) /hpf 12/21/20 12/21/20 12/21/20 Range/Units 12:33 13:52 15:02 WBC (3.8-10.6) k/uL Hgb (11.4-16.0) gm/dL Hct (34.0-46.0) % Neutrophils # (1.3-7.7) k/uL VBG pH 7.12 L* (7.31-7.41) VBG pCO2 36 L (37-51) mmHg VBG HCO3 11 L (24-28) mmol/L Carbon Dioxide (22-30) mmol/L Glucose (74-99) mg/dL POC Glucose (mg/dL) 343 H 209 H (75-99) mg/dL Urine Appearance (Clear) Urine Protein (Negative) Urine Glucose (UA) (Negative) Urine Ketones (Negative) Urine Blood (Negative) Ur Leukocyte Esterase (Negative) Urine RBC (0-5) /hpf Urine WBC (0-5) /hpf Urine Yeast (Budding) (None) /hpf Thrombosis Risk Factor Assmnt - DVT/VTE Prophylaxis DVT/VTE Prophylaxis: Pharmacologic Prophylaxis ordered - Choose All That Apply Any of the Below Risk Factors Present?: Yes Each Factor Represents 1 point: Age 41-60 years, Medical pt on bed rest Other Risk Factors: Yes Each Risk Factor Represents 2 Points: Patient confined to bed Other congenital or acquired thrombophilia - If yes, enter type in comment: No Thrombosis Risk Factor Assessment Total Risk Factor Score: 4 Thrombosis Risk Factor Assessment Level: Moderate Risk Assessment and Plan Plan: #1 acute metabolic acidosis secondary to diabetes ketoacidosis with history of type 1 diabetes. Continue IV fluids. Replete electrolytes per protocol. Repeat electrolytes and creatinine every 4 hours. Continue D5NS at 1 50 mL/h since glucose is less than 250. Once anion gap closes patient can be started on Lantus if patient has an appetite. Continue insulin drip. #2 acute urinary tract infection with possible pyelonephritis renal ultrasound ordered continue Rocephin 1 g every 24 hours urine culture pending. Blood culture ordered stat #3 right flank pain with history of nephrolithiasis status post lithotripsy and ureteral stent basement on 12/17. Ureteral stent removed on 12/21. Pain controlled on morphine 2 mg IV every 6 hours. Zofran as needed. Nausea. Renal ultrasound ordered to rule out obstructive uropathy #4 acute epigastric pain likely GERD with recent use of NSAIDs. Hold Toradol Protonix started at 40 mg IV daily. #5 type 1 diabetes hold pramlintide, hold Lantus, hold NovoLog 3 times a day continue insulin drip. Diabetic diet. Patient currently nothing by mouth #6 hypertension diet controlled #7 urinary incontinence continue Detrol 4 mg by mouth daily #8 GI prophylaxis with Protonix 40 mg IV daily #9 DVT prophylaxis heparin every 12 #10 Code status full code
[2020-12-21 17:11] LABS: African American GFR (CKD) >90 (>60 ml/min/1.73 sqM); Anion Gap 15 mmol/L; Blood Urea Nitrogen 12 mg/dL (7-17); Chloride 115 mmol/L (98-107); Glucose 165 mg/dL (74-99); Non-African American GFR(CKD) >90 (>60 ml/min/1.73 sqM); Phosphorus 2.6 mg/dL (2.5-4.5); Potassium 4.2 mmol/L (3.5-5.1); Sodium 138 mmol/L (137-145)
[2020-12-21 17:13] LABS: Glucose,Whole Blood 138 mg/dL (75-99)
[2020-12-21 17:26] LABS: Carbon Dioxide 8 mmol/L (22-30)
[2020-12-21 18:05] LABS: Glucose,Whole Blood 152 mg/dL (75-99)
[2020-12-21] MEDS: ONDANSETRON 4 MG/2 ML VIAL IVP PRN (18:40)
--- NOTE | 2020-12-21 18:49 | P.GSCN ---
History of Present Illness Consult date: 12/21/20 History of present illness: 45-year-old female in the hospital diabetic ketoacidosis. On 12/17/2020 did a right ureteroscopy laser lithotripsy and stent placement to. The patient is having stent pain. . We are asked to see the patient for the urologic histor y. The urinalysis is inflamed as expected. Her white blood cell count mildly elevated. Review of Systems All systems: negative - Constitutional Denies fever, Denies weight loss - EENT Eyes: denies blurred vision Ears, nose, mouth and throat: Denies dysphagia - Cardiovascular Denies chest pain, Denies shortness of breath - Respiratory Denies cough, Denies 7 - Gastrointestinal Reports as per HPI - Genitourinary Genitourinary: Denies dysuria, Denies hematuria - Integumentary Denies rash, Denies unusual bruising - Neurological Denies headaches, Denies syncope - Hematologic/Lymphatic Denies easy bleeding, Denies easy bruising Past Medical History Past Medical History: Diabetes Mellitus, Hypertension, Renal Disease Additional Past Medical History / Comment(s): IDDM type II, kidney stones which pt passed on her own, UTI. History of Any Multi-Drug Resistant Organisms: None Reported Past Surgical History: Cholecystectomy, Hysterectomy, Tonsillectomy, Uterine Ablation Additional Past Surgical History / Comment(s): Laparoscopic surgery for ovarian cysts, colonoscopy with benign polyp. Lithotripsy 05/04,01/03 with stent placement , stent removed Past Anesthesia/Blood Transfusion Reactions: Postoperative Nausea & Vomiting (PONV) Past Psychological History: No Psychological Hx Reported Additional Psychological History / Comment(s): Pt resides with her spouse and children. She is independent. Smoking Status: Never smoker Past Alcohol Use History: None Reported Additional Past Alcohol Use History / Comment(s): Patient is a lifelong nonsmoker, no marijuana or illicit drug use. Past Drug Use History: None Reported - Past Family History Mother Family Medical History: Cancer Father Family Medical History: No Reported History, Hypertension, Renal Disease Medications and Allergies Home Medications Medication Instructions Recorded Confirmed Type Pramlintide Acetate [Symlin Pen 60] 15 mcg SQ AC-TID 11/17/19 12/21/20 History Insulin Aspart [NovoLOG Flexpen] See Protocol SQ AC-TID 12/21/20 12/21/20 History Insulin Glargine,Hum.rec.anlog 22 unit SQ HS 12/21/20 12/21/20 History [Lantus Solostar] Ketorolac [Toradol] 10 mg PO Q6H PRN 12/21/20 12/21/20 History Tolterodine Tartrate [Detrol LA] 4 mg PO DAILY 12/21/20 12/21/20 History Allergies Allergy/AdvReac Type Severity Reaction Status Date / Time Sulfa (Sulfonamide Allergy Anaphylaxis Verified 12/21/20 12:23 Antibiotics) Surgical - Exam Vital Signs Temp Pulse Resp BP Pulse Ox 97.9 F 115 H 18 160/101 98 12/21/20 11:45 12/21/20 11:45 12/21/20 11:45 12/21/20 11:45 12/21/20 11:45 - General well developed, well nourished, moderate distress - Eyes PERRL - ENT no hearing loss - Neck no masses - Respiratory normal expansion, normal respiratory effort - Cardiovascular Rhythm: regular - Abdomen Abdomen: soft, non tender - Musculoskeletal normal posture - Psychiatric oriented to time, oriented to person, oriented to place, speech is normal Results - Labs 12/21/20 12:33 12/21/20 16:40 Abnormal Lab Results - Last 24 Hours (Table) 12/21/20 12/21/20 12/21/20 Range/Units 12:26 12:33 12:33 WBC 14.1 H (3.8-10.6) k/uL Hgb 16.2 H (11.4-16.0) gm/dL Hct 47.7 H (34.0-46.0) % Neutrophils # 12.2 H (1.3-7.7) k/uL VBG pH (7.31-7.41) VBG pCO2 (37-51) mmHg VBG HCO3 (24-28) mmol/L Chloride (98-107) mmol/L Carbon Dioxide 9 L* (22-30) mmol/L Glucose 413 H (74-99) mg/dL POC Glucose (mg/dL) (75-99) mg/dL Urine Appearance Cloudy H (Clear) Urine Protein 2+ H (Negative) Urine Glucose (UA) 4+ H (Negative) Urine Ketones 4+ H (Negative) Urine Blood Large H (Negative) Ur Leukocyte Esterase Moderate H (Negative) Urine RBC >182 H (0-5) /hpf Urine WBC 121 H (0-5) /hpf Urine Yeast (Budding) Rare H (None) /hpf 12/21/20 12/21/20 12/21/20 Range/Units 12:33 13:52 15:02 WBC (3.8-10.6) k/uL Hgb (11.4-16.0) gm/dL Hct (34.0-46.0) % Neutrophils # (1.3-7.7) k/uL VBG pH 7.12 L* (7.31-7.41) VBG pCO2 36 L (37-51) mmHg VBG HCO3 11 L (24-28) mmol/L Chloride (98-107) mmol/L Carbon Dioxide (22-30) mmol/L Glucose (74-99) mg/dL POC Glucose (mg/dL) 343 H 209 H (75-99) mg/dL Urine Appearance (Clear) Urine Protein (Negative) Urine Glucose (UA) (Negative) Urine Ketones (Negative) Urine Blood (Negative) Ur Leukocyte Esterase (Negative) Urine RBC (0-5) /hpf Urine WBC (0-5) /hpf Urine Yeast (Budding) (None) /hpf 12/21/20 12/21/20 12/21/20 Range/Units 16:07 16:40 17:11 WBC (3.8-10.6) k/uL Hgb (11.4-16.0) gm/dL Hct (34.0-46.0) % Neutrophils # (1.3-7.7) k/uL VBG pH (7.31-7.41) VBG pCO2 (37-51) mmHg VBG HCO3 (24-28) mmol/L Chloride 115 H (98-107) mmol/L Carbon Dioxide 8 L* (22-30) mmol/L Glucose 165 H (74-99) mg/dL POC Glucose (mg/dL) 164 H 138 H (75-99) mg/dL Urine Appearance (Clear) Urine Protein (Negative) Urine Glucose (UA) (Negative) Urine Ketones (Negative) Urine Blood (Negative) Ur Leukocyte Esterase (Negative) Urine RBC (0-5) /hpf Urine WBC (0-5) /hpf Urine Yeast (Budding) (None) /hpf 12/21/20 Range/Units 18:04 WBC (3.8-10.6) k/uL Hgb (11.4-16.0) gm/dL Hct (34.0-46.0) % Neutrophils # (1.3-7.7) k/uL VBG pH (7.31-7.41) VBG pCO2 (37-51) mmHg VBG HCO3 (24-28) mmol/L Chloride (98-107) mmol/L Carbon Dioxide (22-30) mmol/L Glucose (74-99) mg/dL POC Glucose (mg/dL) 152 H (75-99) mg/dL Urine Appearance (Clear) Urine Protein (Negative) Urine Glucose (UA) (Negative) Urine Ketones (Negative) Urine Blood (Negative) Ur Leukocyte Esterase (Negative) Urine RBC (0-5) /hpf Urine WBC (0-5) /hpf Urine Yeast (Budding) (None) /hpf Diabetes panel 12/21/20 12/21/20 Range/Units 12:33 16:40 Sodium 137 138 (137-145) mmol/L Potassium 4.7 4.2 (3.5-5.1) mmol/L Chloride 103 115 H (98-107) mmol/L Carbon Dioxide 9 L* 8 L* (22-30) mmol/L BUN 15 12 (7-17) mg/dL Creatinine 0.91 0.58 (0.52-1.04) mg/dL Glucose 413 H 165 H (74-99) mg/dL Calcium 10.1 (8.4-10.2) mg/dL AST 14 (14-36) U/L ALT 10 (4-34) U/L Alkaline Phosphatase 113 (38-126) U/L Total Protein 8.2 (6.3-8.2) g/dL Albumin 5.0 (3.5-5.0) g/dL Calcium panel 12/21/20 12/21/20 Range/Units 12:33 16:40 Calcium 10.1 (8.4-10.2) mg/dL Phosphorus 2.6 (2.5-4.5) mg/dL Albumin 5.0 (3.5-5.0) g/dL Pituitary panel 12/21/20 12/21/20 Range/Units 12:33 16:40 Sodium 137 138 (137-145) mmol/L Potassium 4.7 4.2 (3.5-5.1) mmol/L Chloride 103 115 H (98-107) mmol/L Carbon Dioxide 9 L* 8 L* (22-30) mmol/L BUN 15 12 (7-17) mg/dL Creatinine 0.91 0.58 (0.52-1.04) mg/dL Glucose 413 H 165 H (74-99) mg/dL Calcium 10.1 (8.4-10.2) mg/dL Adrenal panel 12/21/20 12/21/20 Range/Units 12:33 16:40 Sodium 137 138 (137-145) mmol/L Potassium 4.7 4.2 (3.5-5.1) mmol/L Chloride 103 115 H (98-107) mmol/L Carbon Dioxide 9 L* 8 L* (22-30) mmol/L BUN 15 12 (7-17) mg/dL Creatinine 0.91 0.58 (0.52-1.04) mg/dL Glucose 413 H 165 H (74-99) mg/dL Calcium 10.1 (8.4-10.2) mg/dL Total Bilirubin 1.0 (0.2-1.3) mg/dL AST 14 (14-36) U/L ALT 10 (4-34) U/L Alkaline Phosphatase 113 (38-126) U/L Total Protein 8.2 (6.3-8.2) g/dL Albumin 5.0 (3.5-5.0) g/dL Assessment and Plan Assessment: Impression: Diabetic ketoacidosis. Status post ureteroscopy with laser lithotripsy and stent placement with secondary stent discomfort Recommendations: From a urologic standpoint there is nothing we will do other then make sure the urine is not infected. The patient is scheduled for stent removal in the future. I would not remove it sooner until her diabetic ketoacidosis is under control and clarification of whether there is an infection been made. We'll follow with you.
[2020-12-21 19:01] LABS: Glucose,Whole Blood 142 mg/dL (75-99)
--- NOTE | 2020-12-21 19:31 | US ---
EXAMINATION TYPE: US kidneys/renal and bladder DATE OF EXAM: 12/21/2020 COMPARISON: US, CT, XR CLINICAL HISTORY: right flank pain, recent kidney stone . Right flank pain. Recent kidney stone. Lith otripsy 12/17/2020 per patient. EXAM MEASUREMENTS: Right Kidney: 11.8 x 5.1 x 4.7 cm Left Kidney: 11.6 x 5.2 x 5.1 cm Right Kidney: Anechoic connecting area seen medially with the appearance of hydronephrosis. Left Kidney: No hydronephrosis or masses seen Bladder: Appears to be anechoic. Bilateral Jets seen: No IMPRESSION: Mild right-sided hydronephrosis.
[2020-12-21] MEDS: ACETAMINOPHEN TAB 325 MG TAB PO PRN (19:46)
[2020-12-21 20:08] LABS: Glucose,Whole Blood 137 mg/dL (75-99)
[2020-12-21 20:56] LABS: Glucose,Whole Blood 150 mg/dL (75-99)
[2020-12-21 20:59] LABS: African American GFR (CKD) >90 (>60 ml/min/1.73 sqM); Anion Gap 11 mmol/L; Blood Urea Nitrogen 10 mg/dL (7-17); Carbon Dioxide 11 mmol/L (22-30); Chloride 113 mmol/L (98-107); Glucose 158 mg/dL (74-99); Non-African American GFR(CKD) >90 (>60 ml/min/1.73 sqM); Phosphorus 2.6 mg/dL (2.5-4.5); Sodium 135 mmol/L (137-145)
[2020-12-21] MEDS: HYDROmorphone 1 MG/ML 1 ML SYRINGE IVP PRN (21:15)
[2020-12-21 22:05] LABS: Glucose,Whole Blood 146 mg/dL (75-99)
[2020-12-21 23:02] LABS: Glucose,Whole Blood 169 mg/dL (75-99)
[2020-12-22 00:05] LABS: Glucose,Whole Blood 176 mg/dL (75-99)
[2020-12-22 00:47] LABS: African American GFR (CKD) >90 (>60 ml/min/1.73 sqM); Anion Gap 8 mmol/L; Blood Urea Nitrogen 10 mg/dL (7-17); Carbon Dioxide 13 mmol/L (22-30); Chloride 114 mmol/L (98-107); Glucose 177 mg/dL (74-99); Non-African American GFR(CKD) >90 (>60 ml/min/1.73 sqM); Phosphorus 2.7 mg/dL (2.5-4.5); Sodium 135 mmol/L (137-145)
[2020-12-22 00:56] LABS: Glucose,Whole Blood 184 mg/dL (75-99)
[2020-12-22 02:13] LABS: Glucose,Whole Blood 171 mg/dL (75-99)
[2020-12-22] MEDS: HYDROmorphone 1 MG/ML 1 ML SYRINGE IVP PRN ×5 (02:24→20:02)
[2020-12-22] MEDS: ACETAMINOPHEN TAB 325 MG TAB PO PRN (03:14)
[2020-12-22 03:16] LABS: Glucose,Whole Blood 210 mg/dL (75-99)
[2020-12-22] MEDS: D5-0.45% NACL WITH KCL 20MEQ/L 1,000 ML IV SCH (04:45)
[2020-12-22 04:51] LABS: Glucose,Whole Blood 227 mg/dL (75-99)
[2020-12-22 04:55] LABS: Basophils % (A) 0 %; Eosinophils # (A) 0.2 k/uL (0-0.7); Eosinophils % (A) 2 %; HCT 38.4 % (34.0-46.0); HGB 13.3 gm/dL (11.4-16.0); Lymphocytes # (A) 1.3 k/uL (1.0-4.8); Lymphocytes % (A) 15 %; MCH 32.4 pg (25.0-35.0); MCHC 34.6 g/dL (31.0-37.0); MCV 93.7 fL (80.0-100.0); Mean Platelet Volume 8.6; Monocytes # (A) 0.5 k/uL (0-1.0); Monocytes % (A) 6 %; Neutrophils # (A) 6.7 k/uL (1.3-7.7); Neutrophils % (A) 76 %; Platelet Count 228 k/uL (150-450); RDW 12.9 % (11.5-15.5); WBC 8.8 k/uL (3.8-10.6)
[2020-12-22 05:03] LABS: ALT 20 U/L (4-34); AST 35 U/L (14-36); African American GFR (CKD) >90 (>60 ml/min/1.73 sqM); Albumin 3.3 g/dL (3.5-5.0); Alkaline Phosphatase 80 U/L (38-126); Anion Gap 13 mmol/L; Blood Urea Nitrogen 9 mg/dL (7-17); Calcium 8.6 mg/dL (8.4-10.2); Chloride 113 mmol/L (98-107); Glucose 216 mg/dL (74-99); Non-African American GFR(CKD) >90 (>60 ml/min/1.73 sqM); Phosphorus 2.7 mg/dL (2.5-4.5); Potassium 4.2 mmol/L (3.5-5.1); Sodium 135 mmol/L (137-145); Total Bilirubin 0.7 mg/dL (0.2-1.3); Total Protein 5.9 g/dL (6.3-8.2)
[2020-12-22 05:07] LABS: Carbon Dioxide 9 mmol/L (22-30)
[2020-12-22 05:52] LABS: Glucose,Whole Blood 242 mg/dL (75-99)
[2020-12-22 06:58] LABS: Glucose,Whole Blood 242 mg/dL (75-99)
[2020-12-22 07:37] LABS: Glucose,Whole Blood 258 mg/dL (75-99)
[2020-12-22 08:35] LABS: African American GFR (CKD) >90 (>60 ml/min/1.73 sqM); Anion Gap 8 mmol/L; Blood Urea Nitrogen 7 mg/dL (7-17); Carbon Dioxide 13 mmol/L (22-30); Chloride 112 mmol/L (98-107); Glucose 281 mg/dL (74-99); Non-African American GFR(CKD) >90 (>60 ml/min/1.73 sqM); Phosphorus 2.5 mg/dL (2.5-4.5); Potassium 4.3 mmol/L (3.5-5.1); Sodium 133 mmol/L (137-145)
[2020-12-22] MEDS: INSULIN REGULAR 100 UNIT in SODIUM CHLORIDE 0.9% 100 ML IV SCH (09:20)
[2020-12-22] MEDS: OXYBUTYNIN XL 5 MG TAB.ER.24 PO SCH (09:26)
[2020-12-22] MEDS: PANTOPRAZOLE 40 MG/10 ML VIAL IVP SCH (09:26)
[2020-12-22 09:38] LABS: Glucose,Whole Blood 248 mg/dL (75-99)
[2020-12-22] MEDS ORDERED: traMADol 50 MG TAB PO PRN (09:43)
[2020-12-22] MEDS: ONDANSETRON 4 MG/2 ML VIAL IVP PRN (09:51)
[2020-12-22 10:45] VITALS: BMI 22.9
[2020-12-22] MEDS: INSULIN DETEMIR (LEVEMIR) 100 UNIT/ML SYR SQ SCH (11:05)
[2020-12-22] MEDS: DEXTROSE 5% IN WATER 1,000 ML with SODIUM BICARB (1 MEQ/ML) 150 ML IV SCH (11:05)
[2020-12-22 11:34] LABS: Glucose,Whole Blood 285 mg/dL (75-99)
[2020-12-22] MEDS: INSULIN ASPART (NovoLOG) 100 UNIT/ML VIAL SQ SCH ×3 (12:26→19:55)
--- NOTE | 2020-12-22 12:28 | P.PN ---
Subjective Progress Note Date: 12/22/20 HISTORY OF PRESENT ILLNESS 45 years old female with past medical history of type 1 diabetes since 2019, hypertension, history of multiple renal stones for which patient had laser lithotripsy for 6 mm right renal calculi in March 2020. Since patient had a persistent mild, right hydronephrosis with 2 mm right upper pole renal calculus patient had another lithotripsy on 12/17 followed by ureteral stent placement by Dr. Veras. Patient continues to have hematuria, increased frequency of urination associated with the right flank pain radiating to the right groin. Patient was given pain medication with no improvement. Patient has been taking Toradol for the past 3 days with worsening of pain. She had her stent removed this morning but since the pain persisted patient decided to come to the ER. Patient has been nauseous since yesterday and has not had anything to eat this morning. Patient has type 1 diabetes since 2019 managed at [facility] with Symlin Lantus and NovoLog. On assessment in the ER, patient's vitals suggestive of 97.6 pulse 86 respiratory rate 18 and saturating at 99% on room air blood pressure 122/97. Venous blood gas suggests a pH of 7.12 bicarb 11 CO2 36. BNP suggestive CO2 of 9 potassium 4.7 sodium 137 BUN 15 creatinine 0.9 and 9 25 glucose on admission 413 positive for acetones urinalysis is positive for UTI. Patient got a dose of Rocephin in the ER DKA protocol is initiated. Blood glucose is improved to 164 patient started on D5NS at 1 50 mL/h. Patient has received 2 L of IV bolus with repeat labs ordered in the next 4 hours. Hold patient's Lantus, Symlin and NovoLog. Continue insulin drip. Patient is nothing by mouth. Repeat an ultrasound obtained to rule out pyelonephritis blood cultures are obtained. Lactic acid is normal. Continue to monitor patient in the ICU until patient's anion gap is closed and patient has resumed eating. Continue morphine 2 mg IV every 6 for pain relief. Pantoprazole init iated at 40 mg as patient has significant epigastric tenderness. Avoid NSAIDs 12/22: She remains in the intensive care unit. Her CO2 is 9 and anion gap 13. Blood sugars are in the 200s. We will plan to transition patient to Levemir and NovoLog and start her on sodium bicarb IV fluids, plan to maintain her in ICU one more day due to low bicarb. Patient complains of abdominal pain that is very severe when she gets up and moves the wrong way. Tramadol is been added for pain control. Renal ultrasound reveals mild right-sided hydronephrosis. She has been seen by urology. Patient states that she had her stent removed already. She is maintained on Rocephin and urine culture is in process. She has been afebrile, heart rate 81, blood pressure 113/84, pulse ox 97% on room air. CBC is unremarkable. Sodium 135, potassium 4.2, chloride 113, CO2 9, BUN 9 and creatinine 0.43. REVIEW OF SYSTEMS Constitutional: No fever, no chills, no night sweats. No weight change. No weakness, fatigue or lethargy. No daytime sleepiness. EENT: No headache. No blurred vision or double vision, no loss of vision. No loss of Hearing, no ringing in the ears, no dizziness. No nasal drainage or congestion. No epistaxis. No sore throat. Lungs: No shortness of breath, cough, no sputum production. No wheezing. Cardiovascular: No chest pain, no lower extremity edema. No palpitations. No paroxysmal nocturnal dyspnea. No orthopnea. No lightheadedness or dizziness. No syncopal episodes. Abdominal: Reports abdominal pain and right flank pain. Reports nausea, denies vomiting. No diarrhea. No constipation. No bloody or tarry stools reports loss of appetite. Genitourinary: No dysuria, increased frequency, urgency. No urinary retention. Musculoskeletal: No myalgias. No muscle weakness, no gait dysfunction, no frequent falls. No back pain. No neck pain. Integumentary: No wounds, no lesions. No rash or pruritus. No unusual bruising. No change in hair or nails. Neurologic: No aphasia. No facial droop. No change in mentation. No head injury. No headache. No paralysis. No paresthesia. Psychiatric: No depression. No anxiety. No mood swings. Endocrine: Reports abnormal blood sugars. No weight change. No excessive sweating or thirst. No cold intolerance. PHYSICAL EXAMINATION Gen: This is a 45-year-old female. Patient is resting in the ICU bed appears to be comfortable. HEENT: Head is atraumatic, normocephalic. Pupils equal, round. Sclerae is anicteric. NECK: Supple. No JVD. No lymphadenopathy. No thyromegaly. LUNGS: Clear to auscultation. No wheezes or rhonchi. No intercostal retractions. HEART: Regular rate and rhythm. No murmur. ABDOMEN: Soft. Bowel sounds are present. No masses. Epigastric tenderness and right flank tenderness. EXTREMITIES: No pedal edema. No calf tenderness. Dorsalis pedis palpable bilaterally. NEUROLOGICAL: Patient is awake, alert and oriented x3. Cranial nerves 2 through 12 are grossly intact. ASSESSMENT AND PLAN #1 acute metabolic acidosis secondary to diabetes ketoacidosis with history of type 1 diabetes. Continue IV fluids transition bicarb drip. Patient started on Levemir 18 units daily and NovoLog scale. Repeat electrolytes and creatinine. #2 acute urinary tract infection with possible pyelonephritis. Ultrasound as above. Continue Rocephin 1 g IV piggyback daily, await urine culture and blood culture. #3 right flank pain with history of nephrolithiasis status post lithotripsy and ureteral stent basement on 12/17. Ureteral stent removed on 12/21. Patient started on tramadol 50 mg 4 times daily as needed. Zofran as needed. Nausea. #4 acute epigastric pain likely GERD with recent use of NSAIDs. Hold Toradol Protonix started at 40 mg IV daily. #5 type 1 diabetes hold pramlintide, continue insulin drip, start Levemir 18 units daily and NovoLog scale, resume diet. #6 hypertension diet controlled #7 urinary incontinence continue Detrol 4 mg by mouth daily #8 GI prophylaxis with Protonix 40 mg IV daily #9 DVT prophylaxis heparin every 12 #10 Code status full code DISCHARGE PLAN Home. Impression and plan of care have been directed as dictated by the signing physician. Aviva Cobb nurse practitioner acting as scribe for signing physician. Objective - Vital Signs Vital signs: Vital Signs Temp 98.3 F 12/22/20 07:00 Pulse 82 12/22/20 09:00 Resp 16 12/22/20 09:00 BP 114/83 12/22/20 09:00 Pulse Ox 98 12/22/20 09:00 Intake & Output 12/21/20 12/22/20 12/22/20 18:59 06:59 18:59 Intake Total 105.486 9001.289 9.717 Output Total 900 Balance 381.728 4868.289 9.717 Weight 56.245 kg 57 kg Intake: IV 650 1950 0.9 NACL 200 D5 .45 20KCL 450 1950 Intake, IV Titration 17.422 7.289 9.717 Amount Insulin Regular 100 unit 17.422 7.289 9.717 In Sodium Chloride 0.9% 100 ml @ 0.1 UNITS/KG/HR 5.681 mls/hr IV .[id number] [facility] Rx#:[id number] Output: Urine 900 Other: # Voids 0 - Labs CBC & Chem 7: 12/22/20 04:18 12/22/20 08:02 Labs: Abnormal Lab Results - Last 24 Hours (Table) 12/21/20 12/21/20 12/21/20 Range/Units 12:26 12:33 12:33 WBC 14.1 H (3.8-10.6) k/uL Hgb 16.2 H (11.4-16.0) gm/dL Hct 47.7 H (34.0-46.0) % Neutrophils # 12.2 H (1.3-7.7) k/uL VBG pH (7.31-7.41) VBG pCO2 (37-51) mmHg VBG HCO3 (24-28) mmol/L Sodium (137-145) mmol/L Chloride (98-107) mmol/L Carbon Dioxide 9 L* (22-30) mmol/L Glucose 413 H (74-99) mg/dL POC Glucose (mg/dL) (75-99) mg/dL Total Protein (6.3-8.2) g/dL Albumin (3.5-5.0) g/dL Urine Appearance Cloudy H (Clear) Urine Protein 2+ H (Negative) Urine Glucose (UA) 4+ H (Negative) Urine Ketones 4+ H (Negative) Urine Blood Large H (Negative) Ur Leukocyte Esterase Moderate H (Negative) Urine RBC >182 H (0-5) /hpf Urine WBC 121 H (0-5) /hpf Urine Yeast (Budding) Rare H (None) /hpf 12/21/20 12/21/20 12/21/20 Range/Units 12:33 13:52 15:02 WBC (3.8-10.6) k/uL Hgb (11.4-16.0) gm/dL Hct (34.0-46.0) % Neutrophils # (1.3-7.7) k/uL VBG pH 7.12 L* (7.31-7.41) VBG pCO2 36 L (37-51) mmHg VBG HCO3 11 L (24-28) mmol/L Sodium (137-145) mmol/L Chloride (98-107) mmol/L Carbon Dioxide (22-30) mmol/L Glucose (74-99) mg/dL POC Glucose (mg/dL) 343 H 209 H (75-99) mg/dL Total Protein (6.3-8.2) g/dL Albumin (3.5-5.0) g/dL Urine Appearance (Clear) Urine Protein (Negative) Urine Glucose (UA) (Negative) Urine Ketones (Negative) Urine Blood (Negative) Ur Leukocyte Esterase (Negative) Urine RBC (0-5) /hpf Urine WBC (0-5) /hpf Urine Yeast (Budding) (None) /hpf 12/21/20 12/21/20 12/21/20 Range/Units 16:07 16:40 17:11 WBC (3.8-10.6) k/uL Hgb (11.4-16.0) gm/dL Hct (34.0-46.0) % Neutrophils # (1.3-7.7) k/uL VBG pH (7.31-7.41) VBG pCO2 (37-51) mmHg VBG HCO3 (24-28) mmol/L Sodium (137-145) mmol/L Chloride 115 H (98-107) mmol/L Carbon Dioxide 8 L* (22-30) mmol/L Glucose 165 H (74-99) mg/dL POC Glucose (mg/dL) 164 H 138 H (75-99) mg/dL Total Protein (6.3-8.2) g/dL Albumin (3.5-5.0) g/dL Urine Appearance (Clear) Urine Protein (Negative) Urine Glucose (UA) (Negative) Urine Ketones (Negative) Urine Blood (Negative) Ur Leukocyte Esterase (Negative) Urine RBC (0-5) /hpf Urine WBC (0-5) /hpf Urine Yeast (Budding) (None) /hpf 12/21/20 12/21/20 12/21/20 Range/Units 18:04 19:00 20:06 WBC (3.8-10.6) k/uL Hgb (11.4-16.0) gm/dL Hct (34.0-46.0) % Neutrophils # (1.3-7.7) k/uL VBG pH (7.31-7.41) VBG pCO2 (37-51) mmHg VBG HCO3 (24-28) mmol/L Sodium (137-145) mmol/L Chloride (98-107) mmol/L Carbon Dioxide (22-30) mmol/L Glucose (74-99) mg/dL POC Glucose (mg/dL) 152 H 142 H 137 H (75-99) mg/dL Total Protein (6.3-8.2) g/dL Albumin (3.5-5.0) g/dL Urine Appearance (Clear) Urine Protein (Negative) Urine Glucose (UA) (Negative) Urine Ketones (Negative) Urine Blood (Negative) Ur Leukocyte Esterase (Negative) Urine RBC (0-5) /hpf Urine WBC (0-5) /hpf Urine Yeast (Budding) (None) /hpf 12/21/20 12/21/20 12/21/20 Range/Units 20:41 20:54 22:04 WBC (3.8-10.6) k/uL Hgb (11.4-16.0) gm/dL Hct (34.0-46.0) % Neutrophils # (1.3-7.7) k/uL VBG pH (7.31-7.41) VBG pCO2 (37-51) mmHg VBG HCO3 (24-28) mmol/L Sodium 135 L (137-145) mmol/L Chloride 113 H (98-107) mmol/L Carbon Dioxide 11 L (22-30) mmol/L Glucose 158 H (74-99) mg/dL POC Glucose (mg/dL) 150 H 146 H (75-99) mg/dL Total Protein (6.3-8.2) g/dL Albumin (3.5-5.0) g/dL Urine Appearance (Clear) Urine Protein (Negative) Urine Glucose (UA) (Negative) Urine Ketones (Negative) Urine Blood (Negative) Ur Leukocyte Esterase (Negative) Urine RBC (0-5) /hpf Urine WBC (0-5) /hpf Urine Yeast (Budding) (None) /hpf 12/21/20 12/22/20 12/22/20 Range/Units 23:00 00:03 00:22 WBC (3.8-10.6) k/uL Hgb (11.4-16.0) gm/dL Hct (34.0-46.0) % Neutrophils # (1.3-7.7) k/uL VBG pH (7.31-7.41) VBG pCO2 (37-51) mmHg VBG HCO3 (24-28) mmol/L Sodium 135 L (137-145) mmol/L Chloride 114 H (98-107) mmol/L Carbon Dioxide 13 L (22-30) mmol/L Glucose 177 H (74-99) mg/dL POC Glucose (mg/dL) 169 H 176 H (75-99) mg/dL Total Protein (6.3-8.2) g/dL Albumin (3.5-5.0) g/dL Urine Appearance (Clear) Urine Protein (Negative) Urine Glucose (UA) (Negative) Urine Ketones (Negative) Urine Blood (Negative) Ur Leukocyte Esterase (Negative) Urine RBC (0-5) /hpf Urine WBC (0-5) /hpf Urine Yeast (Budding) (None) /hpf 12/22/20 12/22/20 12/22/20 Range/Units 00:55 02:11 03:15 WBC (3.8-10.6) k/uL Hgb (11.4-16.0) gm/dL Hct (34.0-46.0) % Neutrophils # (1.3-7.7) k/uL VBG pH (7.31-7.41) VBG pCO2 (37-51) mmHg VBG HCO3 (24-28) mmol/L Sodium (137-145) mmol/L Chloride (98-107) mmol/L Carbon Dioxide (22-30) mmol/L Glucose (74-99) mg/dL POC Glucose (mg/dL) 184 H 171 H 210 H (75-99) mg/dL Total Protein (6.3-8.2) g/dL Albumin (3.5-5.0) g/dL Urine Appearance (Clear) Urine Protein (Negative) Urine Glucose (UA) (Negative) Urine Ketones (Negative) Urine Blood (Negative) Ur Leukocyte Esterase (Negative) Urine RBC (0-5) /hpf Urine WBC (0-5) /hpf Urine Yeast (Budding) (None) /hpf 12/22/20 12/22/20 12/22/20 Range/Units 04:18 04:49 05:50 WBC (3.8-10.6) k/uL Hgb (11.4-16.0) gm/dL Hct (34.0-46.0) % Neutrophils # (1.3-7.7) k/uL VBG pH (7.31-7.41) VBG pCO2 (37-51) mmHg VBG HCO3 (24-28) mmol/L Sodium 135 L (137-145) mmol/L Chloride 113 H (98-107) mmol/L Carbon Dioxide 9 L* (22-30) mmol/L Glucose 216 H (74-99) mg/dL POC Glucose (mg/dL) 227 H 242 H (75-99) mg/dL Total Protein 5.9 L (6.3-8.2) g/dL Albumin 3.3 L (3.5-5.0) g/dL Urine Appearance (Clear) Urine Protein (Negative) Urine Glucose (UA) (Negative) Urine Ketones (Negative) Urine Blood (Negative) Ur Leukocyte Esterase (Negative) Urine RBC (0-5) /hpf Urine WBC (0-5) /hpf Urine Yeast (Budding) (None) /hpf 12/22/20 12/22/20 12/22/20 Range/Units 06:56 07:36 08:02 WBC (3.8-10.6) k/uL Hgb (11.4-16.0) gm/dL Hct (34.0-46.0) % Neutrophils # (1.3-7.7) k/uL VBG pH (7.31-7.41) VBG pCO2 (37-51) mmHg VBG HCO3 (24-28) mmol/L Sodium 133 L (137-145) mmol/L Chloride 112 H (98-107) mmol/L Carbon Dioxide 13 L (22-30) mmol/L Glucose 281 H (74-99) mg/dL POC Glucose (mg/dL) 242 H 258 H (75-99) mg/dL Total Protein (6.3-8.2) g/dL Albumin (3.5-5.0) g/dL Urine Appearance (Clear) Urine Protein (Negative) Urine Glucose (UA) (Negative) Urine Ketones (Negative) Urine Blood (Negative) Ur Leukocyte Esterase (Negative) Urine RBC (0-5) /hpf Urine WBC (0-5) /hpf Urine Yeast (Budding) (None) /hpf Microbiology - Last 24 Hours (Table) 12/21/20 12:26 Urine Culture - Preliminary Urine,Voided
--- NOTE | 2020-12-22 14:26 | P.CNPUL ---
History of Present Illness Consult date: 12/22/20 Requesting physician: Franki Jack Reason for consult: other (Acute diabetic ketoacidosis) Chief complaint: Flank pain, nausea vomiting History of present illness: This is a 45-year-old female with history of type 1 diabetes, diagnosed in 2018, known history of nephrolithiasis, had laser lithotripsy 46 mm right renal colic in March 2020. Since then the patient continues to have right hydronephrosis and she was noted to have 2 mm right upper pole renal calculus required another lithotripsy on 12/17. Patient also had a stent placement by urology. Continues to have hematuria and frequent urination with right flank pain as well as intermittent episodes of nausea and vomiting. The day of admission, patient was seen by her urologist, and her stent was removed. Patient continued to have f lank pain, continues to have significant nausea, and her sugars were noted to be significantly elevated. Normally her diabetes is managed at the [facility] with Lantus and NovoLog insulin. While in the ER, patient was found to have acute diabetic ketoacidosis her pH was 7.12 with a bicarb of 11, she had significantly elevated anion gap, and her blood sugar was over 400 with positive ketones. Patient was admitted to the ICU, placed on the DKA protocol. She received a total of 2 L of fluid bolus initially, and she was placed on insulin drip, she was also placed on antibiotics in the form of Rocephin. This morning, the patient is feeling better, her pain seems to be much better controlled, her anion gap has closed but continues to be a bit acidotic, she has what seems to be a hyperchloremic metabolic acidosis. Patient remains on morphine for pain control, and her insulin drip will be changed to Lantus insulin as well as subcu insulin as per scale. Diet will be advanced as tolerated. In the meantime we'll continue to monitor the patient in the ICU. Review of Systems Constitutional: No weight loss, no fever, no chills, no aches or pains. HEENT: Negative. Cardiovascular: Negative Respiratory: Negative Gastrointestinal: As noted in HPI, right flank pain, on admission, but none at the time of my evaluation. With intermittent nausea. Genitourinary: As noted in HPI. Musculoskeletal: Negative Hematologic: History. Neurologic: Negative. Endocrine: As noted in HPI. Mostly history of high sugars. Psychiatric: Denies anxiety, Denies depression Neurologic: Negative Past Medical History Past Medical History: Diabetes Mellitus, Hypertension, Renal Disease Additional Past Medical History / Comment(s): IDDM type II, kidney stones which pt passed on her own, UTI. History of Any Multi-Drug Resistant Organisms: None Reported Past Surgical History: Cholecystectomy, Hysterectomy, Tonsillectomy, Uterine Ablation Additional Past Surgical History / Comment(s): Laparoscopic surgery for ovarian cysts, colonoscopy with benign polyp. Lithotripsy 05/04,01/03 with stent placement, stent removed Past Anesthesia/Blood Transfusion Reactions: Postoperative Nausea & Vomiting (PONV) Past Psychological History: No Psychological Hx Reported Additional Psychological History / Comment(s): Pt resides with her spouse and children. She is independent. Smoking Status: Never smoker Past Alcohol Use History: None Reported Additional Past Alcohol Use History / Comment(s): Patient is a lifelong nonsmoker, no marijuana or illicit drug use. Past Drug Use History: None Reported - Past Family History Mother Family Medical History: Cancer Father Family Medical History: No Reported History, Hypertension, Renal Disease Medications and Allergies Home Medications Medication Instructions Recorded Confirmed Type Pramlintide Acetate [Symlin Pen 60] 15 mcg SQ AC-TID 11/17/19 12/21/20 History Insulin Aspart [NovoLOG Flexpen] See Protocol SQ AC-TID 12/21/20 12/21/20 History Insulin Glargine,Hum.rec.anlog 22 unit SQ HS 12/21/20 12/21/20 History [Lantus Solostar] Ketorolac [Toradol] 10 mg PO Q6H PRN 12/21/20 12/21/20 History Tolterodine Tartrate [Detrol LA] 4 mg PO DAILY 12/21/20 12/21/20 History Allergies Allergy/AdvReac Type Severity Reaction Status Date / Time Sulfa (Sulfonamide Allergy Anaphylaxis Verified 12/21/20 12:23 Antibiotics) Physical Exam Vitals: Vital Signs Temp Pulse Resp BP Pulse Ox 12/22/20 12:00 80 15 119/89 97 12/22/20 11:00 98.4 F 84 11 L 130/93 97 12/22/20 10:00 74 12 121/84 96 12/22/20 09:00 82 16 114/83 98 12/22/20 08:00 81 9 L 113/84 97 12/22/20 07:00 98.3 F 91 12 113/79 97 12/22/20 06:00 84 13 114/82 96 12/22/20 05:00 84 12 118/82 96 12/22/20 04:00 98.3 F 82 12 127/99 97 12/22/20 03:00 92 18 108/79 97 12/22/20 02:00 82 12 111/75 97 12/22/20 01:00 81 14 112/72 97 12/22/20 00:05 80 14 97 12/22/20 00:00 98.4 F 84 12 114/75 96 12/21/20 23:00 94 15 114/75 97 12/21/20 22:00 81 12 129/86 96 12/21/20 21:00 82 17 125/83 98 12/21/20 20:00 98.5 F 82 17 120/102 100 12/21/20 19:00 90 15 105/69 99 12/21/20 18:00 88 20 122/81 98 12/21/20 17:00 89 17 128/89 99 12/21/20 16:00 98.2 F 93 19 122/97 98 12/21/20 15:06 87 26 H 122/97 99 12/21/20 14:40 98.1 F 99 18 146/92 100 Intake and Output 12/21/20 12/22/20 12/22/20 22:59 06:59 14:59 Intake Total 4867.447 4588 609.717 Output Total 500 400 700 Balance 774.711 950 -90.283 Intake: IV 1250 1350 600 0.9 NACL 200 D5 .45 20KCL 1050 1350 450 Dextrose 5% in Water 1, 150 000 ml @ 75 mls/hr IV . [id number] FELICIANO with Sodium Bicarb (1 Meq/ml) 150 ml Rx#:[id number] Intake, IV Titration 24. 9.717 Amount Insulin Regular 100 unit 24. 9.7 In Sodium Chloride 0.9% 100 ml @ 0.1 UNITS/KG/HR 5.681 mls/hr IV .[id number] FELICIANO Rx#:[id number] Output: Urine 500 400 700 Other: Voiding Method Toilet # Voids 0 Weight 57 kg 57 kg Physical Exam: Revealed 45-year-old female in no distress. Head: Atraumatic, normocephalic. HEENT:[Neck is supple.] [No neck masses.] [No thyromegaly.] [No JVD.] Chest: [Clear throughout, no crackles, no rhonchi, no wheezes.] Cardiac Exam: [Normal S1 and S2, no S3 gallop, no murmur.] Abdomen: [Soft, no megaly, no rebound, no guarding, normal bowel sounds.] Slightly tender right flank area Extremities: [No clubbing, no edema, no cyanosis.] Neurological Exam: [No focal neurologic deficit.] Alert and oriented 3. Psychiatric: Normal mood, affect and normal mental status examination. Skin: No rashes. Musculoskeletal: No deformities and no limitation in range of motion. Results - Laboratory Findings CBC and BMP: 12/22/20 04:18 12/22/20 08:02 Abnormal lab findings: Abnormal Labs 12/21/20 12/21/20 12/21/20 12:26 12:33 12:33 WBC 14.1 H Hgb 16.2 H Hct 47.7 H Neutrophils # 12.2 H VBG pH VBG pCO2 VBG HCO3 Sodium Chloride Carbon Dioxide 9 L* Glucose 413 H POC Glucose (mg/dL) Total Protein Albumin Urine Appearance Cloudy H Urine Protein 2+ H Urine Glucose (UA) 4+ H Urine Ketones 4+ H Urine Blood Large H Ur Leukocyte Esterase Moderate H Urine RBC >182 H Urine WBC 121 H Urine Yeast (Budding) Rare H 12/21/20 12/21/20 12/21/20 12:33 13:52 15:02 WBC Hgb Hct Neutrophils # VBG pH 7.12 L* VBG pCO2 36 L VBG HCO3 11 L Sodium Chloride Carbon Dioxide Glucose POC Glucose (mg/dL) 343 H 209 H Total Protein Albumin Urine Appearance Urine Protein Urine Glucose (UA) Urine Ketones Urine Blood Ur Leukocyte Esterase Urine RBC Urine WBC Urine Yeast (Budding) 12/21/20 12/21/20 12/21/20 16:07 16:40 17:11 WBC Hgb Hct Neutrophils # VBG pH VBG pCO2 VBG HCO3 Sodium Chloride 115 H Carbon Dioxide 8 L* Glucose 165 H POC Glucose (mg/dL) 164 H 138 H Total Protein Albumin Urine Appearance Urine Protein Urine Glucose (UA) Urine Ketones Urine Blood Ur Leukocyte Esterase Urine RBC Urine WBC Urine Yeast (Budding) 12/21/20 12/21/20 12/21/20 18:04 19:00 20:06 WBC Hgb Hct Neutrophils # VBG pH VBG pCO2 VBG HCO3 Sodium Chloride Carbon Dioxide Glucose POC Glucose (mg/dL) 152 H 142 H 137 H Total Protein Albumin Urine Appearance Urine Protein Urine Glucose (UA) Urine Ketones Urine Blood Ur Leukocyte Esterase Urine RBC Urine WBC Urine Yeast (Budding) 12/21/20 12/21/20 12/21/20 20:41 20:54 22:04 WBC Hgb Hct Neutrophils # VBG pH VBG pCO2 VBG HCO3 Sodium 135 L Chloride 113 H Carbon Dioxide 11 L Glucose 158 H POC Glucose (mg/dL) 150 H 146 H Total Protein Albumin Urine Appearance Urine Protein Urine Glucose (UA) Urine Ketones Urine Blood Ur Leukocyte Esterase Urine RBC Urine WBC Urine Yeast (Budding) 12/21/20 12/22/20 12/22/20 23:00 00:03 00:22 WBC Hgb Hct Neutrophils # VBG pH VBG pCO2 VBG HCO3 Sodium 135 L Chloride 114 H Carbon Dioxide 13 L Glucose 177 H POC Glucose (mg/dL) 169 H 176 H Total Protein Albumin Urine Appearance Urine Protein Urine Glucose (UA) Urine Ketones Urine Blood Ur Leukocyte Esterase Urine RBC Urine WBC Urine Yeast (Budding) 12/22/20 12/22/20 12/22/20 00:55 02:11 03:15 WBC Hgb Hct Neutrophils # VBG pH VBG pCO2 VBG HCO3 Sodium Chloride Carbon Dioxide Glucose POC Glucose (mg/dL) 184 H 171 H 210 H Total Protein Albumin Urine Appearance Urine Protein Urine Glucose (UA) Urine Ketones Urine Blood Ur Leukocyte Esterase Urine RBC Urine WBC Urine Yeast (Budding) 12/22/20 12/22/20 12/22/20 04:18 04:49 05:50 WBC Hgb Hct Neutrophils # VBG pH VBG pCO2 VBG HCO3 Sodium 135 L Chloride 113 H Carbon Dioxide 9 L* Glucose 216 H POC Glucose (mg/dL) 227 H 242 H Total Protein 5.9 L Albumin 3.3 L Urine Appearance Urine Protein Urine Glucose (UA) Urine Ketones Urine Blood Ur Leukocyte Esterase Urine RBC Urine WBC Urine Yeast (Budding) 12/22/20 12/22/20 12/22/20 06:56 07:36 08:02 WBC Hgb Hct Neutrophils # VBG pH VBG pCO2 VBG HCO3 Sodium 133 L Chloride 112 H Carbon Dioxide 13 L Glucose 281 H POC Glucose (mg/dL) 242 H 258 H Total Protein Albumin Urine Appearance Urine Protein Urine Glucose (UA) Urine Ketones Urine Blood Ur Leukocyte Esterase Urine RBC Urine WBC Urine Yeast (Budding) 12/22/20 12/22/20 09:36 11:33 WBC Hgb Hct Neutrophils # VBG pH VBG pCO2 VBG HCO3 Sodium Chloride Carbon Dioxide Glucose POC Glucose (mg/dL) 248 H 285 H Total Protein Albumin Urine Appearance Urine Protein Urine Glucose (UA) Urine Ketones Urine Blood Ur Leukocyte Esterase Urine RBC Urine WBC Urine Yeast (Budding) - Diagnostic Findings Additional studies: Renal ultrasound showed mild right sided hydronephrosis Assessment and Plan Assessment: Impression: Acute diabetic ketoacidosis Acute urinary tract infection, possible pyelonephritis. Right flank pain secondary to nephrolithiasis and recent stent placement/removal. Type 1 diabetes. Benign essential hypertension. Recommendation: Continue treatment as per DKA protocol. Continue IV fluids. Start patient on Levemir insulin as usually given at home. Consider sliding scale coverage with NovoLog insulin. Continue antibiotics. And adjust antibiotics according to final culture presently on Rocephin. Pain control medications. Possible transfer out of the ICU in the next 24 hours. Time with Patient: Greater than 30
[2020-12-22 16:52] LABS: Glucose,Whole Blood 197 mg/dL (75-99)
[2020-12-22 19:50] LABS: Glucose,Whole Blood 201 mg/dL (75-99)
[2020-12-23] MEDS: DEXTROSE 5% IN WATER 1,000 ML with SODIUM BICARB (1 MEQ/ML) 150 ML IV SCH (02:04)
[2020-12-23 04:04] LABS: HCT 32.2 % (34.0-46.0); HGB 11.4 gm/dL (11.4-16.0); MCHC 35.4 g/dL (31.0-37.0); MCV 93.3 fL (80.0-100.0); Mean Platelet Volume 8.2; Platelet Count 157 k/uL (150-450); RBC 3.45 m/uL (3.80-5.40); RDW 11.9 % (11.5-15.5); WBC 6.5 k/uL (3.8-10.6)
[2020-12-23 04:21] LABS: ALT 13 U/L (4-34); AST 16 U/L (14-36); African American GFR (CKD) >90 (>60 ml/min/1.73 sqM); Albumin 2.9 g/dL (3.5-5.0); Alkaline Phosphatase 75 U/L (38-126); Anion Gap 9 mmol/L; Blood Urea Nitrogen 4 mg/dL (7-17); Calcium 8.3 mg/dL (8.4-10.2); Carbon Dioxide 22 mmol/L (22-30); Chloride 101 mmol/L (98-107); Glucose 217 mg/dL (74-99); Non-African American GFR(CKD) >90 (>60 ml/min/1.73 sqM); Potassium 3.1 mmol/L (3.5-5.1); Sodium 132 mmol/L (137-145); Total Bilirubin 0.9 mg/dL (0.2-1.3); Total Protein 5.2 g/dL (6.3-8.2)
[2020-12-23] MEDS ORDERED: Potassium Replacement Protocol 1 EACH MISC MISCELLANE PRN (04:23)
[2020-12-23] MEDS: POTASSIUM CHLORIDE ER 20 MEQ TAB.ER PO SCH ×2 (04:53→06:28)
[2020-12-23 06:28] LABS: Glucose,Whole Blood 241 mg/dL (75-99)
[2020-12-23] MEDS: INSULIN DETEMIR (LEVEMIR) 100 UNIT/ML SYR SQ SCH (06:29)
[2020-12-23] MEDS: INSULIN ASPART (NovoLOG) 100 UNIT/ML VIAL SQ SCH (06:31)
[2020-12-23] MEDS: PANTOPRAZOLE 40 MG/10 ML VIAL IVP SCH (08:09)
[2020-12-23] MEDS: OXYBUTYNIN XL 5 MG TAB.ER.24 PO SCH (08:09)
[2020-12-23] MEDS ORDERED: SODIUM CHLORIDE 0.9% 1,000 ML IV SCH (08:45)
[2020-12-23 09:55] VITALS: PULSE 94; RESP 20; TEMP 99
[2020-12-23] MEDS ORDERED: POTASSIUM CHLORIDE ER 20 MEQ TAB.ER PO SCH (10:00)
--- NOTE | 2020-12-23 10:12 | P.DS ---
Providers Date of admission: 12/21/20 13:52 Expected date of discharge: 12/23/20 Attending physician: Franki Jack MD Consults: 12/21/20 13:52 Consult Physician Stat Consulting Provider: Jojo Becker Consult Reason/Comments: icu patient Do you want consulting provider notified?: Yes 12/21/20 15:53 Consult Physician Stat Consulting Provider: Johnnie Broussard Consult Reason/Comments: kidney stone Do you want consulting provider notified?: Yes Primary care physician: [facility] Course: HISTORY OF PRESENT ILLNESS 45 years old female with past medical history of type 1 diabetes since 2018, hypertension, history of multiple renal stones for which patient had laser lithotripsy for 6 mm right renal calculi in March 2020. Since patient had a persistent mild, right hydronephrosis with 2 mm right upper pole renal calculus patient had another lithotripsy on 12/17 followed by ureteral stent placement by Dr. Veras. Patient continues to have hematuria, increased frequency of urination associated with the right flank pain radiating to the right groin. Patient was given pain medication with no improvement. Patient has been taking Toradol for the past 3 days with worsening of pain. She had her stent removed this morning but since the pain persisted patient decided to come to the ER. Patient has been nauseous since yesterday and has not had anything to eat this morning. Patient has type 1 diabetes since 2019 managed at [facility] with Symlin Lantus and NovoLog. On assessment in the ER, patient's vitals suggestive of 97.6 pulse 86 respiratory rate 18 and saturating at 99% on room air blood pressure 122/97. Venous blood gas suggests a pH of 7.12 bicarb 11 CO2 36. BNP suggestive CO2 of 9 potassium 4.7 sodium 137 BUN 15 creatinine 0.9 and 9 25 glucose on admission 413 positive for acetones urinalysis is positive for UTI. Patient got a dose of Rocephin in the ER DKA protocol is initiated. Blood glucose is improved to 164 patient started on D5NS at 1 50 mL/h. Patient has received 2 L of IV bolus with repeat labs ordered in the next 4 hours. Hold patient's Lantus, Symlin and NovoLog. Continue insulin drip. Patient is nothing by mouth. Repeat an ultrasound obtained to rule out pyelonephritis blood cultures are obtained. Lactic acid is normal. Continue to monitor patient in the ICU until patient's anion gap is closed and patient has resumed eating. Continue morphine 2 mg IV every 6 for pain relief. Pantoprazole initiated at 40 mg as patient has significant epigastric tenderness. Chelsea Wilson SAIDs 12/22: She remains in the intensive care unit. Her CO2 is 9 and anion gap 13. Blood sugars are in the 200s. We will plan to transition patient to Levemir and NovoLog and start her on sodium bicarb IV fluids, plan to maintain her in ICU one more day due to low bicarb. Patient complains of abdominal pain that is very severe when she gets up and moves the wrong way. Tramadol is been added f or pain control. Renal ultrasound reveals mild right-sided hydronephrosis. She has been seen by urology. Patient states that she had her stent removed already. She is maintained on Rocephin and urine culture is in process. She has been afebrile, heart rate 81, blood pressure 113/84, pulse ox 97% on room air. CBC is unremarkable. Sodium 135, potassium 4.2, chloride 113, CO2 9, BUN 9 and creatinine 0.43. 12/23: She is seen today in the intensive care unit. Repeat blood work at 3 AM revealed potassium 3.1 with repeat of 3.3 at 8 AM. Anion gap 9. BUN 4 and creatinine 0.45, CO2 22. Blood sugars are running in the low 200s 197-241. Patient states that abdominal and flank pain have completely resolved. She is not requiring pain medication. She has been off the bicarb drip. Blood cu ltures showing no growth after 24 hours and urine culture finalized with skin chung contamination. Patient will be discharged home today in stable condition. ASSESSMENT AND PLAN #1 acute metabolic acidosis secondary to diabetes ketoacidosis with history of type 1 diabetes. #2 acute urinary tract infection ruled out. #3 right flank pain with history of nephrolithiasis status post lithotripsy and ureteral stent placement on 12/17. Ureteral stent removed on 12/21. #4 acute epigastric pain likely GERD with recent use of NSAIDs. #5 type 1 diabetes #6 hypertension diet controlled #7 urinary incontinence DISCHARGE PLAN Home. Impression and plan of care have been directed as dictated by the signing physician. Aviva Cobb nurse practitioner acting as scribe for signing physician. Patient Condition at Discharge: Good Plan - Discharge Summary Discharge Rx Participant: Yes New Discharge Prescriptions: New Potassium Chloride ER [K-Dur 20] 20 meq PO DAILY #20 tab.er.prt Continue Pramlintide Acetate [Symlin Pen 60] 15 mcg SQ AC-TID Insulin Glargine,Hum.rec.anlog [Lantus Solostar] 22 unit SQ HS Tolterodine Tartrate [Detrol LA] 4 mg PO DAILY Ketorolac [Toradol] 10 mg PO Q6H PRN PRN Reason: Pain Insulin Aspart [NovoLOG Flexpen] See Protocol SQ AC-TID Discharge Medication List Pramlintide Acetate [Symlin Pen 60] 15 mcg SQ AC-TID 11/17/19 [History] Insulin Aspart [NovoLOG Flexpen] See Protocol SQ AC-TID 12/21/20 [History] Insulin Glargine,Hum.rec.anlog [Lantus Solostar] 22 unit SQ HS 12/21/20 [History] Ketorolac [Toradol] 10 mg PO Q6H PRN 12/21/20 [History] Tolterodine Tartrate [Detrol LA] 4 mg PO DAILY 12/21/20 [History] Potassium Chloride ER [K-Dur 20] 20 meq PO DAILY #20 tab.er.prt 12/23/20 [Rx] Follow up Appointment(s)/Referral(s): Babar North MD [Primary Care Provider] - 1 Week Lazaro Jack MD [STAFF PHYSICIAN] - 1 Week Patient Instructions/Handouts: Kidney Stones (DC), Diabetic Ketoacidosis (DC) Discharge Disposition: HOME SELF-CARE
[2020-12-23 10:47] VITALS: BP 123/88
--- NOTE | 2020-12-23 13:48 | P.PN ---
Subjective Progress Note Date: 12/23/20 Principal diagnosis: Acute DKA. This is a 45-year-old female with history of type 1 diabetes, diagnosed in 2018, known history of nephrolithiasis, had laser lithotripsy 46 mm right renal colic in March 2020. Since then the patient continues to have right hydronephrosis and she was noted to have 2 mm right upper pole renal calculus required another lithotripsy on 12/17. Patient also had a stent placement by urology. Continues to have hematuria and frequent urination with right flank pain as well as intermittent episodes of nausea and vomiting. The day of admission, patient was seen by her urologist, and her stent was removed. Patient continued to have flank pain, continues to have significant nausea, and her sugars were noted to be significantly elevated. Normally her diabetes is managed at the [facility] with Lantus and NovoLog insulin. While in the ER, patient was found to have acute diabetic ketoacidosis her pH was 7.12 with a bicarb of 11, she had significantly elevated anion gap, and her blood sugar was over 400 with positive ketones. Patient was admitted to the ICU, placed on the DKA protocol. She received a total of 2 L of fluid bolus initially, and she was placed on insulin drip, she was also placed on antibiotics in the form of Rocephin. This morning, the patient is feeling better, her pain seems to be much better controlled, her anion gap has closed but continues to be a bit acidotic, she has what seems to be a hyperchloremic metabolic acidosis. Patient remains on morphine for pain control, and her insulin drip will be changed to Lantus insulin as well as subcu insulin as per scale. Diet will be advanced as tolerated. In the meantime we'll continue to monitor the patient in the ICU. Patient was reevaluated today on 12/23/2020, doing great, asymptomatic, her underlying gap has completely closed. Patient is on room air 98% O2 saturation, she is in sinus rhythm, and she is off sodium bicarb. No pain no shortness of breath no nausea no vomiting, and she is back on insulin subcu. Objective - Vital Signs Vital signs: Vital Signs Temp 99.0 F 12/23/20 08:00 Pulse 94 12/23/20 09:00 Resp 20 12/23/20 09:00 BP 123/88 12/23/20 10:00 Pulse Ox 96 12/23/20 09:00 Intake & Output 12/22/20 12/23/20 12/23/20 18:59 06:59 18:59 Intake Total 1059.717 975 390 Output Total 1500 1000 0 Balance -440.283 -25 390 Weight 57 kg 56.4 kg Intake: IV 1050 975 150 D5 .45 20KCL 450 Dextrose 5% in Water 1, 600 975 150 000 ml @ 75 mls/hr IV . [id number] FELICIANO with Sodium Bicarb (1 Meq/ml) 150 ml Rx#:[id number] Intake, IV Titration 9.717 Amount Insulin Regular 100 unit 9.717 In Sodium Chloride 0.9% 100 ml @ 0.1 UNITS/KG/HR 5.681 mls/hr IV .[id number] FELICIANO Rx#:[id number] Oral 240 Output: Urine 1500 1000 0 Other: Voiding Method Toilet Toilet Toilet # Voids 1 - Exam Physical Exam: Revealed 45-year-old female in no distress. Head: Atraumatic, normocephalic. HEENT:[Neck is supple.] [No neck masses.] [No thyromegaly.] [No JVD.] Chest: [Clear throughout, no crackles, no rhonchi, no wheezes.] Cardiac Exam: [Normal S1 and S2, no S3 gallop, no murmur.] Abdomen: [Soft, no megaly, no rebound, no guarding, normal bowel sounds.] Extremities: [No clubbing, no edema, no cyanosis.] Neurological Exam: [No focal neurologic deficit.] Alert and oriented 3. Psychiatric: Normal mood, affect and normal mental status examination. Skin: No rashes. Musculoskeletal: No deformities and no limitation in range of motion. - Labs CBC & Chem 7: 12/23/20 03:29 12/23/20 08:45 Labs: Abnormal Lab Results - Last 24 Hours (Table) 12/22/20 12/22/20 12/23/20 Range/Units 16:50 19:48 03:29 RBC 3.45 L (3.80-5.40) m/uL Hct 32.2 L (34.0-46.0) % Sodium (137-145) mmol/L Potassium (3.5-5.1) mmol/L BUN (7-17) mg/dL Creatinine (0.52-1.04) mg/dL Glucose (74-99) mg/dL POC Glucose (mg/dL) 197 H 201 H (75-99) mg/dL Calcium (8.4-10.2) mg/dL Total Protein (6.3-8.2) g/dL Albumin (3.5-5.0) g/dL 12/23/20 12/23/20 12/23/20 Range/Units 03:29 06:26 08:45 RBC (3.80-5.40) m/uL Hct (34.0-46.0) % Sodium 132 L (137-145) mmol/L Potassium 3.1 L 3.3 L (3.5-5.1) mmol/L BUN 4 L (7-17) mg/dL Creatinine 0.45 L (0.52-1.04) mg/dL Glucose 217 H (74-99) mg/dL POC Glucose (mg/dL) 241 H (75-99) mg/dL Calcium 8.3 L (8.4-10.2) mg/dL Total Protein 5.2 L (6.3-8.2) g/dL Albumin 2.9 L (3.5-5.0) g/dL Microbiology - Last 24 Hours (Table) 12/21/20 12:26 Urine Culture - Final Urine,Voided 12/21/20 16:40 Blood Culture - Preliminary Blood No Growth after 24 hours Assessment and Plan Assessment: Impression: Acute diabetic ketoacidosis Acute urinary tract infection, possible pyelonephritis. Right flank pain secondary to nephrolithiasis and recent stent placement/removal. Type 1 diabetes. Benign essential hypertension. Recommendation: Continue present supportive care measures, Clear patient for possible discharge home today. Time with Patient: Less than 30
== END 2020-12-23 13:22 | disposition home or self-care (01) | DRG 638 ==
LOC: EC 11:44 → 2SICU 13:52
PROVIDERS: ADMIT Internal Medicine; ATTEND Internal Medicine
DX: E10.10 Type 1 diabetes mellitus with ketoacidosis without coma (principal); N13.30 Unspecified hydronephrosis; Z79.4 Long term (current) use of insulin; Z20.822 Contact with and (suspected) exposure to COVID-19; E86.0 Dehydration; I10 Essential (primary) hypertension; R32 Unspecified urinary incontinence; R31.9 Hematuria, unspecified; K21.9 Gastro-esophageal reflux disease without esophagitis; Z71.3 Dietary counseling and surveillance; Z79.899 Other long term (current) drug therapy; Z98.890 Other specified postprocedural states; Z86.010 Personal history of colon polyps; Z87.442 Personal history of urinary calculi; Z90.710 Acquired absence of both cervix and uterus; Z90.49 Acquired absence of other specified parts of digestive tract; Z88.2 Allergy status to sulfonamides; Z80.9 Family history of malignant neoplasm, unspecified
CPT/HCPCS: 36415; 76770; 80051; 80053; 81001; 82009; 82565; 82803; 82947; 84100; 84132; 84520; 85025; 85027; 87040; 87086; 87635; 96361; 96365; 96375; 99285

== ENCOUNTER 2021-01-21 10:46 | Emergency (ER) | payer OTHER ==
[2021-01-21 11:13] LABS: Glucose,Whole Blood 487 mg/dL (75-99)
[2021-01-21 11:14] VITALS: RESP 18; TEMP 98.3
[2021-01-21] MEDS ORDERED: SODIUM CHLORIDE 0.9% 1,000 ML IV STA (11:42)
[2021-01-21] MEDS ORDERED: ONDANSETRON 4 MG/2 ML VIAL IVP STA (11:42)
[2021-01-21 11:53] LABS: Basophils % (A) 0 %; Eosinophils # (A) 0.1 k/uL (0-0.7); Eosinophils % (A) 2 %; HCT 39.9 % (34.0-46.0); Lymphocytes # (A) 0.7 k/uL (1.0-4.8); Lymphocytes % (A) 18 %; MCH 33.6 pg (25.0-35.0); MCHC 36.2 g/dL (31.0-37.0); MCV 92.8 fL (80.0-100.0); Mean Platelet Volume 8.9; Monocytes # (A) 0.3 k/uL (0-1.0); Monocytes % (A) 8 %; Neutrophils # (A) 2.9 k/uL (1.3-7.7); Neutrophils % (A) 71 %; Platelet Count 178 k/uL (150-450); RBC 4.29 m/uL (3.80-5.40); RDW 12.2 % (11.5-15.5)
[2021-01-21 12:04] LABS: ALT 10 U/L (4-34); AST 16 U/L (14-36); African American GFR (CKD) >90 (>60 ml/min/1.73 sqM); Albumin 4.5 g/dL (3.5-5.0); Alkaline Phosphatase 86 U/L (38-126); Anion Gap 11 mmol/L; Blood Urea Nitrogen 13 mg/dL (7-17); Calcium 9.6 mg/dL (8.4-10.2); Carbon Dioxide 23 mmol/L (22-30); Chloride 98 mmol/L (98-107); Glucose 490 mg/dL (74-99); Lipase 685 U/L (23-300); Non-African American GFR(CKD) >90 (>60 ml/min/1.73 sqM); Potassium 4.6 mmol/L (3.5-5.1); Sodium 132 mmol/L (137-145); Total Bilirubin 0.9 mg/dL (0.2-1.3); Total Protein 7.1 g/dL (6.3-8.2)
[2021-01-21 12:11] LABS: HGB 14.4 gm/dL (11.4-16.0)
[2021-01-21 12:12] LABS: Appearance,Urine Clear (Clear); Bacteria,Urine Rare /hpf; Bilirubin,Urine Negative (Negative); Blood,Urine Negative (Negative); Color,Urine Light Yellow; Glucose,Urine (UA) 4+ (Negative); Leukocyte Esterase,Urine Moderate (Negative); Nitrite,Urine Negative (Negative); Protein,Urine Negative (Negative); RBC,Urine 4 /hpf (0-5); Specific Gravity,Urine 1.025 (1.001-1.035); Squamous Epithelial Cell,Urine 1 /hpf (0-4); Urobilinogen,Urine <2.0 mg/dL (<2.0); WBC,Urine 9 /hpf (0-5)
--- NOTE | 2021-01-21 12:25 | ED ---
General Adult HPI - General Source: patient Mode of arrival: ambulatory Limitations: no limitations <Josefa Olivier - Last Filed: 01/21/21 16:26> <Debbie Rodriguez - Last Filed: 01/22/21 12:02> - General Chief complaint: Recheck/Abnormal Lab/Rx Stated complaint: nausea/pain/headache/high blood sugar Time Seen by Provider: 01/21/21 11:17 - History of Present Illness Initial comments: Patient is a 45-year-old female with history of diabetes, hypertension, kidney disease, presenting to the emergency Department with concerns of being in DKA again. Patient states she was here last month for DKA and feels like she has not completely recovered. The patient states she had a UTI previously which she thinks that's what triggered it. Patient states she is being treated for UTI again and has been having nausea and vomiting as well as feels like her breathing is fast. Patient states she's been having high readings of her glucose at home, this morning it started as high. She did take some units of insulin prior to arrival. She does admit to some intermittent chest tightness over the past 2-3 days as well as rapid breathing at times. She admits to some abdominal cramping but no specific area of abdominal pain. She denies any diarrhea. She denies any recent fevers or chills, no shortness of breath. She has no further complaints at this time. Upon arrival to the ER, her vital signs are stable. (Josefa Olivier) - Related Data Home Medications Medication Instructions Recorded Confirmed Pramlintide Acetate [Symlin Pen 60] 15 mcg SQ AC-TID 11/17/19 12/21/20 Insulin Aspart [NovoLOG Flexpen] See Protocol SQ AC-TID 12/21/20 12/21/20 Insulin Glargine,Hum.rec.anlog 22 unit SQ HS 12/21/20 12/21/20 [Lantus Solostar] Ketorolac [Toradol] 10 mg PO Q6H PRN 12/21/20 12/21/20 Tolterodine Tartrate [Detrol LA] 4 mg PO DAILY 12/21/20 12/21/20 Previous Rx's Medication Instructions Recorded Potassium Chloride ER [K-Dur 20] 20 meq PO DAILY #20 tab.er.prt 12/23/20 Allergies Allergy/AdvReac Type Severity Reaction Status Date / Time Sulfa (Sulfonamide Allergy Anaphylaxis Verified 01/21/21 11:10 Antibiotics) Review of Systems ROS Other: All systems not noted in ROS Statement are negative. <Josefa Olivier - Last Filed: 01/21/21 16:26> ROS Other: All systems not noted in ROS Statement are negative. <Debbie Rodriguez - Last Filed: 01/22/21 12:02> ROS Statement: Those systems with pertinent positive or pertinent negative responses have been documented in the HPI. Past Medical History Past Medical History: Diabetes Mellitus, Hypertension, Renal Disease Additional Past Medical History / Comment(s): IDDM type II, kidney stones which pt passed on her own, UTI. History of Any Multi-Drug Resistant Organisms: None Reported Past Surgical History: Cholecystectomy, Hysterectomy, Tonsillectomy, Uterine Ablation Additional Past Surgical History / Comment(s): Laparoscopic surgery for ovarian cysts, colonoscopy with benign polyp. Lithotripsy 05/04,01/03 with stent placement, stent removed Past Anesthesia/Blood Transfusion Reactions: Postoperative Nausea & Vomiting (PONV) Past Psychological History: No Psychological Hx Reported Smoking Status: Never smoker Past Alcohol Use History: None Reported Past Drug Use History: None Reported - Past Family History Mother Family Medical History: Cancer Additional Family Medical History / Comment(s): Renal carcinoma. Father Family Medical History: No Reported History, Hypertension, Renal Disease Additional Family Medical History / Comment(s): Chronic kidney disease. Sister(s) Additional Family Medical History / Comment(s): Patient has 1 sister with no major medical problems. Patient has 3 children with no major medical problems. <Josefa Olivier - Last Filed: 01/21/21 16:26> General Exam Limitations: no limitations <Joseaf Olivier - Last Filed: 01/21/21 16:26> - General Exam Comments Initial Comments: GENERAL: Patient is well-developed and well-nourished. Patient is nontoxic and in mild distress. HEAD: Atraumatic, normocephalic. EYES: Pupils equal round and reactive to light, extraocular movements intact, sclera anicteric, conjunctiva are normal. Eyelids were unremarkable. ENT: TMs normal, nares patent, oropharynx clear without exudates. Moist mucous membranes. NECK: Normal range of motion, supple without lymphadenopathy or JVD. LUNGS: Unlabored respirations. Breath sounds clear to auscultation bilaterally and equal. No wheezes rales or rhonchi. HEART: Regular rate and rhythm without murmurs, rubs or gallops. ABDOMEN: Soft, mild generalized discomfort, no specific area of pain, normoactive bowel sounds. No guarding, no rebound. No masses appreciated. : Deferred MUSCULOSKELETAL: Normal extremities with adequate strength and normal range of motion, no pitting or edema. No clubbing or cyanosis. NEUROLOGICAL: Patient is alert and oriented x 3. Motor and sensory are also intact. Cranial nerves II through XII grossly intact. Symmetrical smile. Normal speech, normal gait. PSYCH: Normal mood, normal affect. SKIN: Warm, Dry, normal turgor, no rashes or lesions noted. (Josefa Olivier) Course Vital Signs 01/21/21 01/21/21 11:10 15:09 Temperature 98.3 F Pulse Rate 94 80 Respiratory 18 18 Rate Blood Pressure 157/104 134/94 O2 Sat by Pulse 98 100 Oximetry EKG Findings - EKG Comments: EKG Findings:: Normal sinus rhythm, possible left atrial March judgment, no signs of acute process. Ventricular rate 86, AR interval 190, QT 380. <Josefa Olivier - Last Filed: 01/21/21 16:26> Medical Decision Making - Lab Data Result diagrams: 01/21/21 11:34 01/21/21 11:34 <Josefa Olivier - Last Filed: 01/21/21 16:26> - Lab Data Result diagrams: 01/21/21 11:34 01/21/21 11:34 <Debbie Rodriguez - Last Filed: 01/22/21 12:02> - Medical Decision Making Patient is a 45-year-old female with history of diabetes, hypertension, presenting with high blood glucose levels at home. She is also been having nausea and vomiting, generalized abdominal discomfort. Her vital signs are stable upon arrival. Glucose was 487 at triage. EKG revealed no acute process, chest x-ray is normal. Patient's labs show a normal white count, VBG is within normal limits. Sodium is slightly low at 132, glucose 490, lipase is 685, troponin is negative. Urine shows 2+ ketones, 4+ glucose. Acetone is negative. Patient received 1 L of fluid bolus, 8 units of insulin. Patient does report improvement in her symptoms. Upon glucose recheck it is 309. Patient states that she does not want to stay in the hospital, she is having to make plans to possibly intubate her [id number] that is currently in the hospital. Patient is stable for discharge. I recommended continuing to closely monitor her gluc ose levels, increase her fluid intake. She needs a follow-up with her physician in 1-3 days. She is in agreement with this plan of care. Return parameters were discussed with the patient she verbalized understanding. Case discussed with Dr. Rodriguez. (Josefa Olivier) I was available for consultation in the emergency department. The history and physical exam were done by the midlevel provider. I was consulted for this patients care. I reviewed the case with the midlevel provider and based on their presentation of the patient, I agree with the assessment, medical decision making and plan of care as documented. Chart was dictated using [employer] dictation software. Attempts were made to correct any dictation errors however some typographical errors may persist. Patient was seen during a national state of emergency due to the Covid-19 pandemic. (Debbie Rodriguez) - Lab Data Lab Results 01/21/21 01/21/21 01/21/21 Range/Units 11:12 11:34 11:34 WBC 4.0 (3.8-10.6) k/uL RBC 4.29 (3.80-5.40) m/uL Hgb 14.4 D (11.4-16.0) gm/dL Hct 39.9 (34.0-46.0) % MCV 92.8 (80.0-100.0) fL MCH 33.6 (25.0-35.0) pg MCHC 36.2 (31.0-37.0) g/dL RDW 12.2 (11.5-15.5) % Plt Count 178 (150-450) k/uL MPV 8.9 Neutrophils % 71 % Lymphocytes % 18 % Monocytes % 8 % Eosinophils % 2 % Basophils % 0 % Neutrophils # 2.9 (1.3-7.7) k/uL Lymphocytes # 0.7 L (1.0-4.8) k/uL Monocytes # 0.3 (0-1.0) k/uL Eosinophils # 0.1 (0-0.7) k/uL Basophils # 0.0 (0-0.2) k/uL VBG pH (7.31-7.41) VBG pCO2 (37-51) mmHg VBG HCO3 (24-28) mmol/L Sodium (137-145) mmol/L Potassium (3.5-5.1) mmol/L Chloride (98-107) mmol/L Carbon Dioxide (22-30) mmol/L Anion Gap mmol/L BUN (7-17) mg/dL Creatinine (0.52-1.04) mg/dL Est GFR (CKD-EPI)AfAm (>60 ml/min/1.73 sqM) Est GFR (CKD-EPI)NonAf (>60 ml/min/1.73 sqM) Glucose (74-99) mg/dL POC Glucose (mg/dL) 487 H (75-99) mg/dL POC Glu Trench Trimmer Fine ID Kalyn Cid Plasma Lactic Acid Adan (0.7-2.0) mmol/L Calcium (8.4-10.2) mg/dL Total Bilirubin (0.2-1.3) mg/dL AST (14-36) U/L ALT (4-34) U/L Alkaline Phosphatase (38-126) U/L Troponin I (0.000-0.034) ng/mL Total Protein (6.3-8.2) g/dL Albumin (3.5-5.0) g/dL Lipase (23-300) U/L Urine Color Light Yellow Urine Appearance Clear (Clear) Urine pH 6.0 (5.0-8.0) Ur Specific [place] 1.025 (1.001-1.035) Urine Protein Negative (Negative) Urine Glucose (UA) 4+ H (Negative) Urine Ketones 2+ H (Negative) Urine Blood Negative (Negative) Urine Nitrite Negative (Negative) Urine Bilirubin Negative (Negative) Urine Urobilinogen <2.0 (<2.0) mg/dL Ur Leukocyte Esterase Moderate H (Negative) Urine RBC 4 (0-5) /hpf Urine WBC 9 H (0-5) /hpf Ur Squamous Epith Cells 1 (0-4) /hpf Urine Bacteria Rare H (None) /hpf Urine HCG, Qual (Not Detectd) Acetone, Qual (Negative) 01/21/21 01/21/21 01/21/21 Range/Units 11:34 11:34 11:34 WBC (3.8-10.6) k/uL RBC (3.80-5.40) m/uL Hgb (11.4-16.0) gm/dL Hct (34.0-46.0) % MCV (80.0-100.0) fL MCH (25.0-35.0) pg MCHC (31.0-37.0) g/dL RDW (11.5-15.5) % Plt Count (150-450) k/uL MPV Neutrophils % % Lymphocytes % % Monocytes % % Eosinophils % % Basophils % % Neutrophils # (1.3-7.7) k/uL Lymphocytes # (1.0-4.8) k/uL Monocytes # (0-1.0) k/uL Eosinophils # (0-0.7) k/uL Basophils # (0-0.2) k/uL VBG pH (7.31-7.41) VBG pCO2 (37-51) mmHg VBG HCO3 (24-28) mmol/L Sodium 132 L (137-145) mmol/L Potassium 4.6 (3.5-5.1) mmol/L Chloride 98 (98-107) mmol/L Carbon Dioxide 23 (22-30) mmol/L Anion Gap 11 mmol/L BUN 13 (7-17) mg/dL Creatinine 0.50 L (0.52-1.04) mg/dL Est GFR (CKD-EPI)AfAm >90 (>60 ml/min/1.73 sqM) Est GFR (CKD-EPI)NonAf >90 (>60 ml/min/1.73 sqM) Glucose 490 H (74-99) mg/dL POC Glucose (mg/dL) (75-99) mg/dL POC Glu Trench Trimmer Fine ID Plasma Lactic Acid Adan 1.0 (0.7-2.0) mmol/L Calcium 9.6 (8.4-10.2) mg/dL Total Bilirubin 0.9 (0.2-1.3) mg/dL AST 16 (14-36) U/L ALT 10 (4-34) U/L Alkaline Phosphatase 86 (38-126) U/L Troponin I (0.000-0.034) ng/mL Total Protein 7.1 (6.3-8.2) g/dL Albumin 4.5 (3.5-5.0) g/dL Lipase 685 H (23-300) U/L Urine Color Urine Appearance (Clear) Urine pH (5.0-8.0) Ur Specific [place] (1.001-1.035) Urine Protein (Negative) Urine Glucose (UA) (Negative) Urine Ketones (Negative) Urine Blood (Negative) Urine Nitrite (Negative) Urine Bilirubin (Negative) Urine Urobilinogen (<2.0) mg/dL Ur Leukocyte Esterase (Negative) Urine RBC (0-5) /hpf Urine WBC (0-5) /hpf Ur Squamous Epith Cells (0-4) /hpf Urine Bacteria (None) /hpf Urine HCG, Qual Not Detected (Not Detectd) Acetone, Qual Negative (Negative) 01/21/21 01/21/21 01/21/21 Range/Units 11:34 13:32 14:59 WBC (3.8-10.6) k/uL RBC (3.80-5.40) m/uL Hgb (11.4-16.0) gm/dL Hct (34.0-46.0) % MCV (80.0-100.0) fL MCH (25.0-35.0) pg MCHC (31.0-37.0) g/dL RDW (11.5-15.5) % Plt Count (150-450) k/uL MPV Neutrophils % % Lymphocytes % % Monocytes % % Eosinophils % % Basophils % % Neutrophils # (1.3-7.7) k/uL Lymphocytes # (1.0-4.8) k/uL Monocytes # (0-1.0) k/uL Eosinophils # (0-0.7) k/uL Basophils # (0-0.2) k/uL VBG pH 7.38 (7.31-7.41) VBG pCO2 41 (37-51) mmHg VBG HCO3 24 (24-28) mmol/L Sodium (137-145) mmol/L Potassium (3.5-5.1) mmol/L Chloride (98-107) mmol/L Carbon Dioxide (22-30) mmol/L Anion Gap mmol/L BUN (7-17) mg/dL Creatinine (0.52-1.04) mg/dL Est GFR (CKD-EPI)AfAm (>60 ml/min/1.73 sqM) Est GFR (CKD-EPI)NonAf (>60 ml/min/1.73 sqM) Glucose (74-99) mg/dL POC Glucose (mg/dL) 309 H (75-99) mg/dL POC Glu Trench Trimmer Fine ID Colleen Duggan Plasma Lactic Acid Adan (0.7-2.0) mmol/L Calcium (8.4-10.2) mg/dL Total Bilirubin (0.2-1.3) mg/dL AST (14-36) U/L ALT (4-34) U/L Alkaline Phosphatase (38-126) U/L Troponin I <0.012 (0.000-0.034) ng/mL Total Protein (6.3-8.2) g/dL Albumin (3.5-5.0) g/dL Lipase (23-300) U/L Urine Color Urine Appearance (Clear) Urine pH (5.0-8.0) Ur Specific [place] (1.001-1.035) Urine Protein (Negative) Urine Glucose (UA) (Negative) Urine Ketones (Negative) Urine Blood (Negative) Urine Nitrite (Negative) Urine Bilirubin (Negative) Urine Urobilinogen (<2.0) mg/dL Ur Leukocyte Esterase (Negative) Urine RBC (0-5) /hpf Urine WBC (0-5) /hpf Ur Squamous Epith Cells (0-4) /hpf Urine Bacteria (None) /hpf Urine HCG, Qual (Not Detectd) Acetone, Qual (Negative) Disposition Is patient prescribed a controlled substance at d/c from ED?: No Time of Disposition: 15:07 <Josefa Olivier - Last Filed: 01/21/21 16:26> <Debbie Rodriguez - Last Filed: 01/22/21 12:02> Clinical Impression: Hyperglycemia due to type 1 diabetes mellitus, Nausea & vomiting Disposition: HOME SELF-CARE Condition: Stable Instructions (If sedation given, give patient instructions): Managing Diabetes During Sick Days (ED) Additional Instructions: Please return to the Emergency Department if symptoms worsen or any other concerns. Continue to closely monitor your glucose levels, increase your fluid intake. Please follow-up with your primary care physician in 1-3 days. Referrals: Babar North MD [Primary Care Provider] - 1-2 days
--- NOTE | 2021-01-21 12:28 | XR ---
EXAMINATION TYPE: XR chest 2V DATE OF EXAM: 01/21/2021 COMPARISON: NONE HISTORY: Chest pain TECHNIQUE: Frontal and lateral views of the chest are obtained. FINDINGS: There is no focal air space opacity. No evidence for pneumothorax. No pleural effusion. The cardiac silhouette size is within normal limits. The osseous structures are grossly intact. IMPRESSION: 1. No acute cardiopulmonary process.
[2021-01-21 12:39] LABS: Ketones,Urine 2+ (Negative)
[2021-01-21 13:48] LABS: VBG PH 7.38 (7.31-7.41)
[2021-01-21] MEDS ORDERED: INSULIN ASPART (NovoLOG) 100 UNIT/ML VIAL SQ ONE (13:55)
[2021-01-21 15:00] LABS: Glucose,Whole Blood 309 mg/dL (75-99)
[2021-01-21 15:13] VITALS: BP 134/94; PULSE 80
== END 2021-01-21 15:09 | disposition home or self-care (01) ==
LOC: EC 10:46
DX: R11.2 Nausea with vomiting, unspecified (principal); E10.65 Type 1 diabetes mellitus with hyperglycemia; I10 Essential (primary) hypertension; Z79.4 Long term (current) use of insulin; Z79.899 Other long term (current) drug therapy; Z88.2 Allergy status to sulfonamides; Z90.49 Acquired absence of other specified parts of digestive tract; Z90.710 Acquired absence of both cervix and uterus; Z90.89 Acquired absence of other organs
CPT/HCPCS: 36415; 93005; 80053; 82803; 82009; 83605; 83690; 84484; 85025; 81001; 81025; 71046; 99284; 96374; 96361 ×2; J2405

== ENCOUNTER 2021-02-21 09:10 | Inpatient (IN) | payer OTHER ==
[2021-02-21] MEDS ORDERED: Magnesium Replacement Protocol 1 EACH MISC MISCELLANE PRN (09:23)
[2021-02-21] MEDS ORDERED: Potassium Replacement Protocol 1 EACH MISC MISCELLANE PRN (09:23)
[2021-02-21] MEDS ORDERED: INSULIN REGULAR BOLUS (FROM DRIP BAG) IV ONE (09:23)
[2021-02-21 09:25] LABS: Glucose,Whole Blood >600 mg/dL (75-99)
[2021-02-21] MEDS ORDERED: SODIUM CHLORIDE 0.9% 2,000 ML IV ONE ×2 (09:25→12:18)
--- NOTE | 2021-02-21 09:29 | ED ---
General Adult HPI - General Chief complaint: Nausea/Vomiting/Diarrhea Stated complaint: SOB/Abd Pain/Chest Pain Time Seen by Provider: 02/21/21 09:10 Source: patient, RN notes reviewed, old records reviewed Mode of arrival: ambulatory Limitations: no limitations - History of Present Illness Initial comments: This is a 45-year-old female who has a past medical history significant for diabetes, DKA, pancreatitis. Patient presents today because she states last night she started vomiting and her sugar started to be high and she believes DKA. Patient states she's got epigastric abdominal pain currently. Patient denies any fever chills or cough per patient states she was diagnosed with COVID 2 weeks ago. Patient denies any chest pain. Patient denies any diarrhea but continues to feel nauseated. Patient states she's been on steroids because of having COVID recently. - Related Data Home Medications Medication Instructions Recorded Confirmed Pramlintide Acetate [Symlin Pen 60] 15 mcg SQ AC-TID 11/17/19 02/21/21 Insulin Aspart [NovoLOG Flexpen] See Protocol SQ AC-TID 12/21/20 02/21/21 Insulin Glargine,Hum.rec.anlog 22 unit SQ HS 12/21/20 02/21/21 [Lantus Solostar] Previous Rx's Medication Instructions Recorded Potassium Chloride ER [K-Dur 20] 20 meq PO DAILY #20 tab.er.prt 12/23/20 Allergies Allergy/AdvReac Type Severity Reaction Status Date / Time Sulfa (Sulfonamide Allergy Anaphylaxis Verified 02/21/21 09:42 Antibiotics) Review of Systems ROS Statement: Those systems with pertinent positive or pertinent negative responses have been documented in the HPI. ROS Other: All systems not noted in ROS Statement are negative. Past Medical History Past Medical History: Diabetes Mellitus, Hypertension, Renal Disease Additional Past Medical History / Comment(s): IDDM type II, kidney stones which pt passed on her own, UTI. History of Any Multi-Drug Resistant Organisms: None Reported Past Surgical History: Cholecystectomy, Hysterectomy, Tonsillectomy, Uterine Ablation Additional Past Surgical History / Comment(s): Laparoscopic surgery for ovarian cysts, colonoscopy with benign polyp. Lithotripsy 05/04,01/03 with stent placement, stent removed Past Anesthesia/Blood Transfusion Reactions: Postoperative Nausea & Vomiting (PONV) Past Psychological History: No Psychological Hx Reported Smoking Status: Never smoker Past Alcohol Use History: None Reported Past Drug Use History: None Reported - Past Family History Mother Family Medical History: Cancer Additional Family Medical History / Comment(s): Renal carcinoma. Father Family Medical History: No Reported History, Hypertension, Renal Disease Additional Family Medical History / Comment(s): Chronic kidney disease. Sister(s) Additional Family Medical History / Comment(s): Patient has 1 sister with no major medical problems. Patient has 3 children with no major medical problems. General Exam - General Exam Comments Initial Comments: GENERAL: Patient is well-developed and well-nourished. Patient is tachypneic and looks in moderate distress ENT: Neck is soft and supple. No significant lymphadenopathy is noted. Oropharynx is clear. Dry mucous membranes. Neck has full range of motion without eliciting any pain. EYES: The sclera were anicteric and conjunctiva were pink and moist. Extraocular movements were intact and pupils were equal round and reactive to light. Eyelids were unremarkable. PULMONARY: Patient is tachypneic. Good breath sounds bilaterally. No audible rales rhonchi or wheezing was noted. CARDIOVASCULAR: Patient is tachycardic at about 140 beats minute ABDOMEN: Soft and nontender with normal bowel sounds. SKIN: Skin is clear with no lesions or rashes and otherwise unremarkable. NEUROLOGIC: Patient is alert and oriented x3. Cranial nerves II through XII are grossly intact. Motor and sensory are also intact. Normal speech, volume and content. Symmetrical smile. MUSCULOSKELETAL: Normal extremities with adequate strength and full range of motion. No lower extremity swelling or edema. No calf tenderness. LYMPHATICS: No significant lymphadenopathy is noted PSYCHIATRIC: Normal psychiatric evaluation. Limitations: no limitations Course Vital Signs 02/21/21 02/21/21 09:11 10:13 Temperature 97 F L Pulse Rate 67 126 H Respiratory 30 H 22 Rate Blood Pressure 135/88 146/96 O2 Sat by Pulse 100 98 Oximetry Medical Decision Making - Medical Decision Making EKG shows sinus tachycardia at 135 bpm OH interval 260 QRS is 82 QT interval is 272 QTC is 408. Patient's EKG shows no ST segment elevation. Patient was started on an insulin drip after I gave her an insulin bolus. Patient also received 3 L of normal saline in the emergency department. Patient was clearly in DKA. I spoke with Dr. Jack she agreed to admit the patient I admitted the patient wrote admitting orders. I spoke with Dr. Staples he agreed to admit the patient to the ICU and I wrote admitting orders to the ICU as well. I continue the fluid as well as the insulin. I will back and reevaluated the patient on 2 different occasions and she was slowly improving and was no longer nauseated. - Lab Data Result diagrams: 02/21/21 09:32 02/21/21 09:32 Lab Results 02/21/21 02/21/21 02/21/21 Range/Units 09:18 09:32 09:32 WBC 51.0 H* (3.8-10.6) k/uL RBC 4.96 (3.80-5.40) m/uL Hgb 16.3 H (11.4-16.0) gm/dL Hct 52.4 H (34.0-46.0) % MCV 105.5 H D (80.0-100.0) fL MCH 32.9 (25.0-35.0) pg MCHC 31.2 (31.0-37.0) g/dL RDW 11.9 (11.5-15.5) % Plt Count 349 (150-450) k/uL MPV 9.6 Neutrophils % (Manual) 81 % Band Neuts % (Manual) 3 % Lymphocytes % (Manual) 9 % Monocytes % (Manual) 6 % Metamyelocytes % 1 % Myelocytes % 1 % Neutrophils # (Manual) 42.80 H (1.3-7.7) k/uL Lymphocytes # (Manual) 4.59 (1.0-4.8) k/uL Monocytes # (Manual) 3.06 H (0-1.0) k/uL Metamyelocytes # (Man) 0.51 H (0) k/uL Myelocytes # (Manual) 0.51 H (0) k/uL Nucleated RBCs 0 (0-0) /100 WBC Manual Slide Review Performed Toxic Granulation Present Hypochromasia Marked Macrocytosis Slight Sample Site ABG pH (7.35-7.45) ABG pCO2 (35-45) mmHg ABG pO2 (83-108) mmHg ABG O2 Saturation (94-97) % Lavon Test VBG pH (7.31-7.41) VBG pCO2 (37-51) mmHg VBG HCO3 (24-28) mmol/L FiO2 % Sodium 137 (137-145) mmol/L Potassium 6.4 H* (3.5-5.1) mmol/L Chloride 97 L (98-107) mmol/L Carbon Dioxide <5 L* (22-30) mmol/L Anion Gap mmol/L BUN 22 H (7-17) mg/dL Creatinine 1.30 H (0.52-1.04) mg/dL Est GFR (CKD-EPI)AfAm 58 (>60 ml/min/1.73 sqM) Est GFR (CKD-EPI)NonAf 50 (>60 ml/min/1.73 sqM) Glucose 861 H* (74-99) mg/dL POC Glucose (mg/dL) >600 H (75-99) mg/dL POC Glu Grape Crusher ID Willing, Ivy Troponin I (0.000-0.034) ng/mL Lipase 62 (23-300) U/L Acetone, Qual Positive (Negative) 02/21/21 02/21/21 02/21/21 Range/Units 09:32 09:56 10:02 WBC (3.8-10.6) k/uL RBC (3.80-5.40) m/uL Hgb (11.4-16.0) gm/dL Hct (34.0-46.0) % MCV (80.0-100.0) fL MCH (25.0-35.0) pg MCHC (31.0-37.0) g/dL RDW (11.5-15.5) % Plt Count (150-450) k/uL MPV Neutrophils % (Manual) % Band Neuts % (Manual) % Lymphocytes % (Manual) % Monocytes % (Manual) % Metamyelocytes % % Myelocytes % % Neutrophils # (Manual) (1.3-7.7) k/uL Lymphocytes # (Manual) (1.0-4.8) k/uL Monocytes # (Manual) (0-1.0) k/uL Metamyelocytes # (Man) (0) k/uL Myelocytes # (Manual) (0) k/uL Nucleated RBCs (0-0) /100 WBC Manual Slide Review Toxic Granulation Hypochromasia Macrocytosis Sample Site R radial ABG pH 6.92 L* (7.35-7.45) ABG pCO2 <15 L* (35-45) mmHg ABG pO2 133 H (83-108) mmHg ABG O2 Saturation 97.3 H (94-97) % Lavon Test Yes VBG pH 6.88 L* (7.31-7.41) VBG pCO2 26 L (37-51) mmHg VBG HCO3 5 L* (24-28) mmol/L FiO2 21 % Sodium (137-145) mmol/L Potassium (3.5-5.1) mmol/L Chloride (98-107) mmol/L Carbon Dioxide (22-30) mmol/L Anion Gap mmol/L BUN (7-17) mg/dL Creatinine (0.52-1.04) mg/dL Est GFR (CKD-EPI)AfAm (>60 ml/min/1.73 sqM) Est GFR (CKD-EPI)NonAf (>60 ml/min/1.73 sqM) Glucose (74-99) mg/dL POC Glucose (mg/dL) (75-99) mg/dL POC Glu Grape Crusher ID Troponin I <0.012 (0.000-0.034) ng/mL Lipase (23-300) U/L Acetone, Qual (Negative) 02/21/21 Range/Units 11:16 WBC (3.8-10.6) k/uL RBC (3.80-5.40) m/uL Hgb (11.4-16.0) gm/dL Hct (34.0-46.0) % MCV (80.0-100.0) fL MCH (25.0-35.0) pg MCHC (31.0-37.0) g/dL RDW (11.5-15.5) % Plt Count (150-450) k/uL MPV Neutrophils % (Manual) % Band Neuts % (Manual) % Lymphocytes % (Manual) % Monocytes % (Manual) % Metamyelocytes % % Myelocytes % % Neutrophils # (Manual) (1.3-7.7) k/uL Lymphocytes # (Manual) (1.0-4.8) k/uL Monocytes # (Manual) (0-1.0) k/uL Metamyelocytes # (Man) (0) k/uL Myelocytes # (Manual) (0) k/uL Nucleated RBCs (0-0) /100 WBC Manual Slide Review Toxic Granulation Hypochromasia Macrocytosis Sample Site ABG pH (7.35-7.45) ABG pCO2 (35-45) mmHg ABG pO2 (83-108) mmHg ABG O2 Saturation (94-97) % Lavon Test VBG pH (7.31-7.41) VBG pCO2 (37-51) mmHg VBG HCO3 (24-28) mmol/L FiO2 % Sodium (137-145) mmol/L Potassium (3.5-5.1) mmol/L Chloride (98-107) mmol/L Carbon Dioxide (22-30) mmol/L Anion Gap mmol/L BUN (7-17) mg/dL Creatinine (0.52-1.04) mg/dL Est GFR (CKD-EPI)AfAm (>60 ml/min/1.73 sqM) Est GFR (CKD-EPI)NonAf (>60 ml/min/1.73 sqM) Glucose (74-99) mg/dL POC Glucose (mg/dL) 590 H (75-99) mg/dL POC Glu Grape Crusher ID Anita Mathew Troponin I (0.000-0.034) ng/mL Lipase (23-300) U/L Acetone, Qual (Negative) Critical Care Time Critical Care Time: Yes Total Critical Care Time: 35 Disposition Clinical Impression: DKA (diabetic ketoacidoses) Disposition: ADMITTED IP TO THIS [facility] Referrals: Babar North MD [Primary Care Provider] - 1-2 days Time of Disposition: 11:50
[2021-02-21] MEDS ORDERED: INSULIN REGULAR 100 UNIT in SODIUM CHLORIDE 0.9% 100 ML IV SCH (09:30)
--- NOTE | 2021-02-21 09:44 | XR ---
EXAMINATION TYPE: XR chest 2V DATE OF EXAM: 02/21/2021 COMPARISON: 01/21/2021 INDICATION: Difficulty breathing TECHNIQUE: Frontal and lateral views of the chest are obtained. FINDINGS: The heart size is normal. The pulmonary vasculature is normal. The lungs are clear. IMPRESSION: 1. No acute pulmonary process.
[2021-02-21 09:46] LABS: HCT 52.4 % (34.0-46.0); HGB 16.3 gm/dL (11.4-16.0); Hypochromasia Marked; MCH 32.9 pg (25.0-35.0); MCHC 31.2 g/dL (31.0-37.0); Macrocytosis Slight; Mean Platelet Volume 9.6; Platelet Count 349 k/uL (150-450); RBC 4.96 m/uL (3.80-5.40); RDW 11.9 % (11.5-15.5)
[2021-02-21] MEDS: SODIUM CHLORIDE 0.9% 1,000 ML IV SCH ×3 (09:46→19:11)
[2021-02-21 09:57] LABS: African American GFR (CKD) 58 (>60 ml/min/1.73 sqM); Blood Urea Nitrogen 22 mg/dL (7-17); Chloride 97 mmol/L (98-107); Lipase 62 U/L (23-300); Non-African American GFR(CKD) 50 (>60 ml/min/1.73 sqM); Sodium 137 mmol/L (137-145)
[2021-02-21 09:59] LABS: ABG Oxygen Saturation 97.3 % (94-97); ABG PO2 133 mmHg (83-108); Allen Test Performed? Yes
[2021-02-21] MEDS ORDERED: HYDROmorphone 0.5 MG/0.5 ML SYRINGE IVP STA (10:04)
[2021-02-21 10:09] LABS: ABG PCO2 <15 mmHg (35-45); ABG PH 6.92 (7.35-7.45)
[2021-02-21 10:16] LABS: MCV 105.5 fL (80.0-100.0)
[2021-02-21 10:17] LABS: VBG PH 6.88 (7.31-7.41)
[2021-02-21 10:18] LABS: Glucose 861 mg/dL (74-99)
[2021-02-21 10:19] LABS: Carbon Dioxide <5 mmol/L (22-30); Potassium 6.4 mmol/L (3.5-5.1)
[2021-02-21] MEDS ORDERED: SODIUM CHLORIDE 0.9% 1,000 ML IV ONE (10:32)
[2021-02-21 10:37] LABS: Band Neutrophils % 3 %; Lymphocytes # (M) 4.59 k/uL (1.0-4.8); Metamyelocytes # (M) 0.51 k/uL (0); Metamyelocytes % 1 %; Monocytes # (M) 3.06 k/uL (0-1.0); Myelocytes # (M) 0.51 k/uL (0); Myelocytes % 1 %; Neutrophils % (M) 81 %; Nucleated Red Blood Cells 0 /100 WBC (0-0); Total Cells Counted 200
[2021-02-21 10:39] LABS: Toxic Granulation Present
[2021-02-21 11:22] LABS: Glucose,Whole Blood 590 mg/dL (75-99)
[2021-02-21] MEDS ORDERED: NALOXONE 0.4 MG/ML 1 ML VIAL IV PRN (11:57)
[2021-02-21] MEDS ORDERED: HYDROmorphone 0.5 MG/0.5 ML SYRINGE IVP PRN (11:57)
[2021-02-21] MEDS ORDERED: ONDANSETRON 4 MG/2 ML VIAL IVP PRN ×2 (12:00→14:21)
--- NOTE | 2021-02-21 12:27 | P.CNPUL ---
History of Present Illness Consult date: 02/21/21 Chief complaint: Hyperglycemia History of present illness: 45-year-old female patient, presented to the emergency department because of nausea vomiting and lethargy and weakness and hyperglycemia. She was having polyuria and polydipsia. 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 The patient has been utilizing the pump for around 3-4 weeks. Around 2 weeks ago, she got diagnosed having COVID-19 and she was given a course of Decadron. Since then, her blood sugars are running high and the patient was having polyuria and polydipsia and she came into the emergency department with a full blown DKA. At the time of admission, the blood sugar initially was above 800. She has severe anion gap metabolic acidosis. Serum bicarb was less than 5. Her potassium level is at 6.4. Her acetones were positive. Her white cell count was 51 probably reactive. She was extremely dehydrated. She was acidotic with a venous blood. Showing a pH of 6.9. At that point, the patient was given a total of 3 L of IV fluids. She is producing some urine output for now. She is still dry. She is on IV fluids running at 200 mL an hour of normal saline and she is also on insulin drip at 6 units an hour. She is gradually waking up. She has cause heavy breathing and and she is still tachypneic. She is still tachycardic, sinus tachycardia with a heart rate of 150. A Cleary catheter is to be inserted in the emergency department. Her mental status is gradually improving. She was able to provide enough information at this point in time. She has history of celiac disease. She also has history of pancreatitis. No smoking. No substance abuse. Review of Systems ROS unobtainable: due to mental status Constitutional: Reports fatigue, Reports lethargy, Reports poor appetite Eyes: bilateral blurred vision, denies as per HPI, denies bulging eye, denies decreased vision, denies diplopia, denies discharge, denies dry eye, denies irritation, denies itching, denies pain, denies photophobia, denies loss of peripheral vision, denies loss of vision, denies tunnel vision/blind spots Ears: deny: decreased hearing, ear discharge, earache, tinnitus Ears, nose, mouth and throat: Reports as per HPI Breasts: absent: as per HPI, change in shape, gynecomastia, masses, nipple discharge, pain, skin changes, swelling Cardiovascular: Reports as per HPI, Reports dyspnea on exertion Respiratory: Reports as per HPI Gastrointestinal: Reports as per HPI Menstruation: Reports as per HPI Musculoskeletal: Reports as per HPI Musculoskeletal: absent: ankle pain, ankle stiffness, ankle swelling, as per HPI, elbow pain, elbow stiffness, elbow swelling, foot pain, foot stiffness, foot swelling, hand pain, hand stiffness, hand swelling, hip pain, hip stiffness, hip swelling, knee pain, knee stiffness, knee swelling, shoulder pain, shoulder stiffness, shoulder swelling, wrist pain, wrist stiffness, wrist swelling Integumentary: Reports as per HPI Neurological: Reports as per HPI, Reports weakness Psychiatric: Reports as per HPI Endocrine: Reports as per HPI, Reports fatigue Hematologic/Lymphatic: Reports as per HPI Allergic/Immunologic: Reports as per HPI Past Medical History Past Medical History: Diabetes Mellitus, Hypertension, Renal Disease Additional Past Medical History / Comment(s): IDDM type II, kidney stones which pt passed on her own, UTI. History of Any Multi-Drug Resistant Organisms: None Reported Past Surgical History: Cholecystectomy, Hysterectomy, Tonsillectomy, Uterine Ablation Additional Past Surgical History / Comment(s): Laparoscopic surgery for ovarian cysts, colonoscopy with benign polyp. Lithotripsy 05/04,01/03 with stent placement, stent removed Past Anesthesia/Blood Transfusion Reactions: Postoperative Nausea & Vomiting (PONV) Past Psychological History: No Psychological Hx Reported Smoking Status: Never smoker Past Alcohol Use History: None Reported Past Drug Use History: None Reported - Past Family History Mother Family Medical History: Cancer Additional Family Medical History / Comment(s): Renal carcinoma. Father Family Medical History: No Reported History, Hypertension, Renal Disease Additional Family Medical History / Comment(s): Chronic kidney disease. Sister(s) Additional Family Medical History / Comment(s): Patient has 1 sister with no major medical problems. Patient has 3 children with no major medical problems. Medications and Allergies Home Medications Medication Instructions Recorded Confirmed Type Pramlintide Acetate [Symlin Pen 60] 15 mcg SQ AC-TID 11/17/19 02/21/21 History Insulin Aspart [NovoLOG Flexpen] See Protocol SQ AC-TID 12/21/20 02/21/21 History Insulin Glargine,Hum.rec.anlog 22 unit SQ HS 12/21/20 02/21/21 History [Lantus Solostar] Potassium Chloride ER [K-Dur 20] 20 meq PO DAILY #20 tab.er.prt 12/23/20 02/21/21 Rx Allergies Allergy/AdvReac Type Severity Reaction Status Date / Time Sulfa (Sulfonamide Allergy Anaphylaxis Verified 02/21/21 09:42 Antibiotics) Physical Exam Vitals: Vital Signs Temp Pulse Resp BP Pulse Ox 02/21/21 10:13 126 H 22 146/96 98 02/21/21 09:11 97 F L 67 30 H 135/88 100 Intake and Output 02/20/21 02/21/21 02/21/21 22:59 06:59 14:59 Other: Weight 60.328 kg , shortness of breath, tachycardic, mild degree of respiratory distress, mental status was quite altered some of admission, gradually improving. Head exam was generally normal. There was no scleral icterus or corneal arcus. Mucous membranes were dry Neck was supple and without jugular venous distension, thyromegaly, or carotid bruits. Carotids were easily palpable bilaterally. There was no adenopathy. Lungs were clear to auscultation and percussion, and with normal diaphragmatic excursion. No wheezes or rales were noted. Heart sounds are regular, tachycardic and the patient's heart rate currently is in the 150. Abdominal exam revealed normal bowel sounds. The abdomen was soft, non-tender, and without masses, organomegaly, or appreciable enlargement of the abdominal aorta. Examination of the extremities revealed easily palpable radial, femoral and pedal pulses. There was no cyanosis, clubbing or edema. Examination of the skin revealed no evidence of significant rashes, suspicious appearing nevi or other concerning lesions. Results - Laboratory Findings CBC and BMP: 02/21/21 09:32 02/21/21 09:32 ABG ABG pH 6.92 (7.35-7.45) L* 02/21/21 09:56 ABG pCO2 <15 mmHg (35-45) L* 02/21/21 09:56 ABG pO2 133 mmHg (83-108) H 02/21/21 09:56 ABG O2 Saturation 97.3 % (94-97) H 02/21/21 09:56 Abnormal lab findings: Abnormal Labs 02/21/21 02/21/21 02/21/21 09:18 09:32 09:32 WBC 51.0 H* Hgb 16.3 H Hct 52.4 H MCV 105.5 H D Neutrophils # (Manual) 42.80 H Monocytes # (Manual) 3.06 H Metamyelocytes # (Man) 0.51 H Myelocytes # (Manual) 0.51 H ABG pH ABG pCO2 ABG pO2 ABG O2 Saturation VBG pH VBG pCO2 VBG HCO3 Potassium 6.4 H* Chloride 97 L Carbon Dioxide <5 L* BUN 22 H Creatinine 1.30 H Glucose 861 H* POC Glucose (mg/dL) >600 H 02/21/21 02/21/21 02/21/21 09:56 10:02 11:16 WBC Hgb Hct MCV Neutrophils # (Manual) Monocytes # (Manual) Metamyelocytes # (Man) Myelocytes # (Manual) ABG pH 6.92 L* ABG pCO2 <15 L* ABG pO2 133 H ABG O2 Saturation 97.3 H VBG pH 6.88 L* VBG pCO2 26 L VBG HCO3 5 L* Potassium Chloride Carbon Dioxide BUN Creatinine Glucose POC Glucose (mg/dL) 590 H - Diagnostic Findings Chest x-ray: image reviewed Assessment and Plan Plan: 1 Diabetic ketoacidosis with severe anion gap metabolic acidosis and severe dehydration and intravascular volume depletion 2 sinus tachycardia secondary to above 3 leukocytosis, reactive, secondary to above 4 severe metabolic acidosis, secondary to above 5 hyperglycemia secondary to above 6 recent history of COVID-19 infection, treated with Decadron outpatient basis, likely contributed to her DKA 7 diabetes mellitus type I maintained on insulin pump on outpatient basis 8 history of pancreatitis 9 history of nephrolithiasis 10 COVID-19 infection approximately 2 weeks ago treated with Decadron and recovered. Chest x-rays clear Plan The patient has already received a total of 3 L of IV fluids. Give additional 2 L of normal saline and maintain IV fluids at 200 mL an hour. continue insulin drip Monitor hourly blood sugar Switch this patient to D5 half-normal once the blood sugars below 250 and follow the DKA protocol Monitor the acidosis Monitor the electrolytes and replace accordingly Obtain a urinalysis Obtain urine drug screen Check cardiac enzymes Transfer this patient ICU for further monitoring. The patient is tachycardic. This isn't the sputum improved with fluid resuscitation. Also watch for her leukocytosis. No signs of any infection the patient is likely having a reactive leukocytosis. The patient to the intensive care unit.
[2021-02-21 12:29] LABS: Glucose,Whole Blood 470 mg/dL (75-99)
[2021-02-21 13:15] LABS: Glucose,Whole Blood 406 mg/dL (75-99)
[2021-02-21 13:22] LABS: Appearance,Urine Clear (Clear); Bilirubin,Urine Negative (Negative); Blood,Urine Negative (Negative); Color,Urine Colorless; Glucose,Urine (UA) 4+ (Negative); Leukocyte Esterase,Urine Negative (Negative); Nitrite,Urine Negative (Negative); Protein,Urine Trace (Negative); Specific Gravity,Urine 1.021 (1.001-1.035); Urobilinogen,Urine <2.0 mg/dL (<2.0)
[2021-02-21 13:30] LABS: Ketones,Urine 4+ (Negative)
--- NOTE | 2021-02-21 14:11 | P.HPIM ---
History of Present Illness H&P Date: 02/21/21 45 years old female patient of Dr. North with past medical history of type 1 diabetes since 2019 who was initiated on insulin pump 3 weeks ago follows endocrinology at [facility], hypertension, history of multiple renal stones for which patient had laser lithotripsy for right renal calculi in March 2020. Patient had a recent episode of mild right-sided hydronephrosis with a 2 mm right upper pole renal calculus for which patient had another lithotripsy on 12/17/2020 followed by ureteral stent placement by Dr. Veras. Patient was admitted on 12/21 for significant right-sided back pain radiating to the right groin associated with hematuria. Patient was also noted to be in DKA during that admission. She was hospitalized from 12/21 to 12/23 with for acute metabolic acidosis secondary to diabetic ketoacidosis. Patient started feeling unwell yesterday evening when she was out with her to get her favorite ice cream. Though she took sugar-free ice cream she started feeling nauseated and dizzy. Patient had multiple episode of vomiting with increasing her blood sugars which was previously well controlled on her insulin pump. Patient was diagnosed with COVID 19 2 weeks ago and completed Decadron one week ago. She did have dry cough and shortness of breath on exertion for the past week. Her blood sugar were controlled on her Omnipod insulin pump. On evaluation in the ER patient had temp 97 pulse 67 respiratory rate 30 blood pressure 135/88 oxygen saturation 100% on room air. Patient did complain of feeling unwell and not able to breathe though she was saturating at 100%. Patient was not able to make any urine prior to admission. She received 3 L of IV fluid in the ER. Labs reviewed she had a WBC of 51,000, hemoglobin 16.3 MCV 105, arterial pH of 76.9, bicarb 15, potassium 6.4, chloride 97, CO2 5, BUN 22 and creatinine 1.3 baseline creatinine 0.4, blood glucose 861, anion gap of 35. Acetone was positive. Urinalysis positive for 4+ glucose and 4+ ketones. Patient was seen by pulmonary on my evaluation plan to give patient 2 L of IV fluid followed by 200 mL per hour of normal saline. Repeat labs will be obtained per DKA protocol with switch to D5 NS once blood sugar drop to less than 250. Review of Systems Constitutional: Denies chills, Denies fever, endorses lethargy, endorses malaise, endorses poor appetite, endorses weakness, Denies weight loss Eyes: Endorses blurry vision, denies diplopia, denies discharge, denies pain Ears: deny: decreased hearing Ears, nose, mouth and throat: Denies dental pain, Denies headache, Denies nasal discharge, Denies nose pain Cardiovascular: Denies chest pain, Denies decreased exercise tolerance, Denies edema, Denies high blood pressure, Denies irregular heart beat, Denies palpitations, Denies paroxysmal nocturnal dyspnea, Denies rapid heart beat, Denies shortness of breath Respiratory: Denies congestion, endorses cough, endorses cough with sputum, endorses dyspnea, Denies home oxygen, Denies wheezing Gastrointestinal: Endorses abdominal pain, Denies change in bowel habits, Denies coffee ground emesis, Denies early satiety, Denies excessive gas, endorses heartburn, Denies hematemesis, Denies hematochezia, Denies loss of appetite, endorses nausea, endorses vomiting Genitourinary: Denies dysuria, Denies flank pain, Denies kidney stones, Denies menorrhagia, Denies urgency, Denies urinary frequency endorses low urine output Musculoskeletal: Denies gait dysfunction, Denies limitation of motion, Denies morning stiffness, Denies muscle cramps Integumentary: Denies rash, Denies wounds, Denies brittle nails, Denies change in hair/nails, Denies darkening of skin Neurological: Denies balance difficulties, Denies change in speech, endorses double vision, Denies gait dysfunction, Denies loss of vision, Denies motor disturbance, Denies numbness, Denies paralysis, Denies paresthesias, Denies seizures Psychiatric: Denies anxiety, Denies depression Endocrine: Denies excessive sweating, Denies excessive thirst, endorses high blood sugar, polyuria polydipsia Denies palpitations Hematologic/Lymphatic: Denies easy bruising, Denies lymphadenopathy Past Medical History Past Medical History: Diabetes Mellitus, Hypertension, Renal Disease Additional Past Medical History / Comment(s): IDDM type II, kidney stones which pt passed on her own, UTI. History of Any Multi-Drug Resistant Organisms: None Reported Past Surgical History: Cholecystectomy, Hysterectomy, Tonsillectomy, Uterine Ablation Additional Past Surgical History / Comment(s): Laparoscopic surgery for ovarian cysts, colonoscopy with benign polyp. Lithotripsy 05/04,01/03 with stent placement, stent removed Past Anesthesia/Blood Transfusion Reactions: Postoperative Nausea & Vomiting (PONV) Past Psychological History: No Psychological Hx Reported Smoking Status: Never smoker Past Alcohol Use History: None Reported Past Drug Use History: None Reported - Past Family History Mother Family Medical History: Cancer Additional Family Medical History / Comment(s): Renal carcinoma. Father Family Medical History: No Reported History, Hypertension, Renal Disease Additional Family Medical History / Comment(s): Chronic kidney disease. Sister(s) Additional Family Medical History / Comment(s): Patient has 1 sister with no major medical problems. Patient has 3 children with no major medical problems. Medications and Allergies Home Medications Medication Instructions Recorded Confirmed Type Pramlintide Acetate [Symlin Pen 60] 15 mcg SQ AC-TID 11/17/19 02/21/21 History Insulin Aspart [NovoLOG Flexpen] See Protocol SQ AC-TID 12/21/20 02/21/21 History Insulin Glargine,Hum.rec.anlog 22 unit SQ HS 12/21/20 02/21/21 History [Lantus Solostar] Potassium Chloride ER [K-Dur 20] 20 meq PO DAILY #20 tab.er.prt 12/23/20 02/21/21 Rx Allergies Allergy/AdvReac Type Severity Reaction Status Date / Time Sulfa (Sulfonamide Allergy Anaphylaxis Verified 02/21/21 09:42 Antibiotics) Physical Exam Vitals: Vital Signs Temp Pulse Resp BP Pulse Ox 02/21/21 13:10 144 H 18 115/72 100 02/21/21 10:13 126 H 22 146/96 98 02/21/21 09:11 97 F L 67 30 H 135/88 100 Intake and Output 02/20/21 02/21/21 02/21/21 22:59 06:59 14:59 Output Total 850 Balance -850 Output: Urine 850 Other: Weight 60.328 kg - Constitutional General appearance: cooperative, no acute distress, thin - EENT Eyes: anicteric sclerae, PERRLA, normal appearance dry mouth ENT: hearing grossly normal - Neck Neck: no lymphadenopathy, normal ROM, no other, no rigidity, no stridor, no thyromegaly - Respiratory Respiratory: bilateral: CTA, negative: diminished, dullness, rales, rhonchi - Cardiovascular Rhythm: regular Heart sounds: normal: S1, S2 Abnormal Heart Sounds: no systolic murmur, no diastolic murmur, no rub, no S3 Gallop, no S4 Gallop, no click, no other - Gastrointestinal General gastrointestinal: normal bowel sounds, soft - Integumentary Integumentary: no rash - Neurologic Neurologic: CNII-XII intact - Musculoskeletal Musculoskeletal: gait not assessed strength equal bilaterally - Psychiatric Psychiatric: A&O x's 3, appropriate affect Results CBC & Chem 7: 02/21/21 09:32 02/21/21 09:32 Labs: Abnormal Lab Results - Last 24 Hours (Table) 02/21/21 02/21/21 02/21/21 Range/Units 09:18 09:32 09:32 WBC 51.0 H* (3.8-10.6) k/uL Hgb 16.3 H (11.4-16.0) gm/dL Hct 52.4 H (34.0-46.0) % MCV 105.5 H D (80.0-100.0) fL Neutrophils # (Manual) 42.80 H (1.3-7.7) k/uL Monocytes # (Manual) 3.06 H (0-1.0) k/uL Metamyelocytes # (Man) 0.51 H (0) k/uL Myelocytes # (Manual) 0.51 H (0) k/uL ABG pH (7.35-7.45) ABG pCO2 (35-45) mmHg ABG pO2 (83-108) mmHg ABG O2 Saturation (94-97) % VBG pH (7.31-7.41) VBG pCO2 (37-51) mmHg VBG HCO3 (24-28) mmol/L Potassium 6.4 H* (3.5-5.1) mmol/L Chloride 97 L (98-107) mmol/L Carbon Dioxide <5 L* (22-30) mmol/L BUN 22 H (7-17) mg/dL Creatinine 1.30 H (0.52-1.04) mg/dL Glucose 861 H* (74-99) mg/dL POC Glucose (mg/dL) >600 H (75-99) mg/dL 02/21/21 02/21/21 02/21/21 Range/Units 09:56 10:02 11:16 WBC (3.8-10.6) k/uL Hgb (11.4-16.0) gm/dL Hct (34.0-46.0) % MCV (80.0-100.0) fL Neutrophils # (Manual) (1.3-7.7) k/uL Monocytes # (Manual) (0-1.0) k/uL Metamyelocytes # (Man) (0) k/uL Myelocytes # (Manual) (0) k/uL ABG pH 6.92 L* (7.35-7.45) ABG pCO2 <15 L* (35-45) mmHg ABG pO2 133 H (83-108) mmHg ABG O2 Saturation 97.3 H (94-97) % VBG pH 6.88 L* (7.31-7.41) VBG pCO2 26 L (37-51) mmHg VBG HCO3 5 L* (24-28) mmol/L Potassium (3.5-5.1) mmol/L Chloride (98-107) mmol/L Carbon Dioxide (22-30) mmol/L BUN (7-17) mg/dL Creatinine (0.52-1.04) mg/dL Glucose (74-99) mg/dL POC Glucose (mg/dL) 590 H (75-99) mg/dL 02/21/21 02/21/21 Range/Units 12:26 13:13 WBC (3.8-10.6) k/uL Hgb (11.4-16.0) gm/dL Hct (34.0-46.0) % MCV (80.0-100.0) fL Neutrophils # (Manual) (1.3-7.7) k/uL Monocytes # (Manual) (0-1.0) k/uL Metamyelocytes # (Man) (0) k/uL Myelocytes # (Manual) (0) k/uL ABG pH (7.35-7.45) ABG pCO2 (35-45) mmHg ABG pO2 (83-108) mmHg ABG O2 Saturation (94-97) % VBG pH (7.31-7.41) VBG pCO2 (37-51) mmHg VBG HCO3 (24-28) mmol/L Potassium (3.5-5.1) mmol/L Chloride (98-107) mmol/L Carbon Dioxide (22-30) mmol/L BUN (7-17) mg/dL Creatinine (0.52-1.04) mg/dL Glucose (74-99) mg/dL POC Glucose (mg/dL) 470 H 406 H (75-99) mg/dL Thrombosis Risk Factor Assmnt - DVT/VTE Prophylaxis DVT/VTE Prophylaxis: Pharmacologic Prophylaxis ordered Assessment and Plan Plan: #1 diabetes ketoacidosis secondary to type I on insulin pump status post 3 L of IV fluids. Will order 2 L of IV fluids followed by insulin drip at 0.1 units per KG per hour follow the DKA protocol for repeat labs. To be transitioned to D5 and S once blood sugar dropped to less than 250. Patient to be monitored in ICU #2 metabolic acidosis secondary to above with pH of 6.9. We will give bicarb 1 00 units in 500 mL sterile water to be administered over 2 hours #3 hyperkalemia hold potassium supplement. Monitor CMP per diabetes protocol. Repeat EKG to rule out cardiac changes #4 acute kidney injury patient's baseline creatinine 0.4 watch input and output. Cleary catheter placed. Continue normal saline at 200 mL per hour follow DKA protocol. #5 leukocytosis secondary to volume deficiency. did finish steroid recently as well #6 COVID-19 asymptomatic a ththis pooint , repeat inflammatory markers #7 history of renal stones, s/p ureteral stent follows Dr. Veras #8 hypertension blood pressure well controlled with diet #9 DVT prophylaxis heparin subcu 5000 every 12 #10 GI prophylaxis pantoprazole 40 IV daily. #11 CODE STATUSFull code #12 disposition patient to remain inpatient for next 1-2 days nights
[2021-02-21] MEDS ORDERED: IPRATROPIUM-ALBUTEROL 3 ML NEB INHALATION PRN (14:21)
[2021-02-21 14:24] LABS: African American GFR (CKD) >90 (>60 ml/min/1.73 sqM); Anion Gap 16 mmol/L; Blood Urea Nitrogen 18 mg/dL (7-17); Chloride 121 mmol/L (98-107); Glucose 315 mg/dL (74-99); Non-African American GFR(CKD) 87 (>60 ml/min/1.73 sqM); Phosphorus 1.8 mg/dL (2.5-4.5); Potassium 5.7 mmol/L (3.5-5.1); Sodium 143 mmol/L (137-145)
[2021-02-21 14:26] LABS: Carbon Dioxide 6 mmol/L (22-30)
[2021-02-21] MEDS ORDERED: SODIUM BICARB IV ONE ×2 (15:00)
[2021-02-21] MEDS ORDERED: STERILE IV ONE ×2 (15:00)
[2021-02-21] MEDS ORDERED: WATER FOR INJECTION IV ONE ×2 (15:00)
[2021-02-21 15:08] LABS: Glucose,Whole Blood 215 mg/dL (75-99)
[2021-02-21] MEDS: D5-0.45% NACL WITH KCL 20MEQ/L 1,000 ML IV SCH ×2 (16:02→22:00)
[2021-02-21] MEDS: INSULIN REGULAR 100 UNIT in SODIUM CHLORIDE 0.9% 100 ML IV SCH (16:02)
[2021-02-21 16:03] LABS: Glucose,Whole Blood 184 mg/dL (75-99)
[2021-02-21 17:00] LABS: Glucose,Whole Blood 200 mg/dL (75-99)
[2021-02-21 18:16] LABS: African American GFR (CKD) >90 (>60 ml/min/1.73 sqM); Anion Gap 7 mmol/L; Blood Urea Nitrogen 15 mg/dL (7-17); Carbon Dioxide 16 mmol/L (22-30); Chloride 116 mmol/L (98-107); Glucose 195 mg/dL (74-99); Non-African American GFR(CKD) >90 (>60 ml/min/1.73 sqM); Phosphorus 1.3 mg/dL (2.5-4.5); Sodium 139 mmol/L (137-145)
[2021-02-21 19:00] LABS: Glucose,Whole Blood 175 mg/dL (75-99)
[2021-02-21] MEDS ORDERED: Phosphorus Replacement Protoco 1 EACH MISC MISCELLANE PRN (19:36)
[2021-02-21 20:16] LABS: Glucose,Whole Blood 158 mg/dL (75-99)
[2021-02-21] MEDS: SODIUM PHOSPHATE 10 MMOL in SODIUM CHLORIDE 0.9% 250 ML IVPB SCH (20:22)
[2021-02-21] MEDS: ACETAMINOPHEN TAB 325 MG TAB PO PRN (20:35)
[2021-02-21 21:07] LABS: Glucose,Whole Blood 140 mg/dL (75-99)
[2021-02-21 21:34] LABS: African American GFR (CKD) >90 (>60 ml/min/1.73 sqM); Anion Gap 3 mmol/L; Blood Urea Nitrogen 14 mg/dL (7-17); Carbon Dioxide 18 mmol/L (22-30); Chloride 117 mmol/L (98-107); Glucose 150 mg/dL (74-99); Non-African American GFR(CKD) >90 (>60 ml/min/1.73 sqM); Phosphorus 2.1 mg/dL (2.5-4.5); Potassium 4.2 mmol/L (3.5-5.1); Sodium 138 mmol/L (137-145)
[2021-02-21 22:04] LABS: Glucose,Whole Blood 144 mg/dL (75-99)
[2021-02-21] MEDS ORDERED: INSULIN DETEMIR (LEVEMIR) 100 UNIT/ML SYR SQ STA (22:09)
[2021-02-22] MEDS: SODIUM PHOSPHATE 10 MMOL in SODIUM CHLORIDE 0.9% 250 ML IVPB SCH ×2 (00:14→02:41)
[2021-02-22 02:06] LABS: Glucose,Whole Blood 168 mg/dL (75-99)
[2021-02-22] MEDS: SODIUM CHLORIDE 0.9% 1,000 ML IV SCH ×2 (02:11→05:26)
[2021-02-22] MEDS: ACETAMINOPHEN TAB 325 MG TAB PO PRN (02:13)
[2021-02-22] MEDS: D5-0.45% NACL WITH KCL 20MEQ/L 1,000 ML IV SCH (02:44)
[2021-02-22 03:44] LABS: Basophils % (A) 0 %; Eosinophils # (A) 0.1 k/uL (0-0.7); Eosinophils % (A) 0 %; HCT 32.2 % (34.0-46.0); Lymphocytes # (A) 1.7 k/uL (1.0-4.8); Lymphocytes % (A) 11 %; MCH 33.3 pg (25.0-35.0); MCHC 34.7 g/dL (31.0-37.0); Mean Platelet Volume 8.5; Monocytes # (A) 0.7 k/uL (0-1.0); Monocytes % (A) 4 %; Neutrophils # (A) 13.2 k/uL (1.3-7.7); Neutrophils % (A) 84 %; RBC 3.36 m/uL (3.80-5.40); RDW 12.3 % (11.5-15.5); WBC 15.7 k/uL (3.8-10.6)
[2021-02-22 03:53] LABS: HGB 11.2 gm/dL (11.4-16.0)
[2021-02-22 03:54] LABS: MCV 95.8 fL (80.0-100.0); Platelet Count 147 k/uL (150-450)
[2021-02-22 03:59] LABS: ALT 11 U/L (4-34); AST 17 U/L (14-36); African American GFR (CKD) >90 (>60 ml/min/1.73 sqM); Albumin 2.6 g/dL (3.5-5.0); Alkaline Phosphatase 62 U/L (38-126); Anion Gap 7 mmol/L; Blood Urea Nitrogen 13 mg/dL (7-17); Calcium 7.4 mg/dL (8.4-10.2); Carbon Dioxide 16 mmol/L (22-30); Chloride 115 mmol/L (98-107); Glucose 175 mg/dL (74-99); Non-African American GFR(CKD) >90 (>60 ml/min/1.73 sqM); Potassium 3.8 mmol/L (3.5-5.1); Sodium 138 mmol/L (137-145); Total Bilirubin 0.5 mg/dL (0.2-1.3); Total Protein 4.6 g/dL (6.3-8.2)
[2021-02-22] MEDS: POTASSIUM CHLORIDE 10 MEQ in WATER FOR INJECTION 1 100ML.BAG IVPB SCH ×2 (05:25→10:23)
[2021-02-22] MEDS: INSULIN REGULAR 100 UNIT in SODIUM CHLORIDE 0.9% 100 ML IV SCH (06:16)
[2021-02-22 07:08] LABS: Glucose,Whole Blood 213 mg/dL (75-99)
[2021-02-22] MEDS ORDERED: INSULIN ASPART (NovoLOG) 100 UNIT/ML VIAL SQ SCH (07:30)
[2021-02-22] MEDS ORDERED: PANTOPRAZOLE 40 MG TABLET PO SCH (07:30)
[2021-02-22 10:37] VITALS: TEMP 98
[2021-02-22 11:10] VITALS: BP 110/74; PULSE 85; RESP 18
[2021-02-22 11:24] VITALS: BMI 25.4
--- NOTE | 2021-02-22 11:27 | P.PN ---
Subjective Progress Note Date: 02/22/21 Principal diagnosis: Acute DKA and acute COVID-19 infection. 45-year-old female patient, presented to the emergency department because of nausea vomiting and lethargy and weakness and hyperglycemia. She was having polyuria and polydipsia. 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 The patient has been utilizing the pump for around 3-4 weeks. Around 2 weeks ago, she got diagnosed having COVID-19 and she was given a course of Decadron. Since then, her blood sugars are running high and the patient was having polyuria and polydipsia and she came into the emergency department with a full blown DKA. At the time of admission, the blood sugar initially was above 800. She has severe anion gap metabolic acidosis. Serum bicarb was less than 5. Her potassium level is at 6.4. Her acetones were positive. Her white cell count was 51 probably reactive. She was extremely dehydrated. She was acidotic with a venous blood. Showing a pH of 6.9. At that point, the patient was given a total of 3 L of IV fluids. She is producing some urine output for now. She is still dry. She is on IV fluids running at 200 mL an hour of normal saline and she is also on insulin drip at 6 units an hour. She is gradually waking up. She has cause heavy breathing and and she is still tachypneic. She is still tachycardic, sinus tachycardia with a heart rate of 150. A Cleary catheter is to be inserted in the emergency department. Her mental status is gradually improving. She was able to provide enough information at this point in time. She has history of celiac disease. She also has history of pancreatitis. No smoking. No substance abuse. Patient was reevaluated today on 02/22/2021, remains in the ICU, in no distress, patient is on room air with O2 saturation 96%. She is on D5 45 at 50 ML per hour. And receiving potassium supplement. Patient has a closed anion gap at present, she is doing quite well, and we will plan to transition the patient to subcu insulin as per protocol. I will transfer the patient out of the ICU today, and to be followed by her admitting physician. Pulmonary-zeng she is doing great, asymptomatic. Patient had COVID-19 infection treated on outpatient basis with Decadron. And that may have contributed to her DKA. CBC showed leukocytosis with WBC of 15.7 hemoglobin 11.2 electrolytes are normal bicarb is 16 anion gap is 7. Profile is normal. Coronal virus PCR was negative on this admission. Objective - Vital Signs Vital signs: Vital Signs Temp 98.0 F 02/22/21 08:00 Pulse 85 02/22/21 11:00 Resp 18 02/22/21 11:00 BP 110/74 02/22/21 11:00 Pulse Ox 98 02/22/21 11:00 Intake & Output 02/21/21 02/22/21 02/22/21 18:59 06:59 18:59 Intake Total 3800 1938.473 610 Output Total 1300 645 210 Balance 2500 1293.473 400 Weight 60.328 kg 63.1 kg Intake: IV 1750 250 D5-0.45% NaCl with KCl 900 150 20Meq/l 1,000 ml @ 50 mls /hr IV .Q20H FELICIANO Rx#: [id number] Potassium Chloride 10 meq 100 100 In Water For Injection 1 100ml.bag @ 100 mls/hr IVPB Q1H FELICIANO Rx#: [id number] Sodium Phosphate 10 mmol 750 In Sodium Chloride 0.9% 250 ml @ 125 mls/hr IVPB Q2H FELICIANO Rx#:[id number] Intake, IV Titration 3800 188.473 Amount D5-0.45% NaCl with KCl 300 150 20Meq/l 1,000 ml @ 50 mls /hr IV .Q20H FELICIANO Rx#: [id number] Insulin Regular 100 unit 38.473 In Sodium Chloride 0.9% 100 ml @ 0.1 UNITS/KG/HR 6.093 mls/hr IV .[id number] FELICIANO Rx#:[id number] Sodium Chloride 0.9% 1, 400 000 ml @ 200 mls/hr IV . Q5H FELICIANO Rx#:[id number] Sodium Chloride 0.9% 2, 2500 000 ml @ 999 mls/hr IV . Q2H1M ONE Rx#:[id number] Water For Injection, 600 Sterile 500 ml @ 300 mls/ hr IV .Q2H ONE with Sodium Bicarb (1 Meq/ml) 100 ml Rx#:[id number] Oral 360 Output: Urine 1300 645 210 Other: Voiding Method Indwelling Catheter Indwelling Catheter Indwelling Catheter - Exam Physical Exam: Revealed 45-year-old white female in no distress. Head: Atraumatic, normocephalic. HEENT:[Neck is supple.] [No neck masses.] [No thyromegaly.] [No JVD.] Chest: [Clear throughout, no crackles, no rhonchi, no wheezes.] Cardiac Exam: [Normal S1 and S2, no S3 gallop, no murmur.] Abdomen: [Soft, nontender, no megaly, no rebound, no guarding, normal bowel sounds.] Extremities: [No clubbing, no edema, no cyanosis.] Neurological Exam: [No focal neurologic deficit.] Alert oriented 3. Psychiatric: Normal mood affect and normal mental status examination. Skin: No rashes. Musculoskeletal: No deformities noted limitation in range of motion. - Labs CBC & Chem 7: 02/22/21 03:24 02/22/21 03:24 Labs: Abnormal Lab Results - Last 24 Hours (Table) 02/21/21 02/21/21 02/21/21 Range/Units 11:16 12:20 12:26 WBC (3.8-10.6) k/uL RBC (3.80-5.40) m/uL Hgb (11.4-16.0) gm/dL Hct (34.0-46.0) % Plt Count (150-450) k/uL Neutrophils # (1.3-7.7) k/uL Potassium (3.5-5.1) mmol/L Chloride (98-107) mmol/L Carbon Dioxide (22-30) mmol/L BUN (7-17) mg/dL Creatinine (0.52-1.04) mg/dL Glucose (74-99) mg/dL POC Glucose (mg/dL) 590 H 470 H (75-99) mg/dL Calcium (8.4-10.2) mg/dL Phosphorus (2.5-4.5) mg/dL Total Protein (6.3-8.2) g/dL Albumin (3.5-5.0) g/dL Urine Protein Trace H (Negative) Urine Glucose (UA) 4+ H (Negative) Urine Ketones 4+ H (Negative) 02/21/21 02/21/21 02/21/21 Range/Units 13:13 13:46 15:06 WBC (3.8-10.6) k/uL RBC (3.80-5.40) m/uL Hgb (11.4-16.0) gm/dL Hct (34.0-46.0) % Plt Count (150-450) k/uL Neutrophils # (1.3-7.7) k/uL Potassium 5.7 H (3.5-5.1) mmol/L Chloride 121 H (98-107) mmol/L Carbon Dioxide 6 L* (22-30) mmol/L BUN 18 H (7-17) mg/dL Creatinine (0.52-1.04) mg/dL Glucose 315 H (74-99) mg/dL POC Glucose (mg/dL) 406 H 215 H (75-99) mg/dL Calcium (8.4-10.2) mg/dL Phosphorus 1.8 L (2.5-4.5) mg/dL Total Protein (6.3-8.2) g/dL Albumin (3.5-5.0) g/dL Urine Protein (Negative) Urine Glucose (UA) (Negative) Urine Ketones (Negative) 02/21/21 02/21/21 02/21/21 Range/Units 16:02 16:59 17:26 WBC (3.8-10.6) k/uL RBC (3.80-5.40) m/uL Hgb (11.4-16.0) gm/dL Hct (34.0-46.0) % Plt Count (150-450) k/uL Neutrophils # (1.3-7.7) k/uL Potassium (3.5-5.1) mmol/L Chloride 116 H (98-107) mmol/L Carbon Dioxide 16 L (22-30) mmol/L BUN (7-17) mg/dL Creatinine (0.52-1.04) mg/dL Glucose 195 H (74-99) mg/dL POC Glucose (mg/dL) 184 H 200 H (75-99) mg/dL Calcium (8.4-10.2) mg/dL Phosphorus 1.3 L (2.5-4.5) mg/dL Total Protein (6.3-8.2) g/dL Albumin (3.5-5.0) g/dL Urine Protein (Negative) Urine Glucose (UA) (Negative) Urine Ketones (Negative) 02/21/21 02/21/21 02/21/21 Range/Units 18:48 20:14 21:05 WBC (3.8-10.6) k/uL RBC (3.80-5.40) m/uL Hgb (11.4-16.0) gm/dL Hct (34.0-46.0) % Plt Count (150-450) k/uL Neutrophils # (1.3-7.7) k/uL Potassium (3.5-5.1) mmol/L Chloride (98-107) mmol/L Carbon Dioxide (22-30) mmol/L BUN (7-17) mg/dL Creatinine (0.52-1.04) mg/dL Glucose (74-99) mg/dL POC Glucose (mg/dL) 175 H 158 H 140 H (75-99) mg/dL Calcium (8.4-10.2) mg/dL Phosphorus (2.5-4.5) mg/dL Total Protein (6.3-8.2) g/dL Albumin (3.5-5.0) g/dL Urine Protein (Negative) Urine Glucose (UA) (Negative) Urine Ketones (Negative) 02/21/21 02/21/21 02/22/21 Range/Units 21:07 22:02 02:04 WBC (3.8-10.6) k/uL RBC (3.80-5.40) m/uL Hgb (11.4-16.0) gm/dL Hct (34.0-46.0) % Plt Count (150-450) k/uL Neutrophils # (1.3-7.7) k/uL Potassium (3.5-5.1) mmol/L Chloride 117 H (98-107) mmol/L Carbon Dioxide 18 L (22-30) mmol/L BUN (7-17) mg/dL Creatinine 0.50 L (0.52-1.04) mg/dL Glucose 150 H (74-99) mg/dL POC Glucose (mg/dL) 144 H 168 H (75-99) mg/dL Calcium (8.4-10.2) mg/dL Phosphorus 2.1 L (2.5-4.5) mg/dL Total Protein (6.3-8.2) g/dL Albumin (3.5-5.0) g/dL Urine Protein (Negative) Urine Glucose (UA) (Negative) Urine Ketones (Negative) 02/22/21 02/22/21 02/22/21 Range/Units 03:24 03:24 07:07 WBC 15.7 H (3.8-10.6) k/uL RBC 3.36 L (3.80-5.40) m/uL Hgb 11.2 L D (11.4-16.0) gm/dL Hct 32.2 L (34.0-46.0) % Plt Count 147 L D (150-450) k/uL Neutrophils # 13.2 H (1.3-7.7) k/uL Potassium (3.5-5.1) mmol/L Chloride 115 H (98-107) mmol/L Carbon Dioxide 16 L (22-30) mmol/L BUN (7-17) mg/dL Creatinine 0.50 L (0.52-1.04) mg/dL Glucose 175 H (74-99) mg/dL POC Glucose (mg/dL) 213 H (75-99) mg/dL Calcium 7.4 L (8.4-10.2) mg/dL Phosphorus (2.5-4.5) mg/dL Total Protein 4.6 L (6.3-8.2) g/dL Albumin 2.6 L (3.5-5.0) g/dL Urine Protein (Negative) Urine Glucose (UA) (Negative) Urine Ketones (Negative) Assessment and Plan Assessment: Impression: Acute DKA Sinus tachycardia secondary to above Acute leukocytosis secondary to above Recent history of COVID-19 infection, resolved, and PCR is negative on this admission. Type 1 diabetes. History of pancreatitis. History of nephrolithiasis. History of COVID-19 infection 2 weeks ago, treated and recovered Recommendation: Continue present supportive care measures. Placed patient on insulin up to as per scale. ADA diet. Continue to monitor electrolytes and correct accordingly. Transfer patient out of the ICU to a regular medical floor. We'll continue to follow. Time with Patient: Less than 30
[2021-02-22 11:49] LABS: Glucose,Whole Blood 159 mg/dL (75-99)
--- NOTE | 2021-02-22 13:39 | P.DS ---
Providers Date of admission: 02/21/21 11:57 Attending physician: Franki Jack MD Consults: 02/21/21 11:57 Consult Physician Stat Consulting Provider: Marlene Staples Consult Reason/Comments: Critical care management Do you want consulting provider notified?: Yes Primary care physician: [place] [facility] Course: 45 years old female patient of Dr. North with past medical history of type 1 diabetes since 2019 who was initiated on insulin pump 3 weeks ago follows endocrinology at [facility], hypertension, history of multiple renal stones for which patient had laser lithotripsy for right renal calculi in March 2020. Patient had a recent episode of mild right-sided hydronephrosis with a 2 mm right upper pole renal calculus for which patient had another lithotripsy on 12/17/2020 followed by ureteral stent placement by Dr. Veras. Patient was admitted on 12/21 for significant right-sided back pain radiating to the right groin associated with hematuria. Patient was also noted to be in DKA during that admission. She was hospitalized from 12/21 to 12/23 with for acute metabolic acidosis secondary to diabetic ketoacidosis. Patient started feeling unwell yesterday evening when she was out with her to get her favorite ice cream. Though she took sugar-free ice cream she started feeling nauseated and dizzy. Patient had multiple episode of vomiting with increasing her blood sugars which was previously well controlled on her insulin pump. Patient was diagnosed with COVID 19 2 weeks ago and completed Decadron one week ago. She did have dry cough and shortness of breath on exertion for the past week. Her blood sugar were controlled on her Omnipod insulin pump. On evaluation in the ER patient had temp 97 pulse 67 respiratory rate 30 blood pressure 135/88 oxygen saturation 100% on room air. Patient did complain of feeling unwell and not able to breathe though she was saturating at 100%. Patient was not able to make any urine prior to admission. She received 3 L of IV fluid in the ER. Labs reviewed she had a WBC of 51,000, hemoglobin 16.3 MCV 105, arterial pH of 76.9, bicarb 15, potassium 6.4, chloride 97, CO2 5, BUN 22 and creatinine 1.3 baseline creatinine 0.4, blood glucose 861, anion gap of 35. Acetone was positive. Urinalysis positive for 4+ glucose and 4+ ketones. Patient was seen by pulmonary on my evaluation plan to give patient 2 L of IV fluid followed by 200 mL per hour of normal saline. Repeat labs will be obtained per DKA protocol with switch to D5 NS once blood sugar drop to less than 250. 02/22 patient examined bedside. Doing well. Vitals were reevaluated patient temp of 98 pulse 94 respiratory rate 18 blood pressure 102/75. WBC has improved from 50-15 hemoglobin stable at 11.2 platelet 147 chloride 1:15 BUN 13 creatinine 0.5 bicarb 16 blood sugar ranging from 150 to 213. COVID-19 repeat check was negative. Patient was moved around in the room she does appear weak but is able to ambulate without any difficulty. She denies any dizziness, chest pain shortness of breath. Patient is eager to be discharged. Patient encouraged to drink plenty of fluid and insulin pump can be restarted. Patient can be discharged to home with follow-up with primary care physician Discharge diagnoses #1 DKA secondary to COVID 19 #2 acute kidney injury secondary to ATN resolved #3 metabolic acidosis secondary to DKA #4 hypokalemia resolved #5 leukocytosis secondary to wanting deficiency #6 history of renal stone #7 hypertension Disposition - home care Patient Condition at Discharge: Good Plan - Discharge Summary Discharge Rx Participant: No New Discharge Prescriptions: Continue Pramlintide Acetate [Symlin Pen 60] 15 mcg SQ AC-TID Insulin Glargine,Hum.rec.anlog [Lantus Solostar] 22 unit SQ HS Insulin Aspart [NovoLOG Flexpen] See Protocol SQ AC-TID Potassium Chloride ER [K-Dur 20] 20 meq PO DAILY #20 tab.[email or web address].prt Discharge Medication List Pramlintide Acetate [Symlin Pen 60] 15 mcg SQ AC-TID 11/17/19 [History] Insulin Aspart [NovoLOG Flexpen] See Protocol SQ AC-TID 12/21/20 [History] Insulin Glargine,Hum.rec.anlog [Lantus Solostar] 22 unit SQ HS 12/21/20 [History] Potassium Chloride ER [K-Dur 20] 20 meq PO DAILY #20 tab.er.prt 12/23/20 [Rx] Follow up Appointment(s)/Referral(s): Babar North MD [Primary Care Provider] - 1-2 days (Unable to schedule appointment, please call and make appoinment after discharge) Patient Instructions/Handouts: Diabetic Ketoacidosis (DC) Discharge Disposition: HOME SELF-CARE
[2021-02-22 17:07] LABS: Hemoglobin A1C 11.6 % (4.0-6.0)
== END 2021-02-22 14:30 | disposition home or self-care (01) | DRG 637 ==
LOC: EC 09:10 → 2SICU 11:57
PROVIDERS: ADMIT Internal Medicine; ATTEND Internal Medicine
DX: E10.10 Type 1 diabetes mellitus with ketoacidosis without coma (principal); N17.0 Acute kidney failure with tubular necrosis; N13.30 Unspecified hydronephrosis; Z86.16 Personal history of COVID-19; Z87.442 Personal history of urinary calculi; E87.6 Hypokalemia; D72.829 Elevated white blood cell count, unspecified; I10 Essential (primary) hypertension; Z79.4 Long term (current) use of insulin; Z96.41 Presence of insulin pump (external) (internal); E87.5 Hyperkalemia; Z20.822 Contact with and (suspected) exposure to COVID-19; Z90.710 Acquired absence of both cervix and uterus; Z80.51 Family history of malignant neoplasm of kidney; K90.0 Celiac disease; E86.0 Dehydration
CPT/HCPCS: 36415; 36600; 71046; 80051; 80053; 81003; 82009; 82565; 82803; 82805; 82947; 83036; 83690; 84100; 84484; 84520; 85025; 87635; 93005; 96361; 96374; 96375; 99291

== ENCOUNTER → 2021-03-10 | Outpatient (CLI) | payer OTHER ==
[2021-03-11 01:02] LABS: Hemoglobin A1C 9.8 % (4.0-6.0)
[2021-03-11 14:18] LABS: African American GFR (CKD) 103.9 (60.0-200.0); Albumin 4.3 g/dL (3.80-4.90); Albumin/Globulin Ratio 1.95 (1.60-3.17); Anion Gap 9.5 mmol/L (4.00-12.00); BUN/Creat Ratio 12.5 Ratio (12.00-20.00); Calcium 9.2 mg/dL (8.7-10.3); Carbon Dioxide 24.5 mmol/L (21.6-31.8); Globulin 2.2 g/dL (1.6-3.3); Non-African American GFR(CKD) 89.7 (60.0-200.0); Potassium 4.6 mmol/L (3.5-5.5); Total Bilirubin 0.5 mg/dL (0.2-1.2); Total Protein 6.5 g/dL (6.2-8.2)
[2021-03-11 14:35] LABS: T4, Free (Free Thyroxine) 0.9 ng/dL (0.80-1.80)
[2021-03-11 17:40] LABS: Urine Creatinine 41.5 mg/dL
== END | disposition home or self-care (01) ==
LOC: LABWHC1 16:11
PROVIDERS: ATTEND Nurse Practitioner Gerontology
DX: E10.69 Type 1 diabetes mellitus with other specified complication (principal)
CPT/HCPCS: 36415; 80053; 82043; 82306; 82570; 83036; 84439; 84443

== ENCOUNTER → 2021-04-07 | Outpatient (CLI) | payer OTHER ==
--- NOTE | 2021-04-09 11:51 | MM ---
Reason for exam: screening (asymptomatic). History: Patient is postmenopausal. Physical Findings: A clinical breast exam by your physician is recommended on an annual basis and results should be correlated with mammographic findings. MG 3D Screening Mammo W/Cad Bilateral CC and MLO view(s) were taken. No prior studies available for comparison. The breast tissue is heterogeneously dense. This may lower the sensitivity of mammography. No persisting abnormality on 3D images. ASSESSMENT: Negative, BI-RAD 1 RECOMMENDATION: Routine screening mammogram of both breasts in 1 year.
== END | disposition home or self-care (01) ==
LOC: RADMAMWWP 03-17 16:05
PROVIDERS: ATTEND Internal Medicine Geriatric Medicine
DX: Z12.31 Encounter for screening mammogram for malignant neoplasm of breast (principal); Z78.0 Asymptomatic menopausal state
CPT/HCPCS: 77063; 77067

== ENCOUNTER → 2021-06-08 | Outpatient (CLI) | payer OTHER ==
[2021-06-08 17:24] LABS: Basophils # (A) 0.1 k/uL (0-0.2); Basophils % (A) 1 %; Eosinophils # (A) 0.1 k/uL (0-0.7); Eosinophils % (A) 2 %; HCT 42.1 % (34.0-46.0); HGB 14.2 gm/dL (11.4-16.0); Lymphocytes # (A) 1.5 k/uL (1.0-4.8); Lymphocytes % (A) 27 %; MCH 32.8 pg (25.0-35.0); MCHC 33.8 g/dL (31.0-37.0); MCV 96.8 fL (80.0-100.0); Mean Platelet Volume 9.3; Monocytes # (A) 0.2 k/uL (0-1.0); Monocytes % (A) 4 %; Neutrophils # (A) 3.6 k/uL (1.3-7.7); Neutrophils % (A) 65 %; Platelet Count 180 k/uL (150-450); RBC 4.34 m/uL (3.80-5.40); RDW 12.6 % (11.5-15.5); WBC 5.6 k/uL (3.8-10.6)
[2021-06-08 17:33] LABS: ALT 12 U/L (4-34); AST 19 U/L (14-36); African American GFR (CKD) >90 (>60 ml/min/1.73 sqM); Albumin 4.6 g/dL (3.5-5.0); Alkaline Phosphatase 69 U/L (38-126); Amylase 88 U/L (30-110); Anion Gap 10 mmol/L; Blood Urea Nitrogen 10 mg/dL (7-17); Calcium 9.3 mg/dL (8.4-10.2); Carbon Dioxide 24 mmol/L (22-30); Chloride 100 mmol/L (98-107); Glucose 424 mg/dL (74-99); Lipase 654 U/L (23-300); Non-African American GFR(CKD) >90 (>60 ml/min/1.73 sqM); Potassium 4.5 mmol/L (3.5-5.1); Sodium 134 mmol/L (137-145); Total Bilirubin 0.4 mg/dL (0.2-1.3)
--- NOTE | 2021-06-08 23:23 | CT ---
EXAMINATION TYPE: CT abdomen pelvis w con DATE OF EXAM: 06/08/2021 COMPARISON: None HISTORY: LOWER ABD PAIN X2 MONTHS CT DLP: 565 mGycm Automated exposure control for dose reduction was used. TECHNIQUE: Helical acquisition of images was performed from the lung bases through the pelvis. CONTRAST: Performed with Oral Contrast and with IV Contrast, patient injected with 100 mL of Isovue 300. FINDINGS: LUNG BASES: Normal. LIVER: Normal. BILIARY SYSTEM: Normal. PANCREAS: Normal. SPLEEN: Normal. ADRENALS: Normal. KIDNEYS: Normal. BOWEL: No obstruction or thickening. Colonic diverticulosis. No acute articularis. PERITONEUM: No pneumoperitoneum. No free fluid. LYMPH NODES: No lymphadenopathy. PELVIS: Normal normal urinary bladder. Status post hysterectomy. VASCULATURE: No abdominal aortic aneurysm. MUSCULOSKELETAL: No acute osseous abnormality. IMPRESSION: No acute findings to explain patient's abdominal pain.
== END | disposition home or self-care (01) ==
LOC: RADCTMAIN 16:39
PROVIDERS: ATTEND Internal Medicine Geriatric Medicine
DX: R10.30 Lower abdominal pain, unspecified (principal)
CPT/HCPCS: 80053; 82150; 83690; 85025; 74177; 36415; Q9967

== ENCOUNTER 2022-02-11 09:38 | Emergency (ER) | payer OTHER ==
[2022-02-11 09:42] VITALS: BP 164/99; PULSE 78; RESP 20; TEMP 97.9
--- NOTE | 2022-02-11 09:59 | ED ---
General Adult HPI - General Chief complaint: Skin/Abscess/Foreign Body Stated complaint: rt leg abscess Time Seen by Provider: 02/11/22 09:50 Source: patient, RN notes reviewed, old records reviewed Mode of arrival: ambulatory Limitations: no limitations - History of Present Illness Initial comments: 46-year-old female presents with complaints of right thigh abscess after removing insulin pump on Monday. Patient states that it has become more red a nd painful. Called primary care doctor on Monday was placed on doxycycline on Monday continues to have redness and swelling and no longer draining. She has had a history of diabetes, hypertension and renal disease. She was sent by Dr. North's office for evaluation -: days(s) (6) Location: right, lower extremity (thigh) Severity scale (1-10): 8 Quality: burning, constant Consistency: constant Improves with: none Worsens with: other (palpation) Associated Symptoms: denies other symptoms Treatments Prior to Arrival: other (Doxycycline) - Related Data Home Medications Medication Instructions Recorded Confirmed Pramlintide Acetate [Symlin Pen 60] 15 mcg SQ AC-TID 11/17/19 02/21/21 Insulin Aspart [NovoLOG Flexpen] See Protocol SQ AC-TID 12/21/20 02/21/21 Insulin Glargine,Hum.rec.anlog 22 unit SQ HS 12/21/20 02/21/21 [Lantus Solostar Pen] Previous Rx's Medication Instructions Recorded Potassium Chloride ER [K-Dur 20] 20 meq PO DAILY #20 tab.er.prt 12/23/20 Allergies Allergy/AdvReac Type Severity Reaction Status Date / Time Sulfa (Sulfonamide Allergy Anaphylaxis Verified 02/21/21 09:42 Antibiotics) Review of Systems ROS Statement: Those systems with pertinent positive or pertinent negative responses have been documented in the HPI. ROS Other: All systems not noted in ROS Statement are negative. Past Medical History Past Medical History: Diabetes Mellitus, Hypertension, Renal Disease Additional Past Medical History / Comment(s): IDDM type II, kidney stones which pt passed on her own, UTI. History of Any Multi-Drug Resistant Organisms: None Reported Past Surgical History: Cholecystectomy, Hysterectomy, Tonsillectomy, Uterine Ablation Additional Past Surgical History / Comment(s): Laparoscopic surgery for ovarian cysts, colonoscopy with benign polyp. Lithotripsy 05/04,01/03 with stent placement, stent removed Past Anesthesia/Blood Transfusion Reactions: Postoperative Nausea & Vomiting (PONV) Past Psychological History: No Psychological Hx Reported Smoking Status: Never smoker Past Alcohol Use History: None Reported Past Drug Use History: None Reported - Past Family History Mother Family Medical History: Cancer Additional Family Medical History / Comment(s): Renal carcinoma. Father Family Medical History: No Reported History, Hypertension, Renal Disease Additional Family Medical History / Comment(s): Chronic kidney disease. Sister(s) Additional Family Medical History / Comment(s): Patient has 1 sister with no major medical problems. Patient has 3 children with no major medical problems. General Exam Limitations: no limitations General appearance: alert, in no apparent distress Respiratory exam: Present: normal lung sounds bilaterally. Absent: respiratory distress, accessory muscle use Cardiovascular Exam: Present: regular rate GI/Abdominal exam: Present: soft. Absent: distended, tenderness Back exam: Absent: tenderness, CVA tenderness (R), CVA tenderness (L) Neurological exam: Present: alert, oriented X3, normal gait Psychiatric exam: Present: normal affect, normal mood Skin exam: Present: warm, dry, other (Right inguinal lymphadenopathy). Absent: cyanosis, diaphoretic, erythema (Right anterior thigh approximately 12 cm x 9 cm area of fluctuance approximately 3 cm x 3 cm) Course Vital Signs 02/11/22 09:39 Temperature 97.9 F Pulse Rate 78 Respiratory 20 Rate Blood Pressure 164/99 O2 Sat by Pulse 99 Oximetry Procedures - Incision & Drainage Consent Obtained: verbal consent Site: lower extremity (right thigh) Anesthetic Used: lidocaine 1% (with topical emla) I&D Cleaning Method: Betadine Sterile Field Used?: Yes Scalpel Used: #11 Needle Aspiration Performed?: No Irrigation Performed?: No I&D Drainage Obtained: Pus, Blood Culture Obtained?: Yes Patient Tolerated Procedure: well Medical Decision Making - Medical Decision Making Patient presents with a 3 cm circular abscess to the right thigh with surrounding cellulitis. She is currently taking doxycycline that she started on Monday prescribed by her primary care doctor. Abscess was incised and drained and wound culture was sent. She is afebrile in the emergency room with no evidence of leukocytosis. I did speak with Dr. North who recommended patient continue her doxycycline and follow-up with him in the office next week. She was instructed to soak the wound multiple times throughout the day to keep it draining return to the emergency room with any new or concerning symptoms including increased redness or fevers. Patient is agreeable to this plan of care. - Lab Data Result diagrams: 02/11/22 10:24 02/11/22 10:24 Lab Results 02/11/22 02/11/22 Range/Units 10:24 10:24 WBC 7.8 (3.8-10.6) k/uL RBC 4.30 (3.80-5.40) m/uL Hgb 13.6 (11.4-16.0) gm/dL Hct 40.6 (34.0-46.0) % MCV 94.5 (80.0-100.0) fL MCH 31.7 (25.0-35.0) pg MCHC 33.5 (31.0-37.0) g/dL RDW 12.6 (11.5-15.5) % Plt Count 235 (150-450) k/uL MPV 8.8 Neutrophils % 72 % Lymphocytes % 21 % Monocytes % 3 % Eosinophils % 1 % Basophils % 0 % Neutrophils # 5.6 (1.3-7.7) k/uL Lymphocytes # 1.7 (1.0-4.8) k/uL Monocytes # 0.3 (0-1.0) k/uL Eosinophils # 0.1 (0-0.7) k/uL Basophils # 0.0 (0-0.2) k/uL Sodium 136 L (137-145) mmol/L Potassium 4.7 (3.5-5.1) mmol/L Chloride 102 (98-107) mmol/L Carbon Dioxide 24 (22-30) mmol/L Anion Gap 10 mmol/L BUN 6 L (7-17) mg/dL Creatinine 0.56 (0.52-1.04) mg/dL Est GFR (CKD-EPI)AfAm >90 (>60 ml/min/1.73 sqM) Est GFR (CKD-EPI)NonAf >90 (>60 ml/min/1.73 sqM) Glucose 303 H (74-99) mg/dL Calcium 9.2 (8.4-10.2) mg/dL Total Bilirubin 0.8 (0.2-1.3) mg/dL AST 16 (14-36) U/L ALT 10 (4-34) U/L Alkaline Phosphatase 94 (38-126) U/L Total Protein 7.2 (6.3-8.2) g/dL Albumin 4.2 (3.5-5.0) g/dL Disposition Clinical Impression: Abscess, Encounter for incision and drainage procedure, Cellulitis Narrative: 46-year-old presents with 6 days of swelling to the right thigh after insulin pump was discontinued. She's been on doxycycline since Monday. Incision and drainage was performed a moderate amount of purulent fluid was expressed. Culture was sent. Patient was directed to continue her doxycycline and follow up with Dr. North. I did speak with Dr. North was agreeable to this plan of care. There is no evidence of leukocytosis and patient is afebrile. Patient is agreeable to this plan of care case discussed with Dr. Cole Disposition: HOME SELF-CARE Condition: Good Instructions (If sedation given, give patient instructions): Abscess Incision and Drainage (ED), Abscess (ED) Additional Instructions: Return to the emergency room with any new or concerning symptoms including increased pain, swelling or fevers. Continue the antibiotics as prescribed. Follow-up with Dr. North's office next week as scheduled. Is patient prescribed a controlled substance at d/c from ED?: No Referrals: Babar North MD [Primary Care Provider] - 1-2 days Time of Disposition: 11:14
[2022-02-11] MEDS ORDERED: LIDOCAINE-PRILOCAINE 2.5-2.5% CREAM 5 GM TUBE TOPICAL STA (10:00)
[2022-02-11] MEDS ORDERED: MORPHINE SULFATE 4 MG/ML SYRINGE IVP STA (10:01)
[2022-02-11] MEDS ORDERED: LIDOCAINE 1% INJ 10MG/ML (5 ML VIAL-PF) SQ ONE (10:20)
[2022-02-11 10:43] LABS: ALT 10 U/L (4-34); AST 16 U/L (14-36); African American GFR (CKD) >90 (>60 ml/min/1.73 sqM); Albumin 4.2 g/dL (3.5-5.0); Alkaline Phosphatase 94 U/L (38-126); Anion Gap 10 mmol/L; Blood Urea Nitrogen 6 mg/dL (7-17); Calcium 9.2 mg/dL (8.4-10.2); Carbon Dioxide 24 mmol/L (22-30); Chloride 102 mmol/L (98-107); Glucose 303 mg/dL (74-99); Non-African American GFR(CKD) >90 (>60 ml/min/1.73 sqM); Potassium 4.7 mmol/L (3.5-5.1); Sodium 136 mmol/L (137-145); Total Bilirubin 0.8 mg/dL (0.2-1.3); Total Protein 7.2 g/dL (6.3-8.2)
[2022-02-11 11:02] LABS: Basophils % (A) 0 %; Eosinophils # (A) 0.1 k/uL (0-0.7); Eosinophils % (A) 1 %; HCT 40.6 % (34.0-46.0); HGB 13.6 gm/dL (11.4-16.0); Lymphocytes # (A) 1.7 k/uL (1.0-4.8); Lymphocytes % (A) 21 %; MCH 31.7 pg (25.0-35.0); MCHC 33.5 g/dL (31.0-37.0); MCV 94.5 fL (80.0-100.0); Mean Platelet Volume 8.8; Monocytes # (A) 0.3 k/uL (0-1.0); Monocytes % (A) 3 %; Neutrophils # (A) 5.6 k/uL (1.3-7.7); Neutrophils % (A) 72 %; Platelet Count 235 k/uL (150-450); RDW 12.6 % (11.5-15.5); WBC 7.8 k/uL (3.8-10.6)
== END 2022-02-11 12:00 | disposition home or self-care (01) ==
LOC: EC 09:38
DX: L02.415 Cutaneous abscess of right lower limb (principal); L03.115 Cellulitis of right lower limb; E11.9 Type 2 diabetes mellitus without complications; I10 Essential (primary) hypertension; Z79.4 Long term (current) use of insulin; Z88.2 Allergy status to sulfonamides; Z87.442 Personal history of urinary calculi; Z87.440 Personal history of urinary (tract) infections; Z90.49 Acquired absence of other specified parts of digestive tract; Z90.710 Acquired absence of both cervix and uterus
CPT/HCPCS: 99283; 96374; 10060; 36415; 80053; 85025; 87070; 87205; J2270; J2001

== ENCOUNTER → 2022-06-01 | Outpatient (CLI) | payer OTHER ==
--- NOTE | 2022-06-01 15:13 | US ---
EXAMINATION TYPE: US venous doppler duplex LE LT DATE OF EXAM: 06/01/2022 2:59 PM COMPARISON: NONE CLINICAL HISTORY: 46-year-old female R22.42 LOCALIZED SWELLING, MASS AND LUMP, LEFT LOW. Left knee pa in SIDE PERFORMED: Left TECHNIQUE: The lower extremity deep venous system is examined utilizing real time linear array sonog tahir with graded compression, doppler sonography and color-flow sonography. FINDINGS: VESSELS IMAGED: Common Femoral Vein Deep Femoral Vein Greater Saphenous Vein * Femoral Vein Popliteal Vein Small Saphenous Vein * Proximal Calf Veins (* superficial vessels) Left Leg: Appears negative for DVT IMPRESSION: No evidence for DVT within the left lower extremity imaged from the groin to the upper calf.
== END | disposition home or self-care (01) ==
LOC: RADUSWWP 14:36
PROVIDERS: ATTEND Internal Medicine Geriatric Medicine
DX: R22.42 Localized swelling, mass and lump, left lower limb (principal)

== ENCOUNTER → 2022-10-14 | Outpatient (CLI) | payer OTHER ==
[2022-10-14 20:15] LABS: ALT 12 U/L (8-44); AST 15 U/L (13-35); African American GFR (CKD) 116.8 (60.0-200.0); Albumin 4.6 g/dL (3.8-4.9); Albumin/Globulin Ratio 1.99 (1.60-3.17); Alkaline Phosphatase 90 U/L (41-126); BUN/Creat Ratio 14.21 Ratio (12.00-20.00); Blood Urea Nitrogen 10.2 mg/dL (9.0-27.0); Calcium 9.5 mg/dL (8.7-10.3); Chloride 102 mmol/L (96-109); Chol/HDL Ratio 3.38 Ratio; Globulin 2.3 g/dL (1.6-3.3); Glucose 171 mg/dL (70-110); LDL Cholesterol,Calculated 129.6 mg/dL (0.0-131.0); Non-African American GFR(CKD) 100.8 (60.0-200.0); Potassium 4.5 mmol/L (3.5-5.5); Sodium 138 mmol/L (135-145); Total Protein 6.9 g/dL (6.2-8.2)
== END | disposition home or self-care (01) ==
LOC: LABWHC1 08:56
DX: E10.9 Type 1 diabetes mellitus without complications (principal)
CPT/HCPCS: 36415; 80053; 80061; 82043; 82306; 82570; 82607; 83036; 84439; 84443

== ENCOUNTER 2024-08-23 07:30 | Inpatient (IN) | payer BC, OTHER ==
[2024-08-23 07:41] LABS: Glucose,Whole Blood >600 mg/dL (70-110)
[2024-08-23] MEDS ORDERED: DEXTROSE 50% SYRINGE 50 ML IVP PRN ×2 (07:50)
[2024-08-23] MEDS ORDERED: Magnesium Replacement Protocol 1 EACH MISC MISCELLANE PRN (07:50)
[2024-08-23] MEDS ORDERED: Potassium Replacement Protocol 1 EACH MISC MISCELLANE PRN (07:50)
[2024-08-23] MEDS: SODIUM CHLORIDE 0.9% 2,000 ML IV ONE (08:00)
--- NOTE | 2024-08-23 08:08 | ED ---
General Adult HPI - General Chief complaint: Nausea/Vomiting/Diarrhea Stated complaint: Ketoacidosis Time Seen by Provider: 08/23/24 07:31 Source: patient, RN notes reviewed, old records reviewed Mode of arrival: wheelchair Limitations: no limitations - History of Present Illness Initial comments: This is a 48-year-old female who presents to the emergency department she is a type I diabetic. Patient comes in today not feeling well and vomiting. Patient states on Monday she had some chest pain and also which seem to radiate to her left arm. Patient denies any fever chills or cough. Patient denies any focal abdominal pain. Patient states she has not been feeling well for the last couple of days and symptoms are getting progressively worse. Patient states her sugar is high. Patient denies any dysuria hematuria urinary frequency. Patient is not experiencing chest pain currently. - Related Data Home Medications Medication Instructions Recorded Confirmed Pramlintide Acetate [Symlin Pen 60] 15 mcg SQ AC-TID 11/17/19 02/21/21 Insulin Aspart [NovoLOG Flexpen] See Protocol SQ AC-TID 12/21/20 02/21/21 Insulin Glargine,Hum.rec.anlog 22 unit SQ HS 12/21/20 02/21/21 [Lantus Solostar Pen] Previous Rx's Medication Instructions Recorded Potassium Chloride ER [K-Dur 20] 20 meq PO DAILY #20 tab.[email or web address].prt 12/23/20 Allergies Allergy/AdvReac Type Severity Reaction Status Date / Time Sulfa (Sulfonamide Allergy Anaphylaxis Verified 08/23/24 07:34 Antibiotics) Review of Systems ROS Statement: Those systems with pertinent positive or pertinent negative responses have been documented in the HPI. ROS Other: All systems not noted in ROS Statement are negative. Past Medical History Past Medical History: Diabetes Mellitus, Hypertension, Renal Disease Additional Past Medical History / Comment(s): IDDM type I, kidney stones which pt passed on her own, UTI. History of Any Multi-Drug Resistant Organisms: None Reported Past Surgical History: Cholecystectomy, Hysterectomy, Tonsillectomy, Uterine Ablation Additional Past Surgical History / Comment(s): Laparoscopic surgery for ovarian cysts, colonoscopy with benign polyp. Lithotripsy 05/04,01/03 with stent placement, stent removed Past Anesthesia/Blood Transfusion Reactions: Postoperative Nausea & Vomiting (PONV) Past Psychological History: No Psychological Hx Reported Smoking Status: Never smoker Past Alcohol Use History: None Reported Past Drug Use History: None Reported - Past Family History Mother Family Medical History: Cancer Additional Family Medical History / Comment(s): Renal carcinoma. Father Family Medical History: No Reported History, Hypertension, Renal Disease Additional Family Medical History / Comment(s): Chronic kidney disease. Sister(s) Additional Family Medical History / Comment(s): Patient has 1 sister with no major medical problems. Patient has 3 children with no major medical problems. General Exam - General Exam Comments Initial Comments: GENERAL: Patient is well-developed and well-nourished. Patient is nontoxic and well- hydrated and is in moderate distress. ENT: Neck is soft and supple. No significant lymphadenopathy is noted. Oropharynx is clear. Moist mucous membranes. Neck has full range of motion without eliciting any pain. EYES: The sclera were anicteric and conjunctiva were pink and moist. Extraocular movements were intact and pupils were equal round and reactive to light. Eyelids were unremarkable. PULMONARY: Tachypneic. Good breath sounds bilaterally. No audible rales rhonchi or wheezing was noted. CARDIOVASCULAR: Patient is tachycardic at about 140 beats a minute ABDOMEN: Soft and nontender with normal bowel sounds. SKIN: Skin is clear with no lesions or rashes and otherwise unremarkable. NEUROLOGIC: Patient is alert and oriented x3. Cranial nerves II through XII are grossly intact. Motor and sensory are also intact. Normal speech, volume and content. Symmetrical smile. MUSCULOSKELETAL: Normal extremities with adequate strength and full range of motion. LYMPHATICS: No significant lymphadenopathy is noted PSYCHIATRIC: Normal psychiatric evaluation. Limitations: no limitations Course Vital Signs 08/23/24 08/23/24 08/23/24 07:31 08:26 09:15 Temperature 98.2 F Pulse Rate 144 H 132 H 133 H Respiratory 40 H 24 26 H Rate Blood Pressure 80/20 180/98 179/109 O2 Sat by Pulse 97 100 100 Oximetry 08/23/24 08/23/24 10:18 10:21 Temperature 97.4 F L Pulse Rate 133 H Respiratory 24 Rate Blood Pressure 172/108 O2 Sat by Pulse 100 Oximetry Medical Decision Making - Medical Decision Making EKG is interpreted by myself but EKG shows sinus tachycardia at 130 bpm [place] interval 253 QRS is 95 QT interval is 316 QTc is 396. Patient's EKG shows no ST segment elevation or depression. Was pt. sent in by a medical professional or institution ([facility]AP[facility] Kruger, ELECTRICAL ENGINEERING INTERN, urgent care, hospital, or [facility]...) When possible be specific @ -No Did you speak to anyone other than the patient for history (EMS, parent, family, police, friend...)? What history was obtained from this source @ -No Did you review nursing and triage notes (agree or disagree)? Why? @ -I reviewed and agree with nursing and triage notes Were old charts reviewed (outside hosp., previous admission, EMS record, old EKG, old radiological studies, urgent care reports/EKG's, [facility] records)? Report findings @ -No old charts were reviewed Differential Diagnosis? @ -Differential Dyspnea: Coronary syndrome, arrhythmia, tamponade, asthma, COPD, pulmonary embolism, pneumonia, pneumothorax, pulmonary effusion, anaphylaxis, diabetic ketoacidosis, flailed chest, pulmonary contusion, diaphragmatic rupture, anemia, neuromuscular, this is not meant to be an all-inclusive list. EKG interpreted by me (3pts min.). @ -As above X-rays interpreted by me (1pt min.). @ -Chest x-ray shows no acute abnormality CT interpreted by me (1pt min.). @ -None done U/S interpreted by me (1pt. min.). @ -None done What testing was considered but not performed or refused? (CT, X-rays, U/S, labs)? Why? @ -None What meds were considered but not given or refused? Why? @ -None Did you discuss the management of the patient with other professionals (professionals i.e. SAPNA Kruger, ELECTRICAL ENGINEERING INTERN, lab, RT, psych nurse, social services director, principal web developer, teacher, code enforcement officer, family preservation caseworker)? Give summary @ -[facility] agreed to admit the patient admit the patient wrote admitting orders. I also spoke with Dr. Staples and he will take the patient in the ER Was smoking cessation discussed for >3mins.? @ -No Was critical care preformed (if so, how long)? @ -35 minutes Were there social determinants of health that impacted care today? How? (Homelessness, low income, unemployed, alcoholism, drug addiction, transportation, low edu. Level, literacy, decrease access to med. care, group home, rehab)? @ -No Was there de-escalation of care discussed even if they declined (Discuss DNR or withdrawal of care, Hospice)? DNR status @ -No What co-morbidities impacted this encounter? (DM, HTN, Smoking, COPD, CAD, Cancer, CVA, ARF, Chemo, Hep., AIDS, mental health diagnosis, sleep apnea, morbi d obesity)? @ -None Was patient admitted / discharged? Hospital course, mention meds given and route , prescriptions, significant lab abnormalities, going to OR and other pertinent info. @ -Patient blood sugar was greater than 600. Patient was given 3 L of normal saline P. Patient was also started on insulin. Patient will be admitted to [facility] and go to the unit. Patient has a pH of 6.9. Undiagnosed new problem with uncertain prognosis? @ -No Drug Therapy requiring intensive monitoring for toxicity (Heparin, Nitro, Insulin, Cardizem)? @ -No Were any procedures done? @ -No Diagnosis/symptom? @ -Diabetic ketoacidosis Acute, or Chronic, or Acute on Chronic? @ -Acute Uncomplicated (without systemic symptoms) or Complicated (systemic symptoms)? @ -Complicated Side effects of treatment? @ -No Exacerbation, Progression, or Severe Exacerbation? @ -No Poses a threat to life or bodily function? How? (Chest pain, [place], CA, pneumonia, PE, COPD, DKA, ARF, appy, cholecystitis, CVA, Diverticulitis, Homicidal, Suicidal, threat to staff... and all critical care pts) @ -Yes this can lead to severe dehydration or electrolyte abnormalities leading to possible - Lab Data Result diagrams: 08/23/24 08:00 08/23/24 08:00 Lab Results 08/23/24 08/23/24 08/23/24 Range/Units 07:40 08:00 08:00 WBC 29.9 H (3.8-10.6) k/uL RBC 4.86 (3.80-5.40) m/uL Hgb 15.9 (11.4-16.0) gm/dL Hct 50.5 H (34.0-46.0) % MCV 103.9 H (80.0-100.0) fL MCH 32.7 (25.0-35.0) pg MCHC 31.5 (31.0-37.0) g/dL RDW 12.3 (11.5-15.5) % Plt Count 357 (150-450) k/uL MPV 11.5 Neutrophils % (Manual) 82 % Band Neuts % (Manual) 2 % Lymphocytes % (Manual) 9 % Monocytes % (Manual) 5 % Eosinophils % (Manual) 1 % Basophils % (Manual) 1 % Metamyelocytes % 2 % Myelocytes % 1 % Neutrophils # (Manual) 25.10 H (1.3-7.7) k/uL Lymphocytes # (Manual) 2.69 (1.0-4.8) k/uL Monocytes # (Manual) 1.50 H (0-1.0) k/uL Eosinophils # (Manual) 0.30 (0-0.7) k/uL Basophils # (Manual) 0.30 H (0-0.2) k/uL Metamyelocytes # (Man) 0.60 H (0) k/uL Myelocytes # (Manual) 0.30 H (0) k/uL Nucleated RBCs 0 (0-0) /100 WBC Manual Slide Review Performed Toxic Granulation Present Hypochromasia Moderate Macrocytosis Slight Sample Site ABG pH (7.35-7.45) ABG pCO2 (35-45) mmHg ABG pO2 (83-108) mmHg ABG O2 Saturation (94-97) % Lavon Test Hemoglobin (11.4-16.0) gm/dL FiO2 % Sodium 135 L (137-145) mmol/L Potassium 5.5 H (3.5-5.1) mmol/L Chloride 101 (98-107) mmol/L Carbon Dioxide <5 L* (22-30) mmol/L Anion Gap mmol/L BUN 18 H (7-17) mg/dL Creatinine 1.25 H (0.52-1.04) mg/dL Est GFR (CKD-EPI)AfAm 59 (>60 ml/min/1.73 sqM) Est GFR (CKD-EPI)NonAf 52 (>60 ml/min/1.73 sqM) Glucose 694 H* (74-99) mg/dL POC Glucose (mg/dL) >600 H* (70-110) mg/dL POC Glu Rim Roller Setter ID Gail Ordoñez Phosphorus 8.6 H (2.5-4.5) mg/dL Troponin I (0.000-0.034) ng/mL Urine Color Urine Appearance (Clear) Urine pH (5.0-8.0) Ur Specific [place] (1.001-1.035) Urine Protein (Negative) Urine Glucose (UA) (Negative) Urine Ketones (Negative) Urine Blood (Negative) Urine Nitrite (Negative) Urine Bilirubin (Negative) Urine Urobilinogen (<2.0) mg/dL Ur Leukocyte Esterase (Negative) Acetone, Qual Positive (Negative) 08/23/24 08/23/24 08/23/24 Range/Units 08:14 08:35 09:09 WBC (3.8-10.6) k/uL RBC (3.80-5.40) m/uL Hgb (11.4-16.0) gm/dL Hct (34.0-46.0) % MCV (80.0-100.0) fL MCH (25.0-35.0) pg MCHC (31.0-37.0) g/dL RDW (11.5-15.5) % Plt Count (150-450) k/uL MPV Neutrophils % (Manual) % Band Neuts % (Manual) % Lymphocytes % (Manual) % Monocytes % (Manual) % Eosinophils % (Manual) % Basophils % (Manual) % Metamyelocytes % % Myelocytes % % Neutrophils # (Manual) (1.3-7.7) k/uL Lymphocytes # (Manual) (1.0-4.8) k/uL Monocytes # (Manual) (0-1.0) k/uL Eosinophils # (Manual) (0-0.7) k/uL Basophils # (Manual) (0-0.2) k/uL Metamyelocytes # (Man) (0) k/uL Myelocytes # (Manual) (0) k/uL Nucleated RBCs (0-0) /100 WBC Manual Slide Review Toxic Granulation Hypochromasia Macrocytosis Sample Site L Rad ABG pH 6.94 L* (7.35-7.45) ABG pCO2 <15 L* (35-45) mmHg ABG pO2 142 H (83-108) mmHg ABG O2 Saturation 98.2 H (94-97) % Lavon Test Yes Hemoglobin 15.2 (11.4-16.0) gm/dL FiO2 21 % Sodium (137-145) mmol/L Potassium (3.5-5.1) mmol/L Chloride (98-107) mmol/L Carbon Dioxide (22-30) mmol/L Anion Gap mmol/L BUN (7-17) mg/dL Creatinine (0.52-1.04) mg/dL Est GFR (CKD-EPI)AfAm (>60 ml/min/1.73 sqM) Est GFR (CKD-EPI)NonAf (>60 ml/min/1.73 sqM) Glucose (74-99) mg/dL POC Glucose (mg/dL) (70-110) mg/dL POC Glu Rim Roller Setter ID Phosphorus (2.5-4.5) mg/dL Troponin I <0.012 (0.000-0.034) ng/mL Urine Color Colorless Urine Appearance Clear (Clear) Urine pH 5.0 (5.0-8.0) Ur Specific [place] 1.019 (1.001-1.035) Urine Protein Trace H (Negative) Urine Glucose (UA) 4+ H (Negative) Urine Ketones 4+ H (Negative) Urine Blood Negative (Negative) Urine Nitrite Negative (Negative) Urine Bilirubin Negative (Negative) Urine Urobilinogen <2.0 (<2.0) mg/dL Ur Leukocyte Esterase Negative (Negative) Acetone, Qual (Negative) 08/23/24 Range/Units 09:38 WBC (3.8-10.6) k/uL RBC (3.80-5.40) m/uL Hgb (11.4-16.0) gm/dL Hct (34.0-46.0) % MCV (80.0-100.0) fL MCH (25.0-35.0) pg MCHC (31.0-37.0) g/dL RDW (11.5-15.5) % Plt Count (150-450) k/uL MPV Neutrophils % (Manual) % Band Neuts % (Manual) % Lymphocytes % (Manual) % Monocytes % (Manual) % Eosinophils % (Manual) % Basophils % (Manual) % Metamyelocytes % % Myelocytes % % Neutrophils # (Manual) (1.3-7.7) k/uL Lymphocytes # (Manual) (1.0-4.8) k/uL Monocytes # (Manual) (0-1.0) k/uL Eosinophils # (Manual) (0-0.7) k/uL Basophils # (Manual) (0-0.2) k/uL Metamyelocytes # (Man) (0) k/uL Myelocytes # (Manual) (0) k/uL Nucleated RBCs (0-0) /100 WBC Manual Slide Review Toxic Granulation Hypochromasia Macrocytosis Sample Site ABG pH (7.35-7.45) ABG pCO2 (35-45) mmHg ABG pO2 (83-108) mmHg ABG O2 Saturation (94-97) % Lavon Test Hemoglobin (11.4-16.0) gm/dL FiO2 % Sodium (137-145) mmol/L Potassium (3.5-5.1) mmol/L Chloride (98-107) mmol/L Carbon Dioxide (22-30) mmol/L Anion Gap mmol/L BUN (7-17) mg/dL Creatinine (0.52-1.04) mg/dL Est GFR (CKD-EPI)AfAm (>60 ml/min/1.73 sqM) Est GFR (CKD-EPI)NonAf (>60 ml/min/1.73 sqM) Glucose (74-99) mg/dL POC Glucose (mg/dL) 586 H* (70-110) mg/dL POC Glu Rim Roller Setter ID Sanchez Fleming Phosphorus (2.5-4.5) mg/dL Troponin I (0.000-0.034) ng/mL Urine Color Urine Appearance (Clear) Urine pH (5.0-8.0) Ur Specific [place] (1.001-1.035) Urine Protein (Negative) Urine Glucose (UA) (Negative) Urine Ketones (Negative) Urine Blood (Negative) Urine Nitrite (Negative) Urine Bilirubin (Negative) Urine Urobilinogen (<2.0) mg/dL Ur Leukocyte Esterase (Negative) Acetone, Qual (Negative) Disposition Clinical Impression: Diabetic ketoacidosis Disposition: ADMITTED IP TO THIS [facility] Referrals: Babar North MD [Primary Care Provider] - 1-2 days Time of Disposition: 10:37
[2024-08-23 08:13] LABS: HCT 50.5 % (34.0-46.0); HGB 15.9 gm/dL (11.4-16.0); Hypochromasia Moderate; MCH 32.7 pg (25.0-35.0); MCHC 31.5 g/dL (31.0-37.0); MCV 103.9 fL (80.0-100.0); Macrocytosis Slight; Mean Platelet Volume 11.5; Platelet Count 357 k/uL (150-450); RBC 4.86 m/uL (3.80-5.40); RDW 12.3 % (11.5-15.5); WBC 29.9 k/uL (3.8-10.6)
[2024-08-23 08:21] LABS: ABG Oxygen Saturation 98.2 % (94-97); ABG PO2 142 mmHg (83-108); Allen Test Performed? Yes
[2024-08-23] MEDS: INSULIN REGULAR 100 UNIT in SODIUM CHLORIDE 0.9% 100 ML IV SCH (08:21)
[2024-08-23] MEDS: INSULIN REGULAR BOLUS (FROM DRIP BAG) IV ONE (08:23)
[2024-08-23 08:26] LABS: ABG PCO2 <15 mmHg (35-45); ABG PH 6.94 (7.35-7.45)
[2024-08-23 08:31] LABS: Band Neutrophils % 2 %; Lymphocytes # (M) 2.69 k/uL (1.0-4.8); Metamyelocytes % 2 %; Myelocytes % 1 %; Neutrophils % (M) 82 %; Nucleated Red Blood Cells 0 /100 WBC (0-0); Total Cells Counted 200
[2024-08-23 08:32] LABS: Toxic Granulation Present
[2024-08-23 08:43] LABS: African American GFR (CKD) 59 (>60 ml/min/1.73 sqM); Blood Urea Nitrogen 18 mg/dL (7-17); Chloride 101 mmol/L (98-107); Non-African American GFR(CKD) 52 (>60 ml/min/1.73 sqM); Potassium 5.5 mmol/L (3.5-5.1); Sodium 135 mmol/L (137-145)
[2024-08-23 09:10] LABS: Carbon Dioxide <5 mmol/L (22-30); Glucose 694 mg/dL (74-99)
--- NOTE | 2024-08-23 09:16 | XR ---
EXAMINATION TYPE: XR chest 2V DATE OF EXAM: 08/23/2024 COMPARISON: 03/03/2021 CLINICAL INDICATION: Female, 48 years old with history of Difficulty breathing ; , TECHNIQUE: XR chest 2V views of the chest. FINDINGS: The lungs are clear and there is no pneumothorax, pleural effusion, or focal pneumonia. Heart size normal and no overt failure. Osseous structures intact. Prominent right hilum. IMPRESSION: 1. No acute process. 2. Convex right hilum. Recommend short-term follow-up CT chest. [facility], , 08/23/2024 9:13 AM
[2024-08-23 09:17] LABS: Phosphorus 8.6 mg/dL (2.5-4.5)
[2024-08-23 09:18] LABS: Appearance,Urine Clear (Clear); Bilirubin,Urine Negative (Negative); Blood,Urine Negative (Negative); Color,Urine Colorless; Glucose,Urine (UA) 4+ (Negative); Leukocyte Esterase,Urine Negative (Negative); Nitrite,Urine Negative (Negative); Protein,Urine Trace (Negative); Specific Gravity,Urine 1.019 (1.001-1.035); Urobilinogen,Urine <2.0 mg/dL (<2.0)
[2024-08-23] MEDS: SODIUM CHLORIDE 0.9% 1,000 ML IV SCH (09:25)
[2024-08-23 09:40] LABS: Glucose,Whole Blood 586 mg/dL (70-110)
[2024-08-23 09:50] LABS: Ketones,Urine 4+ (Negative)
[2024-08-23 10:42] LABS: Glucose,Whole Blood 464 mg/dL (70-110)
[2024-08-23 11:45] LABS: Glucose,Whole Blood 339 mg/dL (70-110)
[2024-08-23 12:45] LABS: Glucose,Whole Blood 324 mg/dL (70-110)
[2024-08-23 13:02] LABS: African American GFR (CKD) 79 (>60 ml/min/1.73 sqM); Blood Urea Nitrogen 15 mg/dL (7-17); Chloride 117 mmol/L (98-107); Glucose 341 mg/dL (74-99); Non-African American GFR(CKD) 69 (>60 ml/min/1.73 sqM); Potassium 5.2 mmol/L (3.5-5.1); Sodium 144 mmol/L (137-145)
[2024-08-23 13:38] LABS: Glucose,Whole Blood 263 mg/dL (70-110)
[2024-08-23 14:07] LABS: Carbon Dioxide <5 mmol/L (22-30)
[2024-08-23] MEDS: D5-0.45% NACL WITH KCL 20MEQ/L 1,000 ML IV SCH (14:15)
[2024-08-23 14:55] LABS: Glucose,Whole Blood 201 mg/dL (70-110)
[2024-08-23 16:00] LABS: Glucose,Whole Blood 190 mg/dL (70-110)
--- NOTE | 2024-08-23 16:19 | P.CNPUL ---
History of Present Illness Consult date: 08/23/24 Chief complaint: DKA History of present illness: This is a 48-year-old female patient, type I diabetic, coming in for DKA. The patient was utilizing insulin pump and she was switched to a long-acting insulin. Exact dose is not known as the patient is currently encephalopathic and the mother is not aware of her details of her treatment. The patient is coming in with encephalopathy, tachycardia, tachypnea, Kussmaul breathing, severe metabolic acidosis difficult of DKA with a serum bicarb less than 5 and positive acetones. Initial blood sugar was above 600. Potassium level was at 5.5. Sodium level was at 135. The white cell count was 29.9 with a hemoglobin 15.9 and platelet count of 357. The patient was tachycardic, sinus tachycardia with a heart rate of 138. Afebrile. Chest x-ray is free of any acute pulmonary infiltrates. She is currently on room air oxygen. UA is showing positive for glucose and plus for ketones in the serum acetone was also positive. The patient is already received a total of 3 units of IV fluids in the emergency and should be placed on normal saline at rate of 200 cc an hour and insulin drip is running at 7 units an hour. No other history is available. According to the mother, she was encountering some dry heaves and nausea and episodic emesis at home prior to her coming into the hospital. Review of Systems ROS unobtainable: due to mental status Past Medical History Past Medical History: Diabetes Mellitus, Hypertension, Renal Disease Additional Past Medical History / Comment(s): IDDM type I, kidney stones which pt passed on her own, UTI. History of Any Multi-Drug Resistant Organisms: None Reported Past Surgical History: Cholecystectomy, Hysterectomy, Tonsillectomy, Uterine Ablation Additional Past Surgical History / Comment(s): Laparoscopic surgery for ovarian cysts, colonoscopy with benign polyp. Lithotripsy 05/04,01/03 with stent placement, stent removed Past Anesthesia/Blood Transfusion Reactions: No Reported Reaction, Postoperative Nausea & Vomiting (PONV) Past Psychological History: No Psychological Hx Reported Additional Psychological History / Comment(s): Pt resides with her spouse and children. She is independent. Smoking Status: Never smoker Past Alcohol Use History: None Reported Additional Past Alcohol Use History / Comment(s): Patient is a lifelong nonsmoker, no marijuana or illicit drug use. Past Drug Use History: None Reported - Past Family History Mother Family Medical History: Cancer Additional Family Medical History / Comment(s): Renal carcinoma. Father Family Medical History: No Reported History, Hypertension, Renal Disease Additional Family Medical History / Comment(s): Chronic kidney disease. Sister(s) Additional Family Medical History / Comment(s): Patient has 1 sister with no major medical problems. Patient has 3 children with no major medical problems. Medications and Allergies Home Medications Medication Instructions Recorded Confirmed Type INSULIN ASPART (NovoLOG) [NovoLOG See Protocol SQ ACHS 08/23/24 08/23/24 History (formulary)] Allergies Allergy/AdvReac Type Severity Reaction Status Date / Time Sulfa (Sulfonamide Allergy Anaphylaxis Verified 08/23/24 11:04 Antibiotics) Physical Exam Vitals: Vital Signs Temp Pulse Resp BP Pulse Ox 08/23/24 15:10 128 H 23 123/82 100 08/23/24 15:00 98.0 F 130 H 25 H 103/91 100 08/23/24 14:26 99.5 F 137 H 22 138/96 100 08/23/24 14:11 99.5 F 137 H 22 138/96 100 08/23/24 12:13 96.8 F L 138 H 20 136/104 100 08/23/24 11:31 95.9 F L 133 H 20 148/95 99 08/23/24 11:04 95.5 F L 132 H 24 166/107 100 08/23/24 10:21 97.4 F L 08/23/24 10:18 133 H 24 172/108 100 08/23/24 09:15 133 H 26 H 179/109 100 08/23/24 08:26 132 H 24 180/98 100 08/23/24 07:31 98.2 F 144 H 40 H 80/20 97 Intake and Output 08/23/24 08/23/24 08/23/24 06:59 14:59 22:59 Intake Total 42.014 150 Output Total 1700 45 Balance -1657.986 105 Intake: IV 150 D5-0.45% NaCl with KCl 150 20Meq/l 1,000 ml @ 150 mls/hr IV .[id number] [facility] Rx# :[id number] Intake, IV Titration 42.014 Amount Insulin Regular 100 unit 42.014 In Sodium Chloride 0.9% 100 ml @ 0.1 UNITS/KG/HR 7.101 mls/hr IV .[id number] [facility] Rx#:[id number] Output: Urine 1700 45 Uretheral (Cleary) 700 Other: Weight 70.307 kg The patient appears ill looking along with Kussmaul breathing. She is encephalopathic. Unable to volunteer any history at this point in time. Heavy deep breathing. The mucous membranes are excessively dry secondary to intrav ascular volume depletion and dehydration. Head exam is unremarkable. No scleral icterus or corneal arcus noted. Neck is without jugular venous distension, thyromegaly, or carotid bruits. Carotid upstrokes are brisk bilaterally. Lungs are clear to auscultation and percussion. Cardiac exam reveals the PMI to be normally sized and situated. Rhythm sinus and the patient is tachycardic, sinus tachycardia. First and second heart sounds normal. No murmurs, rubs or gallops. Abdominal exam reveals normal bowel sounds, no masses, no organomegaly and no aortic enlargement. Extremities are nonedematous and both femoral and pedal pulses are normal. Examination of the skin revealed no evidence of significant rashes, suspicious appearing nevi or other concerning lesions. Neurologically, the patient is moving all 4 extremities and withdraws to painful stimulation. Currently encephalopathic secondary to severe DKA and acidosis. Results - Laboratory Findings CBC and BMP: 08/23/24 08:00 08/23/24 12:17 ABG ABG pH 6.94 (7.35-7.45) L* 08/23/24 08:14 ABG pCO2 <15 mmHg (35-45) L* 08/23/24 08:14 ABG pO2 142 mmHg (83-108) H 08/23/24 08:14 ABG O2 Saturation 98.2 % (94-97) H 08/23/24 08:14 Abnormal lab findings: Abnormal Labs 08/23/24 08/23/24 08/23/24 07:40 08:00 08:00 WBC 29.9 H Hct 50.5 H MCV 103.9 H Neutrophils # (Manual) 25.10 H Monocytes # (Manual) 1.50 H Basophils # (Manual) 0.30 H Metamyelocytes # (Man) 0.60 H Myelocytes # (Manual) 0.30 H ABG pH ABG pCO2 ABG pO2 ABG O2 Saturation Sodium 135 L Potassium 5.5 H Chloride Carbon Dioxide <5 L* BUN 18 H Creatinine 1.25 H Glucose 694 H* POC Glucose (mg/dL) >600 H* Phosphorus 8.6 H Urine Protein Urine Glucose (UA) Urine Ketones 08/23/24 08/23/24 08/23/24 08:14 09:09 09:38 WBC Hct MCV Neutrophils # (Manual) Monocytes # (Manual) Basophils # (Manual) Metamyelocytes # (Man) Myelocytes # (Manual) ABG pH 6.94 L* ABG pCO2 <15 L* ABG pO2 142 H ABG O2 Saturation 98.2 H Sodium Potassium Chloride Carbon Dioxide BUN Creatinine Glucose POC Glucose (mg/dL) 586 H* Phosphorus Urine Protein Trace H Urine Glucose (UA) 4+ H Urine Ketones 4+ H 08/23/24 08/23/24 08/23/24 10:41 11:43 12:17 WBC Hct MCV Neutrophils # (Manual) Monocytes # (Manual) Basophils # (Manual) Metamyelocytes # (Man) Myelocytes # (Manual) ABG pH ABG pCO2 ABG pO2 ABG O2 Saturation Sodium Potassium Chloride Carbon Dioxide BUN Creatinine Glucose POC Glucose (mg/dL) 464 H 339 H Phosphorus 4.9 H Urine Protein Urine Glucose (UA) Urine Ketones 08/23/24 08/23/24 08/23/24 12:17 12:41 13:36 WBC Hct MCV Neutrophils # (Manual) Monocytes # (Manual) Basophils # (Manual) Metamyelocytes # (Man) Myelocytes # (Manual) ABG pH ABG pCO2 ABG pO2 ABG O2 Saturation Sodium Potassium 5.2 H Chloride 117 H Carbon Dioxide <5 L* BUN Creatinine Glucose 341 H POC Glucose (mg/dL) 324 H 263 H Phosphorus Urine Protein Urine Glucose (UA) Urine Ketones 08/23/24 08/23/24 14:54 15:57 WBC Hct MCV Neutrophils # (Manual) Monocytes # (Manual) Basophils # (Manual) Metamyelocytes # (Man) Myelocytes # (Manual) ABG pH ABG pCO2 ABG pO2 ABG O2 Saturation Sodium Potassium Chloride Carbon Dioxide BUN Creatinine Glucose POC Glucose (mg/dL) 201 H 190 H Phosphorus Urine Protein Urine Glucose (UA) Urine Ketones - Diagnostic Findings Chest x-ray: image reviewed Assessment and Plan Plan: Acute DKA with severe anion gap metabolic acidosis Hyperglycemia secondary to above Type 1 diabetes mellitus, previous treated with insulin pump, currently using long-acting insulin for blood sugar control. Suspect poorly controlled blood sugar on outpatient basis. Sinus tachycardia Severe dehydration Acute kidney injury secondary to above Encephalopathy secondary to above Leukocytosis, likely reactive secondary to DKA Hypertension, history of Nephrolithiasis, along with history of lithotripsy and insertion and removal of ureteral stents Plan Admit this patient to the intensive care unit DKA protocol Normal saline at rate of 200 cc an hour to be switched to D5 half-normal saline monitor blood sugars drop less than 300 Insulin drip at 7 units an hour and titrate according to the blood sugar. Will do hourly blood sugar monitoring Electrolytes every 4 hours Monitor white cell count Monitor renal function Monitor anion gap Monitor hemodynamics Admit to the intensive care
[2024-08-23 17:05] LABS: Glucose,Whole Blood 155 mg/dL (70-110)
--- NOTE | 2024-08-23 17:14 | P.HPIM ---
History of Present Illness H&P Date: 08/23/24 Chief Complaint: Altered mental status Patient is a 48-year-old female with a known history of diabetes type 1, history of renal stones which she passed on her wound, history of UTI and hypertension. Patient presents to ER with complaints of nausea vomiting and generalized pain. Patient started having symptoms nausea and vomiting since Monday. She was on insulin pump previously but currently not using due to incidence cost issues. She has been using subcutaneous insulin long-acting. She is also having increasingly lethargic and weak. Patient was brought to the hospital for further evaluation. Otherwise patient does not have any fever or chills. Was complaining of abdominal pain when she came to the hospital. Patient is quite confused and lethargic and tachycardic and tachypneic. Also having Kussmaul's breathing in the ER. She was found to be in DKA. Started on insulin drip. Laboratory data showed WBC 29.9 hemoglobin 15.9 and platelets 357 ABG showed pH 6.94 pCO2 less than 15 and pO2 142 Sodium 135 potassium 5.5 chloride 101 bicarb less than 5 BUN 18 and creatinine 1.25 and blood sugar 694. Calcium 8.6 and troponin x 1 negative urinalysis sh owed 4+ glucose and 4+ ketones Acetone positive Review of Systems Complete review of systems could not be obtained from the patient except as per HPI ROS unobtainable: due to mental status Past Medical History Past Medical History: Diabetes Mellitus, Hypertension, Renal Disease Additional Past Medical History / Comment(s): IDDM type I, kidney stones which pt passed on her own, UTI. History of Any Multi-Drug Resistant Organisms: None Reported Past Surgical History: Cholecystectomy, Hysterectomy, Tonsillectomy, Uterine Ablation Additional Past Surgical History / Comment(s): Laparoscopic surgery for ovarian cysts, colonoscopy with benign polyp. Lithotripsy 05/04,01/03 with stent placement, stent removed Past Anesthesia/Blood Transfusion Reactions: No Reported Reaction, Postoperative Nausea & Vomiting (PONV) Past Psychological History: No Psychological Hx Reported Additional Psychological History / Comment(s): Pt resides with her spouse and children. She is independent. Smoking Status: Never smoker Past Alcohol Use History: None Reported Additional Past Alcohol Use History / Comment(s): Patient is a lifelong nonsmoker, no marijuana or illicit drug use. Past Drug Use History: None Reported - Past Family History Mother Family Medical History: Cancer Additional Family Medical History / Comment(s): Renal carcinoma. Father Family Medical History: No Reported History, Hypertension, Renal Disease Additional Family Medical History / Comment(s): Chronic kidney disease. Sister(s) Additional Family Medical History / Comment(s): Patient has 1 sister with no major medical problems. Patient has 3 children with no major medical problems. Medications and Allergies Home Medications Medication Instructions Recorded Confirmed Type INSULIN ASPART (NovoLOG) [NovoLOG See Protocol SQ ACHS 08/23/24 08/23/24 History (formulary)] Allergies Allergy/AdvReac Type Severity Reaction Status Date / Time Sulfa (Sulfonamide Allergy Anaphylaxis Verified 08/23/24 11:04 Antibiotics) Physical Exam Vitals: Vital Signs Temp Pulse Resp BP Pulse Ox 08/23/24 16:30 121 H 21 128/84 99 08/23/24 16:00 124 H 23 123/82 100 08/23/24 15:30 130 H 17 123/82 100 08/23/24 15:10 128 H 23 123/82 100 08/23/24 15:00 98.0 F 130 H 25 H 103/91 100 08/23/24 14:26 99.5 F 137 H 22 138/96 100 08/23/24 14:11 99.5 F 137 H 22 138/96 100 08/23/24 12:13 96.8 F L 138 H 20 136/104 100 08/23/24 11:31 95.9 F L 133 H 20 148/95 99 08/23/24 11:04 95.5 F L 132 H 24 166/107 100 08/23/24 10:21 97.4 F L 08/23/24 10:18 133 H 24 172/108 100 08/23/24 09:15 133 H 26 H 179/109 100 08/23/24 08:26 132 H 24 180/98 100 08/23/24 07:31 98.2 F 144 H 40 H 80/20 97 Intake and Output 08/23/24 08/23/24 08/23/24 06:59 14:59 22:59 Intake Total 42.014 150 Output Total 1700 45 Balance -1657.986 105 Intake: IV 150 D5-0.45% NaCl with KCl 150 20Meq/l 1,000 ml @ 150 mls/hr IV .Q6H40M FELIC[facility]O Rx# :[id number] Intake, IV Titration 42.014 Amount Insulin Regular 100 unit 42.014 In Sodium Chloride 0.9% 100 ml @ 0.1 UNITS/KG/HR 7.101 mls/hr IV .[id number] FELICIANO Rx#:[id number] Output: Urine 1700 45 Uretheral (Cleary) 700 Other: Weight 70.307 kg PHYSICAL EXAMINATION: Patient is lying in the bed awake alert but lethargic and drowsy and tachypneic HEENT: Normocephalic. Neck is supple. Pupils reactive. Nostrils clear. Oral cavity is moist. Neck reveals no JVD, carotid bruits, or thyromegaly. CHEST EXAMINATION: Trachea is central. Symmetrical expansion. Lung sutherland clear to auscultation and percussion. CARDIAC: Normal S1, S2 with no gallops. No murmurs ABDOMEN: Soft. Bowel sounds normal. No organomegaly. No abdominal bruits. Extremities: reveal no edema. No clubbing or cyanosis Neurologically awake, alert, oriented x 2-3 lethargic and drowsy. No gross focal deficits noted Skin: No rash or skin lesions. Psychiatric: Coperative. Could not be assessed at this time Musculoskeletal: No joint swelling or deformity. Results CBC & Chem 7: 08/23/24 08:00 08/23/24 12:17 Labs: Abnormal Lab Results - Last 24 Hours (Table) 08/23/24 08/23/24 08/23/24 Range/Units 07:40 08:00 08:00 WBC 29.9 H (3.8-10.6) k/uL Hct 50.5 H (34.0-46.0) % MCV 103.9 H (80.0-100.0) fL Neutrophils # (Manual) 25.10 H (1.3-7.7) k/uL Monocytes # (Manual) 1.50 H (0-1.0) k/uL Basophils # (Manual) 0.30 H (0-0.2) k/uL Metamyelocytes # (Man) 0.60 H (0) k/uL Myelocytes # (Manual) 0.30 H (0) k/uL ABG pH (7.35-7.45) ABG pCO2 (35-45) mmHg ABG pO2 (83-108) mmHg ABG O2 Saturation (94-97) % Sodium 135 L (137-145) mmol/L Potassium 5.5 H (3.5-5.1) mmol/L Chloride (98-107) mmol/L Carbon Dioxide <5 L* (22-30) mmol/L BUN 18 H (7-17) mg/dL Creatinine 1.25 H (0.52-1.04) mg/dL Glucose 694 H* (74-99) mg/dL POC Glucose (mg/dL) >600 H* (70-110) mg/dL Phosphorus 8.6 H (2.5-4.5) mg/dL Urine Protein (Negative) Urine Glucose (UA) (Negative) Urine Ketones (Negative) 08/23/24 08/23/24 08/23/24 Range/Units 08:14 09:09 09:38 WBC (3.8-10.6) k/uL Hct (34.0-46.0) % MCV (80.0-100.0) fL Neutrophils # (Manual) (1.3-7.7) k/uL Monocytes # (Manual) (0-1.0) k/uL Basophils # (Manual) (0-0.2) k/uL Metamyelocytes # (Man) (0) k/uL Myelocytes # (Manual) (0) k/uL ABG pH 6.94 L* (7.35-7.45) ABG pCO2 <15 L* (35-45) mmHg ABG pO2 142 H (83-108) mmHg ABG O2 Saturation 98.2 H (94-97) % Sodium (137-145) mmol/L Potassium (3.5-5.1) mmol/L Chloride (98-107) mmol/L Carbon Dioxide (22-30) mmol/L BUN (7-17) mg/dL Creatinine (0.52-1.04) mg/dL Glucose (74-99) mg/dL POC Glucose (mg/dL) 586 H* (70-110) mg/dL Phosphorus (2.5-4.5) mg/dL Urine Protein Trace H (Negative) Urine Glucose (UA) 4+ H (Negative) Urine Ketones 4+ H (Negative) 08/23/24 08/23/24 08/23/24 Range/Units 10:41 11:43 12:17 WBC (3.8-10.6) k/uL Hct (34.0-46.0) % MCV (80.0-100.0) fL Neutrophils # (Manual) (1.3-7.7) k/uL Monocytes # (Manual) (0-1.0) k/uL Basophils # (Manual) (0-0.2) k/uL Metamyelocytes # (Man) (0) k/uL Myelocytes # (Manual) (0) k/uL ABG pH (7.35-7.45) ABG pCO2 (35-45) mmHg ABG pO2 (83-108) mmHg ABG O2 Saturation (94-97) % Sodium (137-145) mmol/L Potassium (3.5-5.1) mmol/L Chloride (98-107) mmol/L Carbon Dioxide (22-30) mmol/L BUN (7-17) mg/dL Creatinine (0.52-1.04) mg/dL Glucose (74-99) mg/dL POC Glucose (mg/dL) 464 H 339 H (70-110) mg/dL Phosphorus 4.9 H (2.5-4.5) mg/dL Urine Protein (Negative) Urine Glucose (UA) (Negative) Urine Ketones (Negative) 08/23/24 08/23/24 08/23/24 Range/Units 12:17 12:41 13:36 WBC (3.8-10.6) k/uL Hct (34.0-46.0) % MCV (80.0-100.0) fL Neutrophils # (Manual) (1.3-7.7) k/uL Monocytes # (Manual) (0-1.0) k/uL Basophils # (Manual) (0-0.2) k/uL Metamyelocytes # (Man) (0) k/uL Myelocytes # (Manual) (0) k/uL ABG pH (7.35-7.45) ABG pCO2 (35-45) mmHg ABG pO2 (83-108) mmHg ABG O2 Saturation (94-97) % Sodium (137-145) mmol/L Potassium 5.2 H (3.5-5.1) mmol/L Chloride 117 H (98-107) mmol/L Carbon Dioxide <5 L* (22-30) mmol/L BUN (7-17) mg/dL Creatinine (0.52-1.04) mg/dL Glucose 341 H (74-99) mg/dL POC Glucose (mg/dL) 324 H 263 H (70-110) mg/dL Phosphorus (2.5-4.5) mg/dL Urine Protein (Negative) Urine Glucose (UA) (Negative) Urine Ketones (Negative) 08/23/24 08/23/24 08/23/24 Range/Units 14:54 15:57 17:04 WBC (3.8-10.6) k/uL Hct (34.0-46.0) % MCV (80.0-100.0) fL Neutrophils # (Manual) (1.3-7.7) k/uL Monocytes # (Manual) (0-1.0) k/uL Basophils # (Manual) (0-0.2) k/uL Metamyelocytes # (Man) (0) k/uL Myelocytes # (Manual) (0) k/uL ABG pH (7.35-7.45) ABG pCO2 (35-45) mmHg ABG pO2 (83-108) mmHg ABG O2 Saturation (94-97) % Sodium (137-145) mmol/L Potassium (3.5-5.1) mmol/L Chloride (98-107) mmol/L Carbon Dioxide (22-30) mmol/L BUN (7-17) mg/dL Creatinine (0.52-1.04) mg/dL Glucose (74-99) mg/dL POC Glucose (mg/dL) 201 H 190 H 155 H (70-110) mg/dL Phosphorus (2.5-4.5) mg/dL Urine Protein (Negative) Urine Glucose (UA) (Negative) Urine Ketones (Negative) Thrombosis Risk Factor Assmnt - DVT/VTE Prophylaxis DVT/VTE Prophylaxis: Pharmacologic Prophylaxis ordered - Choose All That Apply Any of the Below Risk Factors Present?: Yes Other Risk Factors: No Other congenital or acquired thrombophilia - If yes, enter type in comment: No Assessment and Plan Assessment: Acute diabetic ketoacidosis Anion gap metabolic acidosis Acute metabolic encephalopathy secondary to above Diabetes type 1. Patient was on insulin pump currently on subcu insulin Acute kidney injury likely vasomotor nephropathy Significant leukocytosis EKG showed sinus tachycardia Hypertension History of nephrolithiasis passed on her own GI and DVT prophy with Pepcid and heparin subcu Plan: Patient will be continued on IV hydration with normal saline at 200 cc/h. Started on insulin drip and continue until anion gap closes. Continue to monitor BMP every 4 hours. Chest x-ray. Negative for infection. Follow-up urinalysis. Check amylase and lipase levels. Continue symptomatic management for nausea and vomiting. Follow-up closely. Critical care team is on board. Patient is being transferred to MICU. Time with Patient: Greater than 30
[2024-08-23 17:42] LABS: Amylase 44 U/L (30-110); Lipase 59 U/L (23-300)
[2024-08-23 18:13] LABS: Glucose,Whole Blood 132 mg/dL (70-110)
[2024-08-23] MEDS: ONDANSETRON 4 MG/2 ML VIAL IVP STA (18:17)
[2024-08-23 18:35] LABS: Appearance,Urine Clear (Clear); Bacteria,Urine Rare /hpf; Bilirubin,Urine Negative (Negative); Blood,Urine Small (Negative); Budding Yeast,Urine Moderate /hpf; Color,Urine Colorless; Glucose,Urine (UA) 1+ (Negative); Hyaline Casts,Urine 3 /lpf (0-2); Leukocyte Esterase,Urine Negative (Negative); Mucus,Urine Rare /hpf; Nitrite,Urine Negative (Negative); PH, Urine 5.5 (5.0-8.0); Protein,Urine Trace (Negative); RBC,Urine 9 /hpf (0-5); Specific Gravity,Urine 1.014 (1.001-1.035); Squamous Epithelial Cell,Urine 1 /hpf (0-4); Urobilinogen,Urine <2.0 mg/dL (<2.0); WBC,Urine 2 /hpf (0-5)
[2024-08-23 18:39] LABS: Ketones,Urine 4+ (Negative)
[2024-08-23 18:59] LABS: Glucose,Whole Blood 111 mg/dL (70-110)
[2024-08-23 18:59] LABS: African American GFR (CKD) >90 (>60 ml/min/1.73 sqM); Anion Gap 13 mmol/L; Blood Urea Nitrogen 13 mg/dL (7-17); Calcium 9.5 mg/dL (8.4-10.2); Chloride 122 mmol/L (98-107); Glucose 133 mg/dL (74-99); Non-African American GFR(CKD) >90 (>60 ml/min/1.73 sqM); Phosphorus 1.4 mg/dL (2.5-4.5); Potassium 4.4 mmol/L (3.5-5.1); Sodium 141 mmol/L (137-145)
[2024-08-23 19:14] LABS: Carbon Dioxide 6 mmol/L (22-30)
[2024-08-23 20:09] LABS: Glucose,Whole Blood 135 mg/dL (70-110)
[2024-08-23] MEDS: FAMOTIDINE 20 MG/2 ML VIAL IV SCH (20:18)
[2024-08-23 21:09] LABS: Glucose,Whole Blood 167 mg/dL (70-110)
[2024-08-23 22:08] LABS: Glucose,Whole Blood 207 mg/dL (70-110)
[2024-08-23 22:18] LABS: African American GFR (CKD) >90 (>60 ml/min/1.73 sqM); Blood Urea Nitrogen 11 mg/dL (7-17); Chloride 120 mmol/L (98-107); Glucose 189 mg/dL (74-99); Non-African American GFR(CKD) >90 (>60 ml/min/1.73 sqM); Phosphorus 2.5 mg/dL (2.5-4.5); Potassium 4.8 mmol/L (3.5-5.1); Sodium 137 mmol/L (137-145)
[2024-08-23 22:22] LABS: Carbon Dioxide <5 mmol/L (22-30)
[2024-08-23 23:05] LABS: Glucose,Whole Blood 213 mg/dL (70-110)
[2024-08-23] MEDS: ACETAMINOPHEN TAB 325 MG TAB PO PRN (23:48)
[2024-08-23] MEDS: SODIUM BICARB 8.4% 50 ML SYR (1 MEQ/ML) IV STA (23:49)
[2024-08-23] MEDS: HEPARIN SODIUM,PORCINE 5,000 UNIT/ML 1 ML VIAL SQ SCH (23:49)
[2024-08-24 00:01] LABS: Glucose,Whole Blood 230 mg/dL (70-110)
[2024-08-24 01:16] LABS: Glucose,Whole Blood 282 mg/dL (70-110)
[2024-08-24 02:21] LABS: Glucose,Whole Blood 317 mg/dL (70-110)
[2024-08-24 03:12] LABS: Glucose,Whole Blood 273 mg/dL (70-110)
[2024-08-24 03:51] LABS: African American GFR (CKD) >90 (>60 ml/min/1.73 sqM); Anion Gap 13 mmol/L; Blood Urea Nitrogen 9 mg/dL (7-17); Chloride 116 mmol/L (98-107); Glucose 287 mg/dL (74-99); Non-African American GFR(CKD) >90 (>60 ml/min/1.73 sqM); Phosphorus 2.3 mg/dL (2.5-4.5); Potassium 4.4 mmol/L (3.5-5.1); Sodium 136 mmol/L (137-145)
[2024-08-24 04:01] LABS: Carbon Dioxide 7 mmol/L (22-30)
[2024-08-24 04:31] LABS: Glucose,Whole Blood 251 mg/dL (70-110)
[2024-08-24 05:19] LABS: Glucose,Whole Blood 240 mg/dL (70-110)
[2024-08-24 06:22] LABS: Glucose,Whole Blood 193 mg/dL (70-110)
[2024-08-24 07:00] LABS: Glucose,Whole Blood 199 mg/dL (70-110)
[2024-08-24 07:54] LABS: Glucose,Whole Blood 145 mg/dL (70-110)
[2024-08-24 08:43] LABS: African American GFR (CKD) >90 (>60 ml/min/1.73 sqM); Anion Gap 9 mmol/L; Blood Urea Nitrogen 8 mg/dL (7-17); Carbon Dioxide 12 mmol/L (22-30); Chloride 117 mmol/L (98-107); Glucose 133 mg/dL (74-99); Non-African American GFR(CKD) >90 (>60 ml/min/1.73 sqM); Potassium 3.5 mmol/L (3.5-5.1); Sodium 138 mmol/L (137-145)
[2024-08-24 08:55] LABS: Phosphorus 1.1 mg/dL (2.5-4.5)
[2024-08-24 09:02] LABS: Glucose,Whole Blood 117 mg/dL (70-110)
[2024-08-24 09:52] LABS: Glucose,Whole Blood 115 mg/dL (70-110)
[2024-08-24] MEDS ORDERED: Phosphorus Replacement Protoco 1 EACH MISC MISCELLANE PRN (10:51)
[2024-08-24 11:01] LABS: Glucose,Whole Blood 152 mg/dL (70-110)
[2024-08-24] MEDS: ONDANSETRON 4 MG/2 ML VIAL IVP PRN (11:54)
[2024-08-24 11:57] LABS: Glucose,Whole Blood 190 mg/dL (70-110)
[2024-08-24] MEDS: POTAS-SOD-PHOS 280-160-250 MG 1 EACH PACKET PO ONE (12:13)
[2024-08-24 13:07] LABS: Glucose,Whole Blood 200 mg/dL (70-110)
[2024-08-24 13:13] LABS: Basophils % (A) 0 %; Eosinophils # (A) 0.1 k/uL (0-0.7); Eosinophils % (A) 1 %; HCT 37.6 % (34.0-46.0); Lymphocytes # (A) 1.5 k/uL (1.0-4.8); Lymphocytes % (A) 16 %; MCH 31.7 pg (25.0-35.0); Monocytes # (A) 0.4 k/uL (0-1.0); Monocytes % (A) 5 %; Neutrophils # (A) 7.4 k/uL (1.3-7.7); Neutrophils % (A) 78 %; RDW 12.6 % (11.5-15.5); WBC 9.5 k/uL (3.8-10.6)
[2024-08-24 13:17] LABS: HGB 12.1 gm/dL (11.4-16.0); MCV 98.9 fL (80.0-100.0); Platelet Count 148 k/uL (150-450)
--- NOTE | 2024-08-24 13:53 | P.PN ---
Subjective Progress Note Date: 08/24/24 This is a 48-year-old female patient, type I diabetic, coming in for DKA. The patient was utilizing insulin pump and she was switched to a long-acting insulin. Exact dose is not known as the patient is currently encephalopathic and the mother is not aware of her details of her treatment. The patient is coming in with encephalopathy, tachycardia, tachypnea, Kussmaul breathing, severe metabolic acidosis difficult of DKA with a serum bicarb less than 5 and positive acetones. Initial blood sugar was above 600. Potassium level was at 5.5. Sodium level was at 135. The white cell count was 29.9 with a hemoglobin 15.9 and platelet count of 357. The patient was tachycardic, sinus tachycardia with a heart rate of 138. Afebrile. Chest x-ray is free of any acute pulmonary infiltrates. She is currently on room air oxygen. UA is showing positive for glucose and plus for ketones in the serum acetone was also positive. The patient is already received a total of 3 units of IV fluids in the emergency and should be placed on normal saline at rate of 200 cc an hour and insulin drip is running at 7 units an hour. No other history is available. According to the mother, she was encountering some dry heaves and nausea and episodic emesis at home prior to her coming into the hospital. 08/24/2024 the patient is still being treated for DKA. The patient is on D5 half-normal saline at rate of 150 cc an hour. Insulin drip is at 1.2 units an hour. Most recent electrolytes done from this morning shows that the gap is closed. The gap is down to 9. This patient serum bicarb is at 12. Sodium is at 138 and a potassium less than 3.5. White cell count has dropped to 9.5 and he will 12.1 and the patient is awake and alert and communicating. No nausea vomiting or abdominal pain. No altered mentation. Sinus tachycardia is also recovered. Objective - Vital Signs Vital signs: Vital Signs Temp 97.6 F 08/24/24 08:00 Pulse 94 08/24/24 10:00 Resp 16 08/24/24 10:00 BP 136/81 08/24/24 10:00 Pulse Ox 99 08/24/24 10:00 FiO2 Intake & Output 08/23/24 08/24/24 08/24/24 18:59 06:59 18:59 Intake Total 049.213 8570.661 690.066 Output Total 1890 1460 200 Balance -1216.122 360.661 490.066 Weight 70.307 kg 68.5 kg Intake: IV 600 1800 600 D5-0.45% NaCl with KCl 600 1800 600 20Meq/l 1,000 ml @ 150 mls/hr IV .Q6H40M [facility]IC[facility] Rx# :[id number] Intake, IV Titration 73.878 20.661 90.066 Amount Insulin Regular 100 unit 73.878 20.661 90.066 In Sodium Chloride 0.9% 100 ml @ 0.1 UNITS/KG/HR 7.101 mls/hr IV .[id number] FELIC[facility]O Rx#:[id number] Output: Urine 1890 1460 200 Uretheral (Cleary) 700 Other: Voiding Method Indwelling Catheter Indwelling Catheter Indwelling Catheter - Exam The patient appears awake and alert and communicating. Head exam is unremarkable. No scleral icterus or corneal arcus noted. Neck is without jugular venous distension, thyromegaly, or carotid bruits. Carotid upstrokes are brisk bilaterally. Lungs are clear to auscultation and percussion. Cardiac exam reveals the PMI to be normally sized and situated. Rhythm sinus . First and second heart sounds normal. No murmurs, rubs or gallops. Abdominal exam reveals normal bowel sounds, no masses, no organomegaly and no aortic enlargement. Extremities are nonedematous and both femoral and pedal pulses are normal. Examination of the skin revealed no evidence of significant rashes, suspicious appearing nevi or other concerning lesions. Neurologically, the patient is awake and alert and the patient does not have any focal neurological deficit. Cranial nerves are essentially intact. - Labs CBC & Chem 7: 08/24/24 12:49 08/24/24 08:20 Labs: Abnormal Lab Results - Last 24 Hours (Table) 08/23/24 08/23/24 08/23/24 Range/Units 11:43 12:17 12:17 Sodium (137-145) mmol/L Potassium 5.2 H (3.5-5.1) mmol/L Chloride 117 H (98-107) mmol/L Carbon Dioxide <5 L* (22-30) mmol/L Glucose 341 H (74-99) mg/dL POC Glucose (mg/dL) 339 H (70-110) mg/dL Phosphorus 4.9 H (2.5-4.5) mg/dL Urine Protein (Negative) Urine Glucose (UA) (Negative) Urine Ketones (Negative) Urine Blood (Negative) Urine RBC (0-5) /hpf Urine Bacteria (None) /hpf Hyaline Casts (0-2) /lpf Urine Mucus (None) /hpf Urine Yeast (Budding) (None) /hpf 08/23/24 08/23/24 08/23/24 Range/Units 12:41 13:36 14:54 Sodium (137-145) mmol/L Potassium (3.5-5.1) mmol/L Chloride (98-107) mmol/L Carbon Dioxide (22-30) mmol/L Glucose (74-99) mg/dL POC Glucose (mg/dL) 324 H 263 H 201 H (70-110) mg/dL Phosphorus (2.5-4.5) mg/dL Urine Protein (Negative) Urine Glucose (UA) (Negative) Urine Ketones (Negative) Urine Blood (Negative) Urine RBC (0-5) /hpf Urine Bacteria (None) /hpf Hyaline Casts (0-2) /lpf Urine Mucus (None) /hpf Urine Yeast (Budding) (None) /hpf 08/23/24 08/23/24 08/23/24 Range/Units 15:57 17:04 18:00 Sodium (137-145) mmol/L Potassium (3.5-5.1) mmol/L Chloride (98-107) mmol/L Carbon Dioxide (22-30) mmol/L Glucose (74-99) mg/dL POC Glucose (mg/dL) 190 H 155 H (70-110) mg/dL Phosphorus (2.5-4.5) mg/dL Urine Protein Trace H (Negative) Urine Glucose (UA) 1+ H (Negative) Urine Ketones 4+ H (Negative) Urine Blood Small H (Negative) Urine RBC 9 H (0-5) /hpf Urine Bacteria Rare H (None) /hpf Hyaline Casts 3 H (0-2) /lpf Urine Mucus Rare H (None) /hpf Urine Yeast (Budding) Moderate H (None) /hpf 08/23/24 08/23/24 08/23/24 Range/Units 18:11 18:26 18:58 Sodium (137-145) mmol/L Potassium (3.5-5.1) mmol/L Chloride 122 H (98-107) mmol/L Carbon Dioxide 6 L* (22-30) mmol/L Glucose 133 H (74-99) mg/dL POC Glucose (mg/dL) 132 H 111 H (70-110) mg/dL Phosphorus 1.4 L (2.5-4.5) mg/dL Urine Protein (Negative) Urine Glucose (UA) (Negative) Urine Ketones (Negative) Urine Blood (Negative) Urine RBC (0-5) /hpf Urine Bacteria (None) /hpf Hyaline Casts (0-2) /lpf Urine Mucus (None) /hpf Urine Yeast (Budding) (None) /hpf 08/23/24 08/23/24 08/23/24 Range/Units 20:08 21:08 21:45 Sodium (137-145) mmol/L Potassium (3.5-5.1) mmol/L Chloride 120 H (98-107) mmol/L Carbon Dioxide <5 L* (22-30) mmol/L Glucose 189 H (74-99) mg/dL POC Glucose (mg/dL) 135 H 167 H (70-110) mg/dL Phosphorus (2.5-4.5) mg/dL Urine Protein (Negative) Urine Glucose (UA) (Negative) Urine Ketones (Negative) Urine Blood (Negative) Urine RBC (0-5) /hpf Urine Bacteria (None) /hpf Hyaline Casts (0-2) /lpf Urine Mucus (None) /hpf Urine Yeast (Budding) (None) /hpf 08/23/24 08/23/24 08/24/24 Range/Units 22:07 23:04 00:00 Sodium (137-145) mmol/L Potassium (3.5-5.1) mmol/L Chloride (98-107) mmol/L Carbon Dioxide (22-30) mmol/L Glucose (74-99) mg/dL POC Glucose (mg/dL) 207 H 213 H 230 H (70-110) mg/dL Phosphorus (2.5-4.5) mg/dL Urine Protein (Negative) Urine Glucose (UA) (Negative) Urine Ketones (Negative) Urine Blood (Negative) Urine RBC (0-5) /hpf Urine Bacteria (None) /hpf Hyaline Casts (0-2) /lpf Urine Mucus (None) /hpf Urine Yeast (Budding) (None) /hpf 08/24/24 08/24/24 08/24/24 Range/Units 01:15 02:19 02:38 Sodium 136 L (137-145) mmol/L Potassium (3.5-5.1) mmol/L Chloride 116 H (98-107) mmol/L Carbon Dioxide 7 L* (22-30) mmol/L Glucose 287 H (74-99) mg/dL POC Glucose (mg/dL) 282 H 317 H (70-110) mg/dL Phosphorus 2.3 L (2.5-4.5) mg/dL Urine Protein (Negative) Urine Glucose (UA) (Negative) Urine Ketones (Negative) Urine Blood (Negative) Urine RBC (0-5) /hpf Urine Bacteria (None) /hpf Hyaline Casts (0-2) /lpf Urine Mucus (None) /hpf Urine Yeast (Budding) (None) /hpf 08/24/24 08/24/24 08/24/24 Range/Units 03:10 04:29 05:17 Sodium (137-145) mmol/L Potassium (3.5-5.1) mmol/L Chloride (98-107) mmol/L Carbon Dioxide (22-30) mmol/L Glucose (74-99) mg/dL POC Glucose (mg/dL) 273 H 251 H 240 H (70-110) mg/dL Phosphorus (2.5-4.5) mg/dL Urine Protein (Negative) Urine Glucose (UA) (Negative) Urine Ketones (Negative) Urine Blood (Negative) Urine RBC (0-5) /hpf Urine Bacteria (None) /hpf Hyaline Casts (0-2) /lpf Urine Mucus (None) /hpf Urine Yeast (Budding) (None) /hpf 08/24/24 08/24/24 08/24/24 Range/Units 06:21 06:59 07:52 Sodium (137-145) mmol/L Potassium (3.5-5.1) mmol/L Chloride (98-107) mmol/L Carbon Dioxide (22-30) mmol/L Glucose (74-99) mg/dL POC Glucose (mg/dL) 193 H 199 H 145 H (70-110) mg/dL Phosphorus (2.5-4.5) mg/dL Urine Protein (Negative) Urine Glucose (UA) (Negative) Urine Ketones (Negative) Urine Blood (Negative) Urine RBC (0-5) /hpf Urine Bacteria (None) /hpf Hyaline Casts (0-2) /lpf Urine Mucus (None) /hpf Urine Yeast (Budding) (None) /hpf 08/24/24 08/24/24 08/24/24 Range/Units 08:20 09:00 09:51 Sodium (137-145) mmol/L Potassium (3.5-5.1) mmol/L Chloride 117 H (98-107) mmol/L Carbon Dioxide 12 L (22-30) mmol/L Glucose 133 H (74-99) mg/dL POC Glucose (mg/dL) 117 H 115 H (70-110) mg/dL Phosphorus 1.1 L (2.5-4.5) mg/dL Urine Protein (Negative) Urine Glucose (UA) (Negative) Urine Ketones (Negative) Urine Blood (Negative) Urine RBC (0-5) /hpf Urine Bacteria (None) /hpf Hyaline Casts (0-2) /lpf Urine Mucus (None) /hpf Urine Yeast (Budding) (None) /hpf Assessment and Plan Plan: Acute DKA with severe anion gap metabolic acidosis, the gap is closed and the patient serum bicarb is at 12 and the patient remains on insulin drip Hyperglycemia secondary to above Type 1 diabetes mellitus, previous treated with insulin pump, currently using long-acting insulin for blood sugar control. Suspect poorly controlled blood sugar on outpatient basis. Sinus tachycardia Severe dehydration Acute kidney injury secondary to above Encephalopathy secondary to above Leukocytosis, likely reactive secondary to DKA Hypertension, history of Nephrolithiasis, along with history of lithotripsy and insertion and removal of ureteral stents Plan DKA protocol and will continue the half-normal saline and insulin drip to the patient serum bicarb is above 18 Continue insulin drip Electrolytes every 4 hours Monitor white cell count, improved Monitor renal function, improved Monitor anion gap, recovered Monitor hemodynamics Will continue to follow and transition this patient to long-acting insulin with Levemir once the serum bicarb improves further.
[2024-08-24 14:11] LABS: Glucose,Whole Blood 229 mg/dL (70-110)
[2024-08-24 14:53] LABS: African American GFR (CKD) >90 (>60 ml/min/1.73 sqM); Anion Gap 8 mmol/L; Blood Urea Nitrogen 6 mg/dL (7-17); Calcium 8.6 mg/dL (8.4-10.2); Carbon Dioxide 12 mmol/L (22-30); Chloride 114 mmol/L (98-107); Glucose 226 mg/dL (74-99); Non-African American GFR(CKD) >90 (>60 ml/min/1.73 sqM); Phosphorus 1.8 mg/dL (2.5-4.5); Potassium 3.9 mmol/L (3.5-5.1); Sodium 134 mmol/L (137-145)
[2024-08-24 15:02] LABS: Glucose,Whole Blood 265 mg/dL (70-110)
[2024-08-24] MEDS: INSULIN ASPART (NovoLOG) 100 UNIT/ML VIAL SQ SCH (15:06)
--- NOTE | 2024-08-24 16:48 | P.PN ---
Subjective Progress Note Date: 08/24/24 Interval History: Patient is a 48-year-old female with a known history of diabetes type 1, history of renal stones which she passed on her wound, history of UTI and hypertension. Patient presents to ER with complaints of nausea vomiting and generalized pain. Patient started having symptoms nausea and vomiting since Monday. She was on insulin pump previously but currently not using due to incidence cost issues. She has been using subcutaneous insulin long-acting. She is also having increasingly lethargic and weak. Patient was brought to the hospital for further evaluation. Otherwise patient does not have any fever or chills. Was complaining of abdominal pain when she came to the hospital. Patient is quite confused and lethargic and tachycardic and tachypneic. Also having Kussmaul's breathing in the ER. She was found to be in DKA. Started on insulin drip. Laboratory data showed WBC 29.9 hemoglobin 15.9 and platelets 357 ABG showed pH 6.94 pCO2 less than 15 and pO2 142 Sodium 135 potassium 5.5 chloride 101 bicarb less than 5 BUN 18 and creatinine 1.25 and blood sugar 694. Calcium 8.6 and troponin x 1 negative urinalysis showed 4+ glucose and 4+ ketones Acetone positive 08/24/2024: Patient was seen and examined today. Encephalopathy has improved, patient currently alert oriented x 4. Remains afebrile, heart rate 85, respiratory rate 20, blood pressure 134/85, saturating 100% on room air. Complains of nausea and poor appetite. CBC unremarkable today mildly elevated low platelet 148. Monitoring BMP, showed low phosphorus 1.8, potassium 3.9. Anion gap 8, CO2 12. Blood glucose 265. Remains on insulin drip per DKA protocol. Assessment and plan: DKA: Anion gap metabolic acidosis Acute metabolic encephalopathy: Resolved Type 1 diabetes mellitus: Acute kidney injury: Leukocytosis Tachycardia Hypertension History of nephrolithiasis Plan: Presented with nausea vomiting abdominal pain for 2 days, poor p.o. intake, was cutting back on insulin, was previously on insulin pump, taken off insulin pump about 2 months ago Home insulin regimen included Lantus 25 units daily plus NovoLog sliding scale ranging 30 to 40 units daily total Continue insulin drip per DKA protocol Monitor electrolytes, monitor BMP, monitor VBG's Continue IV fluids Transition to subcutaneous insulin once able to tolerate p.o. intake and anion gap closed. Currently in MICU, DVT prophylaxis: Subcutaneous heparin Monitor vital signs and labs Labs and medication were reviewed. Continue same treatment. Further recommendations as per clinical course of the patient PHYSICAL EXAMINATION: GENERAL: The patient is A&O x3, NAD HEENT: EOMI, Sclerae anicteric, Moist Mucous membranes Neck: Supple, Non tender, No JVD PULMONARY: Equal breath souds B/L, No wheezing, No crackles. CARDIOVASCULAR: S1, S2 present. No murmurs, rubs, or gallops. ABDOMEN: Soft, nontender, nondistended, normoactive bowel sounds. No guarding or rebound tenderness. MUSCULOSKELETAL: No edema, No cyanosis. No clubbing. Normal ROM. Intact peripheral pulses. EXTREMITIES: No cyanosis, clubbing, or pedal edema. NEUROLOGICAL: CN 2-12 grossly intact. No FND Skin: No Rash REVIEW OF SYSTEMS: CONSTITUTIONAL: No fever or chills. CARDIOVASCULAR: No chest pain, palpitations or syncope. PULMONARY: No shortness of breath, no cough, sore throat. GASTROINTESTINAL: No nausea, vomiting, diarrhea, abdominal pain. : No Dysuria, urgency, frequency. Extremities: No edema. NEUROLOGICAL: No headaches, no weakness, or numbness Dictation was produced using [employer] dictation software. please excuse any grammatical, word or spelling errors. Objective - Vital Signs Vital signs: Vital Signs Temp 97.7 F 08/24/24 12:00 Pulse 85 08/24/24 14:00 Resp 20 08/24/24 14:00 BP 134/85 08/24/24 14:00 Pulse Ox 100 08/24/24 14:00 FiO2 Intake & Output 08/23/24 08/24/24 08/24/24 18:59 06:59 18:59 Intake Total 179.516 0566.661 996.649 Output Total 1890 1460 290 Balance -1216.122 360.661 706.649 Weight 70.307 kg 68.5 kg 68.5 kg Intake: IV 600 1800 900 D5-0.45% NaCl with KCl 600 1800 900 20Meq/l 1,000 ml @ 150 mls/hr IV .[id number] [facility] Rx# :[id number] Intake, IV Titration 73.878 20.661 96.649 Amount Insulin Regular 100 unit 73.878 20.661 96.649 In Sodium Chloride 0.9% 100 ml @ 0.1 UNITS/KG/HR 7.101 mls/hr IV .[id number] [facility] Rx#:[id number] Output: Urine 1890 1460 290 Uretheral (Cleary) 700 Other: Voiding Method Indwelling Catheter Indwelling Catheter Indwelling Catheter - Labs CBC & Chem 7: 08/24/24 12:49 08/24/24 14:22 Labs: Abnormal Lab Results - Last 24 Hours (Table) 08/23/24 08/23/24 08/23/24 Range/Units 17:04 18:00 18:11 Plt Count (150-450) k/uL Sodium (137-145) mmol/L Chloride (98-107) mmol/L Carbon Dioxide (22-30) mmol/L BUN (7-17) mg/dL Glucose (74-99) mg/dL POC Glucose (mg/dL) 155 H 132 H (70-110) mg/dL Phosphorus (2.5-4.5) mg/dL Urine Protein Trace H (Negative) Urine Glucose (UA) 1+ H (Negative) Urine Ketones 4+ H (Negative) Urine Blood Small H (Negative) Urine RBC 9 H (0-5) /hpf Urine Bacteria Rare H (None) /hpf Hyaline Casts 3 H (0-2) /lpf Urine Mucus Rare H (None) /hpf Urine Yeast (Budding) Moderate H (None) /hpf 08/23/24 08/23/24 08/23/24 Range/Units 18:26 18:58 20:08 Plt Count (150-450) k/uL Sodium (137-145) mmol/L Chloride 122 H (98-107) mmol/L Carbon Dioxide 6 L* (22-30) mmol/L BUN (7-17) mg/dL Glucose 133 H (74-99) mg/dL POC Glucose (mg/dL) 111 H 135 H (70-110) mg/dL Phosphorus 1.4 L (2.5-4.5) mg/dL Urine Protein (Negative) Urine Glucose (UA) (Negative) Urine Ketones (Negative) Urine Blood (Negative) Urine RBC (0-5) /hpf Urine Bacteria (None) /hpf Hyaline Casts (0-2) /lpf Urine Mucus (None) /hpf Urine Yeast (Budding) (None) /hpf 08/23/24 08/23/24 08/23/24 Range/Units 21:08 21:45 22:07 Plt Count (150-450) k/uL Sodium (137-145) mmol/L Chloride 120 H (98-107) mmol/L Carbon Dioxide <5 L* (22-30) mmol/L BUN (7-17) mg/dL Glucose 189 H (74-99) mg/dL POC Glucose (mg/dL) 167 H 207 H (70-110) mg/dL Phosphorus (2.5-4.5) mg/dL Urine Protein (Negative) Urine Glucose (UA) (Negative) Urine Ketones (Negative) Urine Blood (Negative) Urine RBC (0-5) /hpf Urine Bacteria (None) /hpf Hyaline Casts (0-2) /lpf Urine Mucus (None) /hpf Urine Yeast (Budding) (None) /hpf 08/23/24 08/24/24 08/24/24 Range/Units 23:04 00:00 01:15 Plt Count (150-450) k/uL Sodium (137-145) mmol/L Chloride (98-107) mmol/L Carbon Dioxide (22-30) mmol/L BUN (7-17) mg/dL Glucose (74-99) mg/dL POC Glucose (mg/dL) 213 H 230 H 282 H (70-110) mg/dL Phosphorus (2.5-4.5) mg/dL Urine Protein (Negative) Urine Glucose (UA) (Negative) Urine Ketones (Negative) Urine Blood (Negative) Urine RBC (0-5) /hpf Urine Bacteria (None) /hpf Hyaline Casts (0-2) /lpf Urine Mucus (None) /hpf Urine Yeast (Budding) (None) /hpf 08/24/24 08/24/24 08/24/24 Range/Units 02:19 02:38 03:10 Plt Count (150-450) k/uL Sodium 136 L (137-145) mmol/L Chloride 116 H (98-107) mmol/L Carbon Dioxide 7 L* (22-30) mmol/L BUN (7-17) mg/dL Glucose 287 H (74-99) mg/dL POC Glucose (mg/dL) 317 H 273 H (70-110) mg/dL Phosphorus 2.3 L (2.5-4.5) mg/dL Urine Protein (Negative) Urine Glucose (UA) (Negative) Urine Ketones (Negative) Urine Blood (Negative) Urine RBC (0-5) /hpf Urine Bacteria (None) /hpf Hyaline Casts (0-2) /lpf Urine Mucus (None) /hpf Urine Yeast (Budding) (None) /hpf 08/24/24 08/24/24 08/24/24 Range/Units 04:29 05:17 06:21 Plt Count (150-450) k/uL Sodium (137-145) mmol/L Chloride (98-107) mmol/L Carbon Dioxide (22-30) mmol/L BUN (7-17) mg/dL Glucose (74-99) mg/dL POC Glucose (mg/dL) 251 H 240 H 193 H (70-110) mg/dL Phosphorus (2.5-4.5) mg/dL Urine Protein (Negative) Urine Glucose (UA) (Negative) Urine Ketones (Negative) Urine Blood (Negative) Urine RBC (0-5) /hpf Urine Bacteria (None) /hpf Hyaline Casts (0-2) /lpf Urine Mucus (None) /hpf Urine Yeast (Budding) (None) /hpf 08/24/24 08/24/24 08/24/24 Range/Units 06:59 07:52 08:20 Plt Count (150-450) k/uL Sodium (137-145) mmol/L Chloride 117 H (98-107) mmol/L Carbon Dioxide 12 L (22-30) mmol/L BUN (7-17) mg/dL Glucose 133 H (74-99) mg/dL POC Glucose (mg/dL) 199 H 145 H (70-110) mg/dL Phosphorus 1.1 L (2.5-4.5) mg/dL Urine Protein (Negative) Urine Glucose (UA) (Negative) Urine Ketones (Negative) Urine Blood (Negative) Urine RBC (0-5) /hpf Urine Bacteria (None) /hpf Hyaline Casts (0-2) /lpf Urine Mucus (None) /hpf Urine Yeast (Budding) (None) /hpf 08/24/24 08/24/24 08/24/24 Range/Units 09:00 09:51 10:59 Plt Count (150-450) k/uL Sodium (137-145) mmol/L Chloride (98-107) mmol/L Carbon Dioxide (22-30) mmol/L BUN (7-17) mg/dL Glucose (74-99) mg/dL POC Glucose (mg/dL) 117 H 115 H 152 H (70-110) mg/dL Phosphorus (2.5-4.5) mg/dL Urine Protein (Negative) Urine Glucose (UA) (Negative) Urine Ketones (Negative) Urine Blood (Negative) Urine RBC (0-5) /hpf Urine Bacteria (None) /hpf Hyaline Casts (0-2) /lpf Urine Mucus (None) /hpf Urine Yeast (Budding) (None) /hpf 08/24/24 08/24/24 08/24/24 Range/Units 11:56 12:49 13:05 Plt Count 148 L D (150-450) k/uL Sodium (137-145) mmol/L Chloride (98-107) mmol/L Carbon Dioxide (22-30) mmol/L BUN (7-17) mg/dL Glucose (74-99) mg/dL POC Glucose (mg/dL) 190 H 200 H (70-110) mg/dL Phosphorus (2.5-4.5) mg/dL Urine Protein (Negative) Urine Glucose (UA) (Negative) Urine Ketones (Negative) Urine Blood (Negative) Urine RBC (0-5) /hpf Urine Bacteria (None) /hpf Hyaline Casts (0-2) /lpf Urine Mucus (None) /hpf Urine Yeast (Budding) (None) /hpf 08/24/24 08/24/24 08/24/24 Range/Units 14:10 14:22 15:00 Plt Count (150-450) k/uL Sodium 134 L (137-145) mmol/L Chloride 114 H (98-107) mmol/L Carbon Dioxide 12 L (22-30) mmol/L BUN 6 L (7-17) mg/dL Glucose 226 H (74-99) mg/dL POC Glucose (mg/dL) 229 H 265 H (70-110) mg/dL Phosphorus 1.8 L (2.5-4.5) mg/dL Urine Protein (Negative) Urine Glucose (UA) (Negative) Urine Ketones (Negative) Urine Blood (Negative) Urine RBC (0-5) /hpf Urine Bacteria (None) /hpf Hyaline Casts (0-2) /lpf Urine Mucus (None) /hpf Urine Yeast (Budding) (None) /hpf
[2024-08-24 17:06] LABS: Glucose,Whole Blood 221 mg/dL (70-110)
[2024-08-24 18:01] LABS: Glucose,Whole Blood 225 mg/dL (70-110)
[2024-08-24 19:39] LABS: African American GFR (CKD) >90 (>60 ml/min/1.73 sqM); Anion Gap 8 mmol/L; Blood Urea Nitrogen 4 mg/dL (7-17); Calcium 8.6 mg/dL (8.4-10.2); Carbon Dioxide 12 mmol/L (22-30); Chloride 114 mmol/L (98-107); Glucose 235 mg/dL (74-99); Non-African American GFR(CKD) >90 (>60 ml/min/1.73 sqM); Phosphorus 1.7 mg/dL (2.5-4.5); Potassium 3.5 mmol/L (3.5-5.1); Sodium 134 mmol/L (137-145)
[2024-08-24 20:33] LABS: Glucose,Whole Blood 213 mg/dL (70-110)
[2024-08-24 21:30] LABS: Glucose,Whole Blood 215 mg/dL (70-110)
[2024-08-24 22:27] LABS: Glucose,Whole Blood 204 mg/dL (70-110)
[2024-08-24 23:22] LABS: Glucose,Whole Blood 218 mg/dL (70-110)
[2024-08-25 00:22] LABS: African American GFR (CKD) >90 (>60 ml/min/1.73 sqM); Anion Gap 5 mmol/L; Blood Urea Nitrogen 3 mg/dL (7-17); Calcium 8.3 mg/dL (8.4-10.2); Carbon Dioxide 15 mmol/L (22-30); Chloride 115 mmol/L (98-107); Glucose 200 mg/dL (74-99); Non-African American GFR(CKD) >90 (>60 ml/min/1.73 sqM); Phosphorus 1.6 mg/dL (2.5-4.5); Potassium 3.3 mmol/L (3.5-5.1); Sodium 135 mmol/L (137-145)
[2024-08-25] MEDS: POTASSIUM CHLORIDE ER 20 MEQ TAB.ER PO SCH ×2 (01:04→21:07)
[2024-08-25] MEDS: POTAS-SOD-PHOS 280-160-250 MG 1 EACH PACKET PO ONE ×2 (01:04→10:10)
[2024-08-25 01:11] LABS: Glucose,Whole Blood 181 mg/dL (70-110)
[2024-08-25 03:11] LABS: Glucose,Whole Blood 155 mg/dL (70-110)
[2024-08-25 04:00] LABS: African American GFR (CKD) >90 (>60 ml/min/1.73 sqM); Anion Gap 6 mmol/L; Blood Urea Nitrogen <2 mg/dL (7-17); Calcium 8.4 mg/dL (8.4-10.2); Carbon Dioxide 13 mmol/L (22-30); Chloride 116 mmol/L (98-107); Glucose 160 mg/dL (74-99); Non-African American GFR(CKD) >90 (>60 ml/min/1.73 sqM); Phosphorus 2.3 mg/dL (2.5-4.5); Potassium 3.5 mmol/L (3.5-5.1); Sodium 135 mmol/L (137-145)
[2024-08-25 05:24] LABS: Glucose,Whole Blood 193 mg/dL (70-110)
[2024-08-25 07:09] LABS: Glucose,Whole Blood 228 mg/dL (70-110)
[2024-08-25] MEDS: INSULIN DETEMIR (LEVEMIR) 100 UNIT/ML SYR SQ SCH ×2 (07:24→21:14)
[2024-08-25 08:13] LABS: Glucose,Whole Blood 301 mg/dL (70-110)
[2024-08-25] MEDS: INSULIN REGULAR 100 UNIT in SODIUM CHLORIDE 0.9% 100 ML IV SCH (08:27)
[2024-08-25 09:16] LABS: African American GFR (CKD) >90 (>60 ml/min/1.73 sqM); Anion Gap 7 mmol/L; Blood Urea Nitrogen <2 mg/dL (7-17); Calcium 8.3 mg/dL (8.4-10.2); Carbon Dioxide 15 mmol/L (22-30); Chloride 112 mmol/L (98-107); Glucose 263 mg/dL (74-99); Non-African American GFR(CKD) >90 (>60 ml/min/1.73 sqM); Phosphorus 2.1 mg/dL (2.5-4.5); Potassium 3.8 mmol/L (3.5-5.1); Sodium 134 mmol/L (137-145)
[2024-08-25] MEDS: INSULIN ASPART (NovoLOG) 100 UNIT/ML VIAL SQ SCH (10:09)
[2024-08-25] MEDS: SODIUM BICARB 8.4% 50 ML SYR (1 MEQ/ML) IV STA (10:09)
[2024-08-25 10:13] LABS: Glucose,Whole Blood 270 mg/dL (70-110)
--- NOTE | 2024-08-25 11:20 | P.PN ---
Subjective Progress Note Date: 08/25/24 This is a 48-year-old female patient, type I diabetic, coming in for DKA. The patient was utilizing insulin pump and she was switched to a long-acting insulin. Exact dose is not known as the patient is currently encephalopathic and the mother is not aware of her details of her treatment. The patient is coming in with encephalopathy, tachycardia, tachypnea, Kussmaul breathing, severe metabolic acidosis difficult of DKA with a serum bicarb less than 5 and positive acetones. Initial blood sugar was above 600. Potassium level was at 5.5. Sodium level was at 135. The white cell count was 29.9 with a hemoglobin 15.9 and platelet count of 357. The patient was tachycardic, sinus tachycardia with a heart rate of 138. Afebrile. Chest x-ray is free of any acute pulmonary infiltrates. She is currently on room air oxygen. UA is showing positive for glucose and plus for ketones in the serum acetone was also positive. The patient is already received a total of 3 units of IV fluids in the emergency and should be placed on normal saline at rate of 200 cc an hour and insulin drip is running at 7 units an hour. No other history is available. According to the mother, she was encountering some dry heaves and nausea and episodic emesis at home prior to her coming into the hospital. 08/24/2024 the patient is still being treated for DKA. The patient is on D5 half-normal saline at rate of 150 cc an hour. Insulin drip is at 1.2 units an hour. Most recent electrolytes done from this morning shows that the gap is closed. The gap is down to 9. This patient serum bicarb is at 12. Sodium is at 138 and a potassium less than 3.5. White cell count has dropped to 9.5 and he will 12.1 and the patient is awake and alert and communicating. No nausea vomiting or abdominal pain. No altered mentation. Sinus tachycardia is also recovered. On 08/25/2024, the patient is doing well. No specific complaints. Remains on insulin drip which is currently running at 2.5 units an hour. We have not transition this patient to long-acting insulin as the patient serum bicarb remained low at 15. Nevertheless, the gap is at 7. Awake alert and communicating. No hypotension. No tachycardia. No nausea vomiting or abdominal pain. Denies having any other specific complaints otherwise for now. Sodium levels at 134. Objective - Vital Signs Vital signs: Vital Signs Temp 98.0 F 08/25/24 08:00 Pulse 89 08/25/24 08:00 Resp 14 08/25/24 08:00 BP 145/102 08/25/24 08:00 Pulse Ox 99 08/25/24 08:00 FiO2 Intake & Output 08/24/24 08/25/24 08/25/24 18:59 06:59 18:59 Intake Total 4078.708 9270 300 Output Total 950 1575 350 Balance 946.649 465 -50 Weight 68.5 kg 81 kg Intake: IV 1800 1800 300 D5-0.45% NaCl with KCl 1800 1800 300 20Meq/l 1,000 ml @ 150 mls/hr IV .Q6H40M [facility] Rx# :[id number] Intake, IV Titration 96.649 Amount Insulin Regular 100 unit 96.649 In Sodium Chloride 0.9% 100 ml @ 0.1 UNITS/KG/HR 7.101 mls/hr IV .[id number] [facility] Rx#:[id number] Oral 240 Output: Urine 950 1575 350 Other: Voiding Method Indwelling Catheter Indwelling Catheter Indwelling Catheter # Bowel Movements 1 - Exam The patient appears awake and alert and communicating. Head exam is unremarkable. No scleral icterus or corneal arcus noted. Neck is without jugular venous distension, thyromegaly, or carotid bruits. Carotid upstrokes are brisk bilaterally. Lungs are clear to auscultation and percussion. Cardiac exam reveals the PMI to be normally sized and situated. Rhythm sinus . First and second heart sounds normal. No murmurs, rubs or gallops. Abdominal exam reveals normal bowel sounds, no masses, no organomegaly and no aortic enlargement. Extremities are nonedematous and both femoral and pedal pulses are normal. Examination of the skin revealed no evidence of significant rashes, suspicious appearing nevi or other concerning lesions. Neurologically, the patient is awake and alert and the patient does not have any focal neurological deficit. Cranial nerves are essentially intact. - Labs CBC & Chem 7: 08/24/24 12:49 08/25/24 08:47 Labs: Abnormal Lab Results - Last 24 Hours (Table) 08/24/24 08/24/24 08/24/24 Range/Units 09:51 10:59 11:56 Plt Count (150-450) k/uL Sodium (137-145) mmol/L Potassium (3.5-5.1) mmol/L Chloride (98-107) mmol/L Carbon Dioxide (22-30) mmol/L BUN (7-17) mg/dL Creatinine (0.52-1.04) mg/dL Glucose (74-99) mg/dL POC Glucose (mg/dL) 115 H 152 H 190 H (70-110) mg/dL Hemoglobin A1c (<=6.0) % Calcium (8.4-10.2) mg/dL Phosphorus (2.5-4.5) mg/dL 08/24/24 08/24/24 08/24/24 Range/Units 12:49 12:49 13:05 Plt Count 148 L D (150-450) k/uL Sodium (137-145) mmol/L Potassium (3.5-5.1) mmol/L Chloride (98-107) mmol/L Carbon Dioxide (22-30) mmol/L BUN (7-17) mg/dL Creatinine (0.52-1.04) mg/dL Glucose (74-99) mg/dL POC Glucose (mg/dL) 200 H (70-110) mg/dL Hemoglobin A1c 10.9 H (<=6.0) % Calcium (8.4-10.2) mg/dL Phosphorus (2.5-4.5) mg/dL 08/24/24 08/24/24 08/24/24 Range/Units 14:10 14:22 15:00 Plt Count (150-450) k/uL Sodium 134 L (137-145) mmol/L Potassium (3.5-5.1) mmol/L Chloride 114 H (98-107) mmol/L Carbon Dioxide 12 L (22-30) mmol/L BUN 6 L (7-17) mg/dL Creatinine (0.52-1.04) mg/dL Glucose 226 H (74-99) mg/dL POC Glucose (mg/dL) 229 H 265 H (70-110) mg/dL Hemoglobin A1c (<=6.0) % Calcium (8.4-10.2) mg/dL Phosphorus 1.8 L (2.5-4.5) mg/dL 08/24/24 08/24/24 08/24/24 Range/Units 17:00 17:59 18:57 Plt Count (150-450) k/uL Sodium 134 L (137-145) mmol/L Potassium (3.5-5.1) mmol/L Chloride 114 H (98-107) mmol/L Carbon Dioxide 12 L (22-30) mmol/L BUN 4 L (7-17) mg/dL Creatinine (0.52-1.04) mg/dL Glucose 235 H (74-99) mg/dL POC Glucose (mg/dL) 221 H 225 H (70-110) mg/dL Hemoglobin A1c (<=6.0) % Calcium (8.4-10.2) mg/dL Phosphorus 1.7 L (2.5-4.5) mg/dL 08/24/24 08/24/24 08/24/24 Range/Units 20:31 21:28 22:26 Plt Count (150-450) k/uL Sodium (137-145) mmol/L Potassium (3.5-5.1) mmol/L Chloride (98-107) mmol/L Carbon Dioxide (22-30) mmol/L BUN (7-17) mg/dL Creatinine (0.52-1.04) mg/dL Glucose (74-99) mg/dL POC Glucose (mg/dL) 213 H 215 H 204 H (70-110) mg/dL Hemoglobin A1c (<=6.0) % Calcium (8.4-10.2) mg/dL Phosphorus (2.5-4.5) mg/dL 08/24/24 08/24/24 08/25/24 Range/Units 23:20 23:25 01:10 Plt Count (150-450) k/uL Sodium 135 L (137-145) mmol/L Potassium 3.3 L (3.5-5.1) mmol/L Chloride 115 H (98-107) mmol/L Carbon Dioxide 15 L (22-30) mmol/L BUN 3 L (7-17) mg/dL Creatinine 0.49 L (0.52-1.04) mg/dL Glucose 200 H (74-99) mg/dL POC Glucose (mg/dL) 218 H 181 H (70-110) mg/dL Hemoglobin A1c (<=6.0) % Calcium 8.3 L (8.4-10.2) mg/dL Phosphorus 1.6 L (2.5-4.5) mg/dL 08/25/24 08/25/24 08/25/24 Range/Units 03:10 03:16 05:22 Plt Count (150-450) k/uL Sodium 135 L (137-145) mmol/L Potassium (3.5-5.1) mmol/L Chloride 116 H (98-107) mmol/L Carbon Dioxide 13 L (22-30) mmol/L BUN <2 L (7-17) mg/dL Creatinine 0.47 L (0.52-1.04) mg/dL Glucose 160 H (74-99) mg/dL POC Glucose (mg/dL) 155 H 193 H (70-110) mg/dL Hemoglobin A1c (<=6.0) % Calcium (8.4-10.2) mg/dL Phosphorus 2.3 L (2.5-4.5) mg/dL 08/25/24 08/25/24 Range/Units 07:07 08:12 Plt Count (150-450) k/uL Sodium (137-145) mmol/L Potassium (3.5-5.1) mmol/L Chloride (98-107) mmol/L Carbon Dioxide (22-30) mmol/L BUN (7-17) mg/dL Creatinine (0.52-1.04) mg/dL Glucose (74-99) mg/dL POC Glucose (mg/dL) 228 H 301 H (70-110) mg/dL Hemoglobin A1c (<=6.0) % Calcium (8.4-10.2) mg/dL Phosphorus (2.5-4.5) mg/dL Assessment and Plan Plan: Acute DKA with severe anion gap metabolic acidosis, the gap is closed Hyperglycemia secondary to above Type 1 diabetes mellitus, previous treated with insulin pump, currently using long-acting insulin for blood sugar control. Suspect poorly controlled blood sugar on outpatient basis. Sinus tachycardia, recovered Severe dehydration, recovered Acute kidney injury secondary to above, recovered Encephalopathy secondary to above, recovered Leukocytosis, likely reactive secondary to DKA, recovered Hypertension, history of Nephrolithiasis, along with history of lithotripsy and insertion and removal of ureteral stents Plan Give the patient 2 doses of sodium bicarb IV push, total of 100 mEq Stop the insulin drip Transition this patient to long-acting Levemir insulin + scale coverage Monitor electrolytes Provide diet and will continue to follow.
[2024-08-25 11:52] LABS: Glucose,Whole Blood 148 mg/dL (70-110)
--- NOTE | 2024-08-25 13:41 | P.PN ---
Subjective Progress Note Date: 08/25/24 Interval History: Patient is a 48-year-old female with a known history of diabetes type 1, history of renal stones which she passed on her wound, history of UTI and hypertension. Patient presents to ER with complaints of nausea vomiting and generalized pain. Patient started having symptoms nausea and vomiting since Monday. She was on insulin pump previously but currently not using due to incidence cost issues. She has been using subcutaneous insulin long-acting. She is also having increasingly lethargic and weak. Patient was brought to the hospital for further evaluation. Otherwise patient does not have any fever or chills. Was complaining of abdominal pain when she came to the hospital. Patient is quite confused and lethargic and tachycardic and tachypneic. Also having Kussmaul's breathing in the ER. She was found to be in DKA. Started on insulin drip. Laboratory data showed WBC 29.9 hemoglobin 15.9 and platelets 357 ABG showed pH 6.94 pCO2 less than 15 and pO2 142 Sodium 135 potassium 5.5 chloride 101 bicarb less than 5 BUN 18 and creatinine 1.25 and blood sugar 694. Calcium 8.6 and troponin x 1 negative urinalysis showed 4+ glucose and 4+ ketones Acetone positive 08/24/2024: Patient was seen and examined today. Encephalopathy has improved, patient currently alert oriented x 4. Remains afebrile, heart rate 85, respiratory rate 20, blood pressure 134/85, saturating 100% on room air. Complains of nausea and poor appetite. CBC unremarkable today mildly elevated low platelet 148. Monitoring BMP, showed low phosphorus 1.8, potassium 3.9. Anion gap 8, CO2 12. Blood glucose 265. Remains on insulin drip per DKA protocol. 08/25/2024 Patient is afebrile, heart rate 99, respiratory rate 26, blood pressure 161/95, saturating 98% on room air. Patient is feeling better. Appetite is improving. Tolerating p.o. intake., Potassium 3.8, chloride 112, CO2 15, anion gap 7, BUN less than 2, creatinine 0.46. Blood glucose 263. Insulin team switched to Levemir 25 units daily, NovoLog 8 units 3 times daily plus scale. Assessment and plan: DKA: Anion gap metabolic acidosis Acute metabolic encephalopathy: Resolved Type 1 diabetes mellitus: Acute kidney injury: Leukocytosis Tachycardia Hypertension History of nephrolithiasis Plan: Presented with nausea vomiting abdominal pain for 2 days, poor p.o. intake, was cutting back on insulin, was previously on insulin pump, taken off insulin pump about 2 months ago Home insulin regimen included Lantus 25 units daily plus NovoLog sliding scale ranging 30 to 40 units daily total Treated with insulin drip per DKA protocol, anion gap closed, tolerating p.o. intake, switch to Levemir 25 units daily, scheduled Humalog plus scale. Monitor electrolytes, monitor BMP, monitor VBG's Treated with IV fluids. Transitioned to subcutaneous insulin once able to tolerate p.o. intake and anion gap closed. ICU was consulted. DVT prophylaxis: Subcutaneous heparin Monitor vital signs and labs Labs and medication were reviewed. Continue same treatment. Further recommendations as per clinical course of the patient PHYSICAL EXAMINATION: GENERAL: The patient is A&O x3, NAD HEENT: EOMI, Sclerae anicteric, Moist Mucous membranes Neck: Supple, Non tender, No JVD PULMONARY: Equal breath souds B/L, No wheezing, No crackles. CARDIOVASCULAR: S1, S2 present. No murmurs, rubs, or gallops. ABDOMEN: Soft, nontender, nondistended, normoactive bowel sounds. No guarding or rebound tenderness. MUSCULOSKELETAL: No edema, No cyanosis. No clubbing. Normal ROM. Intact peripheral pulses. EXTREMITIES: No cyanosis, clubbing, or pedal edema. NEUROLOGICAL: CN 2-12 grossly intact. No FND Skin: No Rash REVIEW OF SYSTEMS: CONSTITUTIONAL: No fever or chills. CARDIOVASCULAR: No chest pain, palpitations or syncope. PULMONARY: No shortness of breath, no cough, sore throat. GASTROINTESTINAL: No nausea, vomiting, diarrhea, abdominal pain. : No Dysuria, urgency, frequency. Extremities: No edema. NEUROLOGICAL: No headaches, no weakness, or numbness Dictation was produced using [employer] dictation software. please excuse any grammatical, word or spelling errors. Objective - Vital Signs Vital signs: Vital Signs Temp 98.0 F 08/25/24 08:00 Pulse 99 08/25/24 12:00 Resp 26 H 08/25/24 12:00 BP 161/95 08/25/24 12:00 Pulse Ox 98 08/25/24 12:00 FiO2 Intake & Output 08/24/24 08/25/24 08/25/24 18:59 06:59 18:59 Intake Total 5248.002 7335 600 Output Total 950 1575 1125 Balance 946.649 465 -525 Weight 68.5 kg 81 kg Intake: IV 1800 1800 600 D5-0.45% NaCl with KCl 1800 1800 600 20Meq/l 1,000 ml @ 150 mls/hr IV .Q6H40M [facility] Rx# :[id number] Intake, IV Titration 96.649 Amount Insulin Regular 100 unit 96.649 In Sodium Chloride 0.9% 100 ml @ 0.1 UNITS/KG/HR 7.101 mls/hr IV .[id number] [facility] Rx#:[id number] Oral 240 Output: Urine 950 1575 1125 Other: Voiding Method Indwelling Catheter Indwelling Catheter Indwelling Catheter # Bowel Movements 1 1 - Labs CBC & Chem 7: 08/24/24 12:49 08/25/24 08:47 Labs: Abnormal Lab Results - Last 24 Hours (Table) 08/24/24 08/24/24 08/24/24 Range/Units 12:49 14:10 14:22 Sodium 134 L (137-145) mmol/L Potassium (3.5-5.1) mmol/L Chloride 114 H (98-107) mmol/L Carbon Dioxide 12 L (22-30) mmol/L BUN 6 L (7-17) mg/dL Creatinine (0.52-1.04) mg/dL Glucose 226 H (74-99) mg/dL POC Glucose (mg/dL) 229 H (70-110) mg/dL Hemoglobin A1c 10.9 H (<=6.0) % Calcium (8.4-10.2) mg/dL Phosphorus 1.8 L (2.5-4.5) mg/dL 08/24/24 08/24/24 08/24/24 Range/Units 15:00 17:00 17:59 Sodium (137-145) mmol/L Potassium (3.5-5.1) mmol/L Chloride (98-107) mmol/L Carbon Dioxide (22-30) mmol/L BUN (7-17) mg/dL Creatinine (0.52-1.04) mg/dL Glucose (74-99) mg/dL POC Glucose (mg/dL) 265 H 221 H 225 H (70-110) mg/dL Hemoglobin A1c (<=6.0) % Calcium (8.4-10.2) mg/dL Phosphorus (2.5-4.5) mg/dL 08/24/24 08/24/24 08/24/24 Range/Units 18:57 20:31 21:28 Sodium 134 L (137-145) mmol/L Potassium (3.5-5.1) mmol/L Chloride 114 H (98-107) mmol/L Carbon Dioxide 12 L (22-30) mmol/L BUN 4 L (7-17) mg/dL Creatinine (0.52-1.04) mg/dL Glucose 235 H (74-99) mg/dL POC Glucose (mg/dL) 213 H 215 H (70-110) mg/dL Hemoglobin A1c (<=6.0) % Calcium (8.4-10.2) mg/dL Phosphorus 1.7 L (2.5-4.5) mg/dL 08/24/24 08/24/24 08/24/24 Range/Units 22:26 23:20 23:25 Sodium 135 L (137-145) mmol/L Potassium 3.3 L (3.5-5.1) mmol/L Chloride 115 H (98-107) mmol/L Carbon Dioxide 15 L (22-30) mmol/L BUN 3 L (7-17) mg/dL Creatinine 0.49 L (0.52-1.04) mg/dL Glucose 200 H (74-99) mg/dL POC Glucose (mg/dL) 204 H 218 H (70-110) mg/dL Hemoglobin A1c (<=6.0) % Calcium 8.3 L (8.4-10.2) mg/dL Phosphorus 1.6 L (2.5-4.5) mg/dL 08/25/24 08/25/24 08/25/24 Range/Units 01:10 03:10 03:16 Sodium 135 L (137-145) mmol/L Potassium (3.5-5.1) mmol/L Chloride 116 H (98-107) mmol/L Carbon Dioxide 13 L (22-30) mmol/L BUN <2 L (7-17) mg/dL Creatinine 0.47 L (0.52-1.04) mg/dL Glucose 160 H (74-99) mg/dL POC Glucose (mg/dL) 181 H 155 H (70-110) mg/dL Hemoglobin A1c (<=6.0) % Calcium (8.4-10.2) mg/dL Phosphorus 2.3 L (2.5-4.5) mg/dL 08/25/24 08/25/24 08/25/24 Range/Units 05:22 07:07 08:12 Sodium (137-145) mmol/L Potassium (3.5-5.1) mmol/L Chloride (98-107) mmol/L Carbon Dioxide (22-30) mmol/L BUN (7-17) mg/dL Creatinine (0.52-1.04) mg/dL Glucose (74-99) mg/dL POC Glucose (mg/dL) 193 H 228 H 301 H (70-110) mg/dL Hemoglobin A1c (<=6.0) % Calcium (8.4-10.2) mg/dL Phosphorus (2.5-4.5) mg/dL 08/25/24 08/25/24 08/25/24 Range/Units 08:47 10:11 11:51 Sodium 134 L (137-145) mmol/L Potassium (3.5-5.1) mmol/L Chloride 112 H (98-107) mmol/L Carbon Dioxide 15 L (22-30) mmol/L BUN <2 L (7-17) mg/dL Creatinine 0.46 L (0.52-1.04) mg/dL Glucose 263 H (74-99) mg/dL POC Glucose (mg/dL) 270 H 148 H (70-110) mg/dL Hemoglobin A1c (<=6.0) % Calcium 8.3 L (8.4-10.2) mg/dL Phosphorus 2.1 L (2.5-4.5) mg/dL
[2024-08-25 14:00] LABS: Glucose,Whole Blood 222 mg/dL (70-110)
[2024-08-25 16:15] LABS: Glucose,Whole Blood 358 mg/dL (70-110)
[2024-08-25 20:42] LABS: African American GFR (CKD) >90 (>60 ml/min/1.73 sqM); Anion Gap 9 mmol/L; Blood Urea Nitrogen 3 mg/dL (7-17); Carbon Dioxide 19 mmol/L (22-30); Chloride 110 mmol/L (98-107); Glucose 125 mg/dL (74-99); Non-African American GFR(CKD) >90 (>60 ml/min/1.73 sqM); Phosphorus 2.1 mg/dL (2.5-4.5); Potassium 3.2 mmol/L (3.5-5.1); Sodium 138 mmol/L (137-145)
[2024-08-25 20:55] LABS: Glucose,Whole Blood 86 mg/dL (70-110)
[2024-08-26 02:05] LABS: Glucose,Whole Blood 52 mg/dL (70-110)
[2024-08-26 02:39] LABS: Glucose,Whole Blood 81 mg/dL (70-110)
[2024-08-26 06:09] LABS: Basophils % (A) 1 %; Eosinophils # (A) 0.1 k/uL (0-0.7); Eosinophils % (A) 1 %; HCT 40.2 % (34.0-46.0); HGB 13.4 gm/dL (11.4-16.0); Lymphocytes # (A) 2.2 k/uL (1.0-4.8); Lymphocytes % (A) 32 %; MCH 31.2 pg (25.0-35.0); MCHC 33.2 g/dL (31.0-37.0); Mean Platelet Volume 9.2; Monocytes # (A) 0.3 k/uL (0-1.0); Monocytes % (A) 5 %; Neutrophils # (A) 4.1 k/uL (1.3-7.7); Neutrophils % (A) 60 %; Platelet Count 156 k/uL (150-450); RBC 4.28 m/uL (3.80-5.40); WBC 6.9 k/uL (3.8-10.6)
[2024-08-26 06:19] LABS: MCV 93.9 fL (80.0-100.0)
[2024-08-26 06:34] LABS: African American GFR (CKD) >90 (>60 ml/min/1.73 sqM); Anion Gap 12 mmol/L; Blood Urea Nitrogen 2 mg/dL (7-17); Calcium 8.8 mg/dL (8.4-10.2); Carbon Dioxide 22 mmol/L (22-30); Chloride 104 mmol/L (98-107); Glucose 52 mg/dL (74-99); Non-African American GFR(CKD) >90 (>60 ml/min/1.73 sqM); Potassium 3.4 mmol/L (3.5-5.1); Sodium 138 mmol/L (137-145)
[2024-08-26] MEDS: POTASSIUM CHLORIDE ER 20 MEQ TAB.ER PO SCH (07:02)
[2024-08-26 08:11] LABS: Glucose,Whole Blood 133 mg/dL (70-110)
[2024-08-26 08:36] LABS: Glucose,Whole Blood >600 mg/dL (70-110)
[2024-08-26 09:25] LABS: Glucose,Whole Blood 203 mg/dL (70-110)
[2024-08-26 11:47] LABS: Glucose,Whole Blood 241 mg/dL (70-110)
[2024-08-26 11:50] VITALS: BMI 26.6
[2024-08-26] MEDS: DOXYCYCLINE 100 MG CAP PO SCH (11:55)
--- NOTE | 2024-08-26 12:10 | P.PN ---
Subjective Progress Note Date: 08/26/24 Principal diagnosis: Acute DKA This is a 48-year-old female patient, type I diabetic, coming in for DKA. The patient was utilizing insulin pump and she was switched to a long-acting insulin. Exact dose is not known as the patient is currently encephalopathic and the mother is not aware of her details of her treatment. The patient is coming in with encephalopathy, tachycardia, tachypnea, Kussmaul breathing, severe metabolic acidosis difficult of DKA with a serum bicarb less than 5 and positive acetones. Initial blood sugar was above 600. Potassium level was at 5.5. Sodium level was at 135. The white cell count was 29.9 with a hemoglobin 15.9 and platelet count of 357. The patient was tachycardic, sinus tachycardia with a heart rate of 138. Afebrile. Chest x-ray is free of any acute pulmonary infiltrates. She is currently on room air oxygen. UA is showing positive for glucose and plus for ketones in the serum acetone was also positive. The patient is already received a total of 3 units of IV fluids in the emergency and should be placed on normal saline at rate of 200 cc an hour and insulin drip is running at 7 units an hour. No other history is available. According to the mother, she was encountering some dry heaves and nausea and episodic emesis at home prior to her coming into the hospital. 08/24/2024 the patient is still being treated for DKA. The patient is on D5 half-normal saline at rate of 150 cc an hour. Insulin drip is at 1.2 units an hour. Most recent electrolytes done from this morning shows that the gap is closed. The gap is down to 9. This patient serum bicarb is at 12. Sodium is at 138 and a potassium less than 3.5. White cell count has dropped to 9.5 and he will 12.1 and the patient is awake and alert and communicating. No nausea vomiting or abdominal pain. No altered mentation. Sinus tachycardia is also recovered. On 08/25/2024, the patient is doing well. No specific complaints. Remains on insulin drip which is currently running at 2.5 units an hour. We have not transition this patient to long-acting insulin as the patient serum bicarb remained low at 15. Nevertheless, the gap is at 7. Awake alert and communicating. No hypotension. No tachycardia. No nausea vomiting or abdominal pain. Denies having any other specific complaints otherwise for now. Sodium levels at 134. Patient was admitted to the on 08/26/2024, patient is doing well, remains in the ICU for acute presentation of diabetic ketoacidosis. Patient is now on sliding scale coverage using NovoLog insulin she is also on Levemir insulin. No evidence of anion gap, patient is sitting in the chair, does not seem to be in any distress. Labs were all reviewed today,Normal CBC is noted normal electrolytes except for potassium being a bit low at 3.4, being addressed as per protocol. Blood sugar is 203 and calcium is 8.8. Plan is to transfer the patient today to a medical surgical floor. And could be considered for discha rge planning Objective - Vital Signs Vital signs: Vital Signs Temp 97.5 F L 08/26/24 08:00 Pulse 94 08/26/24 10:00 Resp 18 08/26/24 10:00 BP 149/104 08/26/24 10:00 Pulse Ox 98 08/26/24 10:00 FiO2 Intake & Output 08/25/24 08/26/24 08/26/24 18:59 06:59 18:59 Intake Total 600 1800 300 Output Total 1900 Balance -1300 1800 300 Weight 66.1 kg 66.1 kg Intake: IV 600 D5-0.45% NaCl with KCl 600 20Meq/l 1,000 ml @ 150 mls/hr IV .Q6H40M [facility] Rx# :[id number] Oral 1800 300 Output: Urine 1900 Other: Voiding Method Toilet Toilet Toilet # Voids 1 0 3 # Bowel Movements 1 - Exam General: Revealed 48-year-old female pleasant in no distress Head exam is unremarkable. No scleral icterus or corneal arcus noted. Neck is without jugular venous distension, thyromegaly, or carotid bruits. Carotid upstrokes are brisk bilaterally. Lungs clear throughout no crackles rhonchi or wheezes Cardiac normal S1-S2, no S3 gallop, no murmur Abdominal exam reveals normal bowel sounds, no masses, no organomegaly and no aortic enlargement. Extremities are nonedematous and both femoral and pedal pulses are normal. Examination of the skin, revealed no rashes Neurologically, alert oriented x 3 no gross focal deficits Psychiatric: Normal mood affect and no mental status examination - Labs CBC & Chem 7: 08/26/24 05:38 08/26/24 05:29 Labs: Abnormal Lab Results - Last 24 Hours (Table) 08/23/24 08/25/24 08/25/24 Range/Units 08:38 13:59 16:13 Potassium (3.5-5.1) mmol/L Chloride (98-107) mmol/L Carbon Dioxide (22-30) mmol/L BUN (7-17) mg/dL Creatinine (0.52-1.04) mg/dL Glucose (74-99) mg/dL POC Glucose (mg/dL) >600 H* 222 H 358 H (70-110) mg/dL Phosphorus (2.5-4.5) mg/dL 08/25/24 08/26/24 08/26/24 Range/Units 20:07 02:04 05:29 Potassium 3.2 L 3.4 L (3.5-5.1) mmol/L Chloride 110 H (98-107) mmol/L Carbon Dioxide 19 L (22-30) mmol/L BUN 3 L 2 L (7-17) mg/dL Creatinine 0.50 L 0.46 L (0.52-1.04) mg/dL Glucose 125 H 52 L (74-99) mg/dL POC Glucose (mg/dL) 52 L (70-110) mg/dL Phosphorus 2.1 L (2.5-4.5) mg/dL 08/26/24 08/26/24 08/26/24 Range/Units 08:08 09:24 11:46 Potassium (3.5-5.1) mmol/L Chloride (98-107) mmol/L Carbon Dioxide (22-30) mmol/L BUN (7-17) mg/dL Creatinine (0.52-1.04) mg/dL Glucose (74-99) mg/dL POC Glucose (mg/dL) 133 H 203 H 241 H (70-110) mg/dL Phosphorus (2.5-4.5) mg/dL Assessment and Plan Assessment: Impression: Acute diabetic ketoacidosis, resolved Type 1 diabetes Acute kidney injury secondary to dehydration, resolved Acute metabolic encephalopathy, recovered Benign essential hypertension History of nephrolithiasis Recommendation: Continue present treatment plan Continue sliding scale insulin/using NovoLog insulin Continue Levemir insulin Address low potassium as per protocol Transfer patient to the medical surgical floor. Patient advised to make sure that she follows up with the chip tuner after discharge Time with Patient: Less than 30
--- NOTE | 2024-08-26 16:18 | P.PN ---
Subjective Progress Note Date: 08/26/24 Interval History: Patient is a 48-year-old female with a known history of diabetes type 1, history of renal stones which she passed on her wound, history of UTI and hypertension. Patient presents to ER with complaints of nausea vomiting and generalized pain. Patient started having symptoms nausea and vomiting since Monday. She was on insulin pump previously but currently not using due to incidence cost issues. She has been using subcutaneous insulin long-acting. She is also having increasingly lethargic and weak. Patient was brought to the hospital for further evaluation. Otherwise patient does not have any fever or chills. Was complaining of abdominal pain when she came to the hospital. Patient is quite confused and lethargic and tachycardic and tachypneic. Also having Kussmaul's breathing in the ER. She was found to be in DKA. Started on insulin drip. Laboratory data showed WBC 29.9 hemoglobin 15.9 and platelets 357 ABG showed pH 6.94 pCO2 less than 15 and pO2 142 Sodium 135 potassium 5.5 chloride 101 bicarb less than 5 BUN 18 and creatinine 1.25 and blood sugar 694. Calcium 8.6 and troponin x 1 negative urinalysis showed 4+ glucose and 4+ ketones Acetone positive 08/24/2024: Patient was seen and examined today. Encephalopathy has improved, patient currently alert oriented x 4. Remains afebrile, heart rate 85, respiratory rate 20, blood pressure 134/85, saturating 100% on room air. Complains of nausea and poor appetite. CBC unremarkable today mildly elevated low platelet 148. Monitoring BMP, showed low phosphorus 1.8, potassium 3.9. Anion gap 8, CO2 12. Blood glucose 265. Remains on insulin drip per DKA protocol. 08/25/2024 Patient is afebrile, heart rate 99, respiratory rate 26, blood pressure 161/95, saturating 98% on room air. Patient is feeling better. Appetite is improving. Tolerating p.o. intake., Potassium 3.8, chloride 112, CO2 15, anion gap 7, BUN less than 2, creatinine 0.46. Blood glucose 263. Insulin team switched to Levemir 25 units daily, NovoLog 8 units 3 times daily plus scale. 08/26/24 Patient was seen and examined today. Hepatitis improving. Tolerating p.o. intake. Blood sugar was low earlier today. Will monitor closely. Patient had left groin abscess, ruptured spontaneously, started on p.o. doxycycline. Assessment and plan: DKA: Anion gap metabolic acidosis Acute metabolic encephalopathy: Resolved Type 1 diabetes mellitus: Acute kidney injury: Leukocytosis Tachycardia Hypertension History of nephrolithiasis Left groin abscessstatus post spontaneous drainage Plan: Presented with nausea vomiting abdominal pain for 2 days, poor p.o. intake, was cutting back on insulin, was previously on insulin pump, taken off insulin pump about 2 months ago Home insulin regimen included Lantus 25 units daily plus NovoLog sliding scale ranging 30 to 40 units daily total Treated with insulin drip per DKA protocol, anion gap closed, tolerating p.o. intake, switch to Levemir 25 units daily, scheduled Humalog plus scale. Monitor electrolytes, monitor BMP, monitor VBG's Treated with IV fluids. Transitioned to subcutaneous insulin ICU was consulted. Doxycycline for left groin abscess DVT prophylaxis: Subcutaneous heparin Monitor vital signs and labs Labs and medication were reviewed. Continue same treatment. Further recommendations as per clinical course of the patient PHYSICAL EXAMINATION: GENERAL: The patient is A&O x3, NAD HEENT: EOMI, Sclerae anicteric, Moist Mucous membranes Neck: Supple, Non tender, No JVD PULMONARY: Equal breath souds B/L, No wheezing, No crackles. CARDIOVASCULAR: S1, S2 present. No murmurs, rubs, or gallops. ABDOMEN: Soft, nontender, nondistended, normoactive bowel sounds. No guarding or rebound tenderness. MUSCULOSKELETAL: No edema, No cyanosis. No clubbing. Normal ROM. Intact peripheral pulses. EXTREMITIES: No cyanosis, clubbing, or pedal edema. NEUROLOGICAL: CN 2-12 grossly intact. No FND Skin: No Rash REVIEW OF SYSTEMS: CONSTITUTIONAL: No fever or chills. CARDIOVASCULAR: No chest pain, palpitations or syncope. PULMONARY: No shortness of breath, no cough, sore throat. GASTROINTESTINAL: No nausea, vomiting, diarrhea, abdominal pain. : No Dysuria, urgency, frequency. Extremities: No edema. NEUROLOGICAL: No headaches, no weakness, or numbness Dictation was produced using [employer] dictation software. please excuse any grammatical, word or spelling errors. Objective - Vital Signs Vital signs: Vital Signs Temp 97.5 F L 08/26/24 08:00 Pulse 87 11/11/24 12:00 Resp 18 08/26/24 10:00 BP 148/99 08/26/24 12:00 Pulse Ox 99 08/26/24 12:00 FiO2 Intake & Output 08/25/24 08/26/24 08/26/24 18:59 06:59 18:59 Intake Total 600 1800 500 Output Total 1900 Balance -1300 1800 500 Weight 66.1 kg 66.1 kg Intake: IV 600 D5-0.45% NaCl with KCl 600 20Meq/l 1,000 ml @ 150 mls/hr IV .Q6H40M [facility] Rx# :[id number] Oral 1800 500 Output: Urine 1900 Other: Voiding Method Toilet Toilet Toilet # Voids 1 0 2 # Bowel Movements 1 - Labs CBC & Chem 7: 08/26/24 05:38 08/26/24 05:29 Labs: Abnormal Lab Results - Last 24 Hours (Table) 08/23/24 08/25/24 08/25/24 Range/Units 08:38 16:13 20:07 Potassium 3.2 L (3.5-5.1) mmol/L Chloride 110 H (98-107) mmol/L Carbon Dioxide 19 L (22-30) mmol/L BUN 3 L (7-17) mg/dL Creatinine 0.50 L (0.52-1.04) mg/dL Glucose 125 H (74-99) mg/dL POC Glucose (mg/dL) >600 H* 358 H (70-110) mg/dL Phosphorus 2.1 L (2.5-4.5) mg/dL 08/26/24 08/26/24 08/26/24 Range/Units 02:04 05:29 08:08 Potassium 3.4 L (3.5-5.1) mmol/L Chloride (98-107) mmol/L Carbon Dioxide (22-30) mmol/L BUN 2 L (7-17) mg/dL Creatinine 0.46 L (0.52-1.04) mg/dL Glucose 52 L (74-99) mg/dL POC Glucose (mg/dL) 52 L 133 H (70-110) mg/dL Phosphorus (2.5-4.5) mg/dL 08/26/24 08/26/24 Range/Units 09:24 11:46 Potassium (3.5-5.1) mmol/L Chloride (98-107) mmol/L Carbon Dioxide (22-30) mmol/L BUN (7-17) mg/dL Creatinine (0.52-1.04) mg/dL Glucose (74-99) mg/dL POC Glucose (mg/dL) 203 H 241 H (70-110) mg/dL Phosphorus (2.5-4.5) mg/dL
[2024-08-26 16:22] LABS: Glucose,Whole Blood 128 mg/dL (70-110)
[2024-08-26 19:53] LABS: Glucose,Whole Blood 158 mg/dL (70-110)
[2024-08-26] MEDS: lisinopriL 10 MG TAB PO SCH (23:58)
[2024-08-27 02:24] LABS: Glucose,Whole Blood 64 mg/dL (70-110)
[2024-08-27 02:28] VITALS: TEMP 98
[2024-08-27 02:50] LABS: Glucose,Whole Blood 82 mg/dL (70-110)
[2024-08-27 06:11] LABS: Glucose,Whole Blood 70 mg/dL (70-110)
[2024-08-27 11:27] LABS: Glucose,Whole Blood 372 mg/dL (70-110)
[2024-08-27 11:36] VITALS: BP 119/82; PULSE 99; RESP 16
--- NOTE | 2024-08-27 13:12 | P.PN ---
Subjective Progress Note Date: 08/27/24 Principal diagnosis: Acute DKA This is a 48-year-old female patient, type I diabetic, coming in for DKA. The patient was utilizing insulin pump and she was switched to a long-acting insulin. Exact dose is not known as the patient is currently encephalopathic and the mother is not aware of her details of her treatment. The patient is coming in with encephalopathy, tachycardia, tachypnea, Kussmaul breathing, severe metabolic acidosis difficult of DKA with a serum bicarb less than 5 and positive acetones. Initial blood sugar was above 600. Potassium level was at 5.5. Sodium level was at 135. The white cell count was 29.9 with a hemoglobin 15.9 and platelet count of 357. The patient was tachycardic, sinus tachycardia with a heart rate of 138. Afebrile. Chest x-ray is free of any acute pulmonary infiltrates. She is currently on room air oxygen. UA is showing positive for glucose and plus for ketones in the serum acetone was also positive. The patient is already received a total of 3 units of IV fluids in the emergency and should be placed on normal saline at rate of 200 cc an hour and insulin drip is running at 7 units an hour. No other history is available. According to the mother, she was encountering some dry heaves and nausea and episodic emesis at home prior to her coming into the hospital. 08/24/2024 the patient is still being treated for DKA. The patient is on D5 half-normal saline at rate of 150 cc an hour. Insulin drip is at 1.2 units an hour. Most recent electrolytes done from this morning shows that the gap is closed. The gap is down to 9. This patient serum bicarb is at 12. Sodium is at 138 and a potassium less than 3.5. White cell count has dropped to 9.5 and he will 12.1 and the patient is awake and alert and communicating. No nausea vomiting or abdominal pain. No altered mentation. Sinus tachycardia is also recovered. On 08/25/2024, the patient is doing well. No specific complaints. Remains on insulin drip which is currently running at 2.5 units an hour. We have not transition this patient to long-acting insulin as the patient serum bicarb remained low at 15. Nevertheless, the gap is at 7. Awake alert and communicating. No hypotension. No tachycardia. No nausea vomiting or abdominal pain. Denies having any other specific complaints otherwise for now. Sodium levels at 134. Patient was admitted to the on 08/26/2024, patient is doing well, remains in the ICU for acute presentation of diabetic ketoacidosis. Patient is now on sliding scale coverage using NovoLog insulin she is also on Levemir insulin. No evidence of anion gap, patient is sitting in the chair, does not seem to be in any distress. Labs were all reviewed today,Normal CBC is noted normal electrolytes except for potassium being a bit low at 3.4, being addressed as per protocol. Blood sugar is 203 and calcium is 8.8. Plan is to transfer the patient today to a medical surgical floor. And could be considered for discha rge planning Patient was seen today on 08/27/2024, doing well, asymptomatic, she is on NovoLog insulin as per sliding scale she is also on Levemir insulin, patient does not seem to be in any distress, she is an overflow in the ICU, and I will clear the patient for possible discharge home today Objective - Vital Signs Vital signs: Vital Signs Temp 98.0 F 08/27/24 08:00 Pulse 99 08/27/24 08:00 Resp 16 08/27/24 08:00 BP 119/82 08/27/24 08:00 Pulse Ox 97 08/27/24 02:00 FiO2 Intake & Output 08/26/24 08/27/24 08/27/24 18:59 06:59 18:59 Intake Total 500 750 Balance 500 750 Weight 66.1 kg 68.9 kg Intake: Oral 500 750 Other: Voiding Method Toilet Toilet Toilet # Voids 2 1 - Exam General: Revealed 48-year-old female pleasant in no distress Head exam is unremarkable. No scleral icterus or corneal arcus noted. Neck is without jugular venous distension, thyromegaly, or carotid bruits. Carotid upstrokes are brisk bilaterally. Lungs clear throughout no crackles rhonchi or wheezes Cardiac normal S1-S2, no S3 gallop, no murmur Abdominal exam reveals normal bowel sounds, no masses, no organomegaly and no aortic enlargement. Extremities are nonedematous and both femoral and pedal pulses are normal. Examination of the skin, revealed no rashes Neurologically, alert oriented x 3 no gross focal deficits Psychiatric: Normal mood affect and no mental status examination - Labs CBC & Chem 7: 08/26/24 05:38 08/26/24 05:29 Labs: Abnormal Lab Results - Last 24 Hours (Table) 08/26/24 08/26/24 08/27/24 Range/Units 16:21 19:52 02:22 POC Glucose (mg/dL) 128 H 158 H 64 L (70-110) mg/dL 08/27/24 Range/Units 11:25 POC Glucose (mg/dL) 372 H (70-110) mg/dL Assessment and Plan Assessment: Impression: Acute diabetic ketoacidosis, resolved Type 1 diabetes Acute kidney injury secondary to dehydration, resolved Acute metabolic encephalopathy, recovered Benign essential hypertension History of nephrolithiasis Recommendation: Continue present treatment plan Continue sliding scale insulin/using NovoLog insulin Continue Levemir insulin Will clear the patient for discharge if cleared by her admitting physician. Time with Patient: Less than 30
== END 2024-08-27 14:45 | disposition home or self-care (01) | DRG 637 ==
LOC: EC 07:30 → 2SICU 10:58
PROVIDERS: ADMIT Internal Medicine; ATTEND Internal Medicine
DX: E10.10 Type 1 diabetes mellitus with ketoacidosis without coma (principal); G93.41 Metabolic encephalopathy; N17.0 Acute kidney failure with tubular necrosis; L02.214 Cutaneous abscess of groin; Z79.4 Long term (current) use of insulin; K75.9 Inflammatory liver disease, unspecified; I10 Essential (primary) hypertension; E86.0 Dehydration; Z87.440 Personal history of urinary (tract) infections; Z91.190 Patient's noncompliance with other medical treatment and regimen due to financial hardship
CPT/HCPCS: 36415; 36600; 51702; 71046; 80048; 80051; 81001; 81003; 82009; 82150; 82565; 82805; 82947; 83036; 83690; 84100; 84484; 84520; 85025; 93005; 96361; 96374; 99291

== ENCOUNTER → 2024-09-06 | Outpatient (CLI) | payer BC ==
--- NOTE | 2024-09-06 14:01 | XR ---
EXAMINATION TYPE: XR chest 2V DATE OF EXAM: 09/06/2024 1:40 PM COMPARISON: None CLINICAL INDICATION: Female, 48 years old with history of R06.02 SHORTNESS OF BREATH; [facility] TECHNIQUE: XR chest 2V Frontal and lateral views of the chest. FINDINGS: Lungs/Pleura: There is no evidence of pleural effusion, focal consolidation, or pneumothorax. Pulmonary vascularity: Unremarkable. Heart/mediastinum: Cardiomediastinal silhouette is unremarkable. Musculoskeletal: No acute osseous pathology. Other findings: None IMPRESSION: No acute cardiopulmonary disease/process. [facility], , 09/06/2024 1:59 PM
== END | disposition home or self-care (01) ==
LOC: RADXRMAIN 13:30
PROVIDERS: ATTEND Internal Medicine Geriatric Medicine
DX: R06.02 Shortness of breath (principal)
CPT/HCPCS: 71046